=== PATIENT | female | born 1945 | race Caucasian/White ===

== ENCOUNTER → 2018-03-14 15:36 | Outpatient (CLI) | payer MEDICARE, SELFPAY ==
[2018-03-14 18:14] LABS: T4 Free Direct 1.09 ng/dL (0.76-1.46); Thyroid Stim Hormone (TSH) 0.64 uIU/mL (0.358-3.74)
== END ==
PROVIDERS: Family Provider Family Medicine; PCP Family Medicine; Visit Provider Family Medicine
DX: E04.1 Nontoxic single thyroid nodule (principal)
CPT/HCPCS: 84439; 84443

== ENCOUNTER → 2018-03-17 14:17 | Outpatient (CLI) | payer MEDICARE, SELFPAY ==
--- NOTE | 2018-03-17 14:24 | US_ITS ---
STUDY: THYROID ULTRASOUND REASON FOR EXAM: Female, 72 years old. Nodule TECHNIQUE: Ultrasound evaluation of the thyroid was performed with real-time and static garcia-scale imaging. COMPARISON: None. FINDINGS: RIGHT LOBE: The right lobe of the thyroid gland measures 5.3 x 2.0 x 1.4 cm. There is a heterogeneous echotexture. Multiple cysts noted in the right lobe, largest measures 1 x 0.6 x 0.6 cm. LEFT LOBE: The left lobe of the thyroid gland measures 5.4 x 1.5 x 1.1 cm. There is a heterogeneous echotexture. Multiple hypoechoic solid nodules noted, largest measures 0.9 x 0.9 x 0.6. ISTHMUS: The isthmus measures 3 mm. There are 2 solid isthmus nodules, larger measures 1.7 x 1.4 x 1.0 cm, smaller 0.9 x 0.9 x 0.6 cm. The regional lymph nodes are normal. US/Thyroid IMPRESSION: Enlarged heterogeneous thyroid gland with multiple solid nodules in the left lobe and isthmus. Since there are no previous studies available for comparison, further evaluation with thyroid uptake study is recommended to assess the uptake characteristics of the nodules. Multiple cysts noted in the right thyroid lobe. Electronically Signed: Abelino Ruiz MD at 8:51 EDT , Service support ,
== END ==
PROVIDERS: Family Provider Family Medicine; PCP Family Medicine; Visit Provider Family Medicine
DX: E04.1 Nontoxic single thyroid nodule (principal)
CPT/HCPCS: 76536

== ENCOUNTER 2018-05-23 10:00 | Outpatient (RCR) | payer MEDICARE, SELFPAY ==
--- NOTE | 2018-04-17 14:25 | HP.PTEVAL_ITS ---
Patient's Visit Information SALMA GONZALEZ is a 72 year old F referred to Physical Therapy by Neil Dee DO with a diagnosis of S/P Bilateral posterior hemilaminectomy L1-4, fusion L2 -3. Date of Evaluation: 04/17/18 Physical Therapist: Jama Ricks PT, - Visit Plan Frequency: 2x /Week Duration: 4 Weeks Plan: Nustep for endurance. Progressive exercise starting in hooklying or supine position. Add knee to chest stretches, hip flexor, and hamstring stretches. S/P Bilateral posterior hemilaminectomy L1-4, fusion L2-3. Per script, begin lumbar isometrics, advance ROM as tolerated after 3 weeks, wean from brace. - Subjective Subjective: This 72 y/o female presents to [facility] for s/p Bilertal posterior hemilaminectomy L1-4 and Fusion L2-3 with bone graft on 03/31/18. Pt had surgery performed at [place] [facility] by Dr. Manuel Dee. She was in the hospital for 3 days and discharged to home. She had no home health therapy. Before surgery, she had numbness/tingling and weakness in the L LE. Pt without history of falling. She had two bouts of therapy in the past year and a half to avoid surgery and this helped some. She used no device for ambulation before surgery. Functional status: difficult with sit to stand but independent, gait distance: 200 feet w/ 2WW. She has a ramp at home and lives on single level. Occupation/hobbies: would like to resume [employer] dancing in future. SOCIAL: - Pain L LE radicular Pain Intensity (Out of 10): 5 Pain Intensity Range: 10 - Objective OBSERVATION: wearing back brace, incision clean and dry with some scabbing at the inferior portion, forward flexed at hips. NEURO: Sensation intact to light touch. Patellar and achilles DTR 1+. Myotomes-see below. GAIT: ambulating with 2WW, lacking hip extension with terminal stance, slow alma. ROM: Lumbar: flexion 50% limited, Extension 75% limited. STRENGTH: R hip flexion 3+/5, Knee extension 4/5. L hip flexion 4-/5, knee extension 4/5. B ankle DF, great toe ext , and knee flexion 5/5. Flexibility: Bronson test positive bilaterally, hamstrings: Mild tight on the right side and moderate on the left. - Goals Goal 1:: Pt will demonstrate lumbar AROM with 25% limitation in all planes to improve functional mobility with self care tasks. Goal Time Frame: 4-6 Weeks Goal 2:: Ambulate with device with improved quality of gait community distances Goal Time Frame: 4-6 Weeks Goal 3:: Pt will demonstrate gross B LE strength of 4+/5 to improve strength with functional mobility. Goal Time Frame: 4-6 Weeks Goal 4:: Pt will perform ADL'S and housework tasks with min limitations maintaining posture Goal Time Frame: 4-6 Weeks Goal 5:: Pt will be independent with HEP to sustain gains made in therapy. Goal Time Frame: 4-6 Weeks - Rehabilitation Potential Physical Therapy Diagnosis: PT is 72 y/o female s/p bilateral posterior hemilaminectomy L1-4, fusion L2-[address] Dee on 03/31/18. She has a long history of L LE numbness and weakness before surgery. Objective testing shows that she is lacking lumbar ROM (as expected after surgery), decreased hip mobility, and LE weakness. She is having activity restrictions with her ambulation distance, and difficulty with functional transfers. She is having limited participation with her community ambulation and completing her hobbies. Pt's potential for an ideal outcome is good but may be limited due the chronicity of weakness prior to surgery. Pt will benefit from skilled PT to address the above impairments to maximize pt's functional potential. Rehabilitation Potential: Good - Anticipated Interventions Patient/Client Instruction: Educate patient on: Condition, Plan of Care For the Purpose of:: To decrease pain, To increase ROM, To improve muscle performance and motor function, To improve ability to perform ADL's, To increase tolerance to activity/condition/position, To improve performance and independence with ADL's, To improve ability of physical actions for home/ community/work/leisure, To increase flexibility/ROM, To improve endurance, To improve balance Therapeutic Exercise to Include: Strength training, Endurance training, Balance training, Body mechanics, Postural training, Flexibilty training, Gait and locomotor training, Active ROM, Dynamic Lumbar Stabilization For the Purpose of:: To decrease pain, To increase ROM, To improve muscle performance and motor function, To improve ability to perform ADL's, To increase tolerance to activity/condition/position, To improve performance and independence with ADL's, To improve ability of physical actions for home/ community/work/leisure, To improve gait and locomotor functions, To decrease soft tissue restriction, To increase flexibility/ROM, To improve endurance, To improve balance, To assume or resume ADL's Cryotherapy (ice pack, ice massage): Yes Thermo therapy (hot pack): Yes For the Purpose of:: To decrease pain, To increase ROM, To improve muscle performance and motor function, To improve ability to perform ADL's, To decrease soft tissue restriction, To increase flexibility/ROM Thank you for the opportunity to evaluate your patient. For Medicare and Medicare HMO plans, please review the plan of care and approve it. It will need to be FAXED BACK to us at [phone] for Medicare purposes. Please let me know if there are questions or concerns regarding this plan of care. Physician Signature: Date:
--- NOTE | 2018-10-20 10:55 | HP.PT.NRP ---
HP - Discharge Summary (1) - Patient Information SALMA GONZALEZ was seen in my office for initial evaluation on 04/17/18. The following Plan of Care was established for this patient: Initial Frequency: 2x /Week Initial Duration: 4 Weeks - Anticipated Interventions Patient/Client Instruction: Educate patient on: Condition, Plan of Care For the Purpose of:: To decrease pain, To increase ROM, To improve muscle performance and motor function, To improve ability to perform ADL's, To increase tolerance to activity/condition/position, To improve performance and independence with ADL's, To improve ability of physical actions for home/community/work/leisure, To increase flexibility/ROM, To improve endurance, To improve balance Therapeutic Exercise to Include: Strength training, Endurance training, Balance training, Body mechanics, Postural training, Flexibilty training, Gait and locomotor training, Active ROM, Dynamic Lumbar Stabilization For the Purpose of:: To decrease pain, To increase ROM, To improve muscle performance and motor function, To improve ability to perform ADL's, To increase tolerance to activity/condition/position, To improve performance and independence with ADL's, To improve ability of physical actions for home/community/work/leisure, To improve gait and locomotor functions, To decrease soft tissue restriction, To increase flexibility/ROM, To improve endurance, To improve balance, To assume or resume ADL's Cryotherapy (ice pack, ice massage): Yes Thermo therapy (hot pack): Yes For the Purpose of:: To decrease pain, To increase ROM, To improve muscle performance and motor function, To improve ability to perform ADL's, To decrease soft tissue restriction, To increase flexibility/ROM This patient was last seen in our office 05/23/18. Pertinent comments regarding their Physical therapy will appear below: Patient was seen for PT following lumbar surgery but patient pain presisted thus underwent further diagnostics and return to MD At this point I will be discontinuing this patient from physical therapy. I would be happy to see this patient again in the future if found appropriate by the physician. Thank you! Jama Ricks, PT,
== END 2018-05-23 19:00 | disposition home or self-care (01) ==
LOC: PT 10:00
PROVIDERS: Family Provider Family Medicine; PCP Family Medicine; Visit Provider Orthopaedic Surgery
DX: M48.062 Spinal stenosis, lumbar region with neurogenic claudication (principal)
CPT/HCPCS: 97110; 97162; 97530

== ENCOUNTER 2018-05-27 17:32 | Inpatient (IN) | payer MEDICARE, SELFPAY ==
[2018-05-27 17:33] VITALS: BP 156/99; PULSE 67; RESP 14; TEMP 36.6; O2SAT 97; BMI 29.6
[2018-05-27] MEDS: 0.9% Normal Saline 1,000 ML 150 ML IV (19:31)
[2018-05-27 19:32] VITALS: BP 176/85
[2018-05-27] MEDS: Ondansetron 4 MG/2 ML Vial IV (19:40)
[2018-05-27] MEDS: HYDROmorphone 1 MG/ML Syringe IV (19:40)
[2018-05-27 19:46] LABS: Absolute Lymphocyte Count 2.27 X10^3/ul (0.83-4.51); Absolute Neutrophil Count 8.9 X10^3/uL (2.0-7.7); Basophil# 0.05 X10^3/uL; Basophil% 0.4 % (0-1); Eosinophil# 0.15 X10^3/uL; Eosinophils% 1.2 % (0-5); Hematocrit 46.3 % (37-47); Hemoglobin 15.8 g/dl (12.0-15.0); Lymphocyte # 2.27 X10^3/ul (4.0); Mean Corp Hgb Conc 34.1 g/gl (32-36); Mean Corpuscular Hgb 32.1 pg (27.0-32.0); Mean Corpuscular Volume 94.1 fL (81-99); Monocyte# 1.17 X10^3/uL; Monocyte% 9.3 % (0-10); Neutrophil # 8.93 X10^3/uL (2.7-7.7); Neutrophil % 70.9 % (47-70); Platelet Count 367 K/mm3 (150-450); RBC Distribution Width CV 12.6 % (11.6-14.6); RBC Distribution Width SD 42.6 fl (35.1-43.9); Red Blood Count 4.92 M/mm3 (4.2-5.4); White Blood Count 12.6 K/mm3 (4.4-11.0)
[2018-05-27 19:47] LABS: POSITIVE COUNT NO; POSITIVE DIFFERENTIAL NO; POSITIVE MORPHOLOGY NO
[2018-05-27 19:54] LABS: Anion Gap 8 (5-15); BUN 12 mg/dL (7-18); BUN/Creat Ratio 16.4 RATIO (10-20); Calcium,Total 9.7 mg/dL (8.5-10.1); Chloride 101 mmol/L (98-107); Creatinine, Serum 0.73 mg/dL (0.55-1.02); EST Glomerular Filtration Rate 83 mL/min (>60); Est Glom Filt Rate - Afr Amer 100 mL/min (>60); Estimated Creatinine Clearance 45.09 ml/min; Glucose 109 mg/dL (74-106); Potassium 3.4 mmol/L (3.5-5.1); Sodium Level 139 mmol/L (136-145)
--- NOTE | 2018-05-27 20:20 | ED.VISSUMM ---
- ER Visit Summary Date of Service: 05/27/18 Chief Complaint: [Back pain] History of Present Illness: The patient is a 73 F [presents the emergency department complaint of back pain ?4 weeks. Patient states that she had surgery 8 weeks ago with a Dr. Manuel Dee at the [facility]. Patient had a decompression of L1 through L4 and a bony fusion. Patient states she did well for the first 4 weeks but then developed progressively worsening back pain into her low back and left buttock and left thigh.] Patient denies any significant weakness in the left leg however she states that she has history of a foot drop on the left side. Patient denies any change in bowel or bladder function. She denies any fevers. Patient is on Xarelto for history of atrial fibrillation. Physical Examination: [HEENT-PERRLA, EOMI. Cranial nerves II through XII grossly intact. TMs clear. Mucous membranes moist. No adenopathy. Cardiovascular-regular rate and rhythm without murmur or ectopy Lungs-clear to auscultation, chest wall stable without crepitus or subcu emphysema Abdomen-normoactive bowel sounds, soft, nontender, no rebound or rigidity, no peritoneal signs. Back exam-patient does have some tenderness over the area of the incision in her lumbar spine. Patient has negative straight leg raises. Patient's deep tendon reflexes are plus 2 out of 4 bilaterally at the patella and plus 1 out of 4 bilaterally at the Achilles. Patient has normal L5 extension on the right and decreased L5 extension on the left. Extremities-intact ?4, normal range of motion, normal pulses, atraumatic] Test Results: [CBC with differential obtained showed a white count of 12.6, hemoglobin 15.8, hematocrit 46, platelets 367. Chemistries unremarkable.] Emergency Department Course and Treatment: [Patient was medicated with Dilaudid and Zofran and had good pain relief. Case was discussed with who was covering for Dr. Manuel Dee. Patient will be admitted to our hospitalist group for pain management and MRI to rule out epidural hematoma versus abscess versus other cause of her continued worsening pain.] Treatment Plan: [Admit] Disposition: [Admit] Impression: [Back pain Postop lumbar decompression and fusion] This note was generated with Aqua[employer] dictation software. It may contain incorrect words, spelling, and punctuation that were not noted in review of the chart prior to signing ED Disposition - Plan for ED Patient: Chief Complaint: Back
--- NOTE | 2018-05-27 20:38 | PCM.HP.STD ---
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 The patient is a 73 year old F with past medical history as mentioned above presented to the emergency room because of back pain. She had back surgery which involves L3-L4 decompression and bony fusion of L2 and L3 around 8 weeks ago at [facility]. After her surgery, she did very well and she was ambulating without difficulties until about 3 weeks ago after she had too busy weekends with weddings and family visiting from outside the state. Since about 3 weeks, she has been complaining of progressive low back pain, in the middle of her lower spine, extends, rather than radiating, to her left hip and left thigh, 9 out of 10 in severity, somewhat relieved by standing and walking, aggravated by sitting for long time and associated with generalized weakness and difficulty ambulating. She mentioned that her pain is nonradiating but the same pain is on her left hip as well as lateral left thigh. The pain has been progressive without any improvement and today, she went to her PCPs office who requested her to come to the emergency department. She tried to get hold of her surgeon at [facility] but she could not get an early appointment to see him. She denied associated leg numbness or tingling, denied focal leg weakness. Denied mechanical fall or trauma. Denied urinary or stool incontinence. Denies fever chills. In the emergency department, her blood pressure was not elevated, other vital signs were stable. Routine blood work was remarkable for mild leukocytosis and potassium of 3.4, otherwise normal. She is being admitted for intractable low back pain in context of recent history of back surgery with lumbar spine decompression and bony fusion. Past Medical History Past Medical History (Chronic Problems): Chronic Problems Atrial fibrillation and flutter (Chronic) Calculus of kidney and ureter (Chronic) HTN (hypertension) (Chronic) Medical History: Medical History Atrial fibrillation and flutter (Chronic) I48.91, I48.92 HTN (hypertension) (Chronic) I10 Allergies No Known Allergies Allergy (Verified 05/27/18 17:33) Home Medications: Ambulatory Orders Medication Instructions Recorded Lactobacillus Acidophilus 1 ea PO DAILY 01/23/17 [Acidophilus] Rivaroxaban [Xarelto] 20 mg PO DAILY 01/23/17 Calcium Carb/Vitamin D [Os-Jarrett 1 tab PO BID 04/24/17 500MG + D] Glucosamine/MSM/Chondroitin A 1 ea PO BID 04/24/17 [Glucosamine Chondroit MSM Tab] diltiazem CD 120 mg 120 mg PO DAILY #90 cap 12/09/17 capsule,extended release 24 hr magnesium oxide 400 mg tablet 400 mg PO DAILY 30 Days #30 12/09/17 potassium citrate ER 5 mEq (540 540 mg PO DAILY 30 Days #30 12/09/17 mg) tablet,extended release flecainide 50 mg tablet 50 mg PO Q12H #180 tab 05/16/18 Surgical History: cholecystectomy, hysterectomy, - - Back surgery. 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 Denies: Anorexia, Chills, Fever Eyes: Denies: Blurred vision, Double vision, Drainage, Redness HEENT: Denies: Difficulty Hearing, Ear Pain, Eye Pain, Nasal Congestion, Sore Throat Cardiovascular: Denies: Chest Pain, Chest Pressure, Chest Tightness, Heaviness, Light Headedness, Palpitations, Syncope Respiratory: Denies: Cough, Pleuritic Pain, Shortness of Breath, Sputum production, Wheezing Gastrointestinal: Denies: Abdominal Pain, Constipation, Diarrhea, Nausea, Vomiting Genitourinary: Denies: Dysuria, Frequency, Hematuria Musculoskeletal: Reports: Back Pain. Denies: Arm Pain, Foot Pain, Hand Pain, Neck Pain Skin: Denies: Dryness, Rash Neurological: Denies: Balance problems, Double vision, Change in Speech, Slurred speech, Confusion, Focal weakness, Headaches, Incoordination, Numbness Psychiatric: Denies: Anxiety, Depression Endocrine: Denies: Change in Body Habitus, Polydipsia VTE Information - Inpt Only VTE Present on Admission: No VTE Mechan Device Prophylaxis: None VTE Pharm Prophylaxis ordered?: No - Physical Exam General: Alert, Oriented x3, Cooperative, - - She is in mild to moderate pain. HEENT: Atraumatic, PERRLA, EOMI, Normocephalic Oral: Moist Mucosa, No Gingival or Mucosal Lesions/ Ulcerations Neck: Supple, No JVD, Negative Carotid Bruits, Trachea Midline, Thyroid Normal Size and Texture Lungs: Clear to auscultation, No rhonchi, No wheeze, No rales, Diminished Cardiovascular: Normal S1, Normal S2, No murmurs, PMI Normal, Irregular Rate Abdomen: Bowel Sounds Present, Soft, Non Tender, Non-Distended, No Hepato-splenomegaly Extremities: No clubbing, No cyanosis, No edema Skin: No rashes, No breakdown, - - Lower back: Surgical scar is clean and dry, no local tenderness, no obvious wounds or drainage. Lymphatic: No Cervical, Supraclavicular, or Inguinal Adenopathy Neurological: Cranial nerves II-XII grossly intact, Motor Exam 5/5 strength throughout Psych/Mental Status: Normal Affect, Appropriate, Alert and oriented to time, place, person, mood and affect Vital Signs Temp Pulse Resp BP Pulse Ox 97.8 F 67 14 176/85 H 97 05/27/18 17:33 05/27/18 17:33 05/27/18 17:33 05/27/18 19:32 05/27/18 17:33 Oxygen Delivery Method Room Air Weight: 178 lb Body Mass Index (BMI) 29.6 Finger Stick Blood Glucose 102 Laboratory Tests Past 24 Hrs 05/27/18 05/27/18 19:30 19:30 WBC 12.6 H RBC 4.92 Hgb 15.8 H Hct 46.3 MCV 94.1 MCH 32.1 H MCHC 34.1 RDW 12.6 RDW Differential 42.6 Plt Count 367 MPV 10.0 Immature Gran % (Auto) 0.200 Neut % (Auto) 70.9 H Lymph % (Auto) 18.0 L Pacific % (Auto) 9.3 Eos % (Auto) 1.2 Baso % (Auto) 0.4 Absolute Neuts (auto) 8.9 H Absolute Lymphs (auto) 2.27 Total Counted Not Reportable Sodium 139 Potassium 3.4 L Chloride 101 Carbon Dioxide 30.0 Anion Gap 8 BUN 12 Creatinine 0.73 Estim Creat Clear Calc 45.09 Est GFR (MDRD) Af Amer 100 Est GFR (MDRD) Non-Af 83 BUN/Creatinine Ratio 16.4 Glucose 109 H Calcium 9.7 Assessment/Plan This is a 73 years old female patient presented to the medicine because of intractable progressive low back pain in context of recent history of back surgery with L1-L4 lumbar spine decompression and bony fusion of L2 on L3 and she is being admitted for evaluation #1 intractable low back pain: With recent history of back surgery with L1-L4 lumbar spine decompression and bony fusion of L2 and L3 and this was done 8 weeks ago at [facility]. Pain is extending to her left hip as well as left lateral thigh. No focal deficit on exam, no bowel or bladder continence. Routine blood work was notable for mild leukocytosis and potassium 3.4. Leukocytosis likely because of pain and stress, no evidence of infection. [facility] monitoring, ambulate as tolerated, IV Dilaudid as needed for pain, OxyIR p.o. for pain, IV fluids, IV antiemetics, repeat CBC and BMP tomorrow morning, MRI lumbar spine tomorrow morning, PT OT evaluation and treatment. #2 hypertension: Blood pressure stable, continue Cardizem #3 chronic atrial fibrillation: Rate stable, continue Cardizem and flecainide for rate control, continue Xarelto for anticoagulation. #4 DVT prophylaxis: Continue Xarelto. This note was generated with Kivivi dictation software. It may contain incorrect words, spelling, and punctuation that were not noted in checking the note before signing. Code Visit Inpatient E&M: 12234 Init Hosp L3
--- NOTE | 2018-05-27 20:42 | ED.DCSUM_ITS ---
- ER Visit Summary Date of Service: 05/27/18 Chief Complaint: [Back pain] History of Present Illness: The patient is a 73 F [presents the emergency department complaint of back pain ?4 weeks. Patient states that she had surgery 8 weeks ago with a Dr. Manuel Dee at the [facility]. Patient had a decompression of L1 through L4 and a bony fusion. Patient states she did well for the first 4 weeks but then developed progressively worsening back pain into her low back and left buttock and left thigh.] Patient denies any significant weakness in the left leg however she states that she has history of a foot drop on the left side. Patient denies any change in bowel or bladder function. She denies any fevers. Patient is on Xarelto for history of atrial fibrillation. Physical Examination: [HEENT-PERRLA, EOMI. Cranial nerves II through XII grossly intact. TMs clear. Mucous membranes moist. No adenopathy. Cardiovascular-regular rate and rhythm without murmur or ectopy Lungs-clear to auscultation, chest wall stable without crepitus or subcu emphysema Abdomen-normoactive bowel sounds, soft, nontender, no rebound or rigidity, no peritoneal signs. Back exam-patient does have some tenderness over the area of the incision in her lumbar spine. Patient has negative straight leg raises. Patient's deep tendon reflexes are plus 2 out of 4 bilaterally at the patella and plus 1 out of 4 bilaterally at the Achilles. Patient has normal L5 extension on the right and decreased L5 extension on the left. Extremities-intact ?4, normal range of motion, normal pulses, atraumatic] Test Results: [CBC with differential obtained showed a white count of 12.6, hemoglobin 15.8, hematocrit 46, platelets 367. Chemistries unremarkable.] Emergency Department Course and Treatment: [Patient was medicated with Dilaudid and Zofran and had good pain relief. Case was discussed with who was covering for Dr. Manuel Dee. Patient will be admitted to our hospitalist group for pain management and MRI to rule out epidural hematoma versus abscess versus other cause of her continued worsening pain.] Treatment Plan: [Admit] Disposition: [Admit] Impression: [Back pain Postop lumbar decompression and fusion] This note was generated with Metaboli dictation software. It may contain incorrect words, spelling, and punctuation that were not noted in review of the chart prior to signing ED Disposition - Plan for ED Patient: Chief Complaint: Back
--- NOTE | 2018-05-27 20:48 | HP.PCM_ITS ---
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 The patient is a 73 year old F with past medical history as mentioned above presented to the emergency room because of back pain. She had back surgery which involves L3-L4 decompression and bony fusion of L2 and L3 around 8 weeks ago at [facility]. After her surgery, she did very well and she was ambulating without difficulties until about 3 weeks ago after she had too busy weekends with weddings and family visiting from outside the state. Since about 3 weeks, she has been complaining of progressive low back pain, in the middle of her lower spine, extends, rather than radiating, to her left hip and left thigh, 9 out of 10 in severity, somewhat relieved by standing and walking, aggravated by sitting for long time and associated with generalized weakness and difficulty ambulating. She mentioned that her pain is nonradiating but the same pain is on her left hip as well as lateral left thigh. The pain has been progressive without any improvement and today, she went to her PCPs office who requested her to come to the emergency department. She tried to get hold of her surgeon at [facility] but she could not get an early appointment to see him. She denied associated leg numbness or tingling, denied focal leg weakness. Denied mechanical fall or trauma. Denied urinary or stool incontinence. Denies fever chills. In the emergency department, her blood pressure was not elevated, other vital signs were stable. Routine blood work was remarkable for mild leukocytosis and potassium of 3.4, otherwise normal. She is being admitted for intractable low back pain in context of recent history of back surgery with lumbar spine decompression and bony fusion. Past Medical History Past Medical History (Chronic Problems): Chronic Problems Atrial fibrillation and flutter (Chronic) Calculus of kidney and ureter (Chronic) HTN (hypertension) (Chronic) Medical History: Medical History Atrial fibrillation and flutter (Chronic) I48.91, I48.92 HTN (hypertension) (Chronic) I10 Allergies No Known Allergies Allergy (Verified 05/27/18 17:33) Home Medications: Ambulatory Orders Medication Instructions Recorded Lactobacillus Acidophilus 1 ea PO DAILY 01/23/17 [Acidophilus] Rivaroxaban [Xarelto] 20 mg PO DAILY 01/23/17 Calcium Carb/Vitamin D [Os-Jarrett 1 tab PO BID 04/24/17 500MG + D] Glucosamine/MSM/Chondroitin A 1 ea PO BID 04/24/17 [Glucosamine Chondroit MSM Tab] diltiazem CD 120 mg 120 mg PO DAILY #90 cap 12/09/17 capsule,extended release 24 hr magnesium oxide 400 mg tablet 400 mg PO DAILY 30 Days #30 12/09/17 potassium citrate ER 5 mEq (540 540 mg PO DAILY 30 Days #30 12/09/17 mg) tablet,extended release flecainide 50 mg tablet 50 mg PO Q12H #180 tab 05/16/18 Surgical History: cholecystectomy, hysterectomy, - - Back surgery. 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 Denies: Anorexia, Chills, Fever Eyes: Denies: Blurred vision, Double vision, Drainage, Redness HEENT: Denies: Difficulty Hearing, Ear Pain, Eye Pain, Nasal Congestion, Sore Throat Cardiovascular: Denies: Chest Pain, Chest Pressure, Chest Tightness, Heaviness, Light Headedness, Palpitations, Syncope Respiratory: Denies: Cough, Pleuritic Pain, Shortness of Breath, Sputum production, Wheezing Gastrointestinal: Denies: Abdominal Pain, Constipation, Diarrhea, Nausea, Vomiting Genitourinary: Denies: Dysuria, Frequency, Hematuria Musculoskeletal: Reports: Back Pain. Denies: Arm Pain, Foot Pain, Hand Pain, Neck Pain Skin: Denies: Dryness, Rash Neurological: Denies: Balance problems, Double vision, Change in Speech, Slurred speech, Confusion, Focal weakness, Headaches, Incoordination, Numbness Psychiatric: Denies: Anxiety, Depression Endocrine: Denies: Change in Body Habitus, Polydipsia VTE Information - Inpt Only VTE Present on Admission: No VTE Mechan Device Prophylaxis: None VTE Pharm Prophylaxis ordered?: No - Physical Exam General: Alert, Oriented x3, Cooperative, - - She is in mild to moderate pain. HEENT: Atraumatic, PERRLA, EOMI, Normocephalic Oral: Moist Mucosa, No Gingival or Mucosal Lesions/ Ulcerations Neck: Supple, No JVD, Negative Carotid Bruits, Trachea Midline, Thyroid Normal Size and Texture Lungs: Clear to auscultation, No rhonchi, No wheeze, No rales, Diminished Cardiovascular: Normal S1, Normal S2, No murmurs, PMI Normal, Irregular Rate Abdomen: Bowel Sounds Present, Soft, Non Tender, Non-Distended, No Hepato- splenomegaly Extremities: No clubbing, No cyanosis, No edema Skin: No rashes, No breakdown, - - Lower back: Surgical scar is clean and dry, no local tenderness, no obvious wounds or drainage. Lymphatic: No Cervical, Supraclavicular, or Inguinal Adenopathy Neurological: Cranial nerves II-XII grossly intact, Motor Exam 5/5 strength throughout Psych/Mental Status: Normal Affect, Appropriate, Alert and oriented to time, place, person, mood and affect Vital Signs Temp Pulse Resp BP Pulse Ox 97.8 F 67 14 176/85 H 97 05/27/18 17:33 05/27/18 17:33 05/27/18 17:33 05/27/18 19:32 05/27/18 17:33 Oxygen Delivery Method Room Air Weight: 178 lb Body Mass Index (BMI) 29.6 Finger Stick Blood Glucose 102 Laboratory Tests Past 24 Hrs 05/27/18 05/27/18 19:30 19:30 WBC 12.6 H RBC 4.92 Hgb 15.8 H Hct 46.3 MCV 94.1 MCH 32.1 H MCHC 34.1 RDW 12.6 RDW Differential 42.6 Plt Count 367 MPV 10.0 Immature Gran % (Auto) 0.200 Neut % (Auto) 70.9 H Lymph % (Auto) 18.0 L [place] % (Auto) 9.3 Eos % (Auto) 1.2 Baso % (Auto) 0.4 Absolute Neuts (auto) 8.9 H Absolute Lymphs (auto) 2.27 Total Counted Not Reportable Sodium 139 Potassium 3.4 L Chloride 101 Carbon Dioxide 30.0 Anion Gap 8 BUN 12 Creatinine 0.73 Estim Creat Clear Calc 45.09 Est GFR (MDRD) Af Amer 100 Est GFR (MDRD) Non-Af 83 BUN/Creatinine Ratio 16.4 Glucose 109 H Calcium 9.7 Assessment/Plan This is a 73 years old female patient presented to the medicine because of intractable progressive low back pain in context of recent history of back surgery with L1-L4 lumbar spine decompression and bony fusion of L2 on L3 and she is being admitted for evaluation #1 intractable low back pain: With recent history of back surgery with L1-L4 lumbar spine decompression and bony fusion of L2 and L3 and this was done 8 weeks ago at [facility]. Pain is extending to her left hip as well as left lateral thigh. No focal deficit on exam, no bowel or bladder continence. Routine blood work was notable for mild leukocytosis and potassium 3.4. Leukocytosis likely because of pain and stress, no evidence of infection. Plan : [facility], cardiac monitoring, ambulate as tolerated, IV Dilaudid as needed for pain, OxyIR p.o. for pain, IV fluids, IV antiemetics, repeat CBC and BMP tomorrow morning, MRI lumbar spine tomorrow morning, PT OT evaluation and treatment. #2 hypertension: Blood pressure stable, continue Cardizem #3 chronic atrial fibrillation: Rate stable, continue Cardizem and flecainide for rate control, continue Xarelto for anticoagulation. #4 DVT prophylaxis: Continue Xarelto. This note was generated with [employer] dictation software. It may contain incorrect words, spelling, and punctuation that were not noted in checking the note before signing. Code Visit Inpatient E&M: 07302 Init Hosp L3
[2018-05-27 21:00] VITALS: BP 164/71; PULSE 61; RESP 18; O2SAT 96
--- NOTE | 2018-05-27 21:41 | MRI_ITS ---
STUDY: MRI LUMBAR SPINE WITHOUT CONTRAST REASON FOR EXAM: Female, 73 years old. LBP, FUSION, S/P DECOMPRESSION 8 WEEKS AGO. TECHNIQUE: Standardized fat and water weighted pulse sequences were obtained in the sagittal and axial planes. COMPARISON: September 12, 2017 FINDINGS: T12-L1: Normal endplates. Normal disc height, hydration and morphology. Normal bilateral facet joints. Normal central canal and bilateral lateral recesses. Normal bilateral intervertebral neural foramina. Normal lumbar lordosis. There is no substantial scoliosis. Normal conus medullaris that terminates at the L1/L2 L1-2: There is moderate disc space narrowing and endplate spondylosis. There is a moderate disc bulge. There is a decompression laminectomy. The central canal is widely patent. There is moderate bilateral foraminal stenosis. L2-3: There is moderate disc space narrowing and endplate spondylosis. There is stable grade 1 anterolisthesis with disc bulging. There is decompression laminectomy with widely patent central canal now. There is mild bilateral foraminal stenosis. L3-4: There is moderate disc space narrowing and disc loss. There is a mild disc bulge and facet arthropathy without significant central canal stenosis. There is mild bilateral foraminal stenosis. There is new moderate compression deformity at L4 with edema, consistent with acute fracture. L4-5: There is moderate disc space narrowing and endplate spondylosis. There is disc osteophyte complex asymmetric to the left with minimal right and moderate left foraminal stenosis. There is facet arthropathy with mild central canal stenosis. L5-S1: There is moderate disc space narrowing and endplate spondylosis. There is a disc osteophytic complex and facet arthropathy without significant central canal stenosis. There is mild right and minimal left foraminal stenosis. MRI/Spine Lumbar (Routine) IMPRESSION: Acute moderate compression fracture at L4. Decompression laminectomies. Electronically Signed: Lyndsay Velazquez MD at 9:02 EDT Tel , Service support ,
[2018-05-27 21:43] VITALS: BMI 29.7
[2018-05-27 21:44] VITALS: BMI 29.8
[2018-05-27 22:02] VITALS: BP 169/97; PULSE 62; RESP 18; TEMP 36.7; O2SAT 98
[2018-05-27] MEDS: oxyCODONE 5 MG Tablet PO (22:03)
[2018-05-27] MEDS: Acetaminophen 325 MG Tablet 650 MG PO (22:03)
[2018-05-27] MEDS: 0.9% Normal Saline 1,000 ML 75 ML IV (22:13)
[2018-05-27] MEDS: Docusate Sodium 100 MG Capsule PO (22:13)
[2018-05-27] MEDS: Flecainide 100 MG Tablet 50 MG PO (22:17)
[2018-05-27 22:48] VITALS: PULSE 67
[2018-05-28] VITALS (11 sets, daily range): BP systolic 140–171; BP diastolic 75–92; PULSE 47–64; RESP 16–18; TEMP 36.6–37; O2SAT 96–99
[2018-05-28] MEDS: HYDROmorphone 1 MG/ML Syringe IV ×4 (03:02→21:47)
[2018-05-28] MEDS: 0.9% NaCl Peripheral Flush Adult/Peds IV (03:02)
[2018-05-28] MEDS: Acetaminophen 325 MG Tablet 650 MG PO ×3 (06:55→21:36)
[2018-05-28] MEDS: oxyCODONE 5 MG Tablet PO ×3 (06:56→21:35)
[2018-05-28 07:44] LABS: Absolute Lymphocyte Count 2.41 X10^3/ul (0.83-4.51); Absolute Neutrophil Count 5.5 X10^3/uL (2.0-7.7); Basophil# 0.03 X10^3/uL; Basophil% 0.3 % (0-1); Eosinophil# 0.17 X10^3/uL; Eosinophils% 1.9 % (0-5); Hematocrit 45.7 % (37-47); Hemoglobin 14.9 g/dl (12.0-15.0); Lymphocyte # 2.41 X10^3/ul (4.0); Lymphocyte % 26.8 % (19-41); Mean Corp Hgb Conc 32.6 g/gl (32-36); Mean Corpuscular Volume 95.2 fL (81-99); Mean Platelet Vol. 10.1 fl (6.2-12.0); Monocyte# 0.83 X10^3/uL; Monocyte% 9.2 % (0-10); Neutrophil # 5.52 X10^3/uL (2.7-7.7); Neutrophil % 61.6 % (47-70); Platelet Count 328 K/mm3 (150-450); RBC Distribution Width CV 12.8 % (11.6-14.6); RBC Distribution Width SD 44.4 fl (35.1-43.9)
[2018-05-28 07:58] LABS: POSITIVE COUNT NO; POSITIVE DIFFERENTIAL NO; POSITIVE MORPHOLOGY NO
[2018-05-28 08:11] LABS: Anion Gap 8 (5-15); BUN 10 mg/dL (7-18); BUN/Creat Ratio 15.6 RATIO (10-20); Calcium,Total 8.7 mg/dL (8.5-10.1); Chloride 107 mmol/L (98-107); Creatinine, Serum 0.64 mg/dL (0.55-1.02); EST Glomerular Filtration Rate 96 mL/min (>60); Est Glom Filt Rate - Afr Amer 116 mL/min (>60); Estimated Creatinine Clearance 45.09 ml/min; Glucose 102 mg/dL (74-106); Sodium Level 141 mmol/L (136-145)
[2018-05-28] MEDS: dilTIAZem CD 120 MG Capsule PO (08:42)
[2018-05-28] MEDS: Rivaroxaban 20 MG Tablet PO (08:42)
[2018-05-28] MEDS: Flecainide 100 MG Tablet 50 MG PO ×2 (08:43→21:49)
[2018-05-28] MEDS: Docusate Sodium 100 MG Capsule PO (08:43)
[2018-05-28] MEDS: Magnesium Oxide 400 MG Tablet PO (08:43)
[2018-05-28] MEDS: 0.9% Normal Saline 1,000 ML 75 ML IV (13:29)
--- NOTE | 2018-05-28 14:46 | PCM.PN.HOSP ---
Subjective: still with back pain. helped with narcotics. denies any bowel nor bladder incontinence. Vitals/I&O's: Vital Signs Temp Pulse Resp BP Pulse Ox 36.6 C 59 L 16 150/86 H 96 05/28/18 14:00 05/28/18 14:00 05/28/18 14:00 05/28/18 14:00 05/28/18 14:00 Oxygen Delivery Method Room Air Weight: 81.148 kg Body Mass Index (BMI) 29.7 Intake and Output for Last 24 Hours 05/26/18 05/27/18 05/28/18 23:59 23:59 23:59 Intake Total 1981 Output Total 400 / 400 Balance 1582 / 1582 General: Alert, No apparent distress HEENT: Atraumatic, Normocephalic Oral: Moist Mucosa, No Gingival or Mucosal Lesions/ Ulcerations Neck: No Nodes, Thyroid Normal Size and Texture Extremities: No clubbing, No edema Musculoskeletal: No Tenderness to Palpation of Joints or Extremities, No Muscle Wasting Neurological: Motor Exam 5/5 strength throughout, Muscle tone normal, Sensory exam intact to light touch and pain Laboratory Results 05/28/18 07:16: WBC 9.0, RBC 4.80, Hgb 14.9, Hct 45.7, MCV 95.2, MCH 31.0, MCHC 32.6, RDW 12.8, RDW Differential 44.4 H, Plt Count 328, MPV 10.1, Immature Gran % (Auto) 0.200, Neut % (Auto) 61.6, Lymph % (Auto) 26.8, [place] % (Auto) 9.2, Eos % (Auto) 1.9, Baso % (Auto) 0.3, Absolute Neuts (auto) 5.5, Absolute Lymphs (auto) 2.41, Total Counted Not Reportable 05/28/18 07:16: Sodium 141, Potassium 4.0, Chloride 107, Carbon Dioxide 26.0, Anion Gap 8, BUN 10, Creatinine 0.64, Estim Creat Clear Calc 45.09, Est GFR (MDRD) Af Amer 116, Est GFR (MDRD) Non-Af 96, BUN/Creatinine Ratio 15.6, Glucose 102, Calcium 8.7 Current Medications Acetaminophen (Tylenol) 650 mg PO Q6H PRN PRN PRN Reason: Fever, headache, pain Last Admin: 07/11/18 13:23 Dose: 650 mg Diltiazem HCl (Cardizem Cd) 120 mg PO DAILY [facility] Last Admin: 05/28/18 08:42 Dose: 120 mg Docusate Sodium (Colace) 100 mg PO BID [facility] Last Admin: 05/28/18 08:43 Dose: 100 mg Flecainide Acetate (Tambocor) 50 mg PO BID [facility] Last Admin: 05/28/18 08:43 Dose: 50 mg Hydromorphone HCl (Dilaudid Inj) 1 mg IV Q4H PRN PRN PRN Reason: SEVERE PAIN (6-10/10) Last Admin: 05/28/18 08:41 Dose: 1 mg Sodium Chloride () 1,000 mls @ 75 mls/hr IV .[id number] [facility] Last Admin: 05/28/18 13:29 Dose: 75 mls/hr Magnesium Hydroxide (Milk Of Magnesia) 30 ml PO DAILY PRN PRN PRN Reason: Constipation Magnesium Oxide (Mag-Ox 400) 400 mg PO DAILY [facility] Last Admin: 05/28/18 08:43 Dose: 400 mg Ondansetron HCl (Zofran) 4 mg IV Q6H PRN PRN PRN Reason: NAUSEA/VOMITING Oxycodone HCl (Oxyir) 5 mg PO Q6H PRN PRN PRN Reason: SEVERE PAIN (6-10/10) Last Admin: 05/28/18 13:24 Dose: 5 mg Rivaroxaban (Xarelto) 20 mg PO DAILY [facility] Last Admin: 05/28/18 08:42 Dose: 20 mg Sodium Chloride () 5 - 30 ml IV UD PRN PRN Reason: SALINE FLUSH Last Admin: 05/28/18 03:02 Dose: 10 ml Medical Necessity - Tobacco Use Smoking Status: Never smoker Assessment/Plan 1. acute back pain has progressively gotten worse over the past 3 weeks 8 weeks ago she had a decompression and fusion of L2 and L3 MRI done and results pending. 2. DVT proph: anticoagulated with xarelto. Code Visit Inpatient E&M: 10657 Subs Hosp L2
--- NOTE | 2018-05-28 14:51 | PN_ITS ---
Subjective: still with back pain. helped with narcotics. denies any bowel nor bladder incontinence. Vitals/I&O's: Vital Signs Temp Pulse Resp BP Pulse Ox 36.6 C 59 L 16 150/86 H 96 05/28/18 14:00 05/28/18 14:00 05/28/18 14:00 05/28/18 14:00 05/28/18 14:00 Oxygen Delivery Method Room Air Weight: 81.148 kg Body Mass Index (BMI) 29.7 Intake and Output for Last 24 Hours 05/26/18 05/27/18 05/28/18 23:59 23:59 23:59 Intake Total 1981 Output Total 400 / 400 Balance 1582 / 1582 General: Alert, No apparent distress HEENT: Atraumatic, Normocephalic Oral: Moist Mucosa, No Gingival or Mucosal Lesions/ Ulcerations Neck: No Nodes, Thyroid Normal Size and Texture Extremities: No clubbing, No edema Musculoskeletal: No Tenderness to Palpation of Joints or Extremities, No Muscle Wasting Neurological: Motor Exam 5/5 strength throughout, Muscle tone normal, Sensory exam intact to light touch and pain Laboratory Results 05/28/18 07:16: WBC 9.0, RBC 4.80, Hgb 14.9, Hct 45.7, MCV 95.2, MCH 31.0, MCHC 32.6, RDW 12.8, RDW Differential 44.4 H, Plt Count 328, MPV 10.1, Immature Gran % (Auto) 0.200, Neut % (Auto) 61.6, Lymph % (Auto) 26.8, [place] % (Auto) 9.2, Eos % (Auto) 1.9, Baso % (Auto) 0.3, Absolute Neuts (auto) 5.5, Absolute Lymphs ( auto) 2.41, Total Counted Not Reportable 05/28/18 07:16: Sodium 141, Potassium 4.0, Chloride 107, Carbon Dioxide 26.0, Anion Gap 8, BUN 10, Creatinine 0.64, Estim Creat Clear Calc 45.09, Est GFR ( MDRD) Af Amer 116, Est GFR (MDRD) Non-Af 96, BUN/Creatinine Ratio 15.6, Glucose 102, Calcium 8.7 Current Medications Acetaminophen (Tylenol) 650 mg PO Q6H PRN PRN PRN Reason: Fever, headache, pain Last Admin: 07/11/18 13:23 Dose: 650 mg Diltiazem HCl (Cardizem Cd) 120 mg PO DAILY [facility] Last Admin: 05/28/18 08:42 Dose: 120 mg Docusate Sodium (Colace) 100 mg PO BID [facility] Last Admin: 05/28/18 08:43 Dose: 100 mg Flecainide Acetate (Tambocor) 50 mg PO BID [facility] Last Admin: 05/28/18 08:43 Dose: 50 mg Hydromorphone HCl (Dilaudid Inj) 1 mg IV Q4H PRN PRN PRN Reason: SEVERE PAIN (6-10/10) Last Admin: 05/28/18 08:41 Dose: 1 mg Sodium Chloride () 1,000 mls @ 75 mls/hr IV .[id number] [facility] Last Admin: 05/28/18 13:29 Dose: 75 mls/hr Magnesium Hydroxide (Milk Of Magnesia) 30 ml PO DAILY PRN PRN PRN Reason: Constipation Magnesium Oxide (Mag-Ox 400) 400 mg PO DAILY [facility] Last Admin: 05/28/18 08:43 Dose: 400 mg Ondansetron HCl (Zofran) 4 mg IV Q6H PRN PRN PRN Reason: NAUSEA/VOMITING Oxycodone HCl (Oxyir) 5 mg PO Q6H PRN PRN PRN Reason: SEVERE PAIN (6-10/10) Last Admin: 05/28/18 13:24 Dose: 5 mg Rivaroxaban (Xarelto) 20 mg PO DAILY [facility] Last Admin: 05/28/18 08:42 Dose: 20 mg Sodium Chloride () 5 - 30 ml IV UD PRN PRN Reason: SALINE FLUSH Last Admin: 05/28/18 03:02 Dose: 10 ml Medical Necessity - Tobacco Use Smoking Status: Never smoker Assessment/Plan 1. acute back pain * has progressively gotten worse over the past 3 weeks * 8 weeks ago she had a decompression and fusion of L2 and L3 * MRI done and results pending. 2. DVT proph: anticoagulated with xarelto. Code Visit Inpatient E&M: 04682 Subs Hosp L2
--- NOTE | 2018-05-28 15:39 | CASEMGMT ---
VALERIANO FAN Face to Face with patient for initial transition planning/care coordination assessment. RN MENG introduced self and role at [facility]. Patient lying in bed, alert and oriented. Patient willing to participate in assessment and is able to answer all questions appropriately. Care providers, pharmacy, and demographics verified. See link attached. Patient wishes to discharge home, denies need for home health at this time. Patient states she has no further needs or concerns at this time. CM to follow for discharge planning needs that may arise. Disposition Plan: Patient to discharge home with family support and follow-up plans in place. Will continue to monitor for need for HHC or outpt therapy.
[2018-05-29] VITALS (13 sets, daily range): BP systolic 132–155; BP diastolic 70–108; PULSE 47–77; RESP 16–18; TEMP 36.4–37.1; O2SAT 93–98
[2018-05-29] MEDS: 0.9% Normal Saline 1,000 ML 75 ML IV (02:21)
[2018-05-29] MEDS: HYDROmorphone 1 MG/ML Syringe IV ×2 (02:21→08:08)
[2018-05-29] MEDS: Acetaminophen 325 MG Tablet 650 MG PO ×2 (05:36→19:44)
[2018-05-29] MEDS: oxyCODONE 5 MG Tablet PO ×3 (05:36→21:53)
[2018-05-29] MEDS: 0.9% NaCl Peripheral Flush Adult/Peds IV (08:08)
--- NOTE | 2018-05-29 09:39 | PCM.PN.HOSP ---
Subjective: still with back pain and muscle spasms. States that the dilaudid helps her pain. Vitals/I&O's: Vital Signs Temp Pulse Resp BP Pulse Ox 36.8 C 60 18 154/83 H 98 05/29/18 07:52 05/29/18 07:56 05/29/18 07:52 05/29/18 07:52 05/29/18 07:52 Oxygen Delivery Method Room Air Weight: 81.148 kg Body Mass Index (BMI) 29.7 Intake and Output for Last 24 Hours 05/27/18 05/28/18 05/29/18 23:59 23:59 23:59 Intake Total 2496 / 2496 1571 / 1571 Output Total 400 / 400 Balance 2096 / 2096 1571 / 1571 General: Alert, No apparent distress, - - up at side of bed. slightly groggy. HEENT: Atraumatic, Normocephalic Musculoskeletal: - - no point spinal tenderness. bilateral paraspinal tenderness. Neurological: Motor Exam 5/5 strength throughout, Sensory exam intact to light touch and pain, - - DTR 3/4 RLE, 2/4 LLE. Psych/Mental Status: Normal Affect, Appropriate Current Medications Acetaminophen (Tylenol) 650 mg PO Q6H PRN PRN PRN Reason: Fever, headache, pain Last Admin: 05/29/18 05:36 Dose: 650 mg Cyclobenzaprine HCl (Flexeril) 10 mg PO TID PRN PRN PRN Reason: MUSCLE SPASM Diltiazem HCl (Cardizem Cd) 120 mg PO DAILY [facility] Last Admin: 05/28/18 08:42 Dose: 120 mg Docusate Sodium (Colace) 100 mg PO BID [facility] Last Admin: 05/28/18 22:00 Dose: Not Given Flecainide Acetate (Tambocor) 50 mg PO BID [facility] Last Admin: 05/28/18 21:49 Dose: 50 mg Hydromorphone HCl (Dilaudid Inj) 1 mg IV Q4H PRN PRN PRN Reason: SEVERE PAIN (6-10/10) Last Admin: 05/29/18 08:08 Dose: 1 mg Sodium Chloride () 1,000 mls @ 75 mls/hr IV .[id number] [facility] Last Admin: 05/29/18 02:21 Dose: 75 mls/hr Magnesium Hydroxide (Milk Of Magnesia) 30 ml PO DAILY PRN PRN PRN Reason: Constipation Magnesium Oxide (Mag-Ox 400) 400 mg PO DAILY [facility] Last Admin: 05/28/18 08:43 Dose: 400 mg Ondansetron HCl (Zofran) 4 mg IV Q6H PRN PRN PRN Reason: NAUSEA/VOMITING Oxycodone HCl (Oxyir) 5 mg PO Q4H PRN PRN Reason: SEVERE PAIN (6-1010) Rivaroxaban (Xarelto) 20 mg PO DAILY [facility] Last Admin: 05/28/18 08:42 Dose: 20 mg Sodium Chloride () 5 - 30 ml IV UD PRN PRN Reason: SALINE FLUSH Last Admin: 05/29/18 08:08 Dose: 10 ml Medical Necessity - Tobacco Use Smoking Status: Never smoker Assessment/Plan 1. L4 compression fracture was doing ok after surgery, then has progressively gotten worse over the past 3 weeks 8 weeks ago she had a decompression and fusion of L2 and L3 MRI didn't quantify % of compression, but on my evaluation appears to be 25-30% Page out to her spine surgeon, Dr. Dee. has component of muscle spasm too. will add flexeril. 2. DVT proph: anticoagulated with xarelto. Code Visit Inpatient E&M: 85449 Subs Hosp L2
--- NOTE | 2018-05-29 09:45 | PN_ITS ---
Subjective: still with back pain and muscle spasms. States that the dilaudid helps her pain. Vitals/I&O's: Vital Signs Temp Pulse Resp BP Pulse Ox 36.8 C 60 18 154/83 H 98 05/29/18 07:52 05/29/18 07:56 05/29/18 07:52 05/29/18 07:52 05/29/18 07:52 Oxygen Delivery Method Room Air Weight: 81.148 kg Body Mass Index (BMI) 29.7 Intake and Output for Last 24 Hours 05/27/18 05/28/18 05/29/18 23:59 23:59 23:59 Intake Total 2496 / 2496 1571 / 1571 Output Total 400 / 400 Balance 2096 / 2096 1571 / 1571 General: Alert, No apparent distress, - - up at side of bed. slightly groggy. HEENT: Atraumatic, Normocephalic Musculoskeletal: - - no point spinal tenderness. bilateral paraspinal tenderness. Neurological: Motor Exam 5/5 strength throughout, Sensory exam intact to light touch and pain, - - DTR 3/4 RLE, 2/4 LLE. Psych/Mental Status: Normal Affect, Appropriate Current Medications Acetaminophen (Tylenol) 650 mg PO Q6H PRN PRN PRN Reason: Fever, headache, pain Last Admin: 05/29/18 05:36 Dose: 650 mg Cyclobenzaprine HCl (Flexeril) 10 mg PO TID PRN PRN PRN Reason: MUSCLE SPASM Diltiazem HCl (Cardizem Cd) 120 mg PO DAILY [facility] Last Admin: 05/28/18 08:42 Dose: 120 mg Docusate Sodium (Colace) 100 mg PO BID [facility] Last Admin: 05/28/18 22:00 Dose: Not Given Flecainide Acetate (Tambocor) 50 mg PO BID [facility] Last Admin: 05/28/18 21:49 Dose: 50 mg Hydromorphone HCl (Dilaudid Inj) 1 mg IV Q4H PRN PRN PRN Reason: SEVERE PAIN (6-10/10) Last Admin: 05/29/18 08:08 Dose: 1 mg Sodium Chloride () 1,000 mls @ 75 mls/hr IV .[id number] [facility] Last Admin: 05/29/18 02:21 Dose: 75 mls/hr Magnesium Hydroxide (Milk Of Magnesia) 30 ml PO DAILY PRN PRN PRN Reason: Constipation Magnesium Oxide (Mag-Ox 400) 400 mg PO DAILY [facility] Last Admin: 05/28/18 08:43 Dose: 400 mg Ondansetron HCl (Zofran) 4 mg IV Q6H PRN PRN PRN Reason: NAUSEA/VOMITING Oxycodone HCl (Oxyir) 5 mg PO Q4H PRN PRN Reason: SEVERE PAIN (6-1010) Rivaroxaban (Xarelto) 20 mg PO DAILY [facility] Last Admin: 05/28/18 08:42 Dose: 20 mg Sodium Chloride () 5 - 30 ml IV UD PRN PRN Reason: SALINE FLUSH Last Admin: 05/29/18 08:08 Dose: 10 ml Medical Necessity - Tobacco Use Smoking Status: Never smoker Assessment/Plan 1. L4 compression fracture * was doing ok after surgery, then has progressively gotten worse over the past 3 weeks * 8 weeks ago she had a decompression and fusion of L2 and L3 * MRI didn't quantify % of compression, but on my evaluation appears to be 25-30 % * Page out to her spine surgeon, Dr. Dee. * has component of muscle spasm too. will add flexeril. 2. DVT proph: anticoagulated with xarelto. Code Visit Inpatient E&M: 00350 Subs Hosp L2
[2018-05-29] MEDS: Docusate Sodium 100 MG Capsule PO (11:08)
[2018-05-29] MEDS: dilTIAZem CD 120 MG Capsule PO (11:08)
[2018-05-29] MEDS: Magnesium Oxide 400 MG Tablet PO (11:08)
[2018-05-29] MEDS: Flecainide 100 MG Tablet 50 MG PO ×2 (11:08→21:54)
[2018-05-29] MEDS: Rivaroxaban 20 MG Tablet PO (11:08)
--- NOTE | 2018-05-29 11:50 | CASEMGMT ---
Addendum entered by Narcisa Bear 05/29/18 13:36: [facility] can take pt and will start precert. SW let pt and know. SW will continue to follow. FELICIA Renee, CATTLE FEEDER Original Note: Addendum entered by Narcisa Bear 05/29/18 12:39: SW spoke w/Kylee from [facility], pt would be responsible for 50% of the cost. SW called [facility], they do have beds. SW spoke w/pt, daughter present. SW explained that if she went to [facility] it would be covered at 50%, she would be responsible for 50%. Pt would prefer referral be sent to [facility], SW explained they have beds and will fax referral now, did let her know [facility] has no beds at present, here at [facility]. Pt states understanding. SW faxed referral to [facility], left Cyndi a message asking her to call this SW back to let SW know if they can take pt, and to go ahead and start precert. SW will continue to follow. FELICIA Renee, CATTLE FEEDER Original Note: SW spoke w/physician, he states pt will need skilled nursing placement. SW met w/pt in room, she is in agreement will need SNF placement. She would like to go to [facility]. If they do not have a bed, she would like to know if she would be covered at [facility]. If not, [facility] would be her third choice. SW called [facility], Bessie states they do not have any beds. SW called [facility], Kylee states they can look into the benefits to see how it is covered, pt is agreeable to this. SW faxed Kylee pt's insurance card. SW will continue to follow, will await call back from Kylee stinson/Jose G. FELICIA Renee, CATTLE FEEDER
[2018-05-29] MEDS: Lidocaine 5% Patch 1 PATCH TOPICAL (15:53)
[2018-05-30] VITALS (7 sets, daily range): BP systolic 135–169; BP diastolic 68–82; PULSE 56–129; RESP 18; TEMP 36.5–36.6; O2SAT 97–99
[2018-05-30] MEDS: oxyCODONE 5 MG Tablet PO ×3 (03:10→15:30)
--- NOTE | 2018-05-30 07:11 | NURSING ---
pt up to bathroom. heart rate up to140. resp notified for a ekg
--- NOTE | 2018-05-30 07:12 | EKG12_ITS ---
Test Reason : AFIB Blood Pressure : / mmHG Vent. Rate : 121 BPM Atrial Rate : 115 BPM P-R Int : 000 ms QRS Dur : 084 ms QT Int : 314 ms P-R-T Axes : 000 -38 077 degrees QTc Int : 445 ms Atrial fibrillation Left axis deviation Inferior infarct , age undetermined Abnormal ECG When compared with ECG of 25-JUN-2017 17:35, Significant changes have occurred Confirmed by SHAREE DOWNEY ([id number]), editorial manager MELL DEE ([id number]) on 06/10/2018 2:11:13 PM Referred By: Neil Dee Confirmed By:SHAREE DOWNEY
[2018-05-30] MEDS: dilTIAZem CD 120 MG Capsule PO (07:19)
--- NOTE | 2018-05-30 07:19 | NURSING ---
pt returned from bathroom. pt placed back in bed. oral 1000 dose of cardizem given and ekg done. vitals done
--- NOTE | 2018-05-30 08:58 | PCM.PN.HOSP ---
Subjective: still with back pain. at 0700, developed afib with RVR with HR up to 160s. Vitals/I&O's: Vital Signs Temp Pulse Resp BP Pulse Ox 36.6 C 122 H 18 169/82 H 97 05/30/18 07:21 05/30/18 07:21 05/30/18 07:21 05/30/18 07:21 05/30/18 07:21 Oxygen Delivery Method Room Air Weight: 81.148 kg Body Mass Index (BMI) 29.7 Intake and Output for Last 24 Hours 05/28/18 05/29/18 05/30/18 23:59 23:59 23:59 Intake Total 2496 / 2496 2400 / 2400 60 / 60 Output Total 400 / 400 400 / 400 100 / 100 Balance 2095 / 2095 -40 / -40 General: Alert, No apparent distress HEENT: Atraumatic, Normocephalic Oral: Moist Mucosa, No Gingival or Mucosal Lesions/ Ulcerations Neurological: Deep Tendon Reflexes 2+/4 and Symmetrical, Motor Exam 5/5 strength throughout, Sensory exam intact to light touch and pain Laboratory Results 05/29/18 11:40: Vitamin D 25-Hydroxy Pending Current Medications Acetaminophen (Tylenol) 650 mg PO Q6H PRN PRN PRN Reason: Fever, headache, pain Last Admin: 05/29/18 19:44 Dose: 650 mg Cyclobenzaprine HCl (Flexeril) 10 mg PO TID PRN PRN PRN Reason: MUSCLE SPASM Last Admin: 05/30/18 03:10 Dose: 10 mg Diltiazem HCl (Cardizem Cd) 120 mg PO DAILY [facility] Last Admin: 05/30/18 07:19 Dose: 120 mg Docusate Sodium (Colace) 100 mg PO BID [facility] Last Admin: 05/29/18 21:55 Dose: Not Given Flecainide Acetate (Tambocor) 50 mg PO BID [facility] Last Admin: 05/29/18 21:54 Dose: 50 mg Hydromorphone HCl (Dilaudid Inj) 0.5 mg IV Q8H PRN PRN Reason: SEVERE PAIN (6-10/10) Lidocaine (Lidoderm Patch) 1 patch TOPICAL DAILY [facility] PRN Reason: Protocol Last Admin: 05/29/18 15:53 Dose: 1 patch Magnesium Hydroxide (Milk Of Magnesia) 30 ml PO DAILY PRN PRN PRN Reason: Constipation Magnesium Oxide (Mag-Ox 400) 400 mg PO DAILY [facility] Last Admin: 05/29/18 11:08 Dose: 400 mg Ondansetron HCl (Zofran) 4 mg IV Q6H PRN PRN PRN Reason: NAUSEA/VOMITING Oxycodone HCl (Oxyir) 5 - 10 mg PO Q4H PRN PRN Reason: SEVERE PAIN (6-10/10) Last Admin: 05/30/18 03:10 Dose: 10 mg Rivaroxaban (Xarelto) 20 mg PO DAILY [facility] Last Admin: 05/29/18 11:08 Dose: 20 mg Sodium Chloride () 5 - 30 ml IV UD PRN PRN Reason: SALINE FLUSH Last Admin: 05/29/18 08:08 Dose: 10 ml Medical Necessity - Tobacco Use Smoking Status: Never smoker Assessment/Plan 1. L4 compression fracture was doing ok after surgery, then has progressively gotten worse over the past 3 weeks 8 weeks ago she had a decompression and fusion of L2 and L3 MRI didn't quantify % of compression, but on my evaluation appears to be 25-30% I received a call from Dr. Dee's office and discussed with his nurse practitioner on 05/29. Explained the L4 compression fractures and no radiculopathy. Explained no acute surgical needs are necessary and no kyphoplasty. They also stated that kyphoplasty would be difficult given her surgery and approach if it were necessary. Recommended wearing a chairback brace, to which patient has already and for pain control. has component of muscle spasm too. will add flexeril. 2. Afib with RVR began at 0700 today was up to the 160s, now down 100 continue with dilt and flecanide 3. DVT proph: anticoagulated with xarelto. 4. Debility: pending precert. Hopefully today or tomorrow. Code Visit Inpatient E&M: 78826 Subs Hosp L2
[2018-05-30 09:02] LABS: Vitamin D,25 Hydroxy 43.7 ng/mL (29.95-100.01)
--- NOTE | 2018-05-30 09:03 | PN_ITS ---
Subjective: still with back pain. at 0700, developed afib with RVR with HR up to 160s. Vitals/I&O's: Vital Signs Temp Pulse Resp BP Pulse Ox 36.6 C 122 H 18 169/82 H 97 05/30/18 07:21 05/30/18 07:21 05/30/18 07:21 05/30/18 07:21 05/30/18 07:21 Oxygen Delivery Method Room Air Weight: 81.148 kg Body Mass Index (BMI) 29.7 Intake and Output for Last 24 Hours 05/28/18 05/29/18 05/30/18 23:59 23:59 23:59 Intake Total 2496 / 2496 2400 / 2400 60 / 60 Output Total 400 / 400 400 / 400 100 / 100 Balance 2095 / 2095 -40 / -40 General: Alert, No apparent distress HEENT: Atraumatic, Normocephalic Oral: Moist Mucosa, No Gingival or Mucosal Lesions/ Ulcerations Neurological: Deep Tendon Reflexes 2+/4 and Symmetrical, Motor Exam 5/5 strength throughout, Sensory exam intact to light touch and pain Laboratory Results 05/29/18 11:40: Vitamin D 25-Hydroxy Pending Current Medications Acetaminophen (Tylenol) 650 mg PO Q6H PRN PRN PRN Reason: Fever, headache, pain Last Admin: 05/29/18 19:44 Dose: 650 mg Cyclobenzaprine HCl (Flexeril) 10 mg PO TID PRN PRN PRN Reason: MUSCLE SPASM Last Admin: 05/30/18 03:10 Dose: 10 mg Diltiazem HCl (Cardizem Cd) 120 mg PO DAILY [facility] Last Admin: 05/30/18 07:19 Dose: 120 mg Docusate Sodium (Colace) 100 mg PO BID [facility] Last Admin: 05/29/18 21:55 Dose: Not Given Flecainide Acetate (Tambocor) 50 mg PO BID [facility] Last Admin: 05/29/18 21:54 Dose: 50 mg Hydromorphone HCl (Dilaudid Inj) 0.5 mg IV Q8H PRN PRN Reason: SEVERE PAIN (6-10/10) Lidocaine (Lidoderm Patch) 1 patch TOPICAL DAILY [facility] PRN Reason: Protocol Last Admin: 05/29/18 15:53 Dose: 1 patch Magnesium Hydroxide (Milk Of Magnesia) 30 ml PO DAILY PRN PRN PRN Reason: Constipation Magnesium Oxide (Mag-Ox 400) 400 mg PO DAILY [facility] Last Admin: 05/29/18 11:08 Dose: 400 mg Ondansetron HCl (Zofran) 4 mg IV Q6H PRN PRN PRN Reason: NAUSEA/VOMITING Oxycodone HCl (Oxyir) 5 - 10 mg PO Q4H PRN PRN Reason: SEVERE PAIN (6-10/10) Last Admin: 05/30/18 03:10 Dose: 10 mg Rivaroxaban (Xarelto) 20 mg PO DAILY [facility] Last Admin: 05/29/18 11:08 Dose: 20 mg Sodium Chloride () 5 - 30 ml IV UD PRN PRN Reason: SALINE FLUSH Last Admin: 05/29/18 08:08 Dose: 10 ml Medical Necessity - Tobacco Use Smoking Status: Never smoker Assessment/Plan 1. L4 compression fracture * was doing ok after surgery, then has progressively gotten worse over the past 3 weeks * 8 weeks ago she had a decompression and fusion of L2 and L3 * MRI didn't quantify % of compression, but on my evaluation appears to be 25-30 % * I received a call from Dr. Dee's office and discussed with his nurse practitioner on 05/29. Explained the L4 compression fractures and no radiculopathy. Explained no acute surgical needs are necessary and no kyphoplasty. They also stated that kyphoplasty would be difficult given her surgery and approach if it were necessary. Recommended wearing a chairback brace, to which patient has already and for pain control. * has component of muscle spasm too. will add flexeril. 2. Afib with RVR * began at 0700 today * was up to the 160s, now down 100 * continue with dilt and flecanide 3. DVT proph: anticoagulated with xarelto. 4. Debility: pending precert. Hopefully today or tomorrow. Code Visit Inpatient E&M: 04372 Subs Hosp L2
--- NOTE | 2018-05-30 09:08 | NURSING ---
Telly Monitor alarming continously this morning. Some meds given early. Despite that meds given early, pt HR was in the 130's to 150's with rest. Pt was asymptomatic. 12 lead EKG was done at 0715 this morning. This nurse looked in [place] and found the last 12 lead done and it was 06/25/17 and it showed Normal Sinus Rhythm. This nurse gave todays 12 Lead EKG and the one from [address] Guerrier whom looked at them. Vi, Day shift nurse is aware.
--- NOTE | 2018-05-30 09:36 | CASEMGMT ---
Addendum entered by Narcisa Bear 05/30/18 11:23: SW did complete the hospital exemption form in the [facility] system. FELICIA Renee, LORENA Original Note: SW spoke w/physician, initially pt would not be ready for discharge this morning, but pt may be able to be discharged this afternoon. SW let [facility] know that it is not yet determined when pt will be ready, she may be ready this afternoon or if not on the weekend. Lyla from [facility] is to let this SW know if she gets precert today. SW will continue to follow. FELICIA Renee, LORENA
[2018-05-30] MEDS: Docusate Sodium 100 MG Capsule PO (10:04)
[2018-05-30] MEDS: Rivaroxaban 20 MG Tablet PO (10:04)
[2018-05-30] MEDS: Magnesium Oxide 400 MG Tablet PO (10:04)
[2018-05-30] MEDS: Flecainide 100 MG Tablet 50 MG PO (10:04)
--- NOTE | 2018-05-30 12:33 | PCM.TXEXTCAR ---
- Diet Regular diet - Routine Orders/Code Status Enema Type: Fleetz Enema Frequency: Daily PRN Routine Lab Work: CBC - weekly, BMP - weekly Code Status: Full Code - Wound(s) LOWER BACK Wound Type: Surgical Incision - Therapies Weight Bearing: Full weight bearing - wear chair-back brace when up. Physical Therapy: Eval and Treat Occupational Therapy: Eval and Treat - Allergies/Procedures Done in Hospital Allergies/Adverse Reactions: Allergies No Known Allergies Allergy (Verified 05/27/18 17:33) - Type of Care/Length of Stay Estimated LOS: Convalescent Care Less Than 30 days Type of Care Needed: Skilled Rehab Potential: Fair Prognosis: Fair - Additional Orders/Day of Discharge Day of Discharge: 05/30/18 - Dietary and Speech Recommendations Dietitian Recommendations/Changes: Rec diet change to Cardiac d/t pmhx - Follow Up Care Primary Care Physician: Rajan Cervantes MD [Primary Care Provider] - Within 2 Weeks Please Follow Up With: Manuel Dee When: 2 weeks
--- NOTE | 2018-05-30 12:36 | PCM.DC.SUM ---
Discharge Date and Diagnosis - Problem List Patient Problems: Active and Suspected Problems Lumbar compression fracture (Acute) Date of Admission: 05/27/18 Date of Discharge: 05/30/18 - Secondary Discharge Diagnosis Chronic Problems Atrial fibrillation and flutter (Chronic) Calculus of kidney and ureter (Chronic) HTN (hypertension) (Chronic) Hospital Course and Treatment Imaging Results: Clinical Impression(s) from Imaging Studies Lumbar Spine MRI 05/27/18 21:41 IMPRESSION: Acute moderate compression fracture at L4. Decompression laminectomies. Electronically Signed: Lyndsay Velazquez MD at 9:02 EDT Tel , Service support , Operations: None Procedures: None Summary of Care Provided: The patient is a 73 year old F presents with 3 weeks of back pain. About 8 weeks prior, patient underwent back surgery by Dr. Manuel Dee. Patient was doing well but then suddenly started having lower back pain that progressively got worse. Patient underwent an MRI that showed a fracture of L4. Patient denies any preceding fall or injury that may have precipitated this. I discussed with the nurse practitioner with Dr. Dee and paint patient situation. They recommend no acute surgical intervention. Since patient has no radicular symptoms at this time. They did, however, recommend patient wear her chair back brace that she had after her surgery when she is up with activity. Patient will follow up with Dr. Dee's office. While patient was here, today patient did develop atrial for ablation with RVR up and the heart rate in the 160s. He did improve subsequently thereafter. Patient has continue with her diltiazem and flecainide. Currently, we are awaiting precertification. Once that is been obtained, patient will be discharged to a intermediate facility. [] Discharge Diet: Low fat/ Low Cholesterol Discharge Activity: Return to Normal Activity Home Medications: Medications to take at Discharge Lactobacillus Acidophilus [Acidophilus] 1 ea PO DAILY 01/23/17 Rivaroxaban [Xarelto] 20 mg PO DAILY 01/23/17 Calcium Carb/Vitamin D [Os-Jarrett 500MG + D] 1 tab PO BID 04/24/17 Glucosamine/MSM/Chondroitin A [Glucosamine Chondroit MSM Tab] 1 ea PO BID 04/24/17 diltiazem CD 120 mg capsule,extended release 24 hr 120 mg PO DAILY #90 cap 12/09/17 magnesium oxide 400 mg tablet 400 mg PO DAILY 30 Days #30 12/09/17 potassium citrate ER 5 mEq (540 mg) tablet,extended release 540 mg PO DAILY 30 Days #30 12/09/17 flecainide 50 mg tablet 50 mg PO Q12H #180 tab 05/16/18 Cyclobenzaprine [Flexeril] 10 mg PO TID PRN PRN tablet 05/30/18 Lidocaine [Lidoderm Patch] 1 patch TOPICAL DAILY patch 05/30/18 Oxycodone [Oxyir] 5 - 10 mg PO Q4H PRN 3 Days #18 tab 05/30/18 Following Prescrptions Were Given to Patient: Oxycodone [Oxyir] 5 - 10 mg PO Q4H PRN 3 Days #18 tab PRN Reason: Severe Pain (6-10/10) Primary Care Physician: Rajan Cervantes MD [Primary Care Provider] - Within 2 Weeks Please Follow Up With: Manuel Dee When: 2 weeks Disposition: Shelter facility Minutes spent on discharge:: 35 Patient Condition:: Fair Medical Necessity - Tobacco Use Smoking Status: Never smoker Meaningful Use Info Meaningful Use Diagnoses (Choose all that apply): None applicable Code Visit Inpatient E&M: 66100 Disch Hosp
--- NOTE | 2018-05-30 12:40 | DS.PCM_ITS ---
Discharge Date and Diagnosis - Problem List Patient Problems: Active and Suspected Problems Lumbar compression fracture (Acute) Date of Admission: 05/27/18 Date of Discharge: 05/30/18 - Secondary Discharge Diagnosis Chronic Problems Atrial fibrillation and flutter (Chronic) Calculus of kidney and ureter (Chronic) HTN (hypertension) (Chronic) Hospital Course and Treatment Imaging Results: Clinical Impression(s) from Imaging Studies Lumbar Spine MRI 05/27/18 21:41 IMPRESSION: Acute moderate compression fracture at L4. Decompression laminectomies. Electronically Signed: Lyndsay Velazquez MD at 9:02 EDT Tel , Service support , Operations: None Procedures: None Summary of Care Provided: The patient is a 73 year old F presents with 3 weeks of back pain. About 8 weeks prior, patient underwent back surgery by Dr. Manuel Dee. Patient was doing well but then suddenly started having lower back pain that progressively got worse. Patient underwent an MRI that showed a fracture of L4. Patient denies any preceding fall or injury that may have precipitated this. I discussed with the nurse practitioner with Dr. Dee and paint patient situation. They recommend no acute surgical intervention. Since patient has no radicular symptoms at this time. They did, however, recommend patient wear her chair back brace that she had after her surgery when she is up with activity. Patient will follow up with Dr. Dee's office. While patient was here, today patient did develop atrial for ablation with RVR up and the heart rate in the 160s. He did improve subsequently thereafter. Patient has continue with her diltiazem and flecainide. Currently, we are awaiting precertification. Once that is been obtained, patient will be discharged to a intermediate facility. [] Discharge Diet: Low fat/ Low Cholesterol Discharge Activity: Return to Normal Activity Home Medications: Medications to take at Discharge Lactobacillus Acidophilus [Acidophilus] 1 ea PO DAILY 01/23/17 Rivaroxaban [Xarelto] 20 mg PO DAILY 01/23/17 Calcium Carb/Vitamin D [Os-Jarrett 500MG + D] 1 tab PO BID 04/24/17 Glucosamine/MSM/Chondroitin A [Glucosamine Chondroit MSM Tab] 1 ea PO BID diltiazem CD 120 mg capsule,extended release 24 hr 120 mg PO DAILY #90 cap 12/09 magnesium oxide 400 mg tablet 400 mg PO DAILY 30 Days #30 12/09/17 potassium citrate ER 5 mEq (540 mg) tablet,extended release 540 mg PO DAILY 30 Days #30 12/09/17 flecainide 50 mg tablet 50 mg PO Q12H #180 tab 05/16/18 Cyclobenzaprine [Flexeril] 10 mg PO TID PRN PRN tablet 05/30/18 Lidocaine [Lidoderm Patch] 1 patch TOPICAL DAILY patch 05/30/18 Oxycodone [Oxyir] 5 - 10 mg PO Q4H PRN 3 Days #18 tab 05/30/18 Following Prescrptions Were Given to Patient: Oxycodone [Oxyir] 5 - 10 mg PO Q4H PRN 3 Days #18 tab PRN Reason: Severe Pain (6-10/10) Primary Care Physician: Rajan Cervantes MD [Primary Care Provider] - Within 2 Weeks Please Follow Up With: Manuel Dee When: 2 weeks Disposition: Residential facility Minutes spent on discharge:: 35 Patient Condition:: Fair Medical Necessity - Tobacco Use Smoking Status: Never smoker Meaningful Use Info Meaningful Use Diagnoses (Choose all that apply): None applicable Code Visit Inpatient E&M: 98686 Disch Hosp
--- NOTE | 2018-05-30 13:25 | CASEMGMT ---
Pt was approved by [facility] to go to [facility] today, auth number as per Lyla is [id number]. HUSYEIN faxed all discharge instructions and hospital exemption to [facility], schedule II med to [facility]. HUSEYIN called [facility], set up a 4:30pm ambulance. HUSEYIN let pt, RN here, and Lyla know time of transport(voicemail left for Lyla, she was agreeable earlier to SW leaving a voice mail with a time). Pt asked about ambulance if it would be covered. SW explained that if medically necessary, it should be covered. Upon further discussion pt is in agreement that she cannot tolerate sitting for transport and is agreeable to ambulance transport. No further needs, pt to [facility] today. FELICIA Renee, PLUSH DRESSER
[2018-05-30] MEDS: Lidocaine 5% Patch 1 PATCH TOPICAL (13:49)
== END 2018-05-30 16:34 | disposition skilled nursing facility (03) | DRG 552 ==
LOC: ED 19:22 → MS2 20:41
PROVIDERS: Admitting Provider Hospitalist; Emergency Provider Emergency Medicine; Family Provider Family Medicine; PCP Family Medicine
DX: S32.048A Other fracture of fourth lumbar vertebra, initial encounter for closed fracture (principal); Z98.1 Arthrodesis status; M62.838 Other muscle spasm; I48.2 Chronic atrial fibrillation; Z79.01 Long term (current) use of anticoagulants; I10 Essential (primary) hypertension
CPT/HCPCS: 36415; 72148; 80048; 82306; 85025; 93005; 97110; 97162; 97165; 97535; 99282; J7030; A4216; J2405

== ENCOUNTER → 2018-07-04 14:32 | Outpatient (CLI) | payer MEDICARE, SELFPAY | PROVIDERS: Family Provider Family Medicine; PCP Family Medicine; Visit Provider Internal Medicine Cardiovascular Disease | DX: M79.89 Other specified soft tissue disorders (principal); I82.402 Acute embolism and thrombosis of unspecified deep veins of left lower extremity | CPT/HCPCS: 93971 ==

== ENCOUNTER → 2018-08-29 14:49 | Outpatient (CLI) | payer MEDICARE, SELFPAY ==
--- NOTE | 2018-08-29 14:55 | CT_ITS ---
STUDY: CT LUMBAR SPINE WITHOUT CONTRAST REASON FOR EXAM: Female, 73 years old. History of decompression fracture. RADIATION DOSAGE (If Supplied By Facility): CTDIvol = ( 23.65 ) mGy, DLP = ( 594.31 ) mGycm TECHNIQUE: The patient was scanned in a multi detector CT scanner. High resolution transaxial imaging was performed. Images were obtained from T12 to S2. Sagittal and coronal images were reconstructed. Individualized dose optimization techniques were used for this CT. COMPARISON: Correlation is made with the previous MRI of the lumbar spine of 04/28/2018. FINDINGS: There is straightening of the normal lumbar lordosis. There is moderate dextroscoliosis. There again is moderate compression fracture of L4 vertebra with evidence of vertebroplasty. The remainder of the vertebral bodies have normal heights. There is no evidence of new fracture. L1-2: Severe narrowing of the disc space with vacuum disc. Laminectomy. Broad-based disc bulging. No evidence of central spinal canal stenosis. Narrowing of the neural foramina bilaterally. L2-3: Narrowing of the disc space. Vacuum disc. Evidence of previous laminectomy. Cement or bone grafts on the lateral aspect of the posterior elements. Mild anterolisthesis of L1 over L2. No evidence of central spinal canal stenosis. Bilateral neural foramina stenosis. L3-4: Narrowing of the disc space. Fracture of L4 vertebra with posterior retropulsion of the superior aspect of L4 dorsal thecal sac. Evidence of previous laminectomy. Degenerative changes in the facet joints. Borderline central spinal canal. Narrowing of the neural foramina bilaterally. L4-5: Severe narrowing of the disc space with vacuum disc. Hypertrophic degenerative changes in the facet joints. Broad-based discogenic osteophyte formation extending to the lateral recesses bilaterally. Moderate to severe narrowing of the central spinal canal and bilateral neural foramina. L5-S1: Severe narrowing of the disc space. Broad-based posterior discogenic osteophyte formation. Degenerative changes in the facet joints. Borderline central spinal canal. Narrowing of the neural foramina bilaterally. There are atherosclerotic calcifications of the abdominal aorta. CT/Spine Lumbar without Contrast IMPRESSION: 1. Moderate compression fracture of L4 vertebra unchanged in height since the previous examination. Evidence of previous vertebroplasty. 2. Advanced multilevel degenerative changes of the lumbar spine as described above with evidence of previous decompression laminectomies at multiple levels. 3. Spinal canal and bilateral neural foramina stenosis at the level of L4-L5. 4. No evidence of acute fracture. Electronically Signed: Shady Spaulding MD at 11:00 EDT Tel , Service support ,
== END ==
PROVIDERS: Family Provider Family Medicine; PCP Family Medicine
DX: M54.5 Low back pain (principal); G89.29 Other chronic pain; Z98.1 Arthrodesis status; Z98.890 Other specified postprocedural states
CPT/HCPCS: 72131

== ENCOUNTER → 2018-12-24 13:50 | Outpatient (CLI) | payer MEDICARE, SELFPAY ==
[2018-07-04 11:03] VITALS: BMI 30.9
--- NOTE | 2018-12-24 13:55 | RAD_ITS ---
STUDY: X-RAY - RIGHT SHOULDER REASON FOR EXAM: Pain. TECHNIQUE: 4 view(s) of the shoulder. COMPARISON: Radiographs of the right clavicle 08/16/2017. FINDINGS: There is osteopenia. Normal glenohumeral articulation. There is acromioclavicular arthrosis. Normal acromion. There is mild enthesopathy of the greater tuberosity. The soft tissue structures are unremarkable. Normal visualized pulmonary apex. RAD/Shoulder min 2 Views IMPRESSION: Acromioclavicular arthrosis. Mild enthesopathy of the greater tuberosity. Electronically Signed: Gabe Pereira MD at 15:50 EST Tel , Service support ,
== END ==
PROVIDERS: Family Provider Family Medicine; PCP Family Medicine; Referring Provider Nurse Practitioner Family; Visit Provider Nurse Practitioner Family
DX: M25.511 Pain in right shoulder (principal)
CPT/HCPCS: 73030

== ENCOUNTER → 2019-05-08 14:30 | Outpatient (CLI) | payer MEDICARE, SELFPAY ==
[2018-12-26 12:32] VITALS: BMI 29.1
== END ==
PROVIDERS: Family Provider Family Medicine; PCP Family Medicine; Referring Provider Family Medicine; Visit Provider Family Medicine
DX: R30.0 Dysuria (principal)
CPT/HCPCS: 87086; 87088

== ENCOUNTER → 2019-09-15 | Outpatient (CLI) | payer MEDICARE, SELFPAY ==
[2019-07-01 11:03] VITALS: BMI 28.9
--- NOTE | 2019-09-15 12:32 | RAD_ITS ---
HISTORY: LEFT HIP PAIN ADDITIONAL HISTORY: None provided. COMPARISON: None TECHNIQUE: Left hip 2 views with AP pelvis Number of images including paperwork: 3 FINDINGS: BONES: No acute fracture. Radiopaque cement within L4. JOINTS: No subluxation. Mild degenerative changes of the hips. Degenerative changes of the visualized spine. SOFT TISSUES: No distinct foreign body. Calcifications about the greater trochanter bilaterally. Correlate for calcific tendinitis. RAD/HIP, UNI W/ Pelvis 2-3 Views IMPRESSION: No acute osseous abnormality. Calcifications about the greater trochanter bilaterally. Correlate for calcific tendinitis. at 0040 Reported and signed by: Scarlet Shoemaker MD Electronically Signed: Scarlet Shoemaker MD at 0:40 EDT Tel , Service support ,
== END | disposition home or self-care (01) ==
LOC: HPRAD 12:28
PROVIDERS: Family Provider Family Medicine; PCP Family Medicine; Referring Provider Anesthesiology Pain Medicine; Visit Provider Anesthesiology Pain Medicine
DX: M25.552 Pain in left hip (principal)
CPT/HCPCS: 73502

== ENCOUNTER → 2019-09-22 09:47 | Outpatient (CLI) | payer MEDICARE, SELFPAY ==
[2019-07-01 11:03] VITALS: BMI 28.9
--- NOTE | 2019-09-22 09:56 | BD_ITS ---
STUDY: DUAL ENERGY X-RAY ABSORPTIOMETRY / DXA REASON FOR EXAM: Female, 74 years old. The patient is postmenopausal. Loss of height. TECHNIQUE: Bone Mineral Density (BMD) measurements of lumbar spine and bilateral hips were obtained. COMPARISON: Comparison is made with prior study dated September 17, 2017. FINDINGS: Lumbar Spine (L1-L4): g/cm2 (1.071) / T-score (-1.1) / Z-score (0.7) Findings are suggestive of osteopenia with a low fracture risk. Left Femur Total: g/cm2 (0.847) / T-score (-1.3) / Z-score (0.4) Left Femoral Neck: g/cm2 (0.755) / T-score (-2.0) / Z-score (-0.2) Right Femur Total: g/cm2 (0.858) / T-score (-1.2) / Z-score (0.5) Right Femoral Neck: g/cm2 (0.826) / T-score (-1.5) / Z-score (0.4) The T-Scores on the most recent prior examination were: Lumbar Spine (L1-L4): There has been improvement of bone density since the previous examination. Left Femur Total: which represents an improvement of 1.8%. Right Femur Total: which represents an improvement of 0.2%. BD/Dexa Bone Density Study IMPRESSION: The patient is considered osteopenic as outlined below according to World [place] Organization (WHO) criteria with a moderate fracture risk. There has been improvement of bone density since the previous examination. Reference Information: The T-score is the number of standard deviations above or below the standard which is normal for young adults at their peak bone mineral density. The World Health Organization (WHO) interprets the T-scores as follows: Above -1 Normal bone density Between -1 and -2.5 Osteopenia Equal to / or below -2.5 Osteoporosis As a practical clinical guideline, osteopenia may be graded as follows: Mild -1 through -1.5 Moderate -1.6 through -2.0 Severe -2.1 through -2.4 The Z-score is the number of standard deviations above or below age-matched controls. A Z-score of less than -1.5 would be considered abnormal. References: 1. NIH Osteoporosis and Related Bone Diseases http://www.osteo.org 2. International Society for Clinical Densitometry http://www.iscd.org 3. National Osteoporosis Foundation http://www.nof.org Electronically Signed: Kristopher Giordano, at 15:42 EST , Service support ,
== END ==
PROVIDERS: Family Provider Family Medicine; PCP Family Medicine; Referring Provider Family Medicine; Visit Provider Family Medicine
DX: M81.0 Age-related osteoporosis without current pathological fracture (principal)
CPT/HCPCS: 77080

== ENCOUNTER → 2019-11-06 07:24 | Outpatient (CLI) | payer MEDICARE, SELFPAY ==
[2019-07-01 11:03] VITALS: BMI 28.9
--- NOTE | 2019-11-06 07:45 | MRI_ITS ---
STUDY: MRI LUMBAR SPINE WITHOUT CONTRAST REASON FOR EXAM: Female, 74 years old. LBP, left leg shaking and weakness, decreased mobility. 2 prior lumbar surgeries (March and amp; May 2017) TECHNIQUE: Standardized fat and water weighted pulse sequences were obtained in the sagittal and axial planes. COMPARISON: 05/28/2018 FINDINGS: T12-L1: Normal endplates. Normal disc height, hydration and morphology. Normal bilateral facet joints. Normal central canal and bilateral lateral recesses. Normal bilateral intervertebral neural foramina. Normal lumbar lordosis. Moderate dextroscoliosis centered at L3. Normal conus medullaris that terminates at the L1/L2. No change in the moderate wedge compression fracture of L4 with no retropulsion into the spinal canal but focal kyphosis. L1-2: Status post posterior decompression. Mild bilateral facet hypertrophy. No change in the mild broad disc protrusion which produces mild spinal stenosis and mild bilateral neural foraminal stenosis. L2-3: Status post posterior decompression. Mild bilateral facet hypertrophy. No change in the 2 mm of anterolisthesis of L2 on L3 with a mild broad disc protrusion which produces mild spinal stenosis and mild bilateral neural foraminal stenosis. L3-4: No change in the moderate wedge compression fracture of L4 with no retropulsion into the spinal canal but significant kyphosis at L3/L4. Status post posterior decompression. Moderate bilateral facet hypertrophy. No change in the 2 mm of anterolisthesis of L3 on L4 with a mild broad disc protrusion which produces mild spinal stenosis, mild right neural foraminal stenosis, and moderate left neural foraminal stenosis. L4-5: Mild bilateral facet hypertrophy and ligament flavum hypertrophy. No change in the 2 mm retrolisthesis of L4 and L5 with a mild broad disc protrusion which produces moderate spinal stenosis and mild bilateral neural foraminal stenosis. L5-S1: Normal endplates. Normal disc height, hydration and morphology. Normal bilateral facet joints. Normal central canal and bilateral lateral recesses. Normal bilateral intervertebral neural foramina. Normal visualized sacral ala. Normal visualized paraspinous soft tissue structures. MRI/Spine Lumbar (Routine) IMPRESSION: No change from 05/28/2018. Electronically Signed: Jian Loo MD at 12:00 EST Tel , Service support ,
== END ==
PROVIDERS: Family Provider Family Medicine; PCP Family Medicine; Referring Provider Anesthesiology Pain Medicine; Visit Provider Anesthesiology Pain Medicine
DX: M96.1 Postlaminectomy syndrome, not elsewhere classified (principal); M51.37 Other intervertebral disc degeneration, lumbosacral region
CPT/HCPCS: 72148

== ENCOUNTER → 2019-11-23 12:08 | Outpatient (CLI) | payer MEDICARE, SELFPAY ==
[2019-07-01 11:03] VITALS: BMI 28.9
[2019-11-23 13:49] LABS: D-Dimer Quantitative (DVT/PE) < 0.27 FEU/ug/m (0.27-0.49)
== END ==
PROVIDERS: Family Provider Family Medicine; PCP Family Medicine; Referring Provider Family Medicine; Visit Provider Family Medicine
DX: M79.89 Other specified soft tissue disorders (principal)
CPT/HCPCS: 36415; 85379

== ENCOUNTER 2020-05-23 12:00 | Day surgery (SDC) | payer MEDICARE, SELFPAY ==
[2019-07-01 11:03] VITALS: BMI 28.9
[2020-05-23] VITALS (7 sets, daily range): BP systolic 129–155; BP diastolic 80–98; PULSE 66–101; RESP 16–18; TEMP 36.8–37.4; O2SAT 95–98; BMI 30.1
[2020-05-23] MEDS: Lactated Ringers 1,000 ML 100 ML IV (12:58)
[2020-05-23] MEDS: Cefazolin 2 GM in 0.9% Normal Saline 100 ML IV (13:40)
--- NOTE | 2020-05-23 14:00 | RAD_ITS ---
PROCEDURE: Spinal cord stimulator insertion. DATE OF EXAMINATION: May 23, 2020. INDICATION: Female, 75 years old. Chronic back pain. FLUOROSCOPY TIME (if supplied): (12 minutes and 10 seconds.) minutes/seconds Intraoperative imaging provided for spinal cord stimulator insertion. RAD/Lumbar Spine 2 or 3 Views IMPRESSION: Fluoroscopic services provided for spinal cord stimulator insertion. Electronically Signed: Kristopher Giordano, at 9:23 EDT , Service support ,
[2020-05-23] MEDS: Bupivacaine Mpf 0.5% 30 ML VIAL (14:15)
[2020-05-23] MEDS: Bacitracin 500 UNITS/GM PACKET (15:28)
--- NOTE | 2020-05-23 16:04 | PCM.OPRPT ---
Report of Operation Date of Procedure: 05/23/20 Description of Surgical Findings:: Pre-Operative Diagnosis: Lumbosacral radiculopathy, lumbosacral degenerative disc disease, lumbosacral spinal stenosis, postlaminectomy syndrome of the lumbar spine Post-Operative Diagnosis: Lumbosacral radiculopathy, lumbosacral degenerative disc disease, lumbosacral spinal stenosis, postlaminectomy syndrome of the lumbar spine Surgery/Procedure Performed:: 1. Spinal cord stimulator thoracolumbar leads placement x2 #2 spinal cord stimulator Medtronic intellus generator placement #3 spinal cord stimulator generator pocket creation at the left gluteal region #4 spinal cord stimulator simple programming, 5-intraoperative fluoroscopic interpretation Description of Surgical Findings:: PROCEDURES: 1. Spinal cord stimulator thoracolumbar leads placement x2 #2 spinal cord stimulator Medtronic intellus generator placement #3 spinal cord stimulator generator pocket creation at the left gluteal region #4 spinal cord stimulator simple programming 5-intraoperative fluoroscopic interpretation PREOPERATIVE DIAGNOSES: Lumbosacral radiculopathy, lumbosacral degenerative disc disease, lumbosacral spinal stenosis, postlaminectomy syndrome of the lumbar spine POSTOPERATIVE DIAGNOSES: Lumbosacral radiculopathy, lumbosacral degenerative disc disease, lumbosacral spinal stenosis, postlaminectomy syndrome of the lumbar spine ANESTHESIA: MAC COMPLICATIONS: None BLOOD LOSS: Minimal <25 CC Implanted device: Spinal cord stimulator lead [id number] lot number [id number], lead #2 lot number [id number], Medtronic spinal cord stimulator generator intellus serial number [id number] PROCEDURE IN DETAIL: History and physical today was reviewed. Risks and benefits of procedure explained. The patient understood, agreed to procedure, informed consent was obtained. IV inserted per routine protocol. The patient was taken to the operating room, placed in the prone position with a pillow positioned underneath the abdomen. A 2 g of Ancef IV piggyback was infused per anesthesia. The lower back and left gluteal area was prepped and draped in a sterile fashion using iodine x3. The C-arm was brought in position for AP view at the L2-3 vertebral bodies under direct visualization fluoroscopy on a true AP view the L3-4 interlaminar space was identified skin and subcutaneous tissue and size approximately 10 cc of a mix of 2% lidocaine and 0.25% Marcaine using a 25-gauge regular needle followed by a 25-gauge 3-1/2 inch spinal needle towards the interlaminar space at L2-3, the skin and subcutaneous tissue were then anesthetized and using an 11-gauge blade was then taken down to the skin and subcutaneous tissue using a 14-gauge 3-1/2 inch Touhy needle provided by the [employer] kit the needle was passed through the skin towards the interlaminar space at L2-3 and a paramedian approach the needle was then advanced under direct visualization fluoroscopy towards the interlaminar space at L2-3 [id number] technique was then carried to air towards the interlaminar space at L3-4 once the tip of the needle was in the epidural space and loss of resistance was encountered to air and after confirmation of AP as well as oblique view of the spinal cord stimulator lead was then advanced under direct visualization fluoroscopy to be at the tip of the lead at T8 and the bottom of the lead around mid T10 after confirmation of AP as well as lateral view to confirm correct placement of the lead in the posterior compartment of the epidural space the previous procedure was then repeated to a the right paramedian at L2-3 interlaminar space the second lead was then inserted under direct visualization with fluoroscopy to be at the mid T8 and mid T10 area the leads were were then connected to the external neurostimulator and patient was then awakened to confirm satisfactory coverage of the painful area once satisfactory coverage was then achieved the stylette of each needle was then removed and the skin and subcutaneous tissue on to the left of the paramedian needles was then taken anesthetized with a total of 10 cc of the previous mixture of 0.25% Marcaine and 2% lidocaine using a 25-gauge regular needle the incision was then taken down through the skin and subcutaneous tissue towards the fascia making sure hemostasis was then maintained via cautery, the spinal cord stimulator leads were then passed through the above incision and secured using the bi-wing and sutured down with a 2-0 silk to the fascia at that level the spinal cord stimulator leads were then tunneled via a tunneler provided by the [employer] kit towards the previously incised spinal cord stimulator battery at the left gluteal region skin and subcutaneous tissue were anesthetized with approximately 10 cc of a mix of 2% lidocaine and 0.25% Marcaine using a 25 gauge regular needle, skin and subcutaneous tissue was then taken down with the 11-gauge blade hemostasis was maintained with Bovie and direct pressure the incision was then taken down to the fascia and the battery was then secured with the 2-0 silk sutures that were the spinal cord stimulator leads the upper lead was then marked the new until spinal cord stimulator battery was then provided Via [employer] kit the battery was then reattached of the spinal cord stimulator make ensure that the top lead is attached to the top position from 0-7 electrodes and the bottom from 8-15 electrodes once impedance was then checked to be in the proper average number the intellus battery was then inserted into the pocket and impedance with when checked again the pocket was then inspected to confirm hemostasis in place, the intellus battery was then secured to the fascia using a 2-0 silk to the upper and lower eyes of the battery confirming an upward writing of the intellus facing posterior, once complete confirmation the battery was then placed in the position and the the mid paramedian and the gluteal incisions were then closed primarily through a 3-0 Vicryl in a interrupted fashion followed by a 4-0 chromic to the skin, hemostasis was then maintained during the procedure the skin was then covered with a Steri-Strips and bacitracin patient was then returned into the supine position in a stable condition and returned to recovery in a stable condition patient experienced no signs or symptoms of intrathecal or intravascular injection patient experienced no paresthesia the procedure was completed without any apparent difficulty any complication the patient appeared to tolerate well, motor as well as sensory exam was unchanged from prior to the procedure. ESTIMATED BLOOD LOSS: Minimal less than 25 mL ASSESSMENT AND PLAN: This is a 75-year-old female with lumbosacral radiculopathy lumbosacral degenerative disc disease lumbosacral spinal stenosis, postlaminectomy syndrome of the lumbar spine, status post 1. Spinal cord stimulator thoracolumbar leads placement x2 #2 spinal cord stimulator Medtronic intellus generator placement #3 spinal cord stimulator generator pocket creation at the left gluteal region #4 spinal cord stimulator simple programming, 5-intraoperative fluoroscopic interpretation patient will continue her current medications a prescription was provided to the patient for Keflex 500 mg 1 p.o. every 8 hours for 7 days, patient will continue her Percocet patient was instructed to increase her dose every 4 hours,postop instruction were given in writing to the patient as well as verbally and in writing to her , patient will follow approximately 1 week for reevaluation.
== END 2020-05-23 17:44 | disposition home or self-care (01) ==
LOC: SDC 12:08 → AC 12:08
PROVIDERS: Anesthesiology; PCP Family Medicine; Referring Provider Anesthesiology Pain Medicine; Visit Provider Anesthesiology Pain Medicine
PROC: (CPT 63685; principal; 2020-05-23 13:45)
DX: M51.17 Intervertebral disc disorders with radiculopathy, lumbosacral region (principal); M47.27 Other spondylosis with radiculopathy, lumbosacral region; M48.07 Spinal stenosis, lumbosacral region; M48.56XS Collapsed vertebra, not elsewhere classified, lumbar region, sequela of fracture; M96.1 Postlaminectomy syndrome, not elsewhere classified; G89.29 Other chronic pain; Z11.59 Encounter for screening for other viral diseases; M16.12 Unilateral primary osteoarthritis, left hip; M51.37 Other intervertebral disc degeneration, lumbosacral region; M75.01 Adhesive capsulitis of right shoulder; I48.91 Unspecified atrial fibrillation; I10 Essential (primary) hypertension; K21.9 Gastro-esophageal reflux disease without esophagitis; G47.33 Obstructive sleep apnea (adult) (pediatric); Z79.891 Long term (current) use of opiate analgesic; Z79.01 Long term (current) use of anticoagulants; Z79.899 Other long term (current) drug therapy; Z78.0 Asymptomatic menopausal state; Z86.72 Personal history of thrombophlebitis; Z86.73 Personal history of transient ischemic attack (TIA), and cerebral infarction without residual deficits
CPT/HCPCS: 01936; 63650 ×2; 63685; 95971; 72100; 76000; 87635; C1778; G2023; J7120; A4216; J2405; J3490; U0003

== ENCOUNTER → 2020-12-14 07:13 | Outpatient (CLI) | payer MEDICARE, SELFPAY ==
[2020-11-29 13:07] VITALS: BMI 28.3
--- NOTE | 2020-12-14 17:29 | STRESSREP ---
Stress Test Report Pharmacologic myocardial perfusion stress test. 75-year-old lady with a history of paroxysmal atrial fibrillation and hypertension. Medications magnesium, calcium, diltiazem, Xarelto, flecainide. Stress protocol: Resting EKG demonstrates normal sinus rhythm with a rate of 51 bpm normal intervals are noted resting blood pressure is 128/82 mmHg. 0.4 mg of regadenoson was infused per usual protocol followed by rapid intravenous saline flush injection continuous EKG monitoring was performed. The patient maintained sinus rhythm throughout the recording. At approximately 3 minutes and 44 seconds into recovery patient was noted to go into a junctional rhythm. There were no ST or T wave changes noted to suggest abnormal flow reserve. Myocardial perfusion protocol. 11.3 mCi of technetium 99m sestamibi was injected at rest. 0.4 mg of regadenoson was infused per usual protocol. At peak infusion 33.8 mCi of technetium 99m sestamibi was injected stress images were obtained stress and rest images were reconstructed and compared in the short axis vertical long and horizontal long axis. Gated images were also obtained. Perfusion SPECT analysis: Review of the stress images demonstrate normal uptake of tracer noted in all areas of the myocardium the resting images similarly demonstrate normal uptake of tracer noted in all areas of the myocardium. No areas of reversibility are noted suggest ischemia and no previous infarct is noted. Gated SPECT analysis: The gated ejection fraction is noted to be 88%. Conclusion: Normal pharmacologic myocardial perfusion stress test. Preserved ejection fraction.
== END ==
PROVIDERS: PCP Family Medicine; Referring Provider Internal Medicine Cardiovascular Disease; Visit Provider Internal Medicine Cardiovascular Disease
DX: I48.0 Paroxysmal atrial fibrillation (principal); R94.31 Abnormal electrocardiogram [ECG] [EKG]
CPT/HCPCS: 78452; 93017; A9500; A4216; J2785

== ENCOUNTER → 2021-08-02 | Outpatient (CLI) | payer MEDICARE, SELFPAY | END | disposition home or self-care (01) | LOC: LABSPEC 15:48 | PROVIDERS: PCP Family Medicine; Visit Provider Physician Assistant | DX: U07.1 COVID-19 (principal) | CPT/HCPCS: 87635; U0005; U0003 ==

== ENCOUNTER → 2021-08-11 09:02 | Outpatient (CLI) | payer MEDICARE, SELFPAY ==
[2021-08-11 12:09] LABS: Absolute Lymphocyte Count 1.85 X10^3/uL (0.83-4.51); Absolute Neutrophil Count 5.7 X10^3/uL (2.0-7.7); Basophil# 0.08 X10^3/uL; Basophil% 0.9 % (0-1); Eosinophil# 0.14 X10^3/uL; Eosinophils% 1.6 % (0-5); Hematocrit 46.2 % (37-47); Hemoglobin 14.3 g/dL (12.0-15.0); Lymphocyte # 1.85 X10^3/ul (0.83-4.51); Lymphocyte % 21.3 % (19-41); Mean Corpuscular Hgb 31.2 pg (27.0-32.0); Mean Corpuscular Volume 100.7 fL (81-99); Mean Platelet Vol. 10.6 fl (6.2-12.0); Monocyte# 0.83 X10^3/uL; Monocyte% 9.6 % (0-10); NRBC Flagged by Analyzer 0 % (0-5); Neutrophil # 5.73 X10^3/uL (2.7-7.7); Neutrophil % 65.9 % (47-70); Platelet Count 450 K/mm3 (150-450); RBC Distribution Width CV 12.8 % (11.6-14.6); RBC Distribution Width SD 47.7 fl (35.1-43.9); Red Blood Count 4.59 M/mm3 (4.2-5.4); White Blood Count 8.7 K/mm3 (4.4-11.0)
[2021-08-11 12:20] LABS: ALB/GLOB Ratio 0.9 RATIO (0.9-2.4); AST(SGOT) 19 U/L (15-37); Alanine Aminotransfer ALT/SGPT 11 U/L (13-56); Alkaline Phosphatase 79 U/L (45-117); Anion Gap 4 (5-15); BUN 13 mg/dL (7-18); BUN/Creat Ratio 19.5 RATIO (10-20); Chloride 108 mmol/L (98-107); Cholesterol 176 mg/dL (200); Creatinine, Serum 0.67 mg/dL (0.55-1.02); EST Glomerular Filtration Rate 92 mL/min (>60); Est Glom Filt Rate - Afr Amer 111 mL/min (>60); Globulin 3.5 g/dL (2.2-4.2); Glucose 89 mg/dL (74-106); High Density Lipoprotein 58 mg/dL; Potassium 3.8 mmol/L (3.5-5.1); Protein, Total 6.5 g/dL (6.4-8.2); Sodium Level 140 mmol/L (136-145); Triglycerides 132 mg/dL; Very Low Density Lipoprotein 26 mg/dL (5-40)
[2021-08-11 12:31] LABS: Vitamin D,25 Hydroxy 84.9 ng/mL
[2021-08-11 12:39] LABS: BNP,B-Type NATRIURETIC PEPTIDE 79.3 pg/mL (0-100)
[2021-08-11 15:32] LABS: Color, Urine Yellow (Yellow); Glucose, Dipstick Normal (Normal); Ketone-Dipstick Negative (Negative); Leukocyte Esterase-Dipstick 500 /ul (Negative); Nitrite-Dipstick Positive (Negative); Occult Blood-Urine 10 /ul (Negative); Protein-Dipstick Negative (Negative); Urine Bilirubin Dipstick Negative (Negative); Urine Clarity Sl. Cloudy (Clear); Urine Urobilinogen 1 mg/dl (Normal)
[2021-08-14 13:30] LABS: Red Blood Cell Count Test/G6PD 4.38 x10E6/uL (3.77-5.28)
[2021-08-14 13:57] LABS: G6PD Quant Test 304 (127-427)
== END ==
PROVIDERS: PCP Family Medicine; Referring Provider Nurse Practitioner Family; Visit Provider Nurse Practitioner Family
DX: R53.82 Chronic fatigue, unspecified (principal); M62.81 Muscle weakness (generalized); E66.9 Obesity, unspecified
CPT/HCPCS: 36415; 80053; 80061; 81002; 82306; 82955; 83880; 85025

== ENCOUNTER 2021-11-22 09:10 | Outpatient (CLI) | payer MEDICARE, SELFPAY ==
--- NOTE | 2021-11-22 09:17 | BD_ITS ---
STUDY: DUAL ENERGY X-RAY ABSORPTIOMETRY / DXA REASON FOR EXAM: Female, 76 years old. M810. Patient is postmenopausal. TECHNIQUE: Bone Mineral Density (BMD) measurements of left forearm and bilateral hips were obtained. COMPARISON: Comparison is made with prior study of 09/22/2019. FINDINGS: Left Femur Total: g/cm2 (0.763) / T-score (-1.5) / Z-score (0.4) Left Femoral Neck: g/cm2 (0.532) / T-score (-2.9) / Z-score (-0.7) Right Femur Total: g/cm2 (0.820) / T-score (-1.0) / Z-score (0.9) Right Femoral Neck: g/cm2 (0.911) / T-score (0.6) / Z-score (2.7) Left Forearm: g/cm2 (0.502) / T-score (-1.4) / Z-score (1.2) The T-Scores on the most recent prior examination were: Left Femur Total: which represents a worsening of 2.9%. Right Femur Total: which represents an improvement of 3%. BD/Dexa Bone Density Study IMPRESSION: The patient is considered osteoporotic as outlined below according to World [place] Organization (WHO) criteria with a high fracture risk. There has been worsening of bone density since the previous examination. Reference Information: The T-score is the number of standard deviations above or below the standard which is normal for young adults at their peak bone mineral density. The World Health Organization (WHO) interprets the T-scores as follows: Above -1 Normal bone density Between -1 and -2.5 Osteopenia Equal to / or below -2.5 Osteoporosis As a practical clinical guideline, osteopenia may be graded as follows: Mild -1 through -1.5 Moderate -1.6 through -2.0 Severe -2.1 through -2.4 The Z-score is the number of standard deviations above or below age-matched controls. A Z-score of less than -1.5 would be considered abnormal. References: 1. NIH Osteoporosis and Related Bone Diseases www osteo.org 2. International Society for Clinical Densitometry www iscd.org 3. National Osteoporosis Foundation www nof.org Electronically Signed: Kristopher Giordano MD at 8:56 EST , Service support ,
== END 2021-11-22 23:59 | disposition short-term general hospital (02) ==
LOC: OPBD 09:11
PROVIDERS: PCP Family Medicine; Referring Provider Family Medicine; Visit Provider Family Medicine
DX: M81.0 Age-related osteoporosis without current pathological fracture (principal)
CPT/HCPCS: 77080

== ENCOUNTER → 2023-06-04 | Outpatient (CLI) | payer MEDICARE, SELFPAY ==
--- NOTE | 2023-06-04 07:13 | CT_ITS ---
STUDY: CT RIGHT SHOULDER REASON FOR EXAM: Female, 78 years old. PRIMARY OSTEOARTHRITIS RADIATION DOSAGE (If Supplied By Facility): CTDIvol = ( 22.74 ) mGy, DLP = ( 605.12 ) mGycm TECHNIQUE: The patient was scanned in a multi detector CT scanner. High resolution transaxial imaging was performed without the administration of intravenous contrast material. Sagittal and coronal images were reconstructed. Individualized dose optimization techniques were used for this CT. COMPARISON: X-ray of the right shoulder dated December 24, 2018 FINDINGS: There are large full-thickness tears of the supraspinatus and infraspinatus tendons which are retracted to the level of the glenoid. There is also severe narrowing of the glenohumeral articulation as well as high riding of the humeral head which abuts the undersurface of the acromium and clavicle due to the full-thickness rotator cuff tendon tears. Moderate cortical osteophyte formation is present around the humeral head and at the edges of the glenoid. [place] shape ossified density at the anterior aspect of the glenoid most likely represents a calcified glenoid labrum. A moderate to large size glenohumeral joint effusion is present. There are multiple loose bodies around the glenohumeral joint space. No fractures present. There is no evidence of an aggressive osseous abnormality. There is moderate to severe fatty atrophy of the infraspinatus, subscapularis, and supraspinatus muscles. A large full-thickness tear of the subscapularis tendon is also visible with retraction. Normal visualized lateral clavicle. There is mild osteoarthritis with articular joint space narrowing. There is a Type II morphology (curved), with a neutral orientation. The visualized aspects of the right lung and mediastinum are unremarkable. CT/Extremity Upper without Contra IMPRESSION: 1. Large full-thickness tears of multiple rotator cuff tendons with moderate to severe fatty atrophy due to chronicity 2. Severe DJD of the shoulder joint and high riding humeral head abutting the undersurface of the acromium Electronically Signed: Paul Booker MD at 11:12 EDT ,
== END | disposition home or self-care (01) ==
PROVIDERS: PCP Family Medicine; Referring Provider Student in an Organized Health Care Education/Training Program; Visit Provider Student in an Organized Health Care Education/Training Program
DX: M25.511 Pain in right shoulder (principal); M19.011 Primary osteoarthritis, right shoulder
CPT/HCPCS: 73200

== ENCOUNTER → 2023-07-18 | Outpatient (CLI) | payer MEDICARE, SELFPAY ==
[2023-07-18 15:19] LABS: Absolute Lymphocyte Count 1.41 X10^3/uL (0.83-4.51); Absolute Neutrophil Count 4.8 X10^3/uL (2.0-7.7); Basophil# 0.08 X10^3/uL; Basophil% 1.1 % (0-1); Eosinophil# 0.18 X10^3/uL; Eosinophils% 2.5 % (0-5); Hematocrit 45.3 % (37-47); Hemoglobin 14.5 g/dL (12.0-15.0); Lymphocyte # 1.41 X10^3/ul (0.83-4.51); Lymphocyte % 19.4 % (19-41); Mean Corpuscular Hgb 30.8 pg (27.0-32.0); Mean Corpuscular Volume 96.2 fL (81-99); Mean Platelet Vol. 11.2 fl (6.2-12.0); Monocyte# 0.79 X10^3/uL; Monocyte% 10.9 % (0-10); NRBC Flagged by Analyzer 0 % (0-5); Neutrophil # 4.78 X10^3/uL (2.7-7.7); Neutrophil % 65.7 % (47-70); Platelet Count 282 K/mm3 (150-450); RBC Distribution Width CV 13.7 % (11.6-14.6); Red Blood Count 4.71 M/mm3 (4.2-5.4); White Blood Count 7.3 K/mm3 (4.4-11.0)
[2023-07-18 16:32] LABS: ALB/GLOB Ratio 1.1 RATIO (0.9-2.4); AST(SGOT) 20 U/L (15-37); Alanine Aminotransfer ALT/SGPT 12 U/L (13-56); Albumin, Serum 3.6 g/dL (3.2-5.0); Alkaline Phosphatase 79 U/L (45-117); Anion Gap 6 (5-15); BUN 21 mg/dL (7-18); Calcium,Total 8.9 mg/dL (8.5-10.1); Chloride 107 mmol/L (98-107); Creatinine, Serum 0.84 mg/dL (0.55-1.02); EST Glomerular Filtration Rate 70 mL/min (>60); Est Glom Filt Rate - Afr Amer 84 mL/min (>60); Globulin 3.3 g/dL (2.2-4.2); Glucose 88 mg/dL (74-106); Potassium 3.9 mmol/L (3.5-5.1); Protein, Total 6.9 g/dL (6.4-8.2); Sodium Level 139 mmol/L (136-145); Thyroid Stim Hormone (TSH) 1.56 uIU/mL (0.358-3.74)
== END | disposition home or self-care (01) ==
LOC: MTLAB 11:52
PROVIDERS: PCP Family Medicine; Visit Provider Family Medicine
DX: E04.2 Nontoxic multinodular goiter (principal); I48.0 Paroxysmal atrial fibrillation
CPT/HCPCS: 36415; 80053; 84443; 85025

== ENCOUNTER 2023-08-22 11:15 | Observation (INO) | payer MEDICARE, SELFPAY ==
--- NOTE | 2023-08-06 09:57 | EKG12_ITS ---
Test Reason : PRE OP Blood Pressure : / mmHG Vent. Rate : 072 BPM Atrial Rate : 072 BPM P-R Int : 210 ms QRS Dur : 092 ms QT Int : 432 ms P-R-T Axes : 092 028 057 degrees QTc Int : 473 ms Sinus rhythm with 1st degree A-V block Otherwise normal ECG SEPTAL INFARCT, AGE UNDETERMINED Confirmed by JORGE SHABAZZ, ANATOLIY ([id number]), state editor BART JEFFERSON ([id number]) on 08/19/2023 12:53:05 PM Referred By: Wei Pollard Confirmed By:TANYA PATEL MD
--- NOTE | 2023-08-06 10:20 | RAD_ITS ---
STUDY: X-RAY CHEST REASON FOR EXAM: Female, 78 years old. PRE OP TECHNIQUE: PA and lateral views of the chest. COMPARISON: April 10, 2017 FINDINGS: There is mild lower lung atelectasis. There is no demonstrated pleural abnormality. Normal size heart. Normal mediastinum and ethan. Normal visualized pulmonary arteries. There is atherosclerotic calcification of the aortic arch with tortuosity. There is demineralization of the osseous structures. There is thoracic dextro scoliosis. There is degenerative osteoarthritis of the bilateral shoulders. There is no demonstrated abnormality of the visualized soft tissue structures of the upper abdomen. RAD/Chest PA and Lateral IMPRESSION: Degenerative changes, as described above. No demonstrated acute cardiopulmonary process. Electronically Signed: Ed Dickson MD at 18:37 EDT ,
[2023-08-06 11:30] LABS: Magnesium 2.5 mg/dL (1.6-2.6)
[2023-08-22] VITALS (9 sets, daily range): BP systolic 122–162; BP diastolic 73–131; PULSE 61–90; RESP 16–18; TEMP 35.9–37.2; O2SAT 94–99; BMI 31.2
[2023-08-22] MEDS: Acetaminophen 500 MG Tablet 1000 MG PO ×3 (06:57→22:32)
[2023-08-22] MEDS: Gabapentin 600 MG Tablet PO (06:57)
[2023-08-22] MEDS: Magnesium 1 GM over 15 mins IV (06:58)
[2023-08-22] MEDS: Lactated Ringers 1,000 ML 999 ML IV (06:59)
[2023-08-22 07:57] LABS: Bedside Glucose 149 mg/dL (74-106)
--- NOTE | 2023-08-22 08:50 | SHO_PTH ---
PATIENT: SALMA GONZALEZ LOC: MS3 U#:[id number] AGE/SX: 78/F ROOM: [facility] [place] RE08/22/[address]: Dr. Wei Pollard DO : 1945 BED: 1 DIS: 08/26/2023 SPEC #: [id number] RECD: 08/22/23 13:46 STATUS: ISAIAH ADAMS #: [id number] RIAZ: 08/22/23 08:[address]: Wei Pollard DEPT: SURGICAL PATHOLOGY RECD BY: Gabriela David ENTERED: 08/23/23 07:38 SP TYPE: HUMERUS OTHR DR: DO Dr. Mauro Arellano MD Dr. Eric Smith, MD Dr. Mark Tereletsky, DO Beatriz Guerra, CLAM SORTER-C Tissues: Humerus, NOS Procedures: Decalcification bone/plaque Surgery Specimen Level IV HEADER OPERATION: ERAS, total shoulder replacement PRE-OP DIAGNOSIS: Severe osteoarthritis right shoulder TISSUE SUBMITTED: Right shoulder bone and tissue MICROSCOPIC DIAGNOSIS Bone and tissue of right shoulder, total shoulder replacement: Severe degenerative joint disease. Mild synovial hyperplasia. AM:jayda 08/28/2023 MICROSCOPIC DESCRIPTION Slides are reviewed. GROSS DESCRIPTION Received in fixative is one container labeled with the patient's name and designated right shoulder bone and tissue. The specimen consists of a discoid fragment of trevizo bone measuring 4.8 x 4.3 x 2.0 cm. The articular surface displays prominent osteophyte formation and bone erosion. Also present in the specimen container are multiple irregular fragments of light to dark trevizo soft tissue measuring in aggregate 5.0 x 5.0 x 2.0 cm. Stone Driller Helper sections are submitted in two cassettes as follows: 1 - soft tissue, 2??bone after decalcification. / AM:jayda 08/23/2023 TC:5 CPT: 76977, 25509
[2023-08-22] MEDS: Cefazolin 2 GM in 0.9% Normal Saline (100mL Bag) 100 ML IV (09:10)
[2023-08-22] MEDS: TXA in NS 100ml (Placed in Wound) OPERA.SITE (09:20)
[2023-08-22] MEDS: Vancomycin HCl 1,250 MG in 0.9% Normal Saline (250mL Bag) 250 ML 167 MG IV (09:45)
--- NOTE | 2023-08-22 12:02 | PCM.OPRPT ---
Report of Operation Date of Procedure: 08/22/23 Description of Surgical Findings:: Preoperative diagnosis: Right shoulder rotator cuff arthropathy Postoperative diagnosis: Right shoulder rotator cuff arthropathy Procedure: Right reverse total shoulder arthroplasty Surgeon: Wei Pollard DO Nutrition Tech: Sharifa Henderson PA-C Anesthesia: General endotracheal Welding Machine Operator Friction: Aleksandr Sanches CRNA Complications: None apparent Drains: None Estimated blood loss: 150 cc Urinary output: None IV fluids: 1500 cc crystalloid Specimens: Right humeral head resection Surgical implants: Tornier Aequalis PerFORM+ reversed baseplate 25 mm diameter full wedge, standard glenosphere cobalt chrome 36 mm diameter, Tornier perform inlay stem size #3, + 3 mm retentive size number 3 36 mm diameter polyethylene insert, 25 mm central screw and peripheral screws x4. Surgical indications: This is a 78-year-old female with persistent right shoulder pain. She did have worsening symptoms over the last several months. X-rays revealed rotator cuff arthropathy. Patient had pseudoparalysis of his right upper extremity. I recommended a reverse shoulder arthroplasty. We obtained a preoperative CT scan for planning. The risks, benefits, alternatives the procedure was reviewed with the patient and she agreed to proceed. Risks included but were not limited to bleeding, infection, instability, loss of life or limb, risk of anesthesia, neurovascular injury, persistent pain, stiffness, prolonged immobilization, need for additional surgery, loosening of orthopedic hardware. She expressed understanding and wished to proceed with surgery. Surgical details: Patient arrived to [facility] morning of the procedure and was greeted by the same day surgery staff. Prior to her procedure, I greeted the patient in the preoperative holding area I identified the patient by name, record number, and date of . Informed consent was confirmed. The operative extremity was marked. All questions were answered to patient satisfaction. An interscalene block was administered prior to procedure by anesthesia staff for postoperative and intraoperative analgesia. At time of her procedure, patient was brought to the operative suite and positioned supine on a standard table with a beachchair attachment. General anesthesia was induced after all bony prominences were well-padded. Endotracheal tube was placed. After adequate anesthesia and securing the tube, we prepared the patient to be positioned in the beachchair position. A well-padded head rose grower was applied. The nonoperative extremity was placed in a well arm pedro. She was then brought into the beachchair position after we confirmed an appropriate blood pressure. We then spun the bed 45 degrees. The operative extremity was then prepared. Then the butterfly wing of the bed was removed and a well-padded torso strap was applied to secure the patient to the bed. The operative extremity was now free. We then prepped and draped the right upper extremity in normal, sterile orthopedic fashion. We then performed a timeout with all parties in attendance in agreement with the side, site, and operation be performed. 2 g Ancef was administered prior to incision by anesthesia staff, as well as 1 g TXA IV. 1 g IV vancomycin was run throughout the case. No concerns were voiced and we elected to proceed. I first marked a standard deltopectoral incision just lateral to the coracoid process in line with the long axis of the humerus. Skin was sharply incised with 10 blade scalpel. I then dissected bluntly through the subcutaneous layers and found the fat stripe between the deltoid and pectoralis major. The cephalic vein was then identified and protected. It was retracted laterally with the deltoid. I then bluntly dissected underneath the deltoid with a Aguiar elevator. Jeremy retractor was placed. There is a large effusion in the right shoulder as well as the biceps sheath. Chronic long head of biceps tendon rupture was noted and the tendon was not visualized. The upper 1 cm of the pectoralis major was released. I then identified the lesser and greater tuberosities. The supraspinatus was completely torn and retracted with an exposed greater tuberosity. I then performed a subscapularis peel while rotating the humerus externally. I tagged the subscapularis for possible repair later with a tagging suture. Humeral head was then dislocated anteriorly. Appropriate access to the humeral head was confirmed. I then subluxed the humeral head posteriorly with a Fukuda retractor placed around the posterior lip of the glenoid. Inferior capsule was tensioned. I was able to palpate the axillary nerve. Inferior capsule was then released to the 4 o'clock position of the glenoid face. 3 sided subscapularis release was performed with Bovie cautery. I then remove the Fukuda retractor and redislocated the shoulder anteriorly. I then made a anatomic neck cut of the cartilaginous surface of the humeral head. Sizing plate for a size # 3 stem was utilized to determine appropriate reaming size. A central pin was placed engaging the lateral cortex of the humerus. A size # 3 reamer was used to ream the humeral metaphysis and prepare for the inlay stem. A canal finding reamer was utilized prior to sequential broaching to a size # 3 short stem with excellent rotational and axial purchase in the humerus. I remove the broach handle left the size # [address]. I then subluxed the humerus posterior to the glenoid. I then placed retractors around the posterior and anterior glenoid to expose the glenoid. A Hohmann retractor was placed superiorly around the coracoid process. Glenoid labrum was removed with Bovie cautery protecting the axillary nerve. We then used the custom guide from [employer] to position our centering pin, exiting approximately 25 mm from the joint surface along the anterior scapula. Guide was removed and pin was analyzed and compared to preoperative planning. It appeared to be in appropriate position. The wedge shaped reamer was then placed over top of the centering pin. I reamed for near complete cortical contact of the wedged reamer consistent with our preoperative 3D plan. We then removed the reamer. Central screw was drilled for measuring 25 mm. Screw and baseplate was assembled on the back table. We then inserted the baseplate and central post the assembled baseplate to an appropriate depth with reasonable purchase. A Madison was used to confirm depth. Peripheral screws then were placed in the peripheral holes with good purchase. The baseplate had excellent purchase and the entire scapula would rotate with rotation of the baseplate. We then impacted the 36 mm glenosphere with a standard eccentricity and tightened the locking screw mechanism. We then removed retractors and turned our attention back to the humerus. I placed a standard +3 millimeters retentive polyethylene insert. I then reduced the shoulder. There was excellent range of motion and stability in all planes of motion. There was no impingement. We selected this as our final size. We removed trials from the humerus after final dislocation. I copiously irrigated the canal. Broach was placed on hand and then impacted to an appropriate depth. Final + 3 mm retentive polyethylene insert was placed. Final reduction was then performed. The subscapularis was then identified with a tagging suture. Repair would have been likely under undue tension and likely failed. I elected to not perform a subscapularis repair. We then copiously irrigated the wound first with a 3-minute sterile Betadine soak and and subsequently with normal saline solution. We reapproximated the interval with 0 Vicryl suture. Subcutaneous layers were reapproximated with 2 -0 Vicryl suture. Skin was finally running V-Loc 4-0 Monocryl suture and Dermabond. A sterile silver Mepilex dressing was applied. Patient was then placed in an ultra sling. Patient tolerated procedure well without complication. He was positioned back in the supine position extubated in the operative suite. She was transferred to the [facility] and subsequently to PACU in stable condition. Need for skilled assistant construction superintendent: Sharifa Henderson PA-C was critical to the outcome of the case. During the course of the procedure the physician assistant construction superintendent played a vital role. Her intimate knowledge of my steps in the procedure aided in safe and expedient completion of the procedure. The PA played a vital role in positioning particularly in obtaining the appropriate positioning. The PA was also vital in the retraction of soft tissues during the exposure and protecting vital structures. The PA was also vital and protecting soft tissues during times of bony cuts. She also played a vital role in closure with my direct supervision. The PA was also important during reduction and dislocation of the joint and trials intraoperatively. Intraoperative medications: 2 g Ancef IV, 1 g IV vancomycin, 1 g TXA IV x2 Post Operative Plan: Patient be placed in observation overnight. Her ability to return home independently during the immediate postoperative course is concerning. We will mobilize the patient with physical occupational therapies. We will plan for possible snf facility placement. Weightbearing: Nonweightbearing right upper extremity, okay for pendulums. Range of motion of wrist elbow and hand as tolerated. Antibiotics: 2 g Ancef IV prior to incision, 1 g IV vancomycin intraoperatively, 24 hours IV Ancef postoperatively DVT Prophylaxis: Aspirin enteric-coated 81 mg twice daily starting tomorrow Lewis: None Dressing: Maintain silver dressing x7 days. Okay to shower dressing on started on day 4 X-Rays: 2 weeks postop in the office Pain Medication: Oxycodone Rx upon discharge Follow-up: 2 weeks post-operatively with me in the office
--- NOTE | 2023-08-22 12:10 | RAD_ITS ---
STUDY: X-RAY - RIGHT SHOULDER REASON FOR EXAM: Female, 78 years old. Post op -- AP and Lateral X-Ray of operative shoulder in PACU TECHNIQUE: 2 view(s) of the shoulder. COMPARISON: Comparison is made with prior study of December 24, 2018. FINDINGS: The patient is status post reverse right shoulder replacement. There is good alignment. RAD/Shoulder min 2 Views IMPRESSION: Status post right reverse shoulder replacement. There is good alignment. Electronically Signed: Kristopher Giordano MD at 12:30 EDT ,
--- NOTE | 2023-08-22 14:15 | PN.HOSP_ITS ---
Reason for Visit Reason for Visit: Diagnoses Encounter for other preprocedural examination (08/22/23) Subjective Subjective Patient seen at bedside on the floor postoperatively. Multiple family members present. Patient sitting in bed, conversing normally. She does appear to be in mild pain at this time, and appears moderately fatigued. Patient does report mild to moderate right shoulder pain at this time. Also reports some mild throat pain. She otherwise denies any fevers or chills, chest pain, shortness of breath, abdominal pain, nausea, or lightheadedness/dizziness. No other acute concerns currently. Objective Data Objective Data Vital Signs: Vital Signs Temp Pulse Resp BP Pulse Ox O2 Del Method O2 Flow Rate 97.4 F L 75 16 146/97 H 94 Room Air 4 08/22/23 13:44 08/22/23 13:44 08/22/23 13:44 08/22/23 13:44 08/22/23 13:44 08/22/23 13:44 08/22/23 12:41 Oxygen Flow Rate (L/min) 4 Oxygen Delivery Method Room Air Weight: 80 kg Body Mass Index (BMI) 31.2 Intake & Output: Intake and Output for Last 24 Hours 08/20/23 08/21/23 08/22/23 23:59 23:59 23:59 Intake Total 1487 / 1487 Output Total 250 / 250 Balance 1237 / 1237 Lab / Micro Data Labs: Laboratory Results - last 24 hr 08/22/23 07:02: POC Glucose 149 H Micro: Microbiology 08/06/23 09:55 Swab (Method) Nasal Screen MRSA/MSSA - Final Radiography Diagnostic Testing: Radiology Impression Shoulder X-Ray 08/22/23 12:10 IMPRESSION: Status post right reverse shoulder replacement. There is good alignment. Electronically Signed: Kristopher Giordano MD at 12:30 EDT , Physical Exam Const alert and oriented x3 Constitutional Narrative: Elderly female, obese, sitting up in bed, conversing normally. Mild distress due to shoulder pain, moderately fatigued. General Appearance: cooperative and comfortable HEENT normocephalic, head/scalp atraumatic, hearing grossly normal bilaterally, nasal mucous membranes and turbinates normal and moist oral mucous membranes Eyes PERRL, EOMs intact bilaterally and conjunctivae normal Neck full ROM, no lymphadenopathy and supple Lymph Lymphatic: no lymphadenopathy noted Chest inspection of chest normal Resp normal respiratory effort, normal air movement, no use of accessory muscles and clear to auscultation bilaterally Cardio regular rate, regular rhythm, no murmurs and peripheral pulses 2+ throughout GI normal to inspection, nondistended, normoactive bowel sounds, soft to palpation, non-tender and non-distended Back/Spine normal ROM Extremity normal to inspection Extremity Narrative: Right arm in sling, no gross abnormalities. Skin no rashes or lesions noted Psych mental status grossly normal Assessment & Plan Assessment/Plan (1) Status post replacement of right shoulder joint: PLAN: Plan Patient is a 78-year-old female with history of consistent Parkinson disease, paroxysmal atrial fibrillation, hypertension, degenerative disc disease and right shoulder rotator cuff arthropathy who presented to [facility] on 08/22/2023 for planned procedure. Medicine consulted postoperatively for medical management. 1. Right shoulder rotator cuff arthropathy S/p right reverse total shoulder arthroplasty with Dr. Pollard on 08/22/2023. Patient seen postoperatively. Tolerated procedure well. Mild postoperative discomfort, otherwise no issues. ? Orthopedics primary. PT/OT/case management consulted. Pain control with scheduled Tylenol, oxycodone as needed. CBC and BMP tomorrow morning. If remains stable, likely okay for discharge home tomorrow. Chronic medical conditions: ? Parkinson disease: S/p spinal cord stimulator in 2020. Continue home Sinemet 3 times daily, duloxetine daily, propanolol at night. ? Paroxysmal atrial fibrillation, hypertension: Follows with Dr. Vaca, last office visit 08/13/23. Continue home flecainide, diltiazem and aspirin. Blood pressure was noted to be low at recent office visit, home lisinopril currently on hold, continue to hold here. Xarelto was notably discontinued earlier this year due to frequent falls. ? Arthritis: Continue home Plaquenil. DVT prophylaxis: Lovenox CODE STATUS: Full code, unverified Expected disposition: Home, 1 to 2 days Total clinical time spent by myself addressing the patient's medical issues, reviewing all the data, and collaborating with patient's care team: 35 minutes. Charges/Coding Visit Charges Inpatient E&M: 08680 Subs Hosp L2
[2023-08-22] MEDS: dilTIAZem 30 MG Tablet PO ×2 (14:42→22:32)
[2023-08-22] MEDS: Cefazolin 1 GM/50 ML BAG IV (17:39)
[2023-08-22] MEDS: Flecainide 100 MG Tablet 50 MG PO (17:40)
[2023-08-22] MEDS: Carbidopa/Levodopa 25/100 Tablet PO (17:40)
[2023-08-22] MEDS: Senna/Docusate Sodium 1 Tablet 2 TABLET PO (22:32)
[2023-08-22] MEDS: Hydroxychloroquine 200 MG Tablet PO (22:32)
[2023-08-22] MEDS: Propranolol 10 MG Tablet PO (22:32)
[2023-08-22] MEDS: oxyCODONE 5 MG Tablet PO (22:36)
[2023-08-23] MEDS: Cefazolin 1 GM/50 ML BAG IV (01:21)
[2023-08-23 01:22] VITALS: BP 130/77; PULSE 57; RESP 16; TEMP 36.4; O2SAT 95
[2023-08-23] MEDS: Flecainide 100 MG Tablet 50 MG PO ×2 (01:40→16:08)
[2023-08-23] MEDS: oxyCODONE 5 MG Tablet PO ×4 (02:46→22:47)
[2023-08-23] MEDS: dilTIAZem 30 MG Tablet PO ×3 (05:34→21:22)
[2023-08-23] MEDS: Acetaminophen 500 MG Tablet 1000 MG PO ×3 (05:34→21:23)
[2023-08-23] MEDS: Carbidopa/Levodopa 25/100 Tablet PO ×3 (06:47→16:08)
[2023-08-23 07:37] LABS: Hematocrit 41.6 % (37-47); Hemoglobin 13.3 g/dL (12.0-15.0); Mean Corpuscular Hgb 30.9 pg (27.0-32.0); Mean Corpuscular Volume 96.5 fL (81-99); Mean Platelet Vol. 10.3 fl (6.2-12.0); Platelet Count 278 K/mm3 (150-450); RBC Distribution Width CV 13.6 % (11.6-14.6); RBC Distribution Width SD 48.3 fl (35.1-43.9); Red Blood Count 4.31 M/mm3 (4.2-5.4); White Blood Count 13.2 K/mm3 (4.4-11.0)
[2023-08-23 07:48] LABS: Anion Gap 3 (5-15); BUN 11 mg/dL (7-18); BUN/Creat Ratio 15.2 RATIO (10-20); Calcium,Total 8.5 mg/dL (8.5-10.1); Chloride 111 mmol/L (98-107); Creatinine, Serum 0.72 mg/dL (0.55-1.02); EST Glomerular Filtration Rate 83 mL/min (>60); Est Glom Filt Rate - Afr Amer 100 mL/min (>60); Estimated Creatinine Clearance 38.35 ml/min; Glucose 156 mg/dL (74-106); Potassium 3.8 mmol/L (3.5-5.1); Sodium Level 142 mmol/L (136-145)
--- NOTE | 2023-08-23 08:37 | PN.ORTHO_ITS ---
Subjective Subjective Patient seen and examined. Reports soreness in her right shoulder as well as her low back this morning. She denies fevers, chills, nausea or vomiting, chest pain or shortness of breath. Objective Data Objective Data Vital Signs: Vital Signs Temp Pulse Resp BP Pulse Ox O2 Del Method O2 Flow Rate 97.6 F L 57 L 16 130/77 H 95 Room Air 4 08/23/23 01:22 08/23/23 01:22 08/23/23 01:22 08/23/23 01:22 08/23/23 01:22 08/23/23 01:22 08/22/23 12:41 Oxygen Flow Rate (L/min) 4 Oxygen Delivery Method Room Air Weight: 176 lb 5.917 oz Body Mass Index (BMI) 31.2 Intake & Output: Intake and Output for Last 24 Hours 08/21/23 08/22/23 08/23/23 23:59 23:59 23:59 Intake Total 1537 / 1837 750 / 750 Output Total 250 / 550 1375 / 1375 Balance 1287 / 1287 -625 / -625 Lab / Micro Data 08/23/23 06:50 08/23/23 06:50 Labs: Laboratory Results - last 24 hr 08/23/23 06:50: WBC 13.2 H, RBC 4.31, Hgb 13.3, Hct 41.6, MCV 96.5, MCH 30.9, MCHC 32.0, RDW Std Deviation 48.3 H, RDW Coeff of Lenin 13.6, Plt Count 278, MPV 10.3, Sodium 142, Potassium 3.8, Chloride 111 H, Carbon Dioxide 28.0, Anion Gap 3 L, BUN 11, Creatinine 0.72, Estim Creat Clear Calc 38.35, Est GFR (MDRD) Af Amer 100, Est GFR (MDRD) Non-Af 83, BUN/Creatinine Ratio 15.2, Glucose 156 H, Calcium 8.5 Micro: Microbiology 08/06/23 09:55 Swab (Method) Nasal Screen MRSA/MSSA - Final Radiography Diagnostic Testing: Radiology Impression Shoulder X-Ray 08/22/23 12:10 IMPRESSION: Status post right reverse shoulder replacement. There is good alignment. Electronically Signed: Kristopher Giordano MD at 12:30 EDT , Physical Exam Narrative General - A&Ox3, NAD. VSS/AF. Right upper Extremity - SILT & 5/5 in radial, ulnar, musculocutaneous, axillary, and median nerve distributions. Radial, ulnar pulses 2+. Compartments soft and compressible. BCR in finger tips. Cardinal motions of the right hand are intact. Incisional dressing C/D/I. Assessment & Plan Assessment/Plan (1) Status post replacement of right shoulder joint: PLAN: POD#1 s/p right reverse total shoulder arthroplasty - Pain control - Medicine following for medical management - PT/OT -nonweightbearing right upper extremity. Pendulums only right shoulder. Range of motion as tolerated right elbow wrist and hand. - DVT PPX -aspirin 81 mg twice daily, SCDs, HOLLIE interiano, early mobilization - Case management - D/C planning. Anticipate SNF placement. Patient stable medically for discharge to SNF today if precertification is obt ained. Discharge instructions: Maintain surgical dressing x7 days. Okay to shower with dressing on postoperative day #4. Nonweightbearing to the operative extremity. Pendulums only right shoulder. Maintain sling except for exercises and hygiene. Range of motion as tolerated right elbow wrist and hand. Continue aspirin 81 mg twice daily for DVT prophylaxis. Plan for multimodal pain relief upon discharge with oxycodone, Tylenol and NSAIDs. Follow-up in 2 weeks as scheduled.
[2023-08-23] MEDS: Enoxaparin 40 MG/0.4 ML Syringe SC (08:46)
[2023-08-23] MEDS: Meloxicam 7.5 MG Tablet PO ×2 (08:46→21:23)
[2023-08-23] MEDS: Aspirin E.C. 81 MG Tablet PO ×2 (08:46→21:24)
[2023-08-23] MEDS: Senna/Docusate Sodium 1 Tablet 2 TABLET PO ×2 (08:47→21:22)
[2023-08-23] MEDS: Famotidine 20 MG Tablet PO (08:47)
[2023-08-23] MEDS: Hydroxychloroquine 200 MG Tablet PO ×2 (08:47→21:24)
[2023-08-23] MEDS: DULoxetine Hcl 30 MG Capsule PO (08:47)
[2023-08-23 08:58] VITALS: BP 149/77; PULSE 54; RESP 16; TEMP 36.6; O2SAT 97
--- NOTE | 2023-08-23 09:20 | CASEMGMT ---
Discharge Planning A list of SNF?providers including quality and resource use data and consistent with the patient's preferred geographic region, medical needs, and insurance network was created in [employer] Guide.? This list was provided to the SW. Leatha Linares, Discharge Planning Asst.
--- NOTE | 2023-08-23 10:06 | CASEMGMT ---
Social Work SW met with pt and two daughters and introduced self and role of SW. Pt lives in a two story home with first floor set up. Pt's grandson and his family live with pt but do work and are not caregivers for pt. Pt stating she will need short term rehab prior to returning home and dgts are agreeable. A list of SNF providers including quality and resource use data and consistent with the patient?s preferred geographic region, medical needs, and insurance network were provided from the [employer] Guide. Pt's preferred provider is [facility]. NM material assistant to send referral. Plan: [facility], pending acceptance and precert KOKO Baker
--- NOTE | 2023-08-23 10:24 | CASEMGMT ---
Discharge Planning Referral sent to [facility] via [facility]. Leatha Linares, Discharge Planning Asst.
--- NOTE | 2023-08-23 13:49 | CASEMGMT ---
Discharge Planning Patient has been accepted by [facility] and precert will be submitted today. SW updated. Leatha Linares, Discharge Planning Asst.
--- NOTE | 2023-08-23 15:43 | CASEMGMT ---
HUSEYIN notified patient and her daughter that patient was accepted at [facility]. HUSEYIN explained patient will stay at [facility] until her insurance approves her. HUSEYIN explained this could happen over the weekend or Saturday. HUSEYIN completed PASRR in [facility] system. Plan: d/c to [facility] pending insurance approval. Katya CASSIDY
--- NOTE | 2023-08-23 15:52 | CASEMGMT ---
Met with patient to complete GU form. GU form explained to patient who voiced understanding and signed form. Original form placed in pt?s chart and copy provided to patient. Leatha Linares, Discharge Planning Asst.
[2023-08-23 16:06] VITALS: BP 122/60; PULSE 57; RESP 16; TEMP 36.7; O2SAT 96
--- NOTE | 2023-08-23 16:56 | PN.HOSP_ITS ---
Reason for Visit Reason for Visit: Diagnoses Encounter for other preprocedural examination (08/22/23) Presence of right artificial shoulder joint (08/22/23) Subjective Subjective Patient was seen and examined today, I talked briefly with orthopedic surgery about her care. Patient feels that she is unable to go home after her surgery and she would like to go to an extended care facility for short-term rehab services. She mentioned to me that she felt that [facility] was a good choice, I relayed this to discharge planning. Objective Data Objective Data Vital Signs: Vital Signs Temp Pulse Resp BP Pulse Ox O2 Del Method O2 Flow Rate 98.1 F 57 L 16 122/60 H 96 Room Air 4 08/23/23 16:06 08/23/23 16:06 08/23/23 16:06 08/23/23 16:06 08/23/23 16:06 08/23/23 16:06 08/22/23 12:41 Oxygen Flow Rate (L/min) 4 Oxygen Delivery Method Room Air Weight: 80 kg Body Mass Index (BMI) 31.2 Intake & Output: Intake and Output for Last 24 Hours 08/21/23 08/22/23 08/23/23 23:59 23:59 23:59 Intake Total 1537 / 1837 750 / 750 Output Total 250 / 550 1375 / 1375 Balance 1287 / 1287 -625 / -625 Lab / Micro Data 08/23/23 06:50 08/23/23 06:50 Labs: Laboratory Results - last 24 hr 08/23/23 06:50: WBC 13.2 H, RBC 4.31, Hgb 13.3, Hct 41.6, MCV 96.5, MCH 30.9, MCHC 32.0, RDW Std Deviation 48.3 H, RDW Coeff of Lenin 13.6, Plt Count 278, MPV 10.3, Sodium 142, Potassium 3.8, Chloride 111 H, Carbon Dioxide 28.0, Anion Gap 3 L, BUN 11, Creatinine 0.72, Estim Creat Clear Calc 38.35, Est GFR (MDRD) Af Amer 100, Est GFR (MDRD) Non-Af 83, BUN/Creatinine Ratio 15.2, Glucose 156 H, Calcium 8.5 Micro: Microbiology 08/06/23 09:55 Swab (Method) Nasal Screen MRSA/MSSA - Final Physical Exam Const alert, oriented x3, no apparent distress and average body habitus General Appearance: cooperative, well kempt and well developed Orientation / Consciousness: awake, oriented to person, oriented to place and oriented to time HEENT normocephalic, head/scalp atraumatic and moist oral mucous membranes Eyes PERRL, EOMs intact bilaterally and conjunctivae normal Neck supple, no JVD, thyroid normal and no carotid bruits General: trachea midline Resp normal respiratory effort, no retractions, no use of accessory muscles and clear to auscultation bilaterally Auscultation: Negative for rales, rhonchi or wheezes Cardio regular rate, regular rhythm, S1 normal heart sound, S2 normal heart sound, no murmurs, no rub and no gallops GI normal to inspection, nondistended, normoactive bowel sounds, soft to palpation, non-tender and non-distended Extremity Extremity Narrative: Patient's right arm is in an immobilizer Skin no rashes or lesions noted Neuro oriented x3, CN's II-XII intact bilaterally, no focal motor deficits and no sensory deficits noted Sensorium / Orientation: awake, alert, oriented to person, oriented to place and oriented to time Speech: speech normal Psych affect normal Assessment & Plan Assessment/Plan (1) Status post replacement of right shoulder joint: PLAN: Plan 1. Parkinson's disease-patient will continue on her Sinemet #2 paroxysmal atrial fibrillation-patient remains on her home flecainide, propranolol, and diltiazem, she is not on full anticoagulation due to a history of frequent falls. She takes 81 mg aspirin daily at the direction of her small products ii assembler #3 right shoulder rotator cuff arthropathy-status post right reverse total shoulder arthroplasty postop day #1-PT and OT are seeing patient, she will need short-term placement in a alf facility for rehab services. #4 essential hypertension-patient is to remain on her home medications #5 chronic depression-patient is on Cymbalta Total clinical time spent by myself addressing the patient's medical issues, reviewing all of her data, and collaborating with patient's care team: 25 minutes Charges/Coding Visit Charges Inpatient E&M: 12192 Subs Hosp L1
[2023-08-23 21:14] VITALS: BP 116/58; PULSE 56; RESP 16; TEMP 36.6; O2SAT 96
[2023-08-23] MEDS: Propranolol 10 MG Tablet PO (23:47)
[2023-08-24 02:43] VITALS: BP 147/81; PULSE 50; RESP 16; TEMP 36.6; O2SAT 95
[2023-08-24] MEDS: Flecainide 100 MG Tablet 50 MG PO ×2 (02:46→14:15)
[2023-08-24] MEDS: oxyCODONE 5 MG Tablet PO ×2 (04:05→21:27)
[2023-08-24] MEDS: Acetaminophen 500 MG Tablet 1000 MG PO ×3 (06:11→21:26)
[2023-08-24] MEDS: dilTIAZem 30 MG Tablet PO ×2 (06:12→14:16)
[2023-08-24] MEDS: Carbidopa/Levodopa 25/100 Tablet PO ×3 (06:12→16:20)
[2023-08-24] MEDS: Meloxicam 7.5 MG Tablet PO ×2 (07:35→21:26)
[2023-08-24] MEDS: Senna/Docusate Sodium 1 Tablet 2 TABLET PO (07:35)
[2023-08-24] MEDS: DULoxetine Hcl 30 MG Capsule PO (07:35)
[2023-08-24] MEDS: Enoxaparin 40 MG/0.4 ML Syringe SC (07:35)
[2023-08-24] MEDS: Aspirin E.C. 81 MG Tablet PO ×2 (07:36→21:26)
[2023-08-24] MEDS: Hydroxychloroquine 200 MG Tablet PO ×2 (07:37→21:27)
[2023-08-24] MEDS: Famotidine 20 MG Tablet PO (07:37)
[2023-08-24 08:57] VITALS: BP 142/66; PULSE 58; RESP 16; TEMP 37; O2SAT 96
[2023-08-24 11:23] VITALS: BP 124/61; PULSE 55; RESP 16; TEMP 36.4; O2SAT 96
--- NOTE | 2023-08-24 11:51 | PN.ORTHO_ITS ---
Subjective Subjective Patient seen and examined. Denies any new complaints. States her pain is dramatically improved. Denies fevers, chills, nausea vomiting, chest pain or shortness of breath. Positive BM. Objective Data Objective Data Vital Signs: Vital Signs Temp Pulse Resp BP Pulse Ox O2 Del Method O2 Flow Rate 97.6 F L 55 L 16 124/61 H 96 Room Air 4 08/24/23 11:23 08/24/23 11:23 08/24/23 11:23 08/24/23 11:23 08/24/23 11:23 08/24/23 11:23 08/22/23 12:41 Oxygen Flow Rate (L/min) 4 Oxygen Delivery Method Room Air Weight: 176 lb 5.917 oz Body Mass Index (BMI) 31.2 Intake & Output: Intake and Output for Last 24 Hours 08/22/23 08/23/23 08/24/23 23:59 23:59 23:59 Intake Total 1537 / 1837 750 / 1050 850 / 850 Output Total 250 / 550 1375 / 1375 Balance 1287 / 1287 -625 / -325 850 / 850 Lab / Micro Data 08/23/23 06:50 08/23/23 06:50 Micro: Microbiology 08/06/23 09:55 Swab (Method) Nasal Screen MRSA/MSSA - Final Physical Exam Narrative General - A&Ox3, NAD. VSS/AF. Right upper Extremity - SILT & 5/5 in radial, ulnar, musculocutaneous, axillary, and median nerve distributions. Radial, ulnar pulses 2+. Compartments soft and compressible. BCR in finger tips. Cardinal motions of the right hand are intact. Incisional dressing C/D/I. Assessment & Plan Assessment/Plan (1) Status post replacement of right shoulder joint: PLAN: POD#2 s/p right reverse total shoulder arthroplasty - Pain control - Medicine following for medical management - PT/OT -nonweightbearing right upper extremity. Pendulums only right shoulder. Range of motion as tolerated right elbow wrist and hand. - DVT PPX -aspirin 81 mg twice daily, SCDs, HOLLIE hose, early mobilization - Case management - D/C planning. Pre-CERT pending. Patient stable for discharge once precertification is obtained. Discharge instructions: Maintain surgical dressing x7 days. Okay to shower with dressing on postope rative day #4. Nonweightbearing to the operative extremity. Pendulums only right shoulder. Maintain sling except for exercises and hygiene. Range of motion as tolerated right elbow wrist and hand. Continue aspirin 81 mg twice daily for DVT prophylaxis. Plan for multimodal pain relief upon discharge with oxycodone, Tylenol and NSAIDs. Follow-up in 2 weeks as scheduled.
[2023-08-24] MEDS: Mag Hydrox/Al Hydrox/Simeth 30 ML UDC PO (13:30)
--- NOTE | 2023-08-24 14:30 | PN.HOSP_ITS ---
Reason for Visit Reason for Visit: Diagnoses Encounter for other preprocedural examination (08/22/23) Presence of right artificial shoulder joint (08/22/23) Subjective Subjective Patient was seen and examined today, she still complains of postsurgical shoulder discomfort, otherwise she has no complaints. Objective Data Objective Data Vital Signs: Vital Signs Temp Pulse Resp BP Pulse Ox O2 Del Method O2 Flow Rate 97.6 F L 55 L 16 124/61 H 96 Room Air 4 08/24/23 11:23 08/24/23 11:23 08/24/23 11:23 08/24/23 11:23 08/24/23 11:23 08/24/23 13:26 08/22/23 12:41 Oxygen Flow Rate (L/min) 4 Oxygen Delivery Method Room Air Weight: 80 kg Body Mass Index (BMI) 31.2 Intake & Output: Intake and Output for Last 24 Hours 08/22/23 08/23/23 08/24/23 23:59 23:59 23:59 Intake Total 1537 / 1837 750 / 1050 850 / 850 Output Total 250 / 550 1375 / 1375 Balance 1287 / 1287 -625 / -325 850 / 850 Lab / Micro Data 08/23/23 06:50 08/23/23 06:50 Micro: Microbiology 08/06/23 09:55 Swab (Method) Nasal Screen MRSA/MSSA - Final Physical Exam Narrative alert, oriented x3, no apparent distress and average body habitus General Appearance: cooperative, well kempt and well developed Orientation / Consciousness: awake, oriented to person, oriented to place and oriented to time HEENT normocephalic, head/scalp atraumatic and moist oral mucous membranes Eyes PERRL, EOMs intact bilaterally and conjunctivae normal Neck supple, no JVD, thyroid normal General: trachea midline Resp normal respiratory effort, no retractions, no use of accessory muscles and clear to auscultation bilaterally Auscultation: Negative for rales, rhonchi or wheezes Cardio regular rate, regular rhythm, S1 normal heart sound, S2 normal heart sound, no murmurs, no rub and no gallops GI normal to inspection, nondistended, normoactive bowel sounds, soft to palpation, non-tender and non-distended Extremity Extremity Narrative: Patient's right arm is in an immobilizer Skin no rashes or lesions noted Neuro oriented x3, CN's II-XII intact bilaterally, no focal motor deficits and no sensory deficits noted Sensorium / Orientation: awake, alert, oriented to person, oriented to place and oriented to time Speech: speech normal Psych affect normal Assessment & Plan Assessment/Plan (1) Status post replacement of right shoulder joint: PLAN: Plan 1. Parkinson's disease-patient will continue on her Sinemet #2 paroxysmal atrial fibrillation-patient remains on her home flecainide, propranolol, and diltiazem, she is not on full anticoagulation due to a history of frequent falls. She takes 81 mg aspirin daily at the direction of her branch office administrator #3 right shoulder rotator cuff arthropathy-status post right reverse total shoulder arthroplasty postop day #1-PT and OT are seeing patient, she will need short-term placement in a halfway facility for rehab services. #4 essential hypertension-patient is to remain on her home medications #5 chronic depression-patient is on Cymbalta Patient remains medically stable at this time. Total clinical time spent by myself addressing the patient's medical issues, reviewing all of her data, and collaborating with patient's care team: 25 minutes Charges/Coding Visit Charges Inpatient E&M: 83650 Subs Hosp L1
[2023-08-24 15:19] VITALS: BP 98/56; PULSE 59; RESP 16; TEMP 36.5; O2SAT 99
[2023-08-24 20:08] VITALS: BP 93/63; PULSE 64; RESP 16; TEMP 36.6; O2SAT 97
[2023-08-25] VITALS (9 sets, daily range): BP systolic 80–144; BP diastolic 40–69; PULSE 55–61; RESP 16; TEMP 36.5–37.1; O2SAT 93–97
[2023-08-25] MEDS: traZODone 50 MG Tablet PO (00:07)
[2023-08-25] MEDS: Flecainide 100 MG Tablet 50 MG PO ×2 (03:13→14:47)
[2023-08-25] MEDS: oxyCODONE 5 MG Tablet PO ×2 (06:06→20:23)
[2023-08-25] MEDS: Acetaminophen 500 MG Tablet 1000 MG PO ×3 (06:10→21:29)
[2023-08-25] MEDS: dilTIAZem 30 MG Tablet PO ×2 (06:10→22:52)
[2023-08-25] MEDS: Carbidopa/Levodopa 25/100 Tablet PO ×3 (06:10→16:07)
[2023-08-25] MEDS: Hydroxychloroquine 200 MG Tablet PO ×2 (09:05→21:30)
[2023-08-25] MEDS: Famotidine 20 MG Tablet PO (09:06)
[2023-08-25] MEDS: Enoxaparin 40 MG/0.4 ML Syringe SC (09:06)
[2023-08-25] MEDS: DULoxetine Hcl 30 MG Capsule PO (09:06)
[2023-08-25] MEDS: Meloxicam 7.5 MG Tablet PO ×2 (09:07→21:29)
[2023-08-25] MEDS: Aspirin E.C. 81 MG Tablet PO ×2 (09:07→21:29)
--- NOTE | 2023-08-25 13:08 | PN.ORTHO_ITS ---
Subjective Subjective Patient seen and examined. States her pain is improving her right shoulder. Denies fevers, chills, nausea vomiting, chest pain, shortness of breath, lightheadedness or dizziness. Hypotension noted today, patient did receive her morning antihypertensives. Medical service is aware. Objective Data Objective Data Vital Signs: Vital Signs Temp Pulse Resp BP Pulse Ox O2 Del Method O2 Flow Rate 98.2 F 55 L 16 80/40 L 93 Room Air 4 08/25/23 10:08/25/23 10:08/25/23 10:08/25/23 10:08/25/23 10:08/25/23 10:08/22/23 12:41 Oxygen Flow Rate (L/min) 4 Oxygen Delivery Method Room Air Weight: 176 lb 5.917 oz Body Mass Index (BMI) 31.2 Intake & Output: Intake and Output for Last 24 Hours 08/23/23 08/24/23 08/25/23 23:59 23:59 23:59 Intake Total 750 / 1050 1450 / 1450 200 / 200 Output Total 1375 / 1375 Balance -625 / -325 1450 / 1450 200 / 200 Lab / Micro Data 08/23/23 06:50 08/23/23 06:50 Micro: Microbiology 08/06/23 09:55 Swab (Method) Nasal Screen MRSA/MSSA - Final Physical Exam Narrative General - A&Ox3, NAD. Afebrile, hypotensive Right upper Extremity - SILT & 5/5 in radial, ulnar, musculocutaneous, axillary, and median nerve distributions. Radial, ulnar pulses 2+. Compartments soft and compressible. BCR in finger tips. Cardinal motions of the right hand are intact. Incisional dressing C/D/I. Assessment & Plan Assessment/Plan (1) Status post replacement of right shoulder joint: PLAN: POD#3 s/p right reverse total shoulder arthroplasty - Pain control - Medicine following for medical management. Defer to hospitalist for manag ement of hypotension - PT/OT -nonweightbearing right upper extremity. Pendulums only right shoulder. Range of motion as tolerated right elbow wrist and hand. - DVT PPX -aspirin 81 mg twice daily, SCDs, HOLLIE hose, early mobilization - Case management - D/C planning. Pre-CERT pending. Patient stable for discharge once precertification is obtained. Discharge instructions: Maintain surgical dressing x7 days. Okay to shower with dressing on postoperative day #4. Nonweightbearing to the operative extremity. Pendulums only right shoulder. Maintain sling except for exercises and hygiene. Range of motion as tolerated right elbow wrist and hand. Continue aspirin 81 mg twice daily for DVT prophylaxis. Plan for multimodal pain relief upon discharge with oxycodone, Tylenol and NSAIDs. Follow-up in 2 weeks as scheduled.
--- NOTE | 2023-08-25 15:46 | PCM.PN.HOSP ---
Reason for Visit Reason for Visit: Diagnoses Encounter for other preprocedural examination (08/22/23) Presence of right artificial shoulder joint (08/22/23) Subjective Subjective Patient was seen and examined today, she has no complaints of any fevers or chills, she still has some postop shoulder pain. Objective Data Objective Data Vital Signs: Vital Signs Temp Pulse Resp BP Pulse Ox O2 Del Method O2 Flow Rate 98.2 F 55 L 16 99/55 L 96 Room Air 4 08/25/23 15:35 08/25/23 15:35 08/25/23 15:35 08/25/23 15:35 08/25/23 15:35 08/25/23 15:35 08/22/23 12:41 Oxygen Flow Rate (L/min) 4 Oxygen Delivery Method Room Air Weight: 80 kg Body Mass Index (BMI) 31.2 Intake & Output: Intake and Output for Last 24 Hours 08/23/23 08/24/23 08/25/23 23:59 23:59 23:59 Intake Total 750 / 1050 1450 / 1450 800 / 800 Output Total 1375 / 1375 Balance -625 / -325 1450 / 1450 800 / 800 Lab / Micro Data 08/23/23 06:50 08/23/23 06:50 Micro: Microbiology 08/06/23 09:55 Swab (Method) Nasal Screen MRSA/MSSA - Final Physical Exam Narrative alert, oriented x3, no apparent distress and average body habitus General Appearance: cooperative, well kempt and well developed Orientation / Consciousness: awake, oriented to person, oriented to place and oriented to time HEENT normocephalic, head/scalp atraumatic and moist oral mucous membranes Eyes PERRL, EOMs intact bilaterally and conjunctivae normal Neck supple, no JVD, thyroid normal General: trachea midline Resp normal respiratory effort, no retractions, no use of accessory muscles and clear to auscultation bilaterally Auscultation: Negative for rales, rhonchi or wheezes Cardio regular rate, regular rhythm, S1 normal heart sound, S2 normal heart sound, no murmurs, no rub and no gallops GI normal to inspection, nondistended, normoactive bowel sounds, soft to palpation, non-tender and non-distended Extremity Extremity Narrative: Patient's right arm is in an immobilizer Skin no rashes or lesions noted Neuro oriented x3, CN's II-XII intact bilaterally, no focal motor deficits and no sensory deficits noted Sensorium / Orientation: awake, alert, oriented to person, oriented to place and oriented to time Speech: speech normal Psych affect normal Assessment & Plan Assessment/Plan (1) Status post replacement of right shoulder joint: PLAN: Plan 1. Parkinson's disease-patient will continue on her Sinemet #2 paroxysmal atrial fibrillation-patient remains on her home flecainide, propranolol, and diltiazem, she is not on full anticoagulation due to a history of frequent falls. She takes 81 mg aspirin daily at the direction of her occupational health nurse #3 right shoulder rotator cuff arthropathy-status post right reverse total shoulder arthroplasty postop day #3-PT and OT are seeing patient, she will need short-term placement in a correction facility for rehab services. #4 essential hypertension-patient is to remain on her home medications #5 chronic depression-patient is on Cymbalta Patient remains medically stable at this time. Total clinical time spent by myself addressing the patient's medical issues, reviewing all of her data, and collaborating with patient's care team: 25 minutes Charges/Coding Visit Charges Inpatient E&M: 47049 Subs Hosp L1
[2023-08-26 01:06] VITALS: BP 123/75; PULSE 52; RESP 16; TEMP 36.6; O2SAT 94
[2023-08-26] MEDS: oxyCODONE 5 MG Tablet PO ×2 (02:07→11:51)
[2023-08-26] MEDS: Flecainide 100 MG Tablet 50 MG PO (02:07)
[2023-08-26 06:30] VITALS: BP 140/74; PULSE 52; RESP 16; TEMP 37; O2SAT 94
[2023-08-26] MEDS: Acetaminophen 500 MG Tablet 1000 MG PO (06:32)
[2023-08-26] MEDS: Carbidopa/Levodopa 25/100 Tablet PO ×2 (06:33→11:47)
[2023-08-26] MEDS: dilTIAZem 30 MG Tablet PO (06:33)
[2023-08-26 09:15] VITALS: BP 100/48; PULSE 56; RESP 18; TEMP 36.6; O2SAT 95
[2023-08-26] MEDS: DULoxetine Hcl 30 MG Capsule PO (09:18)
[2023-08-26] MEDS: Meloxicam 7.5 MG Tablet PO (09:18)
[2023-08-26] MEDS: Famotidine 20 MG Tablet PO (09:19)
[2023-08-26] MEDS: Hydroxychloroquine 200 MG Tablet PO (09:19)
[2023-08-26] MEDS: Aspirin E.C. 81 MG Tablet PO (09:19)
[2023-08-26] MEDS: Enoxaparin 40 MG/0.4 ML Syringe SC (09:19)
--- NOTE | 2023-08-26 12:14 | TREXTCAR_ITS ---
Diet Diet Order/Speech Therapy: 08/22/23 15:31 Diet: Regular - General Is pt able to select menu?: Yes Wound(s) right shoulder: Wound Type: Surgical Incision Therapies Weight Bearing: Non weight bearing Extremity Affected:: Right Upper Physical Therapy: Eval and Treat Occupational Therapy: Eval and Treat Problem/Diagnosis (1) Status post replacement of right shoulder joint: Status: Acute Code(s): Z96.611 - Presence of right artificial shoulder joint Plan: POD#4 s/p right reverse total shoulder arthroplasty - Pain control - Medicine following for medical management. Defer to hospitalist for management of hypotension - PT/OT -nonweightbearing right upper extremity. Pendulums only right shoulder. Range of motion as tolerated right elbow wrist and hand. - DVT PPX -aspirin 81 mg twice daily, SCDs, HOLLIE interiano, early mobilization - Case management - D/C planning. Pre-CERT pending. Patient stable for discharge once precertification is obtained. Discharge instructions: Maintain surgical dressing x7 days postop okay to shower with dressing on postoperative day #4. Nonweightbearing to the operative extremity. Pendulums only right shoulder. Maintain sling except for exercises and hygiene. Range of motion as tolerated right elbow wrist and hand. Continue aspirin 81 mg twice daily for DVT prophylaxis. Plan for multimodal pain relief upon discharge with oxycodone, Tylenol and NSAIDs. Follow-up 2 weeks postop as scheduled. Allergies/Procedures Done in Hospital Allergies No Known Allergies Allergy (Verified 08/22/23 06:53) Type of Care/Length of Stay Estimated LOS: Convalescent Care Less Than 30 days Type of Care Needed: Skilled Rehab Potential: Good Prognosis: Good Additional Orders/Day of Discharge Day of Discharge: 08/26/23 Discharge Plan Admission Admit Date/Time: 08/22/23 11:15 Primary Reason for Your Visit: Right shoulder replacement Attending Provider: Wei Pollard Primary Care Provider: Rajan Cervantes Consulting Providers: Beatriz Guerra BOARD LINING MACHINE OPERATOR; Nae Pacheco Alexander; Konrad Fleming Instructions Additional Instructions / Restrictions: Maintain surgical dressing x7 days postop okay to shower with dressing on postoperative day #4. Nonweightbearing to the operative extremity. Pendulums only right shoulder. Maintain sling except for exercises and hygiene. Range of motion as tolerated right elbow wrist and hand. Continue aspirin 81 mg twice daily for DVT prophylaxis. Plan for multimodal pain relief upon discharge with oxycodone, Tylenol and NSAIDs. Follow-up 2 weeks postop as scheduled. Discharge Orders/Prescriptions Prescriptions: New meloxicam 7.5 mg Tablet 7.5 mg PO BID 30 Days Qty: 60 0RF oxycodone 5 mg Tablet 5 - 10 mg PO Q4H PRN PRN (Reason: Pain Score 4-10) 7 Days Qty: 42 0RF aspirin 81 mg Tablet,Delayed Release (Dr/Ec) 81 mg PO BID 28 Days Qty: 56 0RF acetaminophen 500 mg Tablet 1,000 mg PO Q8 28 Days Qty: 168 0RF Continued Lactobacillus acidophilus [Acidophilus] capsule 10 mg PO QDAY biotin 10,000 mcg capsule 10,000 mcg PO DAILY Prolia 60 mg/mL syringe 60 mg SC [id number] alendronate [Fosamax] 70 mg tablet 70 mg PO QWEEK carbidopa-levodopa 25-100 mg tablet 1 tab PO TID hydroxychloroquine 200 mg tablet 200 mg PO BID Dairy Aid 3,000 unit tablet,chewable 3,000 unit PO ONCE Rx Instructions: administer with meals and/or snacks duloxetine 30 mg capsule,delayed release(DR/EC) 30 mg PO DAILY propranolol 10 mg tablet 10 mg PO QHS vitamin K2 100 mcg capsule 100 mcg PO DAILY aspirin [Adult Low Dose Aspirin] 81 mg tablet,delayed release (DR/EC) 81 mg PO DAILY calcium carb-D3-mag [id number] [phone] mo-lwvd-xj-mg tablet 1 tab PO DAILY Rx Instructions: administer with a meal hydroxyzine HCl 25 mg tablet 12.5 mg PO Q8H PRN (Reason: itching) triamcinolone acetonide 0.025 % ointment 1 applic topical DAILY PRN estradiol 0.01 % (0.1 mg/gram) cream See Rx Instructions vaginal .COMPLEX PRN Rx Instructions: small amount as directed vaginally opening twice a week; PRN; calcium carbonate-vitamin D3 500 mg-5 mcg (200 unit) tablet 1 tab PO DAILY Patient Comments: SUPPLEMENT diltiazem HCl 30 mg tablet 30 mg PO TID lisinopril 5 mg tablet 5 mg PO DAILY Qty: 90 3RF Hold Instructions: low BP Patient Comments: THIS HAS BEEN ON HOLD flecainide 50 mg tablet 50 mg PO Q12H Qty: 180 3RF Referrals / Follow Up: Rajan Cervantes MD [Primary Care Provider] - Wei Pollard DO [Med Staff - Active Staff] - Within 2 Weeks Disposition Disposition (needs filled in before D/C Order can be placed): [facility]
--- NOTE | 2023-08-26 12:17 | PCM.DC.SUM ---
Providers Date of Admission: 08/22/23 Primary Care Physician: Dr. Rajan Cervantes MD Consultations 08/22/23 11:15 Consult: Hospitalist Routine Consulting Provider: Jhony Lindo Reason for Consult: S/p R shoulder arthroplasty, medical management EMERGENT Consult: No MD Notified: Yes Date Notified: 08/22/23 Time Notified: 14:14 Method of Notification: Text Reason For Visit: Total Shoulder Replacement, Reverse Diagnosis Discharge Diagnosis (1) Status post replacement of right shoulder joint: Status: Acute Code(s): Z96.611 - Presence of right artificial shoulder joint Plan: POD#4 s/p right reverse total shoulder arthroplasty - Pain control - Medicine following for medical management. Defer to hospitalist for management of hypotension - PT/OT -nonweightbearing right upper extremity. Pendulums only right shoulder. Range of motion as tolerated right elbow wrist and hand. - DVT PPX -aspirin 81 mg twice daily, SCDs, HOLLIE hose, early mobilization - Case management - D/C planning. Pre-CERT pending. Patient stable for discharge once precertification is obtained. Discharge instructions: Maintain surgical dressing x7 days postop okay to shower with dressing on postoperative day #4. Nonweightbearing to the operative extremity. Pendulums only right shoulder. Maintain sling except for exercises and hygiene. Range of motion as tolerated right elbow wrist and hand. Continue aspirin 81 mg twice daily for DVT prophylaxis. Plan for multimodal pain relief upon discharge with oxycodone, Tylenol and NSAIDs. Follow-up 2 weeks postop as scheduled. Medications at Discharge Home Medications Lactobacillus acidophilus (Acidophilus capsule) 10 mg PO QDAY 07/04/18 biotin 10,000 mcg capsule 10,000 mcg PO DAILY 07/04/18 denosumab 60 mg/mL subcutaneous syringe (Prolia) 60 mg subcut [id number] 12/26/18 alendronate 70 mg tablet (Fosamax) 70 mg PO QWEEK 07/01/19 carbidopa 25 mg-levodopa 100 mg tablet 1 tab PO TID 11/29/20 lactase 3,000 unit chewable tablet (Dairy Aid) 3,000 unit PO ONCE 08/02/21 hydroxychloroquine 200 mg tablet 200 mg PO BID 12/07/21 lisinopril 5 mg tablet 5 mg PO DAILY #90 tabs 09/03/22 flecainide 50 mg tablet 50 mg PO Q12H OK to give with Plaquenil, pt has been on both #180 tabs 11/28/22 aspirin 81 mg tablet,delayed release (Adult Low Dose Aspirin) 81 mg PO DAILY 12/11/22 calcium carb-vit [id number] 333 mg-200 unit-133 mg-5 mg tablet 1 tab PO DAILY 12/11/22 calcium carbonate 500 mg-vitamin D3 5 mcg (200 unit) tablet 1 tab PO DAILY SUPPLEMENT 12/11/22 duloxetine 30 mg capsule,delayed release 30 mg PO DAILY 12/11/22 hydroxyzine HCl 25 mg tablet 12.5 mg PO Q8H PRN itching 12/11/22 propranolol 10 mg tablet 10 mg PO QHS 12/11/22 vitamin K2 100 mcg capsule 100 mcg PO DAILY 12/11/22 diltiazem HCl 30 mg tablet 30 mg PO TID 08/01/23 estradiol 0.01% (0.1 mg/gram) vaginal cream See Rx Instructions vaginal .COMPLEX PRN 08/13/23 triamcinolone acetonide 0.025 % topical ointment 1 applic topical DAILY PRN 08/13/23 meloxicam 7.5 mg tablet 7.5 mg PO BID 30 days #60 tabs 08/24/23 oxycodone 5 mg tablet 5 - 10 mg (1 - 2 x 5 mg) PO Q4H PRN PRN Pain Score 4-10 7 days #42 tabs 08/24/23 Hospital Course Summary of Care Provided Minutes Spent on Discharge: 15 Hospital Course: Patient underwent uncomplicated right reverse shoulder arthroplasty for chronic rotator cuff tear arthropathy with myself on 08/22/2023. Patient tolerated the procedure well without apparent acute complication. She was admitted postoperatively for early convalescence and medical monitoring. An internal medicine consult was placed for medical management while as an inpatient. She worked well with physical and occupational therapies. Due to lack of adequate help at home, intermediate facility was recommended. This was arranged for answers precertification required additional hospital stay. Precertification was obtained and she was able to be safely discharged on postoperative day #4. Physical Exam Narrative General - A&Ox3, NAD. Vital signs stable, afebrile Right upper Extremity - SILT & 5/5 in radial, ulnar, musculocutaneous, axillary, and median nerve distributions. Radial, ulnar pulses 2+. Compartments soft and compressible. BCR in finger tips. Cardinal motions of the right hand are intact. Incisional dressing C/D/I. Weight / BMI Weight Weight: 176 lb 5.917 oz Body Mass Index (BMI) 31.2 ABG / Lab / Microbiology Data 08/23/23 06:50 08/23/23 06:50 Microbiology: Microbiology 08/06/23 09:55 Swab (Method) Nasal Screen MRSA/MSSA - Final Meaningful Use Info Meaningful Use Diagnoses (Choose all that apply): None applicable Discharge Plan Admission Admit Date/Time: 08/22/23 11:15 Primary Reason for Your Visit: Right shoulder replacement Attending Provider: Wei Pollard Primary Care Provider: Rajan Cervantes Consulting Providers: Beatriz Guerra NP; Mauro Pacheco; Jhony Lindo; Konrad Fleming Instructions Additional Instructions / Restrictions: Maintain surgical dressing x7 days postop okay to shower with dressing on postoperative day #4. Nonweightbearing to the operative extremity. Pendulums only right shoulder. Maintain sling except for exercises and hygiene. Range of motion as tolerated right elbow wrist and hand. Continue aspirin 81 mg twice daily for DVT prophylaxis. Plan for multimodal pain relief upon discharge with oxycodone, Tylenol and NSAIDs. Follow-up 2 weeks postop as scheduled. Discharge Orders/Prescriptions Prescriptions: New meloxicam 7.5 mg Tablet 7.5 mg PO BID 30 Days Qty: 60 0RF oxycodone 5 mg Tablet 5 - 10 mg PO Q4H PRN PRN (Reason: Pain Score 4-10) 7 Days Qty: 42 0RF No Action Lactobacillus acidophilus [Acidophilus] capsule 10 mg PO QDAY biotin 10,000 mcg capsule 10,000 mcg PO DAILY Prolia 60 mg/mL syringe 60 mg SC [id number] alendronate [Fosamax] 70 mg tablet 70 mg PO QWEEK carbidopa-levodopa 25-100 mg tablet 1 tab PO TID hydroxychloroquine 200 mg tablet 200 mg PO BID Dairy Aid 3,000 unit tablet,chewable 3,000 unit PO ONCE Rx Instructions: administer with meals and/or snacks duloxetine 30 mg capsule,delayed release(DR/EC) 30 mg PO DAILY propranolol 10 mg tablet 10 mg PO QHS vitamin K2 100 mcg capsule 100 mcg PO DAILY aspirin [Adult Low Dose Aspirin] 81 mg tablet,delayed release (DR/EC) 81 mg PO DAILY calcium carb-D3-mag [id number] [phone] wj-mwux-lv-mg tablet 1 tab PO DAILY Rx Instructions: administer with a meal hydroxyzine HCl 25 mg tablet 12.5 mg PO Q8H PRN (Reason: itching) triamcinolone acetonide 0.025 % ointment 1 applic topical DAILY PRN estradiol 0.01 % (0.1 mg/gram) cream See Rx Instructions vaginal .COMPLEX PRN Rx Instructions: small amount as directed vaginally opening twice a week; PRN; calcium carbonate-vitamin D3 500 mg-5 mcg (200 unit) tablet 1 tab PO DAILY Patient Comments: SUPPLEMENT diltiazem HCl 30 mg tablet 30 mg PO TID lisinopril 5 mg tablet 5 mg PO DAILY Qty: 90 3RF Hold Instructions: low BP Patient Comments: THIS HAS BEEN ON HOLD flecainide 50 mg tablet 50 mg PO Q12H Qty: 180 3RF Referrals / Follow Up: Rajan Cervantes MD [Primary Care Provider] - Wei Pollard DO [Med Staff - Active Staff] - Within 2 Weeks Disposition Disposition (needs filled in before D/C Order can be placed): Senior Living Facility
--- NOTE | 2023-08-26 13:20 | CASEMGMT ---
Discharge Planning Discharge orders, signed med list, covid results, and transport time sent to [facility] via [facility]. [facility] will transport patient by wheelchair at 1:40p. Nursing and patient updated. Patient states she will update her family. Leatha Linares, Discharge Planning Asst.
[2023-08-26 13:40] VITALS: BP 113/57; PULSE 54; RESP 18; TEMP 36.6; O2SAT 96
--- NOTE | 2023-08-26 14:58 | CHAPLAIN ---
Type of Pastoral Visit _x__ Initial Visit ___ Follow-up Visit ___ On-call Visit ___ General Patient Visit ___ Spiritual Assessment ___ Family Conference ___ Bereavement ___ Rapid Response ___ Code Blue ___ Other (describe below) Pastoral Care Referral From _x__ Patient ___ Family ___ Nurse ___ Physician ___ Tester [employer] ___ Costume Specialist ___ Other (describe below) Sacrament/Intervention _x__ Active listening ___ Anointing ___ Yazidism ___ Bereavement ___ Communion _x__ Marisa exploration ___ _x__ Life review _x__ Prayer ___ Reconciliation ___ Sacrament of Sick _x__ Supportive presence ___ Wedding ___ Other (describe below) Pastoral Comments patient has a jacket on and is expecting to be discharged soon; pt will be going to [facility] for more therapy; pt has a home set up with handicapped equipment and her grandsons' family lives with her there; pt has several churches concerning churches and what is proper about attendance; pt speaks of regular membership as how she might reconnect with others in a new methodist; prayer and presence welcomed for her support
== END 2023-08-26 14:16 | disposition skilled nursing facility (03) ==
LOC: SDC 11:20 → MS3 11:20
PROVIDERS: Anesthesiology; Admitting Provider Student in an Organized Health Care Education/Training Program; PCP Family Medicine; Referring Provider Student in an Organized Health Care Education/Training Program; Visit Provider Student in an Organized Health Care Education/Training Program
PROC: (CPT 23472; principal; 2023-08-22 08:20)
DX: M19.011 Primary osteoarthritis, right shoulder (principal); I48.0 Paroxysmal atrial fibrillation; G47.30 Sleep apnea, unspecified; Z86.718 Personal history of other venous thrombosis and embolism; G20.A1 Parkinson's disease without dyskinesia, without mention of fluctuations; Z79.899 Other long term (current) drug therapy; Z79.82 Long term (current) use of aspirin; I10 Essential (primary) hypertension; F32.A Depression, unspecified
CPT/HCPCS: 23472; 01638; 64415; 36415; 71046; 73030; 80048; 82962; 83735; 85027; 87077; 87081; 87426; 88305; 88311; 93005; 94668; 96365; 96366; 96372; 97110; 97116; 97162; 97166; 97530; 97535; 99221; C1776; J7050; J7120; G0378; J2405; J3475

== ENCOUNTER → 2023-09-16 | Outpatient (REF) | payer MEDICARE, SELFPAY ==
[2023-09-16 08:32] LABS: Absolute Lymphocyte Count 1.75 X10^3/uL (0.83-4.51); Basophil# 0.02 X10^3/uL; Basophil% 0.1 % (0-1); Eosinophil# 0.17 X10^3/uL; Eosinophils% 1.2 % (0-5); Hemoglobin 15.2 g/dL (12.0-15.0); Lymphocyte # 1.75 X10^3/ul (0.83-4.51); Lymphocyte % 11.9 % (19-41); Mean Corp Hgb Conc 31.7 g/dL (32-36); Mean Corpuscular Hgb 30.9 pg (27.0-32.0); Mean Corpuscular Volume 97.6 fL (81-99); Mean Platelet Vol. 10.7 fl (6.2-12.0); Monocyte% 10.8 % (0-10); NRBC Flagged by Analyzer 0 % (0-5); Neutrophil # 10.96 X10^3/uL (2.7-7.7); Neutrophil % 74.3 % (47-70); POSITIVE DIFFERENTIAL YES; Platelet Count 324 K/mm3 (150-450); RBC Distribution Width CV 14.3 % (11.6-14.6); RBC Distribution Width SD 51.7 fl (35.1-43.9); Red Blood Count 4.92 M/mm3 (4.2-5.4); White Blood Count 14.8 K/mm3 (4.4-11.0)
[2023-09-16 08:43] LABS: Differential Indicated SCAN CRITERIA MET
[2023-09-16 08:59] LABS: Anion Gap 4 (5-15); BUN 30 mg/dL (7-18); Calcium,Total 8.7 mg/dL (8.5-10.1); Chloride 109 mmol/L (98-107); EST Glomerular Filtration Rate 103 mL/min (>60); Est Glom Filt Rate - Afr Amer 124 mL/min (>60); Glucose 116 mg/dL (74-106); Potassium 3.9 mmol/L (3.5-5.1); Sodium Level 141 mmol/L (136-145)
[2023-09-17 10:27] LABS: Pathologist Review Reviewed
== END ==
LOC: OLS.WHLEAS 05:00
PROVIDERS: PCP Family Medicine; Visit Provider Nurse Practitioner Adult Health
DX: G20.A1 Parkinson's disease without dyskinesia, without mention of fluctuations (principal); M19.011 Primary osteoarthritis, right shoulder; I48.0 Paroxysmal atrial fibrillation
CPT/HCPCS: 36415; 80048; 85025

== ENCOUNTER → 2023-09-30 | Outpatient (REF) | payer MEDICARE, SELFPAY ==
[2023-09-30 08:43] LABS: Absolute Lymphocyte Count 1.33 X10^3/uL (0.83-4.51); Absolute Neutrophil Count 7.8 X10^3/uL (2.0-7.7); Basophil# 0.06 X10^3/uL; Basophil% 0.6 % (0-1); Eosinophil# 0.28 X10^3/uL; Eosinophils% 2.7 % (0-5); Hematocrit 39.4 % (37-47); Lymphocyte # 1.33 X10^3/ul (0.83-4.51); Mean Corp Hgb Conc 30.5 g/dL (32-36); Mean Corpuscular Hgb 30.9 pg (27.0-32.0); Mean Corpuscular Volume 101.5 fL (81-99); Mean Platelet Vol. 10.3 fl (6.2-12.0); Monocyte% 6.9 % (0-10); NRBC Flagged by Analyzer 0 % (0-5); Neutrophil # 7.77 X10^3/uL (2.7-7.7); Neutrophil % 76.1 % (47-70); Platelet Count 254 K/mm3 (150-450); RBC Distribution Width CV 14.5 % (11.6-14.6); RBC Distribution Width SD 53.8 fl (35.1-43.9); Red Blood Count 3.88 M/mm3 (4.2-5.4); White Blood Count 10.2 K/mm3 (4.4-11.0)
[2023-09-30 08:55] LABS: Anion Gap 3 (5-15); BUN 23 mg/dL (7-18); BUN/Creat Ratio 40.1 RATIO (10-20); Calcium,Total 8.5 mg/dL (8.5-10.1); Chloride 108 mmol/L (98-107); Creatinine, Serum 0.57 mg/dL (0.55-1.02); EST Glomerular Filtration Rate 108 mL/min (>60); Est Glom Filt Rate - Afr Amer 131 mL/min (>60); Glucose 91 mg/dL (74-106); Potassium 3.9 mmol/L (3.5-5.1); Sodium Level 141 mmol/L (136-145)
== END ==
LOC: OLS.WHLEAS 04:00
PROVIDERS: PCP Family Medicine; Referring Provider Internal Medicine; Visit Provider Internal Medicine
DX: G20.A1 Parkinson's disease without dyskinesia, without mention of fluctuations (principal); M19.011 Primary osteoarthritis, right shoulder; I48.0 Paroxysmal atrial fibrillation
CPT/HCPCS: 36415; 80048; 85025

== ENCOUNTER → 2023-10-15 | Outpatient (REF) | payer MEDICARE, SELFPAY ==
[2023-10-15 09:34] LABS: Absolute Lymphocyte Count 2.05 X10^3/uL (0.83-4.51); Absolute Neutrophil Count 6.5 X10^3/uL (2.0-7.7); Basophil# 0.09 X10^3/uL; Basophil% 0.9 % (0-1); Eosinophil# 0.22 X10^3/uL; Eosinophils% 2.2 % (0-5); Hematocrit 42.4 % (37-47); Hemoglobin 13.2 g/dL (12.0-15.0); Lymphocyte # 2.05 X10^3/ul (0.83-4.51); Lymphocyte % 20.1 % (19-41); Mean Corp Hgb Conc 31.1 g/dL (32-36); Mean Corpuscular Hgb 30.8 pg (27.0-32.0); Mean Corpuscular Volume 98.8 fL (81-99); Mean Platelet Vol. 9.4 fl (6.2-12.0); Monocyte# 1.12 X10^3/uL; NRBC Flagged by Analyzer 0 % (0-5); Neutrophil % 63.7 % (47-70); Platelet Count 566 K/mm3 (150-450); RBC Distribution Width CV 14.6 % (11.6-14.6); RBC Distribution Width SD 52.9 fl (35.1-43.9); Red Blood Count 4.29 M/mm3 (4.2-5.4); White Blood Count 10.2 K/mm3 (4.4-11.0)
[2023-10-15 09:47] LABS: Anion Gap 4 (5-15); BUN 19 mg/dL (7-18); Calcium,Total 8.8 mg/dL (8.5-10.1); Chloride 108 mmol/L (98-107); Creatinine, Serum 0.68 mg/dL (0.55-1.02); EST Glomerular Filtration Rate 89 mL/min (>60); Est Glom Filt Rate - Afr Amer 108 mL/min (>60); Glucose 80 mg/dL (74-106); Potassium 3.8 mmol/L (3.5-5.1); Sodium Level 141 mmol/L (136-145)
== END ==
LOC: OLS.WHLEAS 05:00
PROVIDERS: PCP Family Medicine; Visit Provider Nurse Practitioner Adult Health
DX: G20.A1 Parkinson's disease without dyskinesia, without mention of fluctuations (principal); M19.011 Primary osteoarthritis, right shoulder; M62.561 Muscle wasting and atrophy, not elsewhere classified, right lower leg
CPT/HCPCS: 36415; 80048; 85025

== ENCOUNTER → 2024-01-10 | Outpatient (CLI) | payer MEDICARE, SELFPAY ==
--- NOTE | 2024-01-10 11:04 | VDLE_ITS ---
Reason For Study: LLE DVT Procedure LEFT This is a venous duplex using B-mode, color Acute deep vein thrombosis is noted in the flow and spectral Doppler. CFV. It is dilated and NONCOMPRESSIBLE. Exam performed in department. Acute deep vein thrombosis is noted in the The study was technically difficult. FV. It is dilated and NONCOMPRESSIBLE. A preliminary report was called and/or faxed POP V is compressible, spontaneous, phasic, to Dr. Cervantes @ [phone] @11:50 am. competent and demonstrates normal augmentation. T/P Trunk is compressible. PTV is compressible. LT PerV is compressible. GSV is ABSENT. Image #13 is LT POP V. VL/Venous Duplex US, Unilateral Interpretation Summary Deep venous thrombosis left common femoral and femoral veins. Surgically absent left great saphenous vein This examination was noted to be technically difficult Ordering Physician: Rajan Cervantes Referring Physician: Rajan Cervantes Performed By: Kalpana Cano RDCS, RVT
--- OUTSIDE RECORDS SUMMARY | 2024-01-10 11:32 | XMS RPT_ITS | CCD ---
Author Name Unknown Address [address] [place] [address] Organization [facility] Care Team Providers Care Digital Specialist Name Role Phone Leatha Starr RN Unavailable Unavailable Leatha Starr RN Unavailable Unavailable Shayy Cervantes Unavailable Leatha Starr RN Unavailable Unavailable WHITE, LEELA A Unavailable Unavailable WHITE, LEELA A Unavailable Unavailable White, Leela A. Unavailable Unavailable White, Leela A. Unavailable Unavailable RICHARD SANDERS (PA) Unavailable Unavailable RICHARD SANDERS (PA) Unavailable Unavailable RICHARD SANDERS (PA) Unavailable Unavailable MONE CERVANTES Unavailable Unavailable KALORQUIDEA, EVELIA H Unavailable Unavailable RICHARD SANDERS (PA) Unavailable Unavailable Medications Completed/Discontinued Medications Medication Drug Class(es) Dates Sig (Normalized) Sig (Original) aspirin 325 mg oral tablet (12 sources) Nonsteroidal Anti-inflammatory Drug Start: 10-30-2012 End: 04-27-2015 take 1 tablet by mouth once daily ASPIRIN 325 MG TABS One tablet by mouth daily ASPIRIN [id number] Vasquez Vaca MD Problems Active Problems Problem Classification Problem Date Documented Date Episodic/Chronic Cardiac dysrhythmias (4 sources) Paroxysmal atrial fibrillation; Translations: [Paroxysmal atrial fibrillation] Onset: 09-05-2012 09-05-2012 Chronic Essential hypertension (4 sources) Hypertensive disorder; Translations: [Essential (primary) hypertension] Onset: 09-05-2012 09-05-2012 Chronic Heart valve disorders (2 sources) Nonrheumatic mitral (valve) insufficiency; Translations: [Nonrheumatic mitral (valve) insufficiency] Onset: 04-10-2017 04-10-2017 Chronic Other fractures (1 source) Wedge compression fracture of fourth lumbar vertebra, initial encounter for closed fracture; Translations: [Wedge compression fracture of fourth lumbar vertebra, initial encounter for closed fracture] Onset: 07-22-2018 Episodic Other nutritional; endocrine; and metabolic disorders (16 sources) Body mass index (BMI) 33.0-33.9, adult; Translations: [Body mass index (BMI) 31.0-31.9, adult] Onset: 09-09-2015 Resolved: 02-26-2017 09-09-2015 Chronic Residual codes; unclassified (1 source) Other specified postprocedural states; Translations: [Other specified postprocedural states] Onset: 08-11-2018 Spondylosis; intervertebral disc disorders; other back problems (1 source) Other dorsalgia; Translations: [Other dorsalgia] Onset: 08-11-2018 Episodic Unclassified (2 sources) Unknown / UNK(Unknown) Onset: 07-22-2018 Past or Other Problems Problem Classification Problem Date Documented Date Episodic/Chronic Abdominal hernia (4 sources) Inguinal hernia without obstruction AND without gangrene; Translations: [Unilateral inguinal hernia, without obstruction or gangrene, not specified as recurrent] Onset: 07-26-2016 07-26-2016 Episodic Malaise and fatigue (6 sources) Malaise and fatigue; Translations: [Fatigue] Onset: 09-05-2012 04-10-2017 Episodic Other circulatory disease (8 sources) Electrocardiogram abnormal; Translations: [Abnormal electrocardiogram [ECG] [EKG]] Onset: 09-05-2012 Resolved: 09-09-2015 09-09-2015 Episodic Other lower respiratory disease (2 sources) Dyspnea on exertion; Translations: [Other forms of dyspnea] Onset: 04-10-2017 04-10-2017 Episodic Unclassified (8 sources) Preoperative cardiovascular examination ; Translations: [Encounter for preprocedural cardiovascular examination] Onset: 09-05-2012 Resolved: 09-09-2015 09-09-2015 Unclassified (1 source) Wedge compression fracture of fourth lumbar vertebra, initial encounter for closed fracture Onset: 07-22-2018 Results Test Name Value Interpretation Reference Range Facil ity Vital Signs Date Time Vital Sign Value Performing Clinician Delaney clark 04-09-2017 14:40-0400 BMI (Body Mass Index) 30.6 kg/m2 [facility] Work Phone: 04-09-2017 14:40-0400 BP Diastolic 70 mm[Hg] Leatha Starr RN [facility] Work Phone: 04-09-2017 14:40-0400 BP Systolic 140 mm[Hg] Leatha Starr RN [facility] Work Phone: 04-09-2017 14:40-0400 Height 166.47 cm Leatha Starr RN [facility] Work Phone: 04-09-2017 14:40-0400 Pulse (Heart Rate) 60 /min Leatha Starr RN [facility] Work Phone: 04-09-2017 14:40-0400 Respiratory Rate 20 /min Leatha Starr RN [facility] Work Phone: 04-09-2017 14:40-0400 Weight 84.82 kg Leatha Starr RN [facility] Work Phone: 02-26-2017 12:50-0400 BMI (Body Mass Index) 31 kg/m2 Leatha Starr RN [facility] Work Phone: 02-26-2017 12:50-0400 BP Diastolic 90 mm[Hg] Leatha Starr RN [facility] Work Phone: 02-26-2017 12:50-0400 BP Systolic 152 mm[Hg] Leatha Starr RN [facility] Work Phone: 02-26-2017 12:50-0400 Height 166.37 cm Leatha Starr RN [facility] Work Phone: 02-26-2017 12:50-0400 Pulse (Heart Rate) 52 /min Leatha Starr RN [facility] Work Phone: 02-26-2017 12:50-0400 Respiratory Rate 20 /min Leatha Starr RN [facility] Work Phone: 02-26-2017 12:50-0400 Weight 85.82 kg Leatha Starr RN [facility] Work Phone: 02-07-2017 10:00-0400 Body Temperature 97.9 [degF] Leatha Starr RN [facility] Work Phone: 02-07-2017 10:00-0400 Height 166.37 cm Leatha Starr RN [facility] Work Phone: 02-07-2017 10:00-0400 Pulse Oximetry 98 % Leatha Starr RN [facility] Work Phone: 02-07-2017 10:00-0400 Weight 81.65 kg Leatha Starr RN [facility] Work Phone: 08-21-2016 13:32-0400 BSA (Body Surface Area) 1.92 m2 Leatha Starr RN [facility] Work Phone: Encounters Encounter Date Encounter Type Care Provider Facility Start: 10-02-2018 End: 10-03-2018 Patient encounter procedure EVELIA H DIMITRY [facility] Start: 08-27-2018 End: 08-29-2018 [facility]: 08-11-2018 End: 08-12-2018 Patient encounter procedure R[facility]ARD BUNCH) [facility] Start: 07-22-2018 End: 07-22-2018 Evaluation and management of inpatient Leela Marks Facility:[facility] Start: 07-22-2018 End: 07-22-2018 Patient encounter LEELA MARKS [facility] Procedures Date Procedure Procedure Detail Performing Clinician Start: 04-09-2017 End: 04-10-2017 *BMP Vasquez Vaca MD Start: 04-09-2017 End: 04-10-2017 CBC W Auto Differential panel - Blood Vasquez Vaca MD Start: 04-09-2017 End: 04-09-2017 Follow Up Appt 6 months Sav Gallardo Start: 04-09-2017 End: 04-09-2017 MMM Vasquez Vaca MD Start: 02-26-2017 End: 02-26-2017 NIGHT ASSISTANT Evita Zhang PA-C Work Phone: Start: 02-26-2017 End: 02-26-2017 Follow Up Appt 6 weeks Evita gilliam PA-C Work Phone: Start: 08-21-2016 End: 08-21-2016 *BMP Vasquez Vaca MD Start: 08-21-2016 End: 08-21-2016 *CBC with Differential Vasquez Vaca MD Start: 08-21-2016 End: 08-21-2016 Electrocardiogram, complete Vasquez Acevedo i, MD Start: 08-21-2016 End: 08-21-2016 Follow Up Appt 6 months Sav Gallardo Start: 08-21-2016 End: 08-21-2016 Magnesium Vasquez Vaca MD Start: 08-21-2016 End: 08-21-2016 MMM Vasquez Vaca MD Start: 08-21-2016 End: 08-21-2016 Thyroid stimulating hormone (TSH) Vasquez Vaca MD Start: 07-04-2016 End: 07-04-2016 Follow Up BP Check Evita Zhang PA-C Work Phone: Start: 06-20-2016 End: 06-20-2016 Follow Up BP Check Evita Zhang PA-C Work Phone: Start: 03-08-2016 End: 03-08-2016 NIGHT ASSISTANT Evita Zhang PA-C Work Phone: Start: 03-08-2016 End: 03-08-2016 Follow Up Appt 6 months Evita law PA-C Work Phone: Start: 09-09-2015 End: 09-10-2015 Documentation of current medications Vasquez Vaca MD Start: 09-09-2015 End: 09-09-2015 Electrocardiogram, complete Vasquez Acevedo i, MD Start: 09-09-2015 End: 09-09-2015 Follow Up Appt 6 months Sav Gallardo Start: 09-09-2015 End: 09-09-2015 MMM Vasquez Vaca MD Start: 05-27-2015 End: 05-27-2015 NIGHT ASSISTANT Vasquez Vaca MD Start: 05-27-2015 End: 05-28-2015 Documentation of current medications Vasquez Vaca MD Start: 05-27-2015 End: 05-27-2015 Follow Up Appt 3 months Sav Gallardo Start: 05-27-2015 End: 06-03-2015 Nuclear stress test -Lexiscan Vasquez Stallworth MD Start: 04-27-2015 End: 05-25-2015 24 hour holter monitor Vasquez Vaca MD Start: 04-27-2015 End: 04-27-2015 NIGHT ASSISTANT Vasquez Vaca MD Start: 04-27-2015 End: 04-28-2015 Documentation of current medications Vasquez Vaca MD Start: 04-27-2015 End: 05-19-2015 Echocardiography Vasquez Vaca MD Start: 04-27-2015 End: 04-27-2015 Follow Up Appt 1 month Vasquez Vaca MD Start: 10-30-2012 End: 10-30-2012 Follow Up Appt 4 months Sav Gallardo Start: 09-25-2012 End: 03-02-2013 *BMP Vasquez Vaca MD Start: 09-25-2012 End: 09-25-2012 Follow Up Appt 6 months Sav Gallardo Start: 09-25-2012 End: 03-02-2013 Magnesium Vasquez Vaca MD Start: 09-25-2012 End: 03-02-2013 Thyroid stimulating hormone (TSH) Vasquez Vaca MD Start: 09-05-2012 End: 09-23-2012 24 hour holter monitor Vasquez Vaca MD Plan of Treatment Date Care Activity Detail Author Start: 10-24-2017 End: 10-24-2017 Appointment Appointment [facility] Work Phone: Start: 04-09-2017 End: 04-09-2017 Appointment Appointment [facility] Work Phone: Start: 04-09-2017 End: 04-10-2017 *BMP *BMP [facility] Work Phone: Start: 04-09-2017 End: 04-10-2017 CBC W Auto Differential panel - Blood *CBC without Diff [facility] Work Phone: Start: 04-09-2017 End: 04-09-2017 Chest x-ray X-Ray, Chest, PA & Lateral [facility] Work Phone: Start: 04-09-2017 End: 04-09-2017 Electrocardiogram, complete EKG (In office) [facility] Work Phone: Start: 04-09-2017 End: 04-09-2017 Follow Up Appt 6 months Follow Up Appt 6 months [facility] Work Phone: Start: 04-09-2017 End: 04-09-2017 Left Heart Cath Left Heart Cath [facility] Work Phone: Start: 04-09-2017 End: 04-09-2017 MMM MMM [facility] Work Phone: Start: 02-26-2017 End: 02-26-2017 NIGHT ASSISTANT NIGHT ASSISTANT [facility] Work Phone: Start: 02-26-2017 End: 02-26-2017 Follow Up Appt 6 weeks Follow Up Appt 6 weeks [facility] Work Phone: Start: 02-07-2017 End: 02-07-2017 Follow-up visit Follow Up as needed [facility] Work Phone: Start: 08-21-2016 End: 08-21-2016 *BMP *BMP [facility] Work Phone: Start: 08-21-2016 End: 08-21-2016 *CBC with Differential *CBC with Differential [facility] Work Phone: Start: 08-21-2016 End: 08-21-2016 Electrocardiogram, complete EKG (In office) [facility] Work Phone: Start: 08-21-2016 End: 08-21-2016 Follow Up Appt 6 months Follow Up Appt 6 months [facility] Work Phone: Start: 08-21-2016 End: 08-21-2016 Magnesium *Magnesium [facility] Work Phone: Start: 08-21-2016 End: 08-21-2016 MMM MMM [facility] Work Phone: Start: 08-21-2016 End: 08-21-2016 Thyroid stimulating hormone (TSH) *TSH [facility] Work Phone: Start: 07-26-2016 End: 07-26-2016 Follow-up visit Follow Up as needed [facility] Work Phone: Start: 07-26-2016 End: 09-10-2016 Primary Care Physician Primary Care Physician Jama Keyes, [address], [address], [place], [address] [facility] Work Phone: Start: 07-04-2016 End: 07-04-2016 Follow Up BP Check Follow Up BP Check [facility] Work Phone: Start: 06-20-2016 End: 06-20-2016 Follow Up BP Check Follow Up BP Check [facility] Work Phone: Start: 03-08-2016 End: 03-08-2016 NIGHT ASSISTANT NIGHT ASSISTANT [facility] Work Phone: Start: 03-08-2016 End: 03-08-2016 Follow Up Appt 6 months Follow Up Appt 6 months [facility] Work Phone: Start: 09-09-2015 End: 09-09-2015 Electrocardiogram, complete EKG (In office) [facility] Work Phone: Start: 09-09-2015 End: 09-09-2015 Follow Up Appt 6 months Follow Up Appt 6 months [facility] Work Phone: Start: 09-09-2015 End: 09-09-2015 MMM MMM [facility] Work Phone: Start: 05-27-2015 End: 05-27-2015 NIGHT ASSISTANT NIGHT ASSISTANT [facility] Work Phone: Start: 05-27-2015 End: 05-27-2015 Follow Up Appt 3 months Follow Up Appt 3 months [facility] Work Phone: Start: 05-27-2015 End: 05-27-2015 Nuclear stress test -Lexiscan Nuclear stress test -Lexiscan [facility] Work Phone: Start: 04-27-2015 End: 04-27-2015 24 hour holter monitor 24 hour holter monitor [facility] Work Phone: Start: 04-27-2015 End: 04-27-2015 NIGHT ASSISTANT NIGHT ASSISTANT [facility] Work Phone: Start: 04-27-2015 End: 04-27-2015 Echocardiography Echocardiogram (complete) [facility] Work Phone: Start: 04-27-2015 End: 04-27-2015 Follow Up Appt 1 month Follow Up Appt 1 month [facility] Work Phone: Start: 10-30-2012 End: 10-30-2012 Follow Up Appt 4 months Follow Up Appt 4 months [facility] Work Phone: Start: 09-25-2012 End: 03-02-2013 *BMP *BMP [facility] Work Phone: Start: 09-25-2012 End: 09-25-2012 Follow Up Appt 6 months Follow Up Appt 6 months [facility] Work Phone: Start: 09-25-2012 End: 03-02-2013 Magnesium *Magnesium [facility] Work Phone: Start: 09-25-2012 End: 03-02-2013 Thyroid stimulating hormone (TSH) *TSH [facility] Work Phone: Start: 09-05-2012 End: 09-11-2012 24 hour holter monitor 24 hour holter monitor [facility] Work Phone: Patient Education INGUINAL%20[facility] Work Phone: Payers Date Payer Category Payer Policy ID Medicare [id number] Summary Purpose Family History No Family History Records FoundNo Family History Records FoundNo Family History Records Found Advance Directives No Advanced Directives Records FoundNo Advanced Directives Records FoundNo Advanced Directives Records Found Additional Source Comments INFORMATION SOURCE (unrecogn ized section and content) DATE CREATED AUTHOR AUTHOR'S ORGANIZ ATION 08/16/[address] [facility] [employer] [facility] DATE CREATED AUTHOR AUTHOR'S ORGANIZ ATION 10/29/2018 [facility] FOR RECORDS PERTAINING TO PATIENTS WHO ARE OR HAVE BEEN ENROLLED IN A CHEMICAL DEPENDENCY/SUBSTANCEABUSE PROGRAM, SOME INFORMATION MAY BE OMITTED. This clinical summary was aggregated from multiple sources. Caution should be exercised in using it in the provision of clinical care. This summary normalizes information from multiple sources, and as a consequence, information in this document may materially change the coding, format and clinical context of patient data. In addition, data may be omitted in some cases. CLINICAL DECISIONS SHOULD BE BASED ON THE PRIMARY CLINICAL RECORDS. [facility] [employer] [facility]. provides no warranty or guarantee of the accuracy or completeness of information in this document.
== END | disposition home or self-care (01) ==
PROVIDERS: PCP Family Medicine; Referring Provider Family Medicine; Visit Provider Family Medicine
DX: I82.412 Acute embolism and thrombosis of left femoral vein (principal)
CPT/HCPCS: 93971

== ENCOUNTER → 2024-02-25 | Outpatient (CLI) | payer MEDICARE, SELFPAY ==
--- NOTE | 2024-02-25 12:59 | VDLE_ITS ---
Version 2 Reason For Study: HX DVT RIGHT LEFT CFV is compressible, spontaneous, phasic, GSV is normal. competent and demonstrates normal CFV is PARTIALLY COMPRESSIBLE with mixed augmentation. intraluminal echoes consistent with CHRONIC Procedure DVT. Vein appears to be spontaneous and This is a venous duplex using B-mode, color phasic with normal augmentation. flow and spectral Doppler. FV is PARTIALLY COMPRESSIBLE with diminished Exam performed in department. flow noted in color and pulsed wave doppler. The exam was diagnostic. POP V is compressible, spontaneous, phasic, A preliminary report was called and/or faxed competent and demonstrates normal to Dr. Swartz's office. augmentation. T/P Trunk is compressible. PTV is compressible. PerV is compressible. VL/Venous Duplex US, Unilateral Interpretation Summary Chronic deep vein thrombosis is noted in the left common femoral vein, femoral vein Ordering Physician: Raheem Swartz Referring Physician: Rajan Cervantes MD Performed By: Aleksandr Desouza RVT
== END | disposition home or self-care (01) ==
PROVIDERS: PCP Family Medicine; Referring Provider Family Medicine; Visit Provider Family Medicine
DX: I82.402 Acute embolism and thrombosis of unspecified deep veins of left lower extremity (principal); M79.605 Pain in left leg
CPT/HCPCS: 93971

== ENCOUNTER 2024-02-26 15:18 | Emergency (ER) | payer MEDICARE, SELFPAY ==
[2024-02-26 15:18] VITALS: BP 118/97; PULSE 68; RESP 17; TEMP 36.6; O2SAT 96
--- NOTE | 2024-02-26 15:56 | CT_ITS ---
STUDY: CTA OF THE LEFT LOWER EXTREMITY PATIENT DEMOGRAPHICS: Female, 78 years old. REASON FOR EXAM: Leg swelling and bruising TECHNIQUE: Axial CT angiography multi-detector data acquisition was obtained from the LEFT hemipelvis to the LEFT foot following intravenous administration of IV 100mL Isovue-370. Axial images and MIP images were reconstructed from the axial data set. Post-processing of the angiographic images was performed, with multiplanar reformation and 3D reconstruction. Individualized dose optimization techniques were used for this CT. RADIATION DOSAGE (If Supplied By Facility): CTDIvol = ( 10.30 ) mGy, DLP = ( 942.10 ) mGycm TECHNICAL LIMITATIONS: None. COMPARISON: No relevant prior comparison study available Descriptors of Narrowing: None (0%) Mild (< 50%) Moderate (50-70%) Severe (70-90%) Subtotal/Total Occlusion (90-100%) Non-Evaluable (technically non-diagnostic) FINDINGS: LEFT iliac vessels: No focal stenosis or occlusion moderate vascular calcifications are present. Left common femoral artery: Mild calcifications without stenosis or occlusion. Left profundus femoris: No significant narrowing. Left superficial femoral: Diffuse vascular calcification throughout all segments of the superficial femoral artery without stenosis or occlusion. Left popliteal artery: Moderate calcifications without stenosis or occlusion Left tibioperoneal trunk: Extensive calcifications of the tibial peroneal trunk with moderate stenosis noted. Left anterior tibial artery: Extensive diffuse calcifications noted however the PAUL appears to be patent to the level of the dorsalis pedis. Left posterior tibial artery: Extensive calcifications are present with moderate length segment of CTA in the mid to distal calf with diminished contrast opacification consistent with high-grade stenosis versus occlusion with distal reconstitution. The plantar arch is not well opacified. Left peroneal artery: Extensive calcifications however the peroneal artery is patent to the level of the ankle. Urinary bladder: Normal as visualized. Visualized pelvic viscera are within normal limits.. Gastrointestinal: No gastric abnormality is identified. The small bowel is normal in caliber. Diffuse sigmoid diverticula are present. The colon is normal in caliber. There is no free fluid or free air in the abdomen or pelvis. Lymph nodes: No significantly enlarged lymph nodes are seen. Bones: No suspicious osseous findings. Overlying soft tissues: Unremarkable. CT/CTA LWR EXTR W/O & W/DYE IMPRESSION: 1. Extensive multilevel calcifications throughout the LEFT lower extremity arterial tree. No maury stenosis and involving the vessels to level of the popliteal artery. 2. There is a moderate approximately 50% stenosis of the tibial peroneal trunk. 3. Multiple calcifications in the PAUL which however is patent to the level of the dorsalis pedis. 4. Extensive calcifications in the RETAIL SALES ASSISTANT with a moderate length segment of diminished contrast opacification suspicious of high-grade stenosis versus occlusion. Plantar arch is not well opacified. 5. Peroneal artery is patent to the level of the ankle. Electronically Signed: Jian Porter MD at 19:25 EDT ,
[2024-02-26] MEDS: 0.9% Normal Saline (1000mL) 1,000 ML 1000 ML IV (16:31)
[2024-02-26 16:34] VITALS: BMI 34.7
--- NOTE | 2024-02-26 16:34 | ED.VIS.LOWEX ---
HPI History of Present Illness Chief Complaint: Lower Extremity Injury Narrative Narrative: 76-year-old female past medical history of atrial fibrillation and known DVT diagnosed in September of last year while she was in a [place] [facility] facility for which she takes Eliquis presents for evaluation of swelling of her left lower extremity, and bruising. 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 It was reported by her [id number] that she is supposed to have maxillofacial surgery in about 2 weeks and was told that she was supposed to stop her Eliquis. There was confusion, and patient thought that she had stopped it around February 13 of [facility]. She also had a trip out to [place]. She noticed bruising on her left thigh and swelling. Her oncologist was concerned about soft tissue bleeding, and sent her in for evaluation of her left lower extremity. She denies any chest pain or shortness of breath, no other symptoms. [facility] Medical History Anxiety Anxiety disorder Arthritis Cardiology follow-up encounter Chronic pain DDD (degenerative disc disease) Depression DVT (deep venous thrombosis) Essential (primary) hypertension Fall Heartburn History of edema History of stress test Hx of bladder problems Lactose intolerance Lumbar compression fracture (05/2018) Non-smoker Osteoarthritis Parkinson disease Paroxysmal atrial fibrillation Peripheral vascular disease Post-menopausal Shortness of breath on exertion Sleep apnea Thyroid nodule Walker as ambulation aid Home Medications biotin 10,000 mcg capsule 10,000 mcg PO DAILY 07/04/18 [History Last Taken 08/17/23] alendronate 70 mg tablet (Fosamax) 70 mg PO QWEEK 07/01/19 [History Last Taken 08/18/23] carbidopa 25 mg-levodopa 100 mg tablet 1.5 tab PO TID 11/29/20 [History Last Taken 08/22/23] lactase 3,000 unit chewable tablet (Dairy Aid) 3,000 unit PO ONCE 08/02/21 [History Last Taken Unknown] aspirin 81 mg tablet,delayed release (Adult Low Dose Aspirin) 81 mg PO DAILY 12/11/22 [History Last Taken 08/16/23] calcium carb-vit [id number] 333 mg-200 unit-133 mg-5 mg tablet 1 tab PO DAILY 12/11/22 [History Last Taken 08/17/23] hydroxyzine HCl 25 mg tablet 12.5 mg PO Q8H PRN itching 12/11/22 [History Last Taken Unknown] vitamin K2 100 mcg capsule 100 mcg PO DAILY 12/11/22 [History Last Taken 08/16/23] lisinopril 5 mg tablet 5 mg PO DAILY #90 tabs 09/09/23 [Rx Last Taken Unknown] flecainide 50 mg tablet 50 mg PO Q12H OK to give with Plaquenil, pt has been on both #180 tabs 12/02/23 [Rx Last Taken Unknown] acetaminophen 500 mg tablet 1,000 mg PO Q8 PRN fever or pain 02/26/24 [History Last Taken Unknown] apixaban 5 mg tablet (Eliquis) 5 mg PO BID 02/26/24 [History Last Taken Unknown] diltiazem HCl 30 mg tablet 30 mg PO Q8H 02/26/24 [History Last Taken Unknown] duloxetine 20 mg capsule,delayed release 40 mg PO DAILY 02/26/24 [History Last Taken Unknown] hydroxychloroquine 200 mg tablet 200 mg PO BID 02/26/24 [History Last Taken Unknown] oxycodone 5 mg tablet 5 mg PO BID PRN pain 02/26/24 [History Last Taken Unknown] Allergy/AdvReac Type Severity Reaction Status Date / Time baclofen AdvReac Severe emotional Verified 02/26/24 15:21 issues propranolol AdvReac Severe nightmare Verified 02/26/24 15:21 sulfadiazine AdvReac Unknown not as Verified 02/26/24 15:21 effective Family History Father Cancer Sister Cancer Diabetes Heart disease Surgical History H/O varicose vein ligation and stripping History of back surgery (03/2018) History of herniorrhaphy History of hysterectomy History of left heart catheterization (04/25/17) History of tubal ligation Hx of LASIK Hx of left cataract extraction Hx of right cataract extraction S/P shoulder replacement Spinal cord stimulator status (05/2020) Social History Smoking Status: Never smoker alcohol intake: never substance use type: does not use caffeine: Yes Type: coffee Number of servings: 1 ROS ROS ED ROS Narrative Constitutional: No fever, no chills. HEENT: No sore throat. No neck pain. No loss of vision. No rhinorrhea. Cardiovascular: No chest pain. No palpitations. No pedal edema. Respiratory: No cough, no shortness of breath. Abdominal: No abdominal pain. No nausea. No vomiting. Genitourinary: No dysuria. No hematuria. Musculoskeletal: No myalgias. No arthralgias. Pain swelling and bruising of left lower extremity with known DVT. Neurologic: No headaches. No dizziness. No lightheadedness. Skin: No rash. No change in color. Psychiatric: No depression. No anxiety. EXAM Physical Exam Narrative Exam Narrative: Afebrile. Vital signs noted. HEENT: Normocephalic. Atraumatic. PERRL, EOMI. Neck soft and supple. No point tenderness or step off. Cardiovascular: Regular rate and rhythm. No murmurs, rubs, or gallops appreciated. Respiratory: No tachypnea. Lungs clear to auscultation bilaterally. Gastrointestinal: Abdomen soft, nontender, with normoactive bowel sounds. No rebound or guarding. Neurological: Awake. Alert. Nonfocal, nonlateralizing. Skin: No rash. Normal color. No pallor. Musculoskeletal: No pedal edema. Full range of motion extremities. Const Vital Signs: 02/26/24 15:18 02/26/24 17:18 02/26/24 19:00 Temperature 98 F Temperature Source Temporal Pulse Rate 68 72 Respiratory Rate 17 16 Blood Pressure 118/97 H 162/81 H Blood Pressure Mean 104 108 Pulse Ox 96 92 98 Oxygen Delivery Method Room Air Room Air Room Air MDM MDM MDM Narrative Medical decision making narrative: CTA will be obtained. Concern would be for hematoma of left lower extremity and arterial bleeding versus compartment syndrome. I have low suspicion for compartment syndrome as she has a palpable dorsalis pedis pulse on the left. Additionally, another relative of hers gives further history that she is still taking her Eliquis so I have lower concern for worsening DVT. They state that they did have an ultrasound performed recently that showed that her blood clot was still there. With concern for hematoma and arterial bleeding, CTA will be obtained along with CBC and BMP to check her kidney function. I reviewed her laboratory work and she has normal white count of 8.0, hemoglobin 12.0, hematocrit 38.2, platelet count normal at 354. Electrolyte panel shows chloride slightly elevated at 110 which I think is nonspecific with a BUN of 18 and creatinine 0.77. Glucose appropriately elevated at 97. I reviewed the radiology report for the CT of the left lower extremity. There is no comment of a hematoma or active extravasation or arterial bleed. There is significant stenosis throughout the arterial branch system of the left lower extremity. She does have a palpable dorsalis pedis pulse on my examination. At this point in time, I discussed the patient with Dr. Rajan Phillip. I reviewed her ultrasound from yesterday which shows chronic DVT, but no acute DVT. In discussion with vascular surgery, it was felt that she can be discharged to follow-up as an outpatient closely. She has already had 6 months of Eliquis so she is able to hold this for her mouth surgery and 1 to 2 weeks. However, Dr. Phillip does state that he is comfortable with her continuing the Eliquis as long as a large hematoma does not develop. It was thought that this is probably superficial ecchymosis. Patient would like to be discharged and will follow-up with vascular surgery. Disposition is discharged home in stable condition. History & Record Review Discussion w/independent historian: Patient and Family Additional record(s) reviewed:: Prior outpatient record Lab Data Attestation: I reviewed the patient's lab results. Labs: Laboratory Results - last 24 hr 02/26/24 16:27 WBC 8.0 RBC 3.93 L Hgb 12.0 Hct 38.2 MCV 97.2 MCH 30.5 MCHC 31.4 L RDW Std Deviation 50.0 H RDW Coeff of Lenin 14.2 Plt Count 354 MPV 9.4 Immature Gran % (Auto) 0.500 Neut % (Auto) 65.0 Lymph % (Auto) 20.3 [place] % (Auto) 9.1 Eos % (Auto) 4.0 Baso % (Auto) 1.1 H Absolute Neuts (auto) 5.2 Absolute Lymphs (auto) 1.63 Nucleated RBC % 0 Sodium 142 Potassium 3.5 Chloride 110 H Carbon Dioxide 31.0 Anion Gap 1 L BUN 18 Creatinine 0.77 Estim Creat Clear Calc 61.26 Est GFR (MDRD) Af Amer 94 Est GFR (MDRD) Non-Af 77 BUN/Creatinine Ratio 23.5 H Glucose 97 Calcium 9.2 Radiography Diagnostic Testing: Clinical Impression(s) from Imaging Studies Lower Extremity CTA 02/26/24 15:56 IMPRESSION: 1. Extensive multilevel calcifications throughout the LEFT lower extremity arterial tree. No maury stenosis and involving the vessels to level of the popliteal artery. 2. There is a moderate approximately 50% stenosis of the tibial peroneal trunk. 3. Multiple calcifications in the PAUL which however is patent to the level of the dorsalis pedis. 4. Extensive calcifications in the CLOTH EXAMINER with a moderate length segment of diminished contrast opacification suspicious of high-grade stenosis versus occlusion. Plantar arch is not well opacified. 5. Peroneal artery is patent to the level of the ankle. Electronically Signed: Jian Porter MD at 19:25 EDT , Discharge Plan Triage Chief Complaint: Lower Extremity Injury ED Provider: [employer] [facility] Dx/Rx/DC Orders Clinical Impression: Superficial bruising of thigh, Chronic deep vein thrombosis (DVT) Instructions: ED Contusion, Lower Extremity, ED Deep Vein Thrombosis (DVT) Prescriptions: No Action biotin 10,000 mcg capsule 10,000 mcg PO DAILY alendronate [Fosamax] 70 mg tablet 70 mg PO QWEEK Hold Instructions: HOLD PRIOR TO PROCEDURE carbidopa-levodopa 25-100 mg tablet 1.5 tab PO TID Dairy Aid 3,000 unit tablet,chewable 3,000 unit PO ONCE Rx Instructions: administer with meals and/or snacks vitamin K2 100 mcg capsule 100 mcg PO DAILY aspirin [Adult Low Dose Aspirin] 81 mg tablet,delayed release (DR/EC) 81 mg PO DAILY calcium carb-D3-mag [id number] lm-[id number]-wc-mg tablet 1 tab PO DAILY Rx Instructions: administer with a meal hydroxyzine HCl 25 mg tablet 12.5 mg PO Q8H PRN (Reason: itching) oxycodone 5 mg tablet 5 mg PO BID PRN (Reason: pain) Eliquis 5 mg tablet 5 mg PO BID duloxetine 20 mg capsule,delayed release(DR/EC) 40 mg PO DAILY acetaminophen 500 mg Tablet 1,000 mg PO Q8 PRN (Reason: fever or pain) diltiazem HCl 30 mg tablet 30 mg PO Q8H hydroxychloroquine 200 mg tablet 200 mg PO BID lisinopril 5 mg tablet 5 mg PO DAILY Qty: 90 3RF Hold Instructions: HYPOTENSION Patient Comments: THIS HAS BEEN ON HOLD flecainide 50 mg tablet 50 mg PO Q12H Qty: 180 3RF Primary Care Provider: Rajan Cervantes Referrals: Rajan Cervantes MD [Primary Care Provider] - Rajan Phillip MD [Med Staff - Active Staff] - 3-5 Days Activity Restrictions/Additional Instructions: You may continue your Eliquis as previously directed until seen by Dr. Phillip. If you have increasing leg swelling, you should stop. It is okay to hold your Eliquis for your mouth surgery as directed. Disposition Disposition: Home, Self Care
[2024-02-26 16:43] LABS: Absolute Lymphocyte Count 1.63 X10^3/uL (0.83-4.51); Absolute Neutrophil Count 5.2 X10^3/uL (2.0-7.7); Basophil# 0.09 X10^3/uL; Basophil% 1.1 % (0-1); Eosinophil# 0.32 X10^3/uL; Hematocrit 38.2 % (37-47); Lymphocyte # 1.63 X10^3/ul (0.83-4.51); Lymphocyte % 20.3 % (19-41); Mean Corp Hgb Conc 31.4 g/dL (32-36); Mean Corpuscular Hgb 30.5 pg (27.0-32.0); Mean Corpuscular Volume 97.2 fL (81-99); Mean Platelet Vol. 9.4 fl (6.2-12.0); Monocyte# 0.73 X10^3/uL; Monocyte% 9.1 % (0-10); NRBC Flagged by Analyzer 0 % (0-5); Neutrophil # 5.21 X10^3/uL (2.7-7.7); Platelet Count 354 K/mm3 (150-450); RBC Distribution Width CV 14.2 % (11.6-14.6); Red Blood Count 3.93 M/mm3 (4.2-5.4)
[2024-02-26 16:57] LABS: Anion Gap 1 (5-15); BUN 18 mg/dL (7-18); BUN/Creat Ratio 23.5 RATIO (10-20); Calcium,Total 9.2 mg/dL (8.5-10.1); Chloride 110 mmol/L (98-107); Creatinine, Serum 0.77 mg/dL (0.55-1.02); EST Glomerular Filtration Rate 77 mL/min (>60); Est Glom Filt Rate - Afr Amer 94 mL/min (>60); Estimated Creatinine Clearance 61.26 ml/min; Glucose 97 mg/dL (74-106); Potassium 3.5 mmol/L (3.5-5.1); Sodium Level 142 mmol/L (136-145)
[2024-02-26 17:18] VITALS: BP 162/81; PULSE 72; RESP 16; O2SAT 92
[2024-02-26 19:00] VITALS: O2SAT 98
[2024-02-26 20:50] VITALS: BP 154/76; PULSE 72; RESP 16; TEMP 36.6; O2SAT 97
== END 2024-02-26 21:30 | disposition home or self-care (01) ==
PROVIDERS: Emergency Provider Emergency Medicine; PCP Family Medicine; Visit Provider Emergency Medicine
DX: S70.12XA Contusion of left thigh, initial encounter (principal); G20.A1 Parkinson's disease without dyskinesia, without mention of fluctuations; I48.0 Paroxysmal atrial fibrillation; I82.502 Chronic embolism and thrombosis of unspecified deep veins of left lower extremity; X58.XXXA Exposure to other specified factors, initial encounter; I10 Essential (primary) hypertension; Z79.01 Long term (current) use of anticoagulants; Z79.82 Long term (current) use of aspirin; Z79.899 Other long term (current) drug therapy
CPT/HCPCS: 73706; 80048; 85025; 99283; Q9967; A4216

== ENCOUNTER 2024-03-05 11:55 | Observation (INO) | payer MEDICARE, SELFPAY ==
[2024-03-05] VITALS (7 sets, daily range): BP systolic 115–168; BP diastolic 79–91; PULSE 68–92; RESP 16–20; TEMP 36.4–36.8; O2SAT 95–97; BMI 33.6; BMI 32.5
--- NOTE | 2024-03-05 12:14 | EKG12_ITS ---
Test Reason : GENERAL Blood Pressure : / mmHG Vent. Rate : 083 BPM Atrial Rate : 083 BPM P-R Int : 186 ms QRS Dur : 090 ms QT Int : 410 ms P-R-T Axes : 000 -34 049 degrees QTc Int : 481 ms Sinus rhythm with occasional Premature ventricular complexes Left axis deviation Inferior infarct , age undetermined Cannot rule out Anterior infarct , age undetermined Abnormal ECG Confirmed by HAILEY REDMOND MD ([id number]), managing editor BART JEFFERSON ([id number]) on 03/06/2024 8:19:21 AM Referred By: Confirmed By:HAILEY REDMOND MD
--- NOTE | 2024-03-05 12:18 | ED.VIS.FALL ---
HPI <ALEX Santillan - Last Filed: 03/05/24 14:21> HPI - Fall History of Present Illness Chief Complaint: Fall Narrative Narrative: 78-year-old female with past medical history of HTN, DVT on Eliquis was standing at the kitchen this morning and fell backwards hitting her head on the carpeted floor. She is not quite sure why she fell. She does not recall feeling dizzy or lightheaded and she did not lose consciousness. She had her phone and called her family member who helped her up within several minutes. She does not have any obvious injuries or pain. She lives at home with 2 other family members who thought she seemed confused last night. 2 days ago she had several teeth extracted and was told by the dentist to restart her lisinopril so her daughter is concerned maybe her blood pressure is dropping too low. She also has been taking Percocet since a right shoulder replacement in September. Daughter states when she arrived this morning her morning pill box was in disarray and she had an extra bottle of Percocet so she is not really sure how many she took last night and this may be contributing. [facility] <ALEX Santillan - Last Filed: 03/05/24 14:21> [facility] Medical History Anxiety Anxiety disorder Arthritis Cardiology follow-up encounter Chronic pain DDD (degenerative disc disease) Depression DVT (deep venous thrombosis) Essential (primary) hypertension Fall Heartburn History of edema History of stress test Hx of bladder problems Lactose intolerance Lumbar compression fracture (05/2018) Non-smoker Osteoarthritis Parkinson disease Paroxysmal atrial fibrillation Peripheral vascular disease Post-menopausal Shortness of breath on exertion Sleep apnea Thyroid nodule Walker as ambulation aid Home Medications biotin 10,000 mcg capsule 10,000 mcg PO DAILY 07/04/18 [History Last Taken 08/17/23] alendronate 70 mg tablet (Fosamax) 70 mg PO QWEEK 07/01/19 [History Last Taken 08/18/23] carbidopa 25 mg-levodopa 100 mg tablet 1.5 tab PO TID 11/29/20 [History Last Taken 08/22/23] lactase 3,000 unit chewable tablet (Dairy Aid) 3,000 unit PO ONCE 08/02/21 [History Last Taken Unknown] aspirin 81 mg tablet,delayed release (Adult Low Dose Aspirin) 81 mg PO DAILY 12/11/22 [History Last Taken 08/16/23] calcium carb-vit [id number] 333 mg-200 unit-133 mg-5 mg tablet 1 tab PO DAILY 12/11/22 [History Last Taken 08/17/23] hydroxyzine HCl 25 mg tablet 12.5 mg PO Q8H PRN anxiety 12/11/22 [History Last Taken Unknown] vitamin K2 100 mcg capsule 100 mcg PO DAILY 12/11/22 [History Last Taken 08/16/23] lisinopril 5 mg tablet 5 mg PO DAILY #90 tabs 09/09/23 [Rx Last Taken Unknown] flecainide 50 mg tablet 50 mg PO Q12H OK to give with Plaquenil, pt has been on both #180 tabs 12/02/23 [Rx Last Taken Unknown] acetaminophen 500 mg tablet 1,000 mg PO Q8 PRN fever or pain 02/26/24 [History Last Taken Unknown] apixaban 5 mg tablet (Eliquis) 5 mg PO BID 02/26/24 [History Last Taken Unknown] diltiazem HCl 30 mg tablet 30 mg PO Q8H 02/26/24 [History Last Taken Unknown] duloxetine 20 mg capsule,delayed release 40 mg PO DAILY 02/26/24 [History Last Taken Unknown] hydroxychloroquine 200 mg tablet 200 mg PO BID 02/26/24 [History Last Taken Unknown] oxycodone 5 mg tablet 5 mg PO BID PRN pain 02/26/24 [History Last Taken Unknown] Allergy/AdvReac Type Severity Reaction Status Date / Time baclofen AdvReac Severe emotional Verified 03/05/24 11:55 issues propranolol AdvReac Severe nightmare Verified 03/05/24 11:55 sulfadiazine AdvReac Unknown not as Verified 03/05/24 11:55 effective Family History Father Cancer Sister Cancer Diabetes Heart disease Surgical History H/O varicose vein ligation and stripping History of back surgery (03/2018) History of herniorrhaphy History of hysterectomy History of left heart catheterization (04/25/17) History of tubal ligation Hx of LASIK Hx of left cataract extraction Hx of right cataract extraction S/P shoulder replacement Spinal cord stimulator status (05/2020) Social History (Updated 03/05/24 @ 14:[address] Nannette Marks MD) household members: family Smoking Status: Never smoker alcohol intake: never substance use type: does not use caffeine: Yes Type: coffee Number of servings: 1 ROS <ALEX Santillan - Last Filed: 03/05/24 14:21> ROS ED ROS Narrative Constitutional: Negative for fever, chills, malaise. CVS: Negative for chest pain, syncope. Respiratory: Negative for shortness of breath, cough. GI: Negative for abdominal pain, nausea, vomiting. : Negative for dysuria. Neuro: Negative for headache. EXAM <ALEX Santillan - Last Filed: 03/05/24 14:21> Physical Exam Narrative Exam Narrative: CONST: Patient sitting in no acute distress. EYES: Normal inspection. PERRL, EOMI. HEAD: Head normocephalic atraumatic, no raccoon eyes or bowers sign, no hemotympanum, no nasal septal hematoma, no CSF otorrhea or rhinorrhea. NECK: Normal inspection. No midline spinal tenderness, no step off or crepitus. RESP: No respiratory distress, CTAB. Chest wall nontender. CVS: Regular rate and rhythm, no murmur, no gallop. ABD: Soft and nontender, no guarding or rebound, nondistended. Back: Normal inspection, no midline tenderness. SKIN: Color normal, no rash, warm, dry, intact. EXTREMITIES: Normal appearance, full ROM upper and lower extremities, 2+ radial DP pulses. NEURO: Alert and oriented x 4, answering questions appropriately. PSYCH: Normal affect. Const Vital Signs: 03/05/24 11:56 03/05/24 12:47 03/05/24 14:03 Temperature 97.6 F L Temperature Source Temporal Pulse Rate 92 Pulse Rate [Lying] 79 Pulse Rate [Sitting (for 1 minute prior to obtaining)] 79 Pulse Rate [Standing (for 1 minute prior to obtaining)] 80 Respiratory Rate 18 Respiratory Effort Normal Non-Labored Respiratory Depth Normal Respiratory Pattern Normal Blood Pressure 115/79 Blood Pressure [Lying] 157/91 H Blood Pressure [Sitting (for 1 minute prior to obtaining)] 151/88 H Blood Pressure [Standing (for 1 minute prior to obtaining)] 148/91 H Blood Pressure Mean 91 Blood Pressure Mean [Lying] 113 Blood Pressure Mean [Sitting (for 1 minute prior to obtaining)] 109 Blood Pressure Mean [Standing (for 1 minute prior to obtaining)] 110 Pulse Ox 96 Oxygen Delivery Method Room Air 03/05/24 14:04 Temperature 98.2 F Temperature Source Pulse Rate 82 Pulse Rate [Lying] Pulse Rate [Sitting (for 1 minute prior to obtaining)] Pulse Rate [Standing (for 1 minute prior to obtaining)] Respiratory Rate 18 Respiratory Effort Respiratory Depth Respiratory Pattern Blood Pressure 148/91 H Blood Pressure [Lying] Blood Pressure [Sitting (for 1 minute prior to obtaining)] Blood Pressure [Standing (for 1 minute prior to obtaining)] Blood Pressure Mean 110 Blood Pressure Mean [Lying] Blood Pressure Mean [Sitting (for 1 minute prior to obtaining)] Blood Pressure Mean [Standing (for 1 minute prior to obtaining)] Pulse Ox 95 Oxygen Delivery Method <Dr. Brad Huber, DO - Last Filed: 03/05/24 15:16> Physical Exam Const Vital Signs: 03/05/24 11:56 03/05/24 12:47 03/05/24 14:03 Temperature 97.6 F L Temperature Source Temporal Pulse Rate 92 Pulse Rate [Lying] 79 Pulse Rate [Sitting (for 1 minute prior to obtaining)] 79 Pulse Rate [Standing (for 1 minute prior to obtaining)] 80 Respiratory Rate 18 Respiratory Effort Normal Non-Labored Respiratory Depth Normal Respiratory Pattern Normal Blood Pressure 115/79 Blood Pressure [Lying] 157/91 H Blood Pressure [Sitting (for 1 minute prior to obtaining)] 151/88 H Blood Pressure [Standing (for 1 minute prior to obtaining)] 148/91 H Blood Pressure Mean 91 Blood Pressure Mean [Lying] 113 Blood Pressure Mean [Sitting (for 1 minute prior to obtaining)] 109 Blood Pressure Mean [Standing (for 1 minute prior to obtaining)] 110 Pulse Ox 96 Oxygen Delivery Method Room Air 03/05/24 14:04 Temperature 98.2 F Temperature Source Pulse Rate 82 Pulse Rate [Lying] Pulse Rate [Sitting (for 1 minute prior to obtaining)] Pulse Rate [Standing (for 1 minute prior to obtaining)] Respiratory Rate 18 Respiratory Effort Respiratory Depth Respiratory Pattern Blood Pressure 148/91 H Blood Pressure [Lying] Blood Pressure [Sitting (for 1 minute prior to obtaining)] Blood Pressure [Standing (for 1 minute prior to obtaining)] Blood Pressure Mean 110 Blood Pressure Mean [Lying] Blood Pressure Mean [Sitting (for 1 minute prior to obtaining)] Blood Pressure Mean [Standing (for 1 minute prior to obtaining)] Pulse Ox 95 Oxygen Delivery Method [facility] <ALEX Santillan - Last Filed: 03/05/24 14:21> [facility] Narrative Medical decision making narrative: History gathered from: Patient, daughter Patient fell this morning hitting her head on the ground. No LOC. She is on Eliquis. Per family report there has been a day or 2 of waxing and waning confusion. She is awake alert with stable vital signs. She is alert and oriented x 4 and has no focal deficits. She has no external signs of injury or head trauma. CT brain is negative. Basic labs are unremarkable, CXR and UA negative for infection. Orthostatic vital signs are negative. Patient uses a rollator at home. The nurse tried to get her up to ambulate in the room but she could not take even 1-2 steps without a lot of assistance. She complained her right shoulder hurt where she had a prior replacement. The x-ray was negative for fracture. Patient's reported confusion at home and difficulty ambulating the multifactorial?she recently restarted lisinopril, is taking Percocet due to chronic right shoulder pain and recent dental extractions, has a history of Parkinson's, possibly some undiagnosed dementia. At this point she is not safe to go home and cannot ambulate independently. Case will be discussed with the hospitalist for admission. Lab Data Attestation: I reviewed the patient's lab results. Labs: Laboratory Results - last 24 hr 03/05/24 03/05/24 12:10 12:58 WBC 9.5 RBC 4.09 L Hgb 12.8 Hct 40.7 MCV 99.5 H MCH 31.3 MCHC 31.4 L RDW Std Deviation 54.9 H RDW Coeff of Lenin 15.0 H Plt Count 330 MPV 10.7 Immature Gran % (Auto) 0.500 Neut % (Auto) 69.8 Lymph % (Auto) 16.7 L [place] % (Auto) 10.8 H Eos % (Auto) 1.3 Baso % (Auto) 0.9 Absolute Neuts (auto) 6.6 Absolute Lymphs (auto) 1.59 Nucleated RBC % 0 Sodium 142 Potassium 3.5 Chloride 111 H Carbon Dioxide 26.0 Anion Gap 5 BUN 25 H Creatinine 0.97 Estim Creat Clear Calc 49.74 Est GFR (MDRD) Af Amer 71 Est GFR (MDRD) Non-Af 59 L BUN/Creatinine Ratio 25.8 H Glucose 110 H Calcium 9.3 Phosphorus 3.8 Magnesium 2.3 Troponin I High Sens 11 Urine Color Yellow Urine Clarity Sl. Cloudy Urine pH 5.0 Ur Specific [place] 1.025 Urine Protein 30 H Urine Glucose (UA) Normal Urine Ketones 15 H Urine Occult Blood 10 H Urine Nitrite Negative Urine Bilirubin 1 H Urine Urobilinogen 1 H Ur Leukocyte Esterase 25 H Urine RBC 0-5 SEEN Urine WBC 0-5 SEEN Ur Squamous Epith Cells 0-5 SEEN Urine Bacteria 0 SEEN Urine Mucus 0 SEEN Radiography Diagnostic Testing: Clinical Impression(s) from Imaging Studies Brain CT 03/05/24 12:30 IMPRESSION: 1. No acute intracranial process. 2. Chronic involutional changes of the brain. Electronically Signed: Shady Spaulding MD at 12:47 EDT , Chest X-Ray 03/05/24 12:31 IMPRESSION: No radiographic evidence of acute cardiopulmonary disease. Electronically Signed: Shady Spaulding MD at 12:47 EDT , ED attending interpretation of 1-view chest x-ray shows normal heart size, no acute infiltrate, no evidence of pneumothorax. EKG Initial EKG: Attestation: I personally reviewed and interpreted this EKG as follows: Interpretation: Sinus Rhythm and No Acute Injury Pattern Comments: Normal sinus rhythm with occasional PVCs at 83 bpm Left axis deviation Normal intervals, no acute ischemic changes <Dr. Brad Huber, DO - Last Filed: 03/05/24 15:16> [facility] Narrative Medical decision making narrative: History gathered from: Patient, daughter Patient fell this morning hitting her head on the ground. No LOC. She is on Eliquis. Per family report there has been a day or 2 of waxing and waning confusion. She is awake alert with stable vital signs. She is alert and oriented x 4 and has no focal deficits. She has no external signs of injury or head trauma. CT brain is negative. Basic labs are unremarkable, CXR and UA negative for infection. Orthostatic vital signs are negative. Patient uses a rollator at home. The nurse tried to get her up to ambulate in the room but she could not take even 1-2 steps without a lot of assistance. She complained her right shoulder hurt where she had a prior replacement. The x-ray was negative for fracture. Patient's reported confusion at home and difficulty ambulating the multifactorial?she recently restarted lisinopril, is taking Percocet due to chronic right shoulder pain and recent dental extractions, has a history of Parkinson's, possibly some undiagnosed dementia. At this point she is not safe to go home and cannot ambulate independently. Case will be discussed with the hospitalist for admission. I have personally performed a face to face assessment of the patient and have reviewed the NAT Note. I performed a substantive portion of the visit including all aspects of the following. My hannah findings include: History is 78-year-old female presenting following a fall this morning. Patient has a history of Parkinson's lives at home on the bottom floor with her grandson upstairs. about 2 years ago who is her primary caregiver. She underwent tooth extraction with local anesthesia. Daughter notes that she seems rather weak and confused. She states she does not feel that she is safe at home. Daughter handles her medications. Daughter states that she is wondering if the patient is having some visual hallucinations. Patient asked her to spray for antibiotics 3 to 4 years in the house which she is not seeing any evidence of. Exam is nonfocal extremely weak with attempted ambulation. No outward signs of trauma. Medical Decison Making basic blood work was obtained. No obvious UTI. CT of the brain demonstrates no acute trauma. Negative interpretation of chest x-ray is no acute process. Will discuss with hospitalist. Please see PA note for details History & Record Review Discussion w/independent historian: Patient and Family Lab Data Labs: Laboratory Results - last 24 hr 03/05/24 03/05/24 12:10 12:58 WBC 9.5 RBC 4.09 L Hgb 12.8 Hct 40.7 MCV 99.5 H MCH 31.3 MCHC 31.4 L RDW Std Deviation 54.9 H RDW Coeff of Lenin 15.0 H Plt Count 330 MPV 10.7 Immature Gran % (Auto) 0.500 Neut % (Auto) 69.8 Lymph % (Auto) 16.7 L [place] % (Auto) 10.8 H Eos % (Auto) 1.3 Baso % (Auto) 0.9 Absolute Neuts (auto) 6.6 Absolute Lymphs (auto) 1.59 Nucleated RBC % 0 Sodium 142 Potassium 3.5 Chloride 111 H Carbon Dioxide 26.0 Anion Gap 5 BUN 25 H Creatinine 0.97 Estim Creat Clear Calc 49.74 Est GFR (MDRD) Af Amer 71 Est GFR (MDRD) Non-Af 59 L BUN/Creatinine Ratio 25.8 H Glucose 110 H Calcium 9.3 Phosphorus 3.8 Magnesium 2.3 Troponin I High Sens 11 Urine Color Yellow Urine Clarity Sl. Cloudy Urine pH 5.0 Ur Specific [place] 1.025 Urine Protein 30 H Urine Glucose (UA) Normal Urine Ketones 15 H Urine Occult Blood 10 H Urine Nitrite Negative Urine Bilirubin 1 H Urine Urobilinogen 1 H Ur Leukocyte Esterase 25 H Urine RBC 0-5 SEEN Urine WBC 0-5 SEEN Ur Squamous Epith Cells 0-5 SEEN Urine Bacteria 0 SEEN Urine Mucus 0 SEEN Radiography Diagnostic Testing: Clinical Impression(s) from Imaging Studies Brain CT 03/05/24 12:30 IMPRESSION: 1. No acute intracranial process. 2. Chronic involutional changes of the brain. Electronically Signed: Shady Spaulding MD at 12:47 EDT Reading Location ID and State: [facility] / [place] Tel , Service support , Chest X-Ray 03/05/24 12:31 IMPRESSION: No radiographic evidence of acute cardiopulmonary disease. Electronically Signed: Shady Spaulding MD at 12:47 EDT , Discharge Plan Triage Chief Complaint: Fall ED Midlevel Provider: Becky Ny ED Provider: Brad Huber Dx/Rx/DC Orders Clinical Impression: History of Parkinson's disease, Head injury, Difficulty in walking, Fall Primary Care Provider: Rajan Cervantes
--- NOTE | 2024-03-05 12:30 | CT_ITS ---
INDICATION: fall EXAMINATION: CT BRAIN - CT Head or Brain W/O Contrast Injection TECHNIQUE: Multiple axial images were obtained of the head without intravenous contrast. A radiation dose optimization technique was used for this scan. IV Contrast dosage and agent: None. RADIATION DOSAGE (If Supplied By Facility): CTDIvol = ( 44.99 ) mGy, DLP = ( 812.98 ) mGycm COMPARISON: No relevant prior comparison study available FINDINGS: BRAIN PARENCHYMA: No intra- or extra-axial hemorrhage. No evidence of acute infarct. No intracranial mass or mass effect. There is preservation of the garcia/white matter interface. Mild chronic periventricular deep white matter changes likely due to microvascular disease. Atherosclerotic calcifications of the cavernous internal carotid arteries. Posterior fossa structures are unremarkable. CSF SPACES: Mild atrophy appropriate for patient''s age. No hydrocephalus. Basal cisterns are patent. CALVARIUM, SKULL BASE, PARANASAL SINUSES AND MASTOID AIR CELLS: Clear. No discrete lytic or blastic abnormalities. ORBITS: Previous bilateral cataract surgery. ASPECTS Score for Acute Strokes: 10 CT/Brain/Head without Contrast IMPRESSION: 1. No acute intracranial process. 2. Chronic involutional changes of the brain. Electronically Signed: Shady Spaulding MD at 12:47 EDT ,
--- NOTE | 2024-03-05 12:31 | RAD_ITS ---
INDICATION: weakness EXAMINATION/TECHNIQUE: X-RAY - XR Chest 1 View COMPARISON: No relevant prior comparison study available FINDINGS: LINES/DEVICES: None. LUNGS: No consolidation, edema or effusion. No pneumothorax. MEDIASTINUM AND CARDIOVASCULAR STRUCTURES: Cardiac silhouette not enlarged. Central airways and mediastinal contour are unremarkable. BONES AND SOFT TISSUES: Right shoulder arthroplasty. No demonstrated acute osseous changes. RAD/Chest 1 View (Portable) IMPRESSION: No radiographic evidence of acute cardiopulmonary disease. Electronically Signed: Shady Spaulding MD at 12:47 EDT ,
[2024-03-05 12:53] LABS: Absolute Lymphocyte Count 1.59 X10^3/uL (0.83-4.51); Absolute Neutrophil Count 6.6 X10^3/uL (2.0-7.7); Basophil# 0.09 X10^3/uL; Basophil% 0.9 % (0-1); Eosinophil# 0.12 X10^3/uL; Eosinophils% 1.3 % (0-5); Hematocrit 40.7 % (37-47); Hemoglobin 12.8 g/dL (12.0-15.0); Lymphocyte # 1.59 X10^3/ul (0.83-4.51); Lymphocyte % 16.7 % (19-41); Mean Corp Hgb Conc 31.4 g/dL (32-36); Mean Corpuscular Hgb 31.3 pg (27.0-32.0); Mean Corpuscular Volume 99.5 fL (81-99); Mean Platelet Vol. 10.7 fl (6.2-12.0); Monocyte# 1.03 X10^3/uL; Monocyte% 10.8 % (0-10); NRBC Flagged by Analyzer 0 % (0-5); Neutrophil # 6.64 X10^3/uL (2.7-7.7); Neutrophil % 69.8 % (47-70); Platelet Count 330 K/mm3 (150-450); RBC Distribution Width SD 54.9 fl (35.1-43.9); Red Blood Count 4.09 M/mm3 (4.2-5.4); White Blood Count 9.5 K/mm3 (4.4-11.0)
[2024-03-05 13:01] LABS: Bacteria 0 SEEN /hpf (None Seen); Mucous, Urine 0 SEEN /hpf (<or=2+)
[2024-03-05 13:11] LABS: Anion Gap 5 (5-15); BUN 25 mg/dL (7-18); BUN/Creat Ratio 25.8 RATIO (10-20); Calcium,Total 9.3 mg/dL (8.5-10.1); Chloride 111 mmol/L (98-107); Creatinine, Serum 0.97 mg/dL (0.55-1.02); EST Glomerular Filtration Rate 59 mL/min (>60); Est Glom Filt Rate - Afr Amer 71 mL/min (>60); Estimated Creatinine Clearance 49.74 ml/min; Glucose 110 mg/dL (74-106); Potassium 3.5 mmol/L (3.5-5.1); Sodium Level 142 mmol/L (136-145); Troponin-I HS 11 pg/mL (3.0-54.0)
[2024-03-05 13:12] LABS: Color, Urine Yellow (Yellow); Glucose, Dipstick Normal (Normal); Ketone-Dipstick 15 mg/dl (Negative); Leukocyte Esterase-Dipstick 25 /ul (Negative); Nitrite-Dipstick Negative (Negative); Occult Blood-Urine 10 /ul (Negative); Protein-Dipstick 30 mg/dl (Negative); Specific Gravity, Urine 1.025 (1.002-1.030); Urine Clarity Sl. Cloudy (Clear); Urine Urobilinogen 1 mg/dl (Normal)
[2024-03-05 13:20] LABS: Red Blood Cells-Urine 0-5 SEEN /hpf (0-5); Squamous Epithelial Cells - UA 0-5 SEEN /hpf (5-10); Urine Bilirubin Dipstick 1 mg/dL (Negative); White Blood Cells 0-5 SEEN /hpf (0-5)
--- NOTE | 2024-03-05 14:19 | HP.PCM.HOS_ITS ---
HPI - General General Date of Admission: 03/05/24 Date of Service: 03/05/24 Chief Complaint: Fall, Adult FTT HPI Narrative The patient is a 78 y/o F w/ PMHx: Rheumatoid arthritis, CKD stage II, Anxiety and Depression, HTN, HLD, Hx VTE, Chronic back pain with DDD w/ Hx spinal cord stimulator, Parkinson's disease, PAF, SIERRA who presents to the [facility] ED on 03/05/24 with history of standing in the kitchen on morning on day of presentation unfort unately falling backwards and hitting her head on the carpeted floor with unclear specific reason with no dizziness, lightheadedness with no loss of consciousness fortunately having her phone on her prompting her to call her family members to his sister with no obvious injuries but patient lives at home with some support but seem to be potentially confused in the evening prior with reportedly teeth extraction (under local only) 2 days prior with ongoing Percocet usage following a shoulder replacement the prior September but unfortunately family did note that her morning pillbox was in disarray so there is possibly an error in the medication she took prompting them to bring her to the ED for evaluation. Workup in the ED included T97.6, heart 92, BP 115/79, respiratory rate 18, 96% on room air, orthostatic vital signs unremarkable, CBC with WBC 9.5, hemoglobin 12.8, MCV 99.5, platelet 330 without marked shift, BMP with BUN/creatinine 25/0.97, GFR 59, glucose 110, troponin 11, urinalysis with cloudy appearing urine and elevated specific gravity 1.025, protein 30, ketone 15, occult blood 10, negative nitrite, leukocyte Estrace 25 with no obvious evidence of UTI, chest x-ray with no acute cardiopulmonary findings, CT brain with chronic involutional changes with no acute intracranial process, EKG with sinus rhythm with occasional PVC with no acute evidence of ischemia. [facility] Medical History Anxiety Anxiety disorder Arthritis Cardiology follow-up encounter Chronic pain DDD (degenerative disc disease) Depression DVT (deep venous thrombosis) Essential (primary) hypertension Fall Heartburn History of edema History of stress test Hx of bladder problems Lactose intolerance Lumbar compression fracture (05/2018) Non-smoker Osteoarthritis Parkinson disease Paroxysmal atrial fibrillation Peripheral vascular disease Post-menopausal Rheumatoid arthritis Shortness of breath on exertion Sleep apnea Thyroid nodule Walker as ambulation aid Home Medications biotin 10,000 mcg capsule 10,000 mcg PO DAILY 07/04/18 [History Last Taken 08/17/23] alendronate 70 mg tablet (Fosamax) 70 mg PO QWEEK 07/01/19 [History Last Taken 08/18/23] carbidopa 25 mg-levodopa 100 mg tablet 1.5 tab PO TID 11/29/20 [History Last Taken 08/22/23] lactase 3,000 unit chewable tablet (Dairy Aid) 3,000 unit PO ONCE 08/02/21 [History Last Taken Unknown] aspirin 81 mg tablet,delayed release (Adult Low Dose Aspirin) 81 mg PO DAILY 12/11/22 [History Last Taken 08/16/23] calcium carb-vit [id number] 333 mg-200 unit-133 mg-5 mg tablet 1 tab PO DAILY 12/11/22 [History Last Taken 08/17/23] hydroxyzine HCl 25 mg tablet 12.5 mg PO Q8H PRN anxiety 12/11/22 [History Last Taken Unknown] vitamin K2 100 mcg capsule 100 mcg PO DAILY 12/11/22 [History Last Taken 08/16/23] lisinopril 5 mg tablet 5 mg PO DAILY #90 tabs 09/09/23 [Rx Last Taken Unknown] flecainide 50 mg tablet 50 mg PO Q12H OK to give with Plaquenil, pt has been on both #180 tabs 12/02/23 [Rx Last Taken Unknown] acetaminophen 500 mg tablet 1,000 mg PO Q8 PRN fever or pain 02/26/24 [History Last Taken Unknown] apixaban 5 mg tablet (Eliquis) 5 mg PO BID 02/26/24 [History Last Taken Unknown] diltiazem HCl 30 mg tablet 30 mg PO Q8H 02/26/24 [History Last Taken Unknown] duloxetine 20 mg capsule,delayed release 40 mg PO DAILY 02/26/24 [History Last Taken Unknown] hydroxychloroquine 200 mg tablet 200 mg PO BID 02/26/24 [History Last Taken Unknown] oxycodone 5 mg tablet 5 mg PO BID PRN pain 02/26/24 [History Last Taken Unknown] Allergy/AdvReac Type Severity Reaction Status Date / Time baclofen AdvReac Severe emotional Verified 03/05/24 11:55 issues propranolol AdvReac Severe nightmare Verified 03/05/24 11:55 sulfadiazine AdvReac Unknown not as Verified 03/05/24 11:55 effective Family History (Updated 03/05/24 @ 19:[address] Nannette Marks MD) Father Cancer Sister Cancer Diabetes Heart disease Mother Anxiety and depression Surgical History H/O varicose vein ligation and stripping History of back surgery (03/2018) History of herniorrhaphy History of hysterectomy History of left heart catheterization (04/25/17) History of tubal ligation Hx of LASIK Hx of left cataract extraction Hx of right cataract extraction S/P shoulder replacement Spinal cord stimulator status (05/2020) Social History household members: family Smoking Status: Never smoker alcohol intake: never substance use type: does not use caffeine: Yes Type: coffee Number of servings: 1 ROS ROS Narrative Admission Review of Systems: CONSTITUTIONAL: No weight loss, fever, chills, + weakness or fatigue. HEENT: Eyes: No visual loss, blurred vision, double vision or yellow sclerae. Ears, Nose, Throat: No hearing loss, sneezing, congestion, runny nose or sore throat. SKIN: No rash or itching, lesions, wounds. CARDIOVASCULAR: No chest pain, chest pressure or chest discomfort, palpitations, edema, orthopnea, syncopal events. RESPIRATORY: No shortness of breath, cough or sputum, wheezing, hemoptysis. GASTROINTESTINAL: No anorexia, nausea, vomiting or diarrhea, abdominal pain, melena, BRBPR. GENITOURINARY: No dysuria, frequency, urgency or retention. NEUROLOGICAL: + Falls, underlying Parkinson's disease with tremors, possible developing Parkinson's disease associated dementia. No headache, dizziness, syncope, paralysis, ataxia, numbness or tingling in the extremities, focal weakness, change in bowel or bladder control, seizure. MUSCULOSKELETAL: + muscle, back pain, joint pain or stiffness. HEMATOLOGIC: + Anemia, easy bleeding/bruising. LYMPHATICS: No enlarged nodes. No history of splenectomy. PSYCHIATRIC: + History of anxiety and depression. ENDOCRINOLOGIC: No reports of sweating, cold or heat intolerance. No polyuria or polydipsia. ALLERGIES: No history of asthma, hives, eczema or rhinitis. Vital Signs Vital Signs Vital Signs: 03/05/24 11:56 03/05/24 12:47 03/05/24 14:03 Temperature 97.6 F L Temperature Source Temporal Pulse Rate 92 Pulse Rate [Lying] 79 Pulse Rate [Sitting (for 1 minute prior to obtaining)] 79 Pulse Rate [Standing (for 1 minute prior to obtaining)] 80 Respiratory Rate 18 Respiratory Effort Normal Non-Labored Respiratory Depth Normal Respiratory Pattern Normal Blood Pressure 115/79 Blood Pressure [Lying] 157/91 H Blood Pressure [Sitting (for 1 minute prior to obtaining)] 151/88 H Blood Pressure [Standing (for 1 minute prior to obtaining)] 148/91 H Blood Pressure Mean 91 Blood Pressure Mean [Lying] 113 Blood Pressure Mean [Sitting (for 1 minute prior to obtaining)] 109 Blood Pressure Mean [Standing (for 1 minute prior to obtaining)] 110 Pulse Ox 96 Oxygen Delivery Method Room Air 03/05/24 14:04 Temperature 98.2 F Temperature Source Pulse Rate 82 Pulse Rate [Lying] Pulse Rate [Sitting (for 1 minute prior to obtaining)] Pulse Rate [Standing (for 1 minute prior to obtaining)] Respiratory Rate 18 Respiratory Effort Respiratory Depth Respiratory Pattern Blood Pressure 148/91 H Blood Pressure [Lying] Blood Pressure [Sitting (for 1 minute prior to obtaining)] Blood Pressure [Standing (for 1 minute prior to obtaining)] Blood Pressure Mean 110 Blood Pressure Mean [Lying] Blood Pressure Mean [Sitting (for 1 minute prior to obtaining)] Blood Pressure Mean [Standing (for 1 minute prior to obtaining)] Pulse Ox 95 Oxygen Delivery Method Weight Weight: 190 lb 0.615 oz Body Mass Index (BMI) 33.6 Physical Exam Narrative Physical Examination: General: Awake, alert, oriented to self, place, year, month despite history of recent confusion, remains cooperative but is very fatigued, laying in the ED bed, calm appearing. Skin: Normal color, normal turgor, no icterus, no cyanosis except occasional staged ecchymoses, abrasion. HEENT: AT/NC, EOMI, PERRLA, mildly dry MM, no carotid bruits or JVD noted. Lungs: Mildly diminished, greater bases, appropriate effort, no rales, ronchi or wheezing. Heart: Regular rate and rhythm; no gallop, rub audible. Abdomen: Soft, obese, NTTP, ND, mildly hyperactive BS, no appreciated HSM. Extremities: No cyanosis, no clubbing, mild peripheral chronic edema. Neurological: Patient awake, alert, oriented as noted, cognitive function reported as altered however patient currently answering questions appropriately, family notes she is improved but still not baseline intact; pupils equally reactive to light and accommodation, cranial nerves grossly normal, moving all 4 extremities, no focal deficits, strength moderately globally decreased. Psychiatric: Affect appears fatigued, no acute evidence of depressive or anxiety feelings but does have underlying history. Results Lab / Micro Data 03/05/24 12:10 03/05/24 12:10 Labs: Laboratory Results - last 24 hr 03/05/24 12:10: WBC 9.5, RBC 4.09 L, Hgb 12.8, Hct 40.7, MCV 99.5 H, MCH 31.3, MCHC 31.4 L, RDW Std Deviation 54.9 H, RDW Coeff of [place] 15.0 H, Plt Count 330, MPV 10.7, Immature Gran % (Auto) 0.500, Neut % (Auto) 69.8, Lymph % (Auto) 16.7 L, [place] % (Auto) 10.8 H, Eos % (Auto) 1.3, Baso % (Auto) 0.9, Absolute Neuts (auto) 6.6, Absolute Lymphs (auto) 1.59, Nucleated RBC % 0, Sodium 142, Potassium 3.5, Chloride 111 H, Carbon Dioxide 26.0, Anion Gap 5, BUN 25 H, Creatinine 0.97, Estim Creat Clear Calc 49.74, Est GFR (MDRD) Af Amer 71, Est GFR (MDRD) Non-Af 59 L, BUN/Creatinine Ratio 25.8 H, Glucose 110 H, Calcium 9.3, Troponin I High Sens 11 03/05/24 12:58: Urine Color Yellow, Urine Clarity Sl. Cloudy, Urine pH 5.0, Ur Specific [place] 1.025, Urine Protein 30 H, Urine Glucose (UA) Normal, Urine Ketones 15 H, Urine Occult Blood 10 H, Urine Nitrite Negative, Urine Bilirubin 1 H, Urine Urobilinogen 1 H, Ur Leukocyte Esterase 25 H, Urine RBC 0-5 SEEN, Urine WBC 0-5 SEEN, Ur Squamous Epith Cells 0-5 SEEN, Urine Bacteria 0 SEEN, Urine Mucus 0 SEEN Imaging Radiology Impression Brain CT 03/05/24 12:30 IMPRESSION: 1. No acute intracranial process. 2. Chronic involutional changes of the brain. Electronically Signed: Shady Spauldign MD at 12:47 EDT , Chest X-Ray 03/05/24 12:31 IMPRESSION: No radiographic evidence of acute cardiopulmonary disease. Electronically Signed: Shady Spaulding MD at 12:47 EDT , Assessment & Plan Assessment/Plan (1) Fall: PLAN: Plan The patient is a 78 y/o F w/ PMHx: Rheumatoid arthritis, CKD stage II, Anxiety and Depression, HTN, HLD, Hx VTE, Chronic back pain with DDD w/ Hx spinal cord stimulator, Parkinson's disease, PAF, SIERRA who presents to the [facility] ED on 03/05/24 with history of standing in the kitchen on morning on day of presentation unfortunately falling backwards and hitting her head on the carpeted floor with unclear specific reason with no prodrome and no obvious injuries but patient lives at home with some support with reportedly teeth extraction (under local only) 2 days prior with ongoing Percocet usage and noted medications on day of presentation jumbled and unclear intake of her regimen. #1. Adult FTT with noted Mechanical Fall, no specific prodrome, possibly mechanical versus generalized weakness in addition to noted history below: Will admit to [facility], maintain on fall precautions, assure no infectious etiology, given underlying Parkinson's disease likely in part contributing, PT/OT/CM for discharge planning. #2. Mild Confusion, Encephalopathy, Suspect Multifactorial, Recent Dental Extraction: Possibly related with increased pain regimen from recent extraction, will hold oral narcotic, will obtain procalcitonin however UA/CXR not marked ap pearing. #3. Parkinson's Disease with Questionable Parkinson's Disease Dementia: Suspect potential underlying dementia from discussion with her family, but this will need to be further assessed outpatient with Neurology, continue home sinemet regimen. #4. Chronic Kidney Disease Stage II primarily per previous GFR trending: Admission BUN/Cr 25/0.97, GFR 59, prior to this primarily 70 to upper 80 range, baseline renal function 0.6-0.8 primarily, repeat BMP in AM. #5. Anxiety and Depression: Will continue patient home duloxetine. #6. Hypertension: Continue home regimen including lisinopril, diltiazem, PRN hydralazine. #7. Hyperlipidemia: Not on statin therapy, defer to outpatient. #8. Hx VTE: We will continue patient home Eliquis regimen. #9. Chronic back pain with DDD: Patient with Hx spinal cord stimulator, will temporally hold narcotic regimen given increased confusion certainly could be contributing as unclear if patient is taking medications how she should. Encourage offloading, positional changes, PT/OT/case management consulted as noted. #10. PAF: We will continue patient home diltiazem as well as flecainide and apixaban regimen. #11. SIERRA: Encourage CPAP q HS. #12. Rheumatoid arthritis: Will continue patient home hydroxychloroquine regimen given no obvious evidence of any infectious etiology. #13. DVT Prophylaxis: Continue home eliquis regimen. #14. CODE status: Patient HCPOA is [place]hemi and living will is currently in place. Discussed CODE status at length including difference between FULL code, DNR-CCA and DNR-CC status. Following discussions about the differences in these status, requested DNR-CCA, no intubation. Advanced Care Planning Face to Face Time: 16 minutes. Charges/Coding Visit Charges Inpatient E&M: 58333 Init Hosp L2 Procedures Hospitalists Procedures: 92605 Advncd Care Plan 30 Min
[2024-03-05 15:12] LABS: Magnesium 2.3 mg/dL (1.6-2.6); Phosphorus 3.8 mg/dL (2.5-4.9)
[2024-03-05] MEDS: Flecainide 100 MG Tablet 50 MG PO (20:18)
[2024-03-05] MEDS: Carbidopa/Levodopa 25/100 Tablet PO (20:18)
[2024-03-05] MEDS: Acetaminophen 325 MG Tablet 650 MG PO (20:19)
[2024-03-05] MEDS: dilTIAZem 30 MG Tablet PO (20:19)
[2024-03-05] MEDS: APIXABAN 5 MG TABLET PO (20:19)
[2024-03-05] MEDS: Hydroxychloroquine 200 MG Tablet PO (20:24)
--- NOTE | 2024-03-05 21:36 | CPS ---
Patient does not wear CPAP at home and does not want to wear one here.
[2024-03-06 01:25] VITALS: BMI 32.5
[2024-03-06 02:42] VITALS: BP 123/81; PULSE 63; RESP 18; TEMP 36.7; O2SAT 98
[2024-03-06] MEDS: Acetaminophen 325 MG Tablet 650 MG PO ×2 (02:56→13:27)
[2024-03-06] MEDS: dilTIAZem 30 MG Tablet PO ×2 (05:42→13:25)
[2024-03-06] MEDS: Carbidopa/Levodopa 25/100 Tablet PO ×2 (05:42→13:24)
--- NOTE | 2024-03-06 07:06 | PN.HOSP_ITS ---
Reason for Visit Reason for Visit: Diagnoses Unspecified fall, initial encounter (03/05/24) Subjective Subjective Feels well. Ambulated did not the hallways with therapy with no issues. Patient thinks that she may have tripped over her orthotics that led to her fall. Patient recalls falling and then bumping her head but did not lose consciousness. Objective Data Objective Data Vital Signs: Vital Signs Temp Pulse Resp BP Pulse Ox O2 Del Method 36.7 C 63 18 123/81 H 98 Room Air 03/06/24 02:42 03/06/24 02:42 03/06/24 02:42 03/06/24 02:42 03/06/24 02:42 03/06/24 02:42 Oxygen Delivery Method Room Air Weight: 83.2 kg Body Mass Index (BMI) 32.5 Lab / Micro Data 03/06/24 07:15 03/06/24 07:15 Labs: Laboratory Results - last 24 hr 03/05/24 12:10: WBC 9.5, RBC 4.09 L, Hgb 12.8, Hct 40.7, MCV 99.5 H, MCH 31.3, MCHC 31.4 L, RDW Std Deviation 54.9 H, RDW Coeff of Lenin 15.0 H, Plt Count 330, MPV 10.7, Immature Gran % (Auto) 0.500, Neut % (Auto) 69.8, Lymph % (Auto) 16.7 L, [place] % (Auto) 10.8 H, Eos % (Auto) 1.3, Baso % (Auto) 0.9, Absolute Neuts (auto) 6.6, Absolute Lymphs (auto) 1.59, Nucleated RBC % 0, Sodium 142, Potassium 3.5, Chloride 111 H, Carbon Dioxide 26.0, Anion Gap 5, BUN 25 H, Creatinine 0.97, Estim Creat Clear Calc 49.74, Est GFR (MDRD) Af Amer 71, Est GFR (MDRD) Non-Af 59 L, BUN/Creatinine Ratio 25.8 H, Glucose 110 H, Calcium 9.3, Phosphorus 3.8, Magnesium 2.3, Troponin I High Sens 11 03/05/24 12:58: Urine Color Yellow, Urine Clarity Sl. Cloudy, Urine pH 5.0, Ur Specific [place] 1.025, Urine Protein 30 H, Urine Glucose (UA) Normal, Urine Ketones 15 H, Urine Occult Blood 10 H, Urine Nitrite Negative, Urine Bilirubin 1 H, Urine Urobilinogen 1 H, Ur Leukocyte Esterase 25 H, Urine RBC 0-5 SEEN, Urine WBC 0-5 SEEN, Ur Squamous Epith Cells 0-5 SEEN, Urine Bacteria 0 SEEN, Urine Muc us 0 SEEN Radiography Diagnostic Testing: Radiology Impression Brain CT 03/05/24 12:30 IMPRESSION: 1. No acute intracranial process. 2. Chronic involutional changes of the brain. Electronically Signed: Shady Spaulding MD at 12:47 EDT , Chest X-Ray 03/05/24 12:31 IMPRESSION: No radiographic evidence of acute cardiopulmonary disease. Electronically Signed: Shady Spaulding MD at 12:47 EDT , Physical Exam Const alert and no apparent distress Constitutional Narrative: Very interactive and talkative. HEENT head/scalp atraumatic and moist oral mucous membranes Neuro moves all extremities Assessment & Plan Assessment/Plan (1) Fall: PLAN: Plan Adult FTT * In patient with Parkinson's disease * PT OT eval and treat. * Patient may have tripped over her orthotics. Patient did well with therapy today. No additional therapy recommended but given fact the patient does live with family is not there all time we will see about having home care evaluate her. Acute Encephalopathy * Patient denies this. Patient does take narcotics chronically. Discussed with the case with the patient's daughter states that they been trying to wean that down recently and are working with her primary care doctor in regards to the. * Review of OARRS shows that pt chronically takes on oxycodone. Reportedly pillbox was in disarray, so cannot rule out missuse of narcotics. Chronic pain * per OARRS, pt has been on 5mg oxycodone 4x/d at least since 2021. Family and primary care is working on weaning that down over time. Will defer that management to PCP and family. Chronic conditions: * Parkinson's Disease with Questionable Parkinson's Disease Dementia: Suspect potential underlying dementia from discussion with her family, but this will need to be further assessed outpatient with Neurology, continue home sinemet regimen. * Chronic Kidney Disease Stage II primarily per previous GFR trending: Admission BUN/Cr 25/0.97, GFR 59, prior to this primarily 70 to upper 80 range, baseline renal function 0.6-0.8 primarily, repeat BMP in AM. * Anxiety and Depression: Will continue patient home duloxetine. * Hypertension: Continue home regimen including lisinopril, diltiazem, PRN hydralazine. * Hyperlipidemia: Not on statin therapy, defer to outpatient. * Hx VTE: We will continue patient home Eliquis regimen. * Chronic back pain with DDD: Patient with Hx spinal cord stimulator, will temporally hold narcotic regimen given increased confusion certainly could be contributing as unclear if patient is taking medications how she should. Encourage offloading, positional changes, PT/OT/case management consulted as noted. * PAF: We will continue patient home diltiazem as well as flecainide and apixaban regimen. * SIERRA: Encourage CPAP q HS. * Rheumatoid arthritis: Will continue patient home hydroxychloroquine regimen given no obvious evidence of any infectious etiology. DVT Prophylaxis: Continue home eliquis regimen. CODE status: DNR-CCA, no intubation.
[2024-03-06 07:27] VITALS: O2SAT 94
[2024-03-06 07:52] LABS: Absolute Lymphocyte Count 1.52 X10^3/uL (0.83-4.51); Absolute Neutrophil Count 4.9 X10^3/uL (2.0-7.7); Basophil# 0.08 X10^3/uL; Basophil% 1.1 % (0-1); Eosinophil# 0.33 X10^3/uL; Eosinophils% 4.4 % (0-5); Hematocrit 36.9 % (37-47); Lymphocyte # 1.52 X10^3/ul (0.83-4.51); Lymphocyte % 20.2 % (19-41); Mean Corp Hgb Conc 32.5 g/dL (32-36); Mean Corpuscular Hgb 32.3 pg (27.0-32.0); Mean Corpuscular Volume 99.2 fL (81-99); Mean Platelet Vol. 9.6 fl (6.2-12.0); Monocyte# 0.67 X10^3/uL; Monocyte% 8.9 % (0-10); NRBC Flagged by Analyzer 0 % (0-5); Neutrophil # 4.91 X10^3/uL (2.7-7.7); Neutrophil % 65.1 % (47-70); Platelet Count 341 K/mm3 (150-450); RBC Distribution Width SD 54.4 fl (35.1-43.9); Red Blood Count 3.72 M/mm3 (4.2-5.4); White Blood Count 7.5 K/mm3 (4.4-11.0)
[2024-03-06 08:21] LABS: ALB/GLOB Ratio 1.2 RATIO (0.9-2.4); AST(SGOT) 23 U/L (15-37); Alanine Aminotransfer ALT/SGPT < 6 U/L (13-56); Alkaline Phosphatase 67 U/L (45-117); Anion Gap 7 (5-15); BUN 17 mg/dL (7-18); BUN/Creat Ratio 26.7 RATIO (10-20); Calcium,Total 8.3 mg/dL (8.5-10.1); Chloride 109 mmol/L (98-107); Creatinine, Serum 0.64 mg/dL (0.55-1.02); EST Glomerular Filtration Rate 96 mL/min (>60); Est Glom Filt Rate - Afr Amer 116 mL/min (>60); Estimated Creatinine Clearance 59.21 ml/min; Globulin 2.6 g/dL (2.2-4.2); Glucose 134 mg/dL (74-106); Potassium 3.4 mmol/L (3.5-5.1); Protein, Total 5.6 g/dL (6.4-8.2); Sodium Level 141 mmol/L (136-145); Thyroid Stim Hormone (TSH) 0.74 uIU/mL (0.358-3.74)
[2024-03-06] MEDS: Aspirin E.C. 81 MG Tablet PO (08:55)
[2024-03-06] MEDS: APIXABAN 5 MG TABLET PO (08:55)
[2024-03-06] MEDS: DULoxetine Hcl 20 MG Capsule 40 MG PO (08:55)
[2024-03-06] MEDS: Hydroxychloroquine 200 MG Tablet PO (08:56)
[2024-03-06] MEDS: Flecainide 100 MG Tablet 50 MG PO (08:56)
[2024-03-06 09:01] VITALS: BP 121/79; PULSE 70; RESP 18; TEMP 37.1; O2SAT 98
[2024-03-06 09:03] VITALS: PULSE 70; RESP 18
--- NOTE | 2024-03-06 10:40 | CASEMGMT ---
Addendum entered by Catie Teran 03/06/24 12:34: Provided pt with private duty list and HH list. Pt denies further needs and is happy to be going home today. Original Note: VALERIANO FAN Assessment: Face to Face with pt for initial transition planning/care coordination assessment. VALERIANO FAN introduced self and role at [facility], pt voices understanding and consents to assessment. Pt is A&O x4 and answers all questions appropriately at this time. Pt sitting up in chair in no distress. Care providers, pharmacy, and demographics verified/updated. Admitting Dx: fall, confusion/possibly dementia related PCP:Billy Specialists:kate Pollard Preferred Pharmacy: [facility] Insurance: [employer] Prescription Benefit: yes LNOK: Catherine Ventura, dtr; Oleksandr Hook, dtr Living Arrangements: Pt lives with grandson, his and their 2 1/2 year old in a two story home with a ramp to enter. Pt reports that she is I in ADL's. She states she only showers when someone is in the home. Pt states her children cook for her, she does her own laundry and her family gets her groceries. Pt denies concerns at home. Transportation: Pt reports she chooses not to drive, her dtr Evita transports her to appts. DME:shower chair and 4 prong cane- pt doesn't use; rollator, grab bars throughout the home. Pt states she is in the middle of having a walk in shower installed. HHC/SNF: Pt has had HHC in the past but cannot recall the name. Pt has been to [facility] in the past. Pt states no concerns with going home at time of dc. She states she is going to [facility] for PT and OT, she would like to continue this. Pt reports that she has been contemplating hiring someone to assist her with bathing. Pt is agreeable to a private duty list. Pt states no further concerns/needs. CM to follow. Advised pt to ask CM if any further question/concerns/needs arise, voices understanding. Pt Goal: Home with outpt therapy Plan: Home with outpt therapy 1145- TC to pt dtr Oleksandr, discussed plan for dc. She is agreeable to this. Discussed HH vs outpt and she states Dr. Pollard has expressed that he prefers outpt. She is aware that a private duty list and [employer] list will be provided should this be needed at a later time. Updated hospitalist. Ronald BAL CM
--- NOTE | 2024-03-06 11:11 | DS.PCM_ITS ---
Providers Date of Admission: 03/05/24 Primary Care Physician: Dr. Rajan Cervantes MD Reason For Visit: FALL, CONFUSION/POSSIBLY DEMENTIA RELATED Diagnosis Discharge Diagnosis (1) Fall: Status: Acute Code(s): W19.XXXA - Unspecified fall, initial encounter Plan Adult FTT * In patient with Parkinson's disease * PT OT eval and treat. * Patient may have tripped over her orthotics. Patient did well with therapy today. No additional therapy recommended but given fact the patient does live with family is not there all time we will see about having home care evaluate her. Acute Encephalopathy * Patient denies this. Patient does take narcotics chronically. Discussed with the case with the patient's daughter states that they been trying to wean that down recently and are working with her primary care doctor in regards to the. * Review of [place] shows that pt chronically takes on oxycodone. Reportedly pillbox was in disarray, so cannot rule out missuse of narcotics. Chronic pain * per [place]AR[place], pt has been on 5mg oxycodone 4x/d at least since 2021. Family and primary care is working on weaning that down over time. Will defer that management to PCP and family. Chronic conditions: * Parkinson's Disease with Questionable Parkinson's Disease Dementia: Suspect potential underlying dementia from discussion with her family, but this will need to be further assessed outpatient with Neurology, continue home sinemet regimen. * Chronic Kidney Disease Stage II primarily per previous GFR trending: Admission BUN/Cr 25/0.97, GFR 59, prior to this primarily 70 to upper 80 range, baseline renal function 0.6-0.8 primarily, repeat BMP in AM. * Anxiety and Depression: Will continue patient home duloxetine. * Hypertension: Continue home regimen including lisinopril, diltiazem, PRN hydralazine. * Hyperlipidemia: Not on statin therapy, defer to outpatient. * Hx VTE: We will continue patient home Eliquis regimen. * Chronic back pain with DDD: Patient with Hx spinal cord stimulator, will temporally hold narcotic regimen given increased confusion certainly could be contributing as unclear if patient is taking medications how she should. Encourage offloading, positional changes, PT/OT/case management consulted as noted. * PAF: We will continue patient home diltiazem as well as flecainide and apixaban regimen. * SIERRA: Encourage CPAP q HS. * Rheumatoid arthritis: Will continue patient home hydroxychloroquine regimen given no obvious evidence of any infectious etiology. DVT Prophylaxis: Continue home eliquis regimen. CODE status: DNR-CCA, no intubation. Medications at Discharge Home Medications biotin 10,000 mcg capsule 10,000 mcg PO DAILY 07/04/18 alendronate 70 mg tablet (Fosamax) 70 mg PO QWEEK 07/01/19 carbidopa 25 mg-levodopa 100 mg tablet 1.5 tab PO TID 11/29/20 lactase 3,000 unit chewable tablet (Dairy Aid) 3,000 unit PO ONCE 08/02/21 aspirin 81 mg tablet,delayed release (Adult Low Dose Aspirin) 81 mg PO DAILY 12/11/22 calcium carb-vit P2-qvujudvwq-ypzp 333 mg-200 unit-133 mg-5 mg tablet 1 tab PO DAILY 12/11/22 hydroxyzine HCl 25 mg tablet 12.5 mg PO Q8H PRN anxiety 12/11/22 vitamin K2 100 mcg capsule 100 mcg PO DAILY 12/11/22 lisinopril 5 mg tablet 5 mg PO DAILY #90 tabs 09/09/23 flecainide 50 mg tablet 50 mg PO Q12H OK to give with Plaquenil, pt has been on both #180 tabs 12/02/23 acetaminophen 500 mg tablet 1,000 mg PO Q8 PRN fever or pain 02/26/24 apixaban 5 mg tablet (Eliquis) 5 mg PO BID 02/26/24 diltiazem HCl 30 mg tablet 30 mg PO Q8H 02/26/24 duloxetine 20 mg capsule,delayed release 40 mg PO DAILY 02/26/24 hydroxychloroquine 200 mg tablet 200 mg PO BID 02/26/24 oxycodone 5 mg tablet 5 mg PO BID PRN pain 02/26/24 Hospital Course Operations None Procedures None Summary of Care Provided Minutes Spent on Discharge: 40 Hospital Course: Patient had fallen at home. Brought to the hospital is concerned about encephalopathy. Patient was noted to be confused but since then has improved overall. Patient states that she tripped over her orthotics and fell. Did not lose consciousness. Patient was evaluate by therapy and did very well. Patient will be discharged home with home care. Patient does take oxycodone chronically and I discussed with the patient's daughter and she and the primary care team are working with weaning that down. Weight / BMI Weight Weight: 83.2 kg Body Mass Index (BMI) 32.5 ABG / Lab / Microbiology Data 03/06/24 07:15 03/06/24 07:15 Laboratory: Laboratory Results - last 24 hr 03/05/24 12:10: WBC 9.5, RBC 4.09 L, Hgb 12.8, Hct 40.7, MCV 99.5 H, MCH 31.3, MCHC 31.4 L, RDW Std Deviation 54.9 H, RDW Coeff of Lenin 15.0 H, Plt Count 330, MPV 10.7, Immature Gran % (Auto) 0.500, Neut % (Auto) 69.8, Lymph % (Auto) 16.7 L, [place] % (Auto) 10.8 H, Eos % (Auto) 1.3, Baso % (Auto) 0.9, Absolute Neuts (auto) 6.6, Absolute Lymphs (auto) 1.59, Nucleated RBC % 0, Sodium 142, Potassium 3.5, Chloride 111 H, Carbon Dioxide 26.0, Anion Gap 5, BUN 25 H, Creatinine 0.97, Estim Creat Clear Calc 49.74, Est GFR (MDRD) Af Amer 71, Est GFR (MDRD) Non-Af 59 L, BUN/Creatinine Ratio 25.8 H, Glucose 110 H, Calcium 9.3, Phosphorus 3.8, Magnesium 2.3, Troponin I High Sens 11 03/05/24 12:58: Urine Color Yellow, Urine Clarity Sl. Cloudy, Urine pH 5.0, Ur Specific [place] 1.025, Urine Protein 30 H, Urine Glucose (UA) Normal, Urine Ketones 15 H, Urine Occult Blood 10 H, Urine Nitrite Negative, Urine Bilirubin 1 H, Urine Urobilinogen 1 H, Ur Leukocyte Esterase 25 H, Urine RBC 0-5 SEEN, Urine WBC 0-5 SEEN, Ur Squamous Epith Cells 0-5 SEEN, Urine Bacteria 0 SEEN, Urine Mucus 0 SEEN 03/06/24 07:15: WBC 7.5, RBC 3.72 L, Hgb 12.0, Hct 36.9 L, MCV 99.2 H, MCH 32.3 H, MCHC 32.5, RDW Std Deviation 54.4 H, RDW Coeff of Lenin 15.0 H, Plt Count 341, MPV 9.6, Immature Gran % (Auto) 0.300, Neut % (Auto) 65.1, Lymph % (Auto) 20.2, [place] % (Auto) 8.9, Eos % (Auto) 4.4, Baso % (Auto) 1.1 H, Absolute Neuts (auto) 4.9, Absolute Lymphs (auto) 1.52, Nucleated RBC % 0, Sodium 141, Potassium 3.4 L , Chloride 109 H, Carbon Dioxide 25.0, Anion Gap 7, BUN 17, Creatinine 0.64, Estim Creat Clear Calc 59.21, Est GFR (MDRD) Af Amer 116, Est GFR (MDRD) Non-Af 96, BUN/Creatinine Ratio 26.7 H, Glucose 134 H, Calcium 8.3 L, Total Bilirubin 0.80, AST 23, ALT < 6 L, Alkaline Phosphatase 67, Total Protein 5.6 L, Albumin 3.0 L, Globulin 2.6, Albumin/Globulin Ratio 1.2, TSH 0.74 Radiography Diagnostic Testing: Radiology Impression Brain CT 03/05/24 12:30 IMPRESSION: 1. No acute intracranial process. 2. Chronic involutional changes of the brain. Electronically Signed: Shady Spaulding MD at 12:47 EDT , Chest X-Ray 03/05/24 12:31 IMPRESSION: No radiographic evidence of acute cardiopulmonary disease. Electronically Signed: Shady Spaulding MD at 12:47 EDT , D/C Instructions Discharge Diet: No restrictions Meaningful Use Info Meaningful Use Meaningful Use Diagnoses (Choose all that apply): None applicable Ischemic Stroke Statin Dosing Therapy Reference: STATIN DOSE THERAPY REFERENCE: * Patients > 75 years receive moderate or high dose statin therapy. * Patients 75 years or YOUNGER should receive HIGH intensity statin dose unless contraindicated. You will be required to document reason for non-treatment if statin daily dose does not meet guidelines. HIGH DOSE STATIN THERAPY DAILY Atorvastatin > than or = to 40 mg Rosuvastatin > than or = to 20 mg Amlodipine + Atorvastatin > than or = to 2.5/40 mg Ezetimibe + Simvastatin 10/80 mg Simvastatin 80mg Discharge Plan Admission Admit Date/Time: 03/05/24 14:39 Primary Reason for Your Visit: Fall Attending Provider: Rajan Guerrier Primary Care Provider: Rajan Cervantes Consulting Providers: Nannette Marks Discharge Orders/Prescriptions Prescriptions: Continued biotin 10,000 mcg capsule 10,000 mcg PO DAILY alendronate [Fosamax] 70 mg tablet 70 mg PO QWEEK Hold Instructions: on hold carbidopa-levodopa 25-100 mg tablet 1.5 tab PO TID Dairy Aid 3,000 unit tablet,chewable 3,000 unit PO ONCE Rx Instructions: administer with meals and/or snacks vitamin K2 100 mcg capsule 100 mcg PO DAILY aspirin [Adult Low Dose Aspirin] 81 mg tablet,delayed release (DR/EC) 81 mg PO DAILY calcium carb-D3-mag [id number] [phone] ng-szcz-fu-mg tablet 1 tab PO DAILY Rx Instructions: administer with a meal hydroxyzine HCl 25 mg tablet 12.5 mg PO Q8H PRN (Reason: anxiety) oxycodone 5 mg tablet 5 mg PO BID PRN (Reason: pain) Eliquis 5 mg tablet 5 mg PO BID duloxetine 20 mg capsule,delayed release(DR/EC) 40 mg PO DAILY acetaminophen 500 mg Tablet 1,000 mg PO Q8 PRN (Reason: fever or pain) diltiazem HCl 30 mg tablet 30 mg PO Q8H hydroxychloroquine 200 mg tablet 200 mg PO BID lisinopril 5 mg tablet 5 mg PO DAILY Qty: 90 3RF Hold Instructions: HYPOTENSION flecainide 50 mg tablet 50 mg PO Q12H Qty: 180 3RF Referrals / Follow Up: Rajan Cervantes MD [Primary Care Provider] - Within 2 Weeks Disposition Disposition (needs filled in before D/C Order can be placed): Home Health Service Charges/Coding Visit Charges Inpatient E&M: 70060 Disch Hosp >30min
--- NOTE | 2024-03-06 11:43 | PHA.DC.MR.R ---
[facility] has performed discharge medication reconciliation for this patient. The patient's discharge medication list was reviewed for discrepancies and discrepancies were resolved. Medications at Discharge Home Medications biotin 10,000 mcg capsule 10,000 mcg PO DAILY 07/04/18 alendronate 70 mg tablet (Fosamax) 70 mg PO QWEEK 07/01/19 carbidopa 25 mg-levodopa 100 mg tablet 1.5 tab PO TID 11/29/20 lactase 3,000 unit chewable tablet (Dairy Aid) 3,000 unit PO ONCE 08/02/21 aspirin 81 mg tablet,delayed release (Adult Low Dose Aspirin) 81 mg PO DAILY 12/11/22 calcium carb-vit X2-adjfhlamq-grra 333 mg-200 unit-133 mg-5 mg tablet 1 tab PO DAILY 12/11/22 hydroxyzine HCl 25 mg tablet 12.5 mg PO Q8H PRN anxiety 12/11/22 vitamin K2 100 mcg capsule 100 mcg PO DAILY 12/11/22 lisinopril 5 mg tablet 5 mg PO DAILY #90 tabs 09/09/23 flecainide 50 mg tablet 50 mg PO Q12H OK to give with Plaquenil, pt has been on both #180 tabs 12/02/23 acetaminophen 500 mg tablet 1,000 mg PO Q8 PRN fever or pain 02/26/24 apixaban 5 mg tablet (Eliquis) 5 mg PO BID 02/26/24 diltiazem HCl 30 mg tablet 30 mg PO Q8H 02/26/24 duloxetine 20 mg capsule,delayed release 40 mg PO DAILY 02/26/24 hydroxychloroquine 200 mg tablet 200 mg PO BID 02/26/24 oxycodone 5 mg tablet 5 mg PO BID PRN pain 02/26/24
[2024-03-06] MEDS: Mag Hydrox/Al Hydrox/Simeth 30 ML UDC PO (13:27)
[2024-03-06 13:34] VITALS: BP 122/87; PULSE 67; RESP 18; TEMP 36.7; O2SAT 97
== END 2024-03-06 14:41 | disposition home health service (06) ==
LOC: ED 14:29 → MS3 14:54
PROVIDERS: Physician Assistant; Admitting Provider Family Medicine; Emergency Provider Emergency Medicine; PCP Family Medicine
DX: R62.7 Adult failure to thrive (principal); M06.9 Rheumatoid arthritis, unspecified; I48.0 Paroxysmal atrial fibrillation; S09.90XA Unspecified injury of head, initial encounter; G89.29 Other chronic pain; Z79.83 Long term (current) use of bisphosphonates; I12.9 Hypertensive chronic kidney disease with stage 1 through stage 4 chronic kidney disease, or unspecified chronic kidney disease; E78.5 Hyperlipidemia, unspecified; W19.XXXA Unspecified fall, initial encounter; N18.2 Chronic kidney disease, stage 2 (mild); Z79.82 Long term (current) use of aspirin; F41.9 Anxiety disorder, unspecified; Z79.899 Other long term (current) drug therapy; Z86.718 Personal history of other venous thrombosis and embolism; Z79.01 Long term (current) use of anticoagulants; F32.A Depression, unspecified; G93.40 Encephalopathy, unspecified; G47.33 Obstructive sleep apnea (adult) (pediatric)
CPT/HCPCS: 36415; 70450; 71045; 80048; 80053; 81001; 83735; 84100; 84443; 84484; 85025; 93005; 94668; 97162; 97166; 99221; 99285; J7030; P9612; A4216; G0378

== ENCOUNTER → 2024-09-22 | Outpatient (CLI) | payer MEDICARE, SELFPAY ==
[2024-09-22 15:51] LABS: Vitamin B12 388 pg/mL (211-911)
[2024-09-22 16:09] LABS: Absolute Lymphocyte Count 1.62 X10^3/uL (0.83-4.51); Absolute Neutrophil Count 3.8 X10^3/uL (2.0-7.7); Basophil# 0.08 X10^3/uL; Basophil% 1.2 % (0-1); Eosinophil# 0.18 X10^3/uL; Eosinophils% 2.8 % (0-5); Lymphocyte # 1.62 X10^3/ul (0.83-4.51); Lymphocyte % 25.2 % (19-41); Mean Corp Hgb Conc 31.8 g/dL (32-36); Mean Corpuscular Hgb 31.3 pg (27.0-32.0); Mean Corpuscular Volume 98.4 fL (81-99); Mean Platelet Vol. 10.6 fl (6.2-12.0); Monocyte# 0.72 X10^3/uL; Monocyte% 11.2 % (0-10); NRBC Flagged by Analyzer 0 % (0-5); Neutrophil # 3.81 X10^3/uL (2.7-7.7); Neutrophil % 59.1 % (47-70); Platelet Count 346 K/mm3 (150-450); RBC Distribution Width CV 12.7 % (11.6-14.6); RBC Distribution Width SD 45.9 fl (35.1-43.9); Red Blood Count 4.47 M/mm3 (4.2-5.4); White Blood Count 6.4 K/mm3 (4.4-11.0)
[2024-09-22 16:11] LABS: Hemoglobin A1c 5.7 % (3.8-5.6)
[2024-09-22 16:13] LABS: ALB/GLOB Ratio 1.1 RATIO (0.9-2.4); AST(SGOT) 23 U/L (15-37); Alanine Aminotransfer ALT/SGPT 21 U/L (13-56); Albumin, Serum 3.4 g/dL (3.2-5.0); Alkaline Phosphatase 83 U/L (45-117); Anion Gap 8 (5-15); BUN 20 mg/dL (7-18); BUN/Creat Ratio 27.9 RATIO (10-20); Calcium,Total 9.1 mg/dL (8.5-10.1); Chloride 108 mmol/L (98-107); Creatinine, Serum 0.72 mg/dL (0.55-1.02); EST Glomerular Filtration Rate 83 mL/min (>60); Est Glom Filt Rate - Afr Amer 101 mL/min (>60); Globulin 3.2 g/dL (2.2-4.2); Glucose 94 mg/dL (74-106); Iron 65 ug/dL (50-170); Protein, Total 6.6 g/dL (6.4-8.2); Sodium Level 139 mmol/L (136-145); Thyroid Stim Hormone (TSH) 0.777 uIU/mL (0.358-3.740)
[2024-09-22 16:14] LABS: Erythrocyte Sedimentation Rate 3 mm/hr (0-30)
== END | disposition home or self-care (01) ==
LOC: MFPLAB 11:57
PROVIDERS: PCP Family Medicine; Visit Provider Family Medicine
DX: R53.83 Other fatigue (principal)
CPT/HCPCS: 36415; 80053; 82607; 83036; 83540; 84443; 85025; 85652

== ENCOUNTER → 2024-12-14 | Outpatient (CLI) | payer MEDICARE, SELFPAY ==
[2024-12-14 15:51] LABS: Erythrocyte Sedimentation Rate 9 mm/hr (0-30)
[2024-12-14 15:53] LABS: Absolute Lymphocyte Count 1.32 X10^3/uL (0.83-4.51); Absolute Neutrophil Count 4.8 X10^3/uL (2.0-7.7); Basophil# 0.06 X10^3/uL; Basophil% 0.8 % (0-1); Eosinophil# 0.26 X10^3/uL; Eosinophils% 3.6 % (0-5); Hematocrit 42.9 % (37-47); Hemoglobin 13.7 g/dL (12.0-15.0); Lymphocyte # 1.32 X10^3/ul (0.83-4.51); Lymphocyte % 18.3 % (19-41); Mean Corp Hgb Conc 31.9 g/dL (32-36); Mean Corpuscular Hgb 31.2 pg (27.0-32.0); Mean Corpuscular Volume 97.7 fL (81-99); Mean Platelet Vol. 10.8 fl (6.2-12.0); Monocyte# 0.71 X10^3/uL; Monocyte% 9.9 % (0-10); NRBC Flagged by Analyzer 0 % (0-5); Neutrophil # 4.83 X10^3/uL (2.7-7.7); Neutrophil % 67.1 % (47-70); Platelet Count 266 K/mm3 (150-450); RBC Distribution Width CV 13.1 % (11.6-14.6); RBC Distribution Width SD 46.8 fl (35.1-43.9); Red Blood Count 4.39 M/mm3 (4.2-5.4); White Blood Count 7.2 K/mm3 (4.4-11.0)
== END | disposition home or self-care (01) ==
LOC: MTLAB 11:03
PROVIDERS: PCP Family Medicine; Referring Provider Physician Assistant Surgical; Visit Provider Physician Assistant Surgical
DX: M25.511 Pain in right shoulder (principal); Z96.611 Presence of right artificial shoulder joint
CPT/HCPCS: 36415; 85025; 85652; 86140

== ENCOUNTER → 2025-07-20 | Outpatient (CLI) | payer MEDICARE, SELFPAY ==
--- NOTE | 2025-07-20 13:33 | VDLE_ITS ---
Reason For Study Reason For Study: Elevated D Dimer RIGHT LEFT GSV is normal. GSV non visualized. HX ablation/stripping procedure. CFV is compressible, spontaneous, phasic, competent CFV is PARTIALLY COMPRESSIBLE, spontaneous, phasic, and demonstrates normal augmentation. competent, and demonstrates normal augmentation. FV is compressible, spontaneous, phasic, competent FV is PARTIALLY COMPRESSIBLE, spontaneous, phasic, and demonstrates normal augmentation. competent and demonstrates normal augmentation. POP V is compressible, spontaneous, phasic, competent POP V is compressible, phasic, and INCOMPETENT for and demonstrates normal augmentation. greater than 1.0 second. T/P Trunk is compressible. T/P Trunk is compressible Acute deep vein thrombosis is noted in the PTV is compressible. Gastrocnemius V. It is dilated and NONCOMPRESSIBLE. LT PerV is compressible. PTV is compressible. LT calf vein varicosities appear compressible. RT PerV is compressible. Non vascularized anechoic area noted in Rt Pop Fossa measuring approximately 6.23cm x 1.16cm. Procedure This is a venous duplex using B-mode, color flow and spectral Doppler. Exam performed in department. The exam was diagnostic. A preliminary report was called and/or faxed to Ana Laura @ Dr. Brantley's office. VL/Venous Duplex US - Antonio Extrem Interpretation Summary Acute deep vein thrombosis is noted in the right gastrocnemius vein. Chronic deep vein thrombosis noted in the left common femoral vein, femoral vei n. Incidental reflux, left popliteal vein. Non vascularized anechoic area noted in right popliteal fossa measuring approxi mately 6.23cm x 1.16cm. Ordering Physician: Luis Eduardo Brantley Referring Physician: Rajan Cervantes Performed By: Aleksandr Desouza, RVT
== END | disposition home or self-care (01) ==
PROVIDERS: PCP Family Medicine; Referring Provider Internal Medicine Medical Oncology; Visit Provider Internal Medicine Medical Oncology
DX: R79.1 Abnormal coagulation profile (principal); Z86.718 Personal history of other venous thrombosis and embolism
CPT/HCPCS: 93970

== ENCOUNTER 2025-08-15 12:31 | Emergency (ER) | payer MEDICARE, SELFPAY ==
[2025-08-15 12:32] VITALS: BP 110/79; PULSE 76; RESP 18; TEMP 35.9; O2SAT 97
[2025-08-15 12:35] VITALS: BMI 35.7
--- NOTE | 2025-08-15 12:42 | CT_ITS ---
PROCEDURE: SPINE CERVICAL WITHOUT CONTRAS 08/15/2025 REASON FOR EXAM: FALL TECHNIQUE: Procedure Code: CTSPC Modality: CT Procedure: SPINE CERVICAL WITHOUT CONTRAS Coronal and Sagittal reconstruction series were provided. One or more dose reduction techniques were used (e.g., Automated exposure control, adjustment of the mA and/or kV according to patient size, use of iterative reconstruction technique. RADIATION DOSE SUMMARY: CTDlvol: 23.22 mGy DLP: 1283.54 mGycm COMPARISON: None. FINDINGS: Alignment: Anterolisthesis C5 on C6 by 2 mm. Vertebrae: Acute fracture of the right C5 facet joint. Ultrasound may be performed for further evaluation. Soft Tissues: No soft tissue abnormalities. Disc levels: Multilevel degenerate changes predominantly at C5-C6 and C6-C7 where there is disc space narrowing, uncovertebral hypertrophy, facet joint arthropathy with mild bilateral foramina stenosis and without canal stenosis. CT/Spine Cervical without Contras IMPRESSION: Acute fracture of the right C5 facet joint. MRI cervical spine without contras t is recommended for further evaluation. Reading Location: [id number]
--- NOTE | 2025-08-15 12:42 | CT_ITS ---
PROCEDURE: BRAIN/HEAD WITHOUT CONTRAST 08/15/2025 REASON FOR EXAM: FALL, HEAD INJURY TECHNIQUE: Procedure Code: CTBR Modality: CT Procedure: BRAIN/HEAD WITHOUT CONTRAST Coronal and Sagittal reconstruction series were provided. One or more dose reduction techniques were used (e.g., Automated exposure control, adjustment of the mA and/or kV according to patient size, use of iterative reconstruction technique. RADIATION DOSE SUMMARY: CTDlvol: 23.22 mGy DLP: 1283.54 mGycm COMPARISON: CT head 03/05/2024 FINDINGS: Brain: Extensive low density in the deep cerebral white matter most likely represents advanced chronic small vessel ischemic disease. No acute territorial infarction. No acute intracranial hemorrhage. No ventriculomegaly. The orbits are within normal limits. The craniocervical junction is unremarkable. Atherosclerotic calcifications of the carotid siphons. CSF Spaces: Unremarkable. Sinuses/Mastoids: Clear. Bones: No acute bony abnormalities. CT/Brain/Head without Contrast IMPRESSION: No acute intracranial abnormalities. Reading Location: [id number]
--- NOTE | 2025-08-15 12:44 | EX.ED.GENINJ ---
HPI History of Present Illness Chief Complaint: Head Injury Detail of Chief Complaint: Fall with head injury Informant: patient Narrative Narrative: Patient presents to the emergency department after falling while trying to get up from her wheelchair. She fell and hit the corner of an end table with her head. No loss of consciousness. She sustained a laceration to her forehead. Denies neck pain. She denies chest or abdomen pain. Patient has history of Parkinson's. She is on Eliquis for history of DVT. [facility] Medical History (Updated 08/15/25 @ 14:20 by Jordana Phoenix) Osteoporosis Atrial fibrillation Rheumatoid arthritis History of Parkinson's disease Anxiety disorder Chronic pain Peripheral vascular disease Osteoarthritis Lactose intolerance Post-menopausal Depression Anxiety Walker as ambulation aid Hx of bladder problems Arthritis DVT (deep venous thrombosis) Fall Heartburn Non-smoker Shortness of breath on exertion History of edema History of stress test Cardiology follow-up encounter Parkinson disease DDD (degenerative disc disease) Essential (primary) hypertension Paroxysmal atrial fibrillation Thyroid nodule Sleep apnea Lumbar compression fracture (05/2018) Home Medications ?Medication ?Instructions ?Recorded ?Last Taken ?Type alendronate 70 mg tablet (Fosamax) 70 mg PO QWEEK 07/01/19 08/14/25 History carbidopa 25 mg-levodopa 100 mg 1.5 tab PO TID 11/29/20 08/15/25 History tablet lactase 3,000 unit chewable tablet 3,000 unit PO ONCE 08/02/21 08/15/25 History (Dairy Aid) aspirin 81 mg tablet,delayed 81 mg PO DAILY 12/11/22 08/15/25 History release (Adult Low Dose Aspirin) acetaminophen 500 mg tablet 1,000 mg PO Q8 PRN fever or pain 02/26/24 08/15/25 History diltiazem HCl 30 mg tablet 30 mg PO Q8H 02/26/24 08/15/25 History duloxetine 20 mg capsule,delayed 40 mg PO DAILY 02/26/24 08/14/25 History release hydroxychloroquine 200 mg tablet 200 mg PO BID 02/26/24 08/15/25 History oxycodone 5 mg tablet 5 mg PO BID PRN pain 02/26/24 08/15/25 History calcium 333 mg-vit D3 200 1 tab PO DAILY 03/11/24 08/15/25 History unit-magnesium 133 mg-zinc 5 mg tablet lisinopril 5 mg tablet 5 mg PO DAILY #90 tabs 09/10/24 08/15/25 Rx flecainide 50 mg tablet 50 mg PO Q12H #180 TABLETS 07/07/25 08/15/25 Rx apixaban 5 mg (74 tabs) tablets in See Rx Instructions PO PER PKG DIR 07/20/25 08/15/25 Rx a dose pack (EliOKKAM DVT-PE Treat #74 tabs 30D Start) Lactobacillus acidophilus 10 100 mmu cells PO DAILY 08/15/25 08/15/25 History billion cell capsule (NewFlora) diclofenac sodium 1 % topical gel 2 ea topical 4X/DAY 08/15/25 08/14/25 History mometasone 50 mcg/actuation nasal 1 - 2 spray intranasal DAILY 08/15/25 08/14/25 History spray Allergy/AdvReac Type Severity Reaction Status Date / Time baclofen AdvReac Severe emotional Verified 08/15/25 12:32 issues propranolol AdvReac Severe nightmare Verified 08/15/25 12:32 sulfadiazine AdvReac Unknown not as Verified 08/15/25 12:32 effective Family History Father Cancer Sister Cancer Diabetes Heart disease Mother Anxiety and depression Surgical History (Updated 08/15/25 @ 14:20 by Jordana Phoenix) History of cholecystectomy S/P shoulder replacement H/O varicose vein ligation and stripping History of tubal ligation Status post replacement of right shoulder joint Hx of right cataract extraction Hx of left cataract extraction Hx of LASIK Spinal cord stimulator status (05/2020) History of back surgery (03/2018) History of left heart catheterization (04/25/17) History of herniorrhaphy History of hysterectomy Social History household members: family Smoking Status: Never smoker alcohol intake: never substance use type: does not use caffeine: Yes Type: coffee Number of servings: 1 ROS ROS ED Review of Systems ROS Unobtainable: other Constitutional Constitutional ED: Reports lethargy; Denies chills, fever(s), sweats or weight loss Eyes Eyes: Denies blurry vision, change in vision or diplopia ENT ENT ED: Denies rhinorrhea or sore throat Cardiovascular Cardiovascular: Denies chest pain, orthopnea or racing heartbeat Respiratory/Chest Respiratory/Chest: Denies cough, dyspnea, dyspnea on exertion, orthopnea or sputum Gastrointestinal Gastrointestinal: Denies abdominal pain, diarrhea, nausea or vomiting Genitourinary Genitourinary ED: Denies dysuria, hematuria or urinary frequency Musculoskeletal Musculoskeletal: Denies arthralgias, back pain, myalgias or neck pain Integumentary Reports other Details: Right forehead laceration ; Denies abscess, Abrasions or rash Neurologic Neurologic: Reports headache(s); Denies weakness Psychiatric Psychiatric: Denies anxiety, depression or suicidal thoughts Endocrine Endocrinology: Denies polydipsia, polyphagia or polyuria Hematologic/Lymphatic Hematologic/Lymphatic: Denies easy bleeding, easy bruising or lymphadenopathy Allergic/Immunologic Allergic/Immunologic ED: Denies mouth swelling, tongue swelling or urticaria EXAM Physical Exam Const Vital Signs: 08/15/25 12:32 Temperature 96.7 F L Temperature Source Temporal Pulse Rate 76 Respiratory Rate 18 Blood Pressure 110/79 Blood Pressure Mean 89 Pulse Ox 97 Oxygen Delivery Method Room Air Positive well nourished and well developed General Appearance ED: well developed and NAD HEENT Reports TM's clear and moist mucous membranes HEENT Narrative: Patient with a 3.5 cm laceration to the right forehead just above the right eyebrow. No bony step-offs or depressions noted. No significant active bleeding currently. normocephalic and atraumatic; Negative for trauma or tenderness Tympanic Membrane ED: Yes TM's clear Eyes PERRL and EOMs intact bilaterally General Eye ED: Negative for pale conjunctiva or scleral icterus Neck no lymphadenopathy, supple and no JVD General: Negative for tenderness Chest Wall inspection of chest normal and palpation of chest normal Chest: Negative for tenderness Resp normal respiratory effort and clear to auscultation bilaterally Effort and Inspection: Negative for respiratory distress or pain with movement Auscultation: Negative for rhonchi, wheezes or diminished lung sounds Cardio regular rate, regular rhythm, S1 normal heart sound, S2 normal heart sound and no murmurs Peripheral Pulses: pulses 2+ throughout GI normal to inspection, nondistended, normoactive bowel sounds, soft to palpation, non-tender, non-distended and no masses Back/Spine no CVA tenderness and no thoracic nor lumbar tenderness Extremity normal to inspection General Extremety ED: Negative for edema General Extremity: Negative for edema Neuro oriented x3, CN's II-XII intact bilaterally, no sensory deficits noted and gait normal Sensorium / Orientation: awake, alert, oriented to person, oriented to place and oriented to time Motor Exam: strength 5/5 throughout and strength abnormal Psych mental status grossly normal Skin no rashes or lesions noted and no wounds PROC Procedures Lacerations Forehead laceration: Length: 1.38 in Depth: Sub Q Shape: Linear Prep: Sterile Conditions and Shure-Clens Laceration repair: Irrigated, Lidocaine and Local Irrigated (ml): 50 Number of Sutures/[place]: 6 Suture Information: Ethilon, Simple and 6-0 MDM MDM MDM Narrative Medical decision making narrative: Patient presents with fall same height striking her head on an end table. On Eliquis for history of DVT. Patient with history of Parkinson's. Patient had a CT scan of the brain without contrast that showed no acute traumatic injury. She had a CT of the cervical spine that showed acute fracture of the right C5 facet joint MRI cervical spine without contrast recommended for further evaluation. Patient not having significant neck pain but was placed in a c-collar. I did repair her forehead laceration please see procedure note. I do not have orthopedics on-call today. Will discuss case with trauma center to transfer for further evaluation of her cervical spine fracture and definitive treatment. Discussed results with patient and her family members. Discussed with [facility] Emergency room physician Dr. Molina who accepted transfer of patient to their facility. Trauma surgeon on-call also was notified by their transfer team. Radiography Diagnostic Testing: Clinical Impression(s) from Imaging Studies Brain CT 08/15/25 12:42 IMPRESSION: No acute intracranial abnormalities. Reading Location: [facility] Cervical Spine CT 08/15/25 12:42 IMPRESSION: Acute fracture of the right C5 facet joint. MRI cervical spine without contrast is recommended for further evaluation. Reading Location: [facility] Discharge Plan Triage Chief Complaint: Head Injury Other Complaint: Laceration ED Provider: Werner Esquivel Dx/Rx/DC Orders Clinical Impression: Closed head injury, Cervical spine fracture, Fall, Forehead laceration Prescriptions: No Action alendronate [Fosamax] 70 mg tablet 70 mg PO QWEEK carbidopa-levodopa 25-100 mg tablet 1.5 tab PO TID Dairy Aid 3,000 unit tablet,chewable 3,000 unit PO ONCE Rx Instructions: administer with meals and/or snacks aspirin [Adult Low Dose Aspirin] 81 mg tablet,delayed release (DR/EC) 81 mg PO DAILY calcium carb-D3-mag [id number] tablet 1 tab PO DAILY Rx Instructions: administer with a meal oxycodone 5 mg tablet 5 mg PO BID PRN (Reason: pain) Eliquis DVT-PE Treat 30D Start 5 mg (74 tabs) tablets,dose pack See Rx Instructions PO PER PKG DIR Qty: 74 0RF Rx Instructions: PO PER PKG DIR 10mg bid x7 then 5mg bid duloxetine 20 mg capsule,delayed release(DR/EC) 40 mg PO DAILY acetaminophen 500 mg Tablet 1,000 mg PO Q8 PRN (Reason: fever or pain) diltiazem HCl 30 mg tablet 30 mg PO Q8H hydroxychloroquine 200 mg tablet 200 mg PO BID mometasone 50 mcg/actuation spray,non-aerosol 1 - 2 spray INTRANASAL DAILY diclofenac sodium 1 % gel 2 ea topical 4X/DAY NewFlora 10 billion cell capsule 100 mmu cells PO DAILY lisinopril 5 mg tablet 5 mg PO DAILY Qty: 90 3RF Patient Comments: thinks had today, but not positive flecainide 50 mg tablet 50 mg PO Q12H Qty: 180 3RF Primary Care Provider: Rajan Cervantes Referrals: Rajan Cervantes MD [Primary Care Provider, Family Practice] Print Language: Azerbaijani Disposition Disposition: DC/Tx to Another Type of HCF
[2025-08-15] MEDS: Lidocaine 1% /Epi 1:100 (20ml) 20 ML Vial 8 ML INFILT (14:17)
--- NOTE | 2025-08-15 14:22 | ED.RN ---
cervical collar applied.
[2025-08-15 14:31] VITALS: BP 143/78; PULSE 77; RESP 16; TEMP 36.6; O2SAT 95
[2025-08-15 15:11] VITALS: BP 144/63; PULSE 78; RESP 14; O2SAT 98
[2025-08-15 15:33] VITALS: BP 144/63; PULSE 79; RESP 14; TEMP 37.1; O2SAT 98
--- NOTE | 2025-08-15 15:33 | ED.RN ---
REPORT CALLED TO [facility], RON, AT THIS TIME.
== END 2025-08-15 16:12 | disposition other institution (70) ==
PROVIDERS: Emergency Provider Emergency Medicine; PCP Family Medicine; Visit Provider Emergency Medicine
DX: S12.490A Other displaced fracture of fifth cervical vertebra, initial encounter for closed fracture (principal); G20.A1 Parkinson's disease without dyskinesia, without mention of fluctuations; S01.81XA Laceration without foreign body of other part of head, initial encounter; W18.39XA Other fall on same level, initial encounter; I10 Essential (primary) hypertension; Z79.01 Long term (current) use of anticoagulants; Z79.82 Long term (current) use of aspirin; Z79.899 Other long term (current) drug therapy; Z86.718 Personal history of other venous thrombosis and embolism
CPT/HCPCS: 12013; 70450; 72125; 99285

== ENCOUNTER → 2025-10-12 | Outpatient (CLI) | payer MEDICARE, SELFPAY ==
[2025-10-12 11:57] LABS: Mucous, Urine 0 SEEN /hpf (<or=2+)
[2025-10-12 13:10] LABS: Color, Urine Yellow (Yellow); Glucose, Dipstick Normal (Normal); Ketone-Dipstick 5 mg/dl (Negative); Leukocyte Esterase-Dipstick 25 /ul (Negative); Nitrite-Dipstick Positive (Negative); Occult Blood-Urine 25 /ul (Negative); Protein-Dipstick 30 mg/dl (Negative); Specific Gravity, Urine 1.025 (1.002-1.030)
[2025-10-12 13:11] LABS: Urine Bilirubin Dipstick 1 mg/dL (Negative)
[2025-10-12 13:20] LABS: Red Blood Cells-Urine 0-5 SEEN /hpf (0-5); Squamous Epithelial Cells - UA 5-10 SEEN /hpf (5-10)
== END | disposition home or self-care (01) ==
LOC: LABSPEC 11:31
PROVIDERS: PCP Family Medicine; Referring Provider Family Medicine; Visit Provider Family Medicine
DX: R30.0 Dysuria (principal)
CPT/HCPCS: 81001; 87077; 87086; 87088; 87186

== ENCOUNTER → 2025-11-17 | Outpatient (CLI) | payer MEDICARE, SELFPAY ==
[2025-11-17 16:44] LABS: Mucous, Urine 0 SEEN /hpf (<or=2+); Squamous Epithelial Cells - UA 0 SEEN /hpf (5-10)
--- OUTSIDE RECORDS SUMMARY | 2025-11-17 16:45 | XMS RPT_ITS | CCD ---
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 Mone Cervantes Primary Care Provider Dr. Delmy Bosch Attending Provider Dr. Wei Pollard Referring Provider Dr. Mone Cervantes Referring Provider Charlie CUSHION BUILDER, CUSHION BUILDER-C Beatriz Attending Provider Dr. Wei Pollard Admit Provider Dr. Wei Pollard Other Provider Charlie CUSHION BUILDER, CUSHION BUILDER-C Beatriz Other Provider [phone]([facility])[phone] Dr. Mauro Pacheco Other Provider Unavailable Dr. Jhony Lindo Attending Provider Dr. Jhony Lindo Other Provider Dr. Konrad Fleming Attending Provider Dr. Konrad Fleming Other Provider Dr. Orly Hudson Attending Provider [phone] [place] CUSHION BUILDER, CUSHION BUILDER-C Margaret Attending Provider Unav Dr. Mone Gallego Primary Care Provider [phone] Orly Hudson Attending Provider [phone] Dr. Mone Cervantes Referring Provider Dr. Luis Molina Attending Provider Dr. Mone Cervantes Primary Care Provider Dr. Mone Cervantes Referring Provider Tracy, Dr. Luis Pelaez Attending Provider Dr. Mone Phillip Attending Provider Barbara Wasserman Attending Provider Unavailable Dr. Luis Eduardo Brantley Attending Provider Dr. Raheem Swartz Referring Provider Dr. Brad Huber Emergency Provider Dr. Nannette Marks Admit Provider Dr. Nannette Marks Other Provider Dr. Mone Guerrier Attending Provider Dr. Mone Guerrier Other Provider Dr. Mone Cervantes MD Primary Care Provider Eshenaur PA-C, Ray Attending Provider Eshenaur PA-C, Ray Referring Provider Dr. Mone Cervantes MD Primary Care Provider Dr. Luis Eduardo Brantley MD Attending Provider Dr. Luis Eduardo Brantley MD Referring Provider Dr. Mone Cervantes MD Referring Provider [phone] Mone Phillip MD Attending Provider Dr. Mone Cervantes MD Primary Care Physician Dr. Luis Eduardo Brantley MD Attending Physician Dr. Mone Phillip MD Attending Physician Dr. Werner Esquivel DO Attending Physician [phone] Werner Esquivel DO Emergency Department Physici an Mone Cervantes Referring Unavailable Mone Cervantes Primary Care Unavailable Luis Eduardo Brantley Attending Unavailable Mone Cervantes Referring Unavailable Cervantes, Mone Primary Care Unavailable Vasquez Vaca Attending Unavailable Cervantes, Mone Referring Unavailable Cervantes, Mone Primary Care Unavailable Cervantes, Mone Attending Unavailable Luis Eduardo Brantley Attending Unavailable Karon, Luis Eduardo Referring Unavailable Cervantes, Mone Primary Care Unavailable Cervantes, Mone Primary Care Unavailable Manuel Neal Unavailable Cervantes, Mone Primary Care Unavailable Werner Esquivel Attending Unavailable Prafarida, Luis Eduardo Referring Unavailable Cervantes, Mone Primary Care Unavailable Luis Eduardo Brantley Attending Unavailable Cervantes, Mone Attending Unavailable Cervatnes, Mone Primary Care Unavailable Cervantes, Mone Primary Care Unavailable Yakelin PA, Anatoly Attending Unavailable EsAnatoly Graham Referring Unavailable Cervantes, Mone Referring Unavailable Evita Trejo Attending Unavail able Cervantes, Mone Primary Care Unavailable Prafarida, Luis Eduardo Referring Unavailable Cervantes, Mone Primary Care Unavailable Mone Phillip Attending Unavailable CERVANTES, MONE A Primary Care Unavailable ERNESTO GANDHI Admitting Unavailable GENNY SYED Attending Unavailable CERVANTES, MONE A Consulting Unavailable ARSH CARLSON Referring Unavailable CERVANTES, MONE A Primary Care Unavailable SARAH MARTIN Attending Unavailable CARLSON, ARSH Referring Unavailable CERVANTES, MONE A Primary Care Unavailable Allergies Allergy Classification Reported Allergen(s) Allergy Type Date of Onset Reaction(s) Facility (9 sources) Baclofen Drug Allergy 4 emotional issues [facility] (9 sources) Propranolol Drug Allergy 4 nightmare [facility] (9 sources) sulfADIAZINE Drug Allergy 4 not as effective [facility] (1 source) Baclofen Drug Allergy 5 [facility] Repository (1 source) Propranolol Drug Allergy 5 [facility] Repository (1 source) sulfADIAZINE Drug Allergy 5 [facility] Repository Medications Current Medications Medication Drug Class(es) Dates Sig (Normalized) Sig (Original) acetaminophen 500 mg oral tablet (20 sources) Start: 08-26-2023 End: 02-26-2024 take 2 tablets by mouth every eight hours as needed for pain Acetaminophen 500 mg Tablet Active 1000 mg PO EVERY 8 HOURS as needed for fever or pain February 26, 2024 12:00am Complies with drug therapy Start: 08-26-2023 End: 02-26-2024 take 1000 mg by mouth every eight hours Acetaminophen Active 1000 MG PO EVERY 8 HOURS February 26, 2024 12:00am alendronic acid 70 mg oral tablet (20 sources) Bisphosphonate Start: 07-01-2019 take 1 tablet by mouth every week Alendronate (Fosamax) 70 mg tablet Active 70 mg PO EVERY WEEK July 01, 2019 12:00am Complies with drug therapy Start: 07-04-2018 End: 12-26-2018 take 1 tablet by mouth every week Alendronate (Fosamax) 70 mg tablet Discontinued 70 mg PO EVERY WEEK July 04, 2018 12:00am December 26, 2018 3:54pm Apixaban (11 sources) Factor Xa Inhibitor Start: 07-20-2025 take 1 tablet by mouth twice daily, then take 5 mg by mouth twice daily Apixaban (Eliquis Dvt-Pe Treat 30d Start) 5 mg (74 tabs) tablets,dose pack Active 0 PO per package directions 74 0 July 20, 2025 12:00am PO PER PKG DIR 10mg bid x7 then 5mg bid Complies with drug therapy Start: 07-20-2025 take 1 tablet by shannan th twice daily, then take 5 mg by mouth twice daily Apixaban (Eliquis Dvt-Pe Treat 30d Start) 5 mg (74 tabs) tablets,dose pack Active 0 PO per package directions 74 0 July 20, 2025 12:00am PO PER PKG DIR 10mg bid x7 then 5mg bid Start: 02-26-2024 End: 09-11-2024 take 1 tablet by mouth twice daily Apixaban (Eliquis) 5 mg tablet Discontinued 5 mg PO TWICE A DAY February 26, 2024 12:00am September 11, 2024 10:49am Calcium (8 sources) Phosphate Binder, Calcium Start: 12-11-2022 take 1 tablet by mouth once daily Calcium Carb-D3-Mag [id number]-Xtep Active 1 TABLET PO DAILY December 11, 2022 12:00am administer with a meal Start: 12-11-2022 take 1 tablet by shannan th once daily Calcium Carb-D3-Mag [id number]-[id number] Active 1 TABLET PO DAILY December 11, 2022 1:00am administer with a meal Calcium Carb-D3-Mag Lqy73-Ol nc [phone] lm-xaxj-ic-mg tablet (10 sources) Start: 03-11-2024 Calcium Carb-D 3-Mag Jbj85-Nzuf [phone] nj-diek-oq-mg tablet Active 1 {tbl} PO DAILY March 11, 2024 11:50am administer with a meal Complies with drug therapy Start: 03-11-2024 Calcium Carb-D 3-Mag Lup30-Mctr [phone] zh-xocu-lt-mg tablet Active 1 {tbl} PO DAILY March 11, 2024 11:50am administer with a meal Start: 12-11-2022 End: 03-11-2024 Calcium Carb-D3-Mag Bke05-Dv nc [phone] ts-btdk-ia-mg tablet Discontinued 1 {tbl} PO DAILY December 11, 2022 1:00am March 11, 2024 11:52am administer with a meal carbidopa 25 mg / levodopa 100 mg oral tablet (13 sources) Aromatic Amino Acid Decarboxylation Inhibitor, Aromatic Amino Acid Start: 11-29-2020 Carbidopa-Levodopa 2 5-100 mg tablet Active 1.5 {tbl} PO THREE TIMES A DAY November 29, 2020 1:00am Complies with drug therapy Start: 11-29-2020 take 1.5 tablets by mouth three times daily Carbidopa-Levodopa Active 1.5 TABLET PO THREE TIMES A DAY November 29, 2020 1:00am diclofenac sodium 0.01 mg/mg topical gel (1 source) Nonsteroidal Anti-inflammatory Drug Start: 08-15-2025 Diclofenac Sodium 1 % gel Active 2 NMA TOPICAL 4 TIMES DAILY August 15, 2025 12:00am Complies with drug therapy dilTIAZem hydrochloride 30 mg oral tablet (20 sources) Calcium Channel Honey Start: 02-26-2024 take 1 tablet by mouth every eight hours Diltiazem Hcl 30 mg tablet Active 30 mg PO Q8H February 26, 2024 12:00am Complies with drug therapy Start: 08-01-2023 End: 02-26-2024 take 1 tablet by mouth three times daily Diltiazem Hcl 30 mg tablet Discontinued 30 mg PO THREE TIMES A DAY August 01, 2023 12:00am February 26, 2024 11:54am Start: 04-24-2017 End: 01-03-2023 take 1 capsule by mouth once daily Diltiazem Hcl 120 mg capsule,extended release 24hr Discontinued 120 mg PO DAILY 90 3 March 20, 2022 8:45am January 03, 2023 5:06pm Start: 02-26-2017 take 1 tablet by shannan once daily DILTIAZEM HCL ER 120 MG [id number] One tablet by mouth daily DILTIAZEM HCL [id number] Evita Zhang PA-C Start: 02-26-2017 take 1 tablet by shannan th once daily CARDIZEM CD 120 MG [id number] One tablet by mouth daily DILTIAZEM HCL COATED BEADS [id number] Lyla Otero RN DULoxetine 20 mg delayed release oral capsule (20 sources) Serotonin and Norepinephrine Reuptake Inhibitor Start: 02-26-2024 take 2 capsules by mouth once daily Duloxetine 20 mg capsule,delayed release(DR/EC) Active 40 mg PO DAILY February 26, 2024 12:00am Complies with drug therapy Start: 02-26-2024 take 40 mg by mouth once daily Duloxetine Active 40 MG PO DAILY February 26, 2024 12:00am Start: 12-11-2022 End: 02-26-2024 Duloxetine 30 mg capsule,del ayed release(DR/EC) Discontinued 40 mg PO DAILY December 11, 2022 1:00am February 26, 2024 6:10pm Start: 12-11-2022 End: 02-26-2024 take 40 mg by mouth once daily Duloxetine Discontinued 40 MG PO DAILY December 11, 2022 1:00am February 26, 2024 6:10pm Start: 12-11-2022 take 30 mg by mouth once daily Duloxetine Active 30 MG PO DAILY December 11, 2022 12:00am hydroxychloroquine sulfate 200 mg oral tablet (20 sources) Antimalarial, Antirheumatic Agent Start: 12-07-2021 End: 02-26-2024 take 1 tablet by mouth twice daily Hydroxychloroquine 200 mg tablet Active 200 mg PO TWICE A DAY February 26, 2024 12:00am Complies with drug therapy lactase 3000 unt chewable tablet (13 sources) Start: 08-02-2021 take 1 tablet by mouth once at mealtime Lactase (Dairy Aid) 3,000 unit tablet,chewable Active 3000 U PO ONCE August 02, 2021 12:00am administer with meals and/or snacks Complies with drug therapy lactobacillus acidophilus [id number] unt oral capsule (20 sources) Start: 08-15-2025 take 10 capsules by mouth once daily Lactobacillus Acidophilus (Newflora) 10 billion cell capsule Active 100 NMA PO DAILY August 15, 2025 12:00am Complies with drug therapy Start: 07-04-2018 End: 02-26-2024 take 1 capsule by mouth once daily Lactobacillus Acidophilus (Acidophilus) capsule Discontinued 10 mg PO daily July 04, 2018 12:00am February 26, 2024 11:54am Start: 01-23-2017 End: 07-04-2018 Lactobacillus Acidophilus 1 EACH capsule Discontinued 1 NMA PO DAILY January 23, 2017 1:00am July 04, 2018 11:09am SUPPLEMENT Start: 01-23-2017 End: 07-04-2018 Lactobacillus Acidophilus Discontinued 1 EACH PO DAILY January 23, 2017 12:00am July 04, 2018 10:09am Start: 01-23-2017 End: 07-04-2018 Lactobacillus Acidophilus Discontinued 1 EACH PO DAILY January 23, 2017 1:00am July 04, 2018 11:09am mometasone furoate 0.05 mg/actuat metered dose nasal spray (1 source) Corticosteroid Start: 08-15-2025 Mometasone 50 mcg/actuation spray,non-aerosol Active 1 - 2 NMA INTRANASAL DAILY August 15, 2025 12:00am Complies with drug therapy oxyCODONE hydrochloride 5 mg oral tablet (20 sources) Opioid Agonist Start: 02-26-2024 take 1 tablet by mouth twice daily as needed for pain Oxycodone 5 mg tablet Active 5 mg PO TWICE A DAY as needed for pain 0 February 26, 2024 12:00am Complies with drug therapy Start: 08-24-2023 End: 02-26-2024 take 5-10 mg by mouth every four hours as needed for pain Oxycodone 5 mg tablet Discontinued 5 - 10 mg PO EVERY 4 HOURS NEEDED as needed for Pain Score 4-10 42 7 0 September 28, 2023 February 26, 2024 2:07pm 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 Start: 12-11-2022 take 5 mg by mouth e very six hours Oxycodone Active 5 MG PO EVERY 6 HOURS December 11, 2022 2:14pm Start: 05-30-2018 End: 12-11-2022 take 5-10 mg by mouth every four hours as needed for pain Oxycodone 5 MG tablet Discontinued 5 - 10 mg PO Q4H as needed for Severe Pain (6-10) 18 3 0 May 30, 2018 12:00am December 11, 2022 2:22pm Compression fracture of vertebra Completed/Discontinued Medications Medication Drug Class(es) Dates Sig (Normalized) Sig (Original) aspirin 81 mg delayed release oral tablet (20 sources) Nonsteroidal Anti-inflammatory Drug Start: 08-26-2023 End: 02-26-2024 take 1 tablet by mouth twice daily Aspirin 81 mg Tablet,Delayed Release (Dr/Ec) Discontinued 81 mg PO TWICE A DAY 56 28 0 August 26, 2023 12:00am February 26, 2024 2:05pm Start: 12-11-2022 Aspirin (Adult Low Dose Aspirin) 81 mg tablet,delayed release (DR/EC) Active 81 mg PO DAILY December 11, 2022 1:00am Complies with drug therapy Start: 10-30-2012 End: 04-27-2015 take 1 tablet by mouth once daily ASPIRIN 325 MG TABS One tablet by mouth daily ASPIRIN [id number] Vasquez Vaca MD Start: 09-25-2012 take 1 tablet by shannan th once daily ASPIRIN 81 MG TABS One tablet by mouth daily ASPIRIN [id number] Vasquez Vaca MD baclofen 20 mg oral tablet (13 sources) gamma-Aminobutyric Acid-ergic Agonist Start: 07-04-2018 End: 12-26-2018 take 10 mg by mouth three times daily Baclofen 20 mg tablet Discontinued 10 mg PO THREE TIMES A DAY July 04, 2018 12:00am December 26, 2018 3:54pm Start: 07-04-2018 End: 12-26-2018 take 10 mg by mouth three times daily Baclofen Discontinued 10 MG PO THREE TIMES A DAY July 04, 2018 12:00am December 26, 2018 3:54pm biotin 10 mg oral capsule (20 sources) Start: 07-04-2018 End: 07-20-2025 take 1 capsule by mouth once daily Biotin 10,000 mcg capsule Discontinued [id number] ug PO DAILY 0 July 04, 2018 12:00am July 20, 2025 11:22am Start: 04-27-2015 End: 08-21-2016 take 1 tablet by mouth once daily BIOTIN FORTE TABS .One tablet by mouth daily BIOTIN TABS [id number] Vasquez Vaca MD Start: 04-27-2015 take 1 tablet by shannan th once daily BIOTIN FORTE TABS .One tablet by mouth daily BIOTIN TABS [id number] Vasquez Vaca MD calcium carbonate 1250 mg / cholecalciferol 200 unt oral tablet (20 sources) Vitamin D Start: 12-11-2022 End: 02-26-2024 Calcium Carbonate-Vitamin D3 500 mg-5 mcg (200 unit) tablet Discontinued 1 {tbl} PO DAILY December 11, 2022 2:16pm February 26, 2024 11:53am SUPPLEMENT Start: 12-11-2022 End: 02-26-2024 take 1 tablet by mouth once daily Calcium Carbonate-Vitamin D3 Discontinued 1 TABLET PO DAILY December 11, 2022 2:16pm February 26, 2024 11:53am Start: 04-24-2017 End: 12-11-2022 Calcium Carbonate-Vitamin D3 1 TABLET tablet Discontinued 1 {tbl} PO TWICE A DAY April 24, 2017 12:00am December 11, 2022 2:22pm SUPPLEMENT Start: 04-24-2017 End: 12-11-2022 take 1 tablet by mouth twice daily Calcium Carbonate-Vitamin D3 Discontinued 1 TABLET PO TWICE A DAY April 24, 2017 12:00am December 11, 2022 2:22pm calcium carbonate / vitamin D (8 sources) Start: 09-05-2012 take 1 tablet by mouth once daily CALCIUM CARBONATE-VITAMIN D 600-125 MG-UNIT TABS One tablet by mouth daily CALCIUM CARBONATE-VITAMIN D Vasquez Vaca MD Start: 09-05-2012 take 1 tablet by shannan twice daily CALCIUM CARBONATE-VITAMIN D 600-125 MG-UNIT TABS One tablet by mouth twice daily CALCIUM CARBONATE-VITAMIN D [id number] Katelyn Hernandez GLUCOSAMINE-CHONDROITIN CAPS (4 sources) Start: 09-05-2012 take 1 tablet by mouth twice daily GLUCOSAMINE-CHONDROITIN CAPS One tablet by mouth twice daily GLUCOSAMINE-CHONDROITIN CAPS [id number] Katelyn Hernandez chondroitin sulfates 400 mg / glucosamine hydrochloride 500 mg / methylsulfonylmethane 83 mg oral tablet (13 sources) Start: 04-24-2017 End: 12-26-2018 take 1 tablet by mouth twice daily Glucosamine Xut-Dvs-Lehzqmwgkj 1 EACH tablet Discontinued 1 NMA PO TWICE A DAY April 24, 2017 12:00am December 26, 2018 3:53pm SUPPLEMENT Start: 04-24-2017 End: 12-26-2018 Glucosamine Tue-Tue-Qquohbfi tn Discontinued 1 EACH PO TWICE A DAY April 24, 2017 12:00am December 26, 2018 3:53pm clopidogrel 75 mg oral tablet (3 sources) P2Y12 Platelet Inhibitor Start: 04-09-2017 take 1 tablet by mouth once daily PLAVIX 75 MG TABS One tablet by mouth daily CLOPIDOGREL BISULFATE [id number] Vasquez Vaca MD cyclobenzaprine hydrochloride 10 mg oral tablet (13 sources) Muscle Relaxant Start: 05-30-2018 End: 07-04-2018 take 1 tablet by mouth three times daily as needed for muscle spasms Cyclobenzaprine 10 MG tablet Discontinued 10 mg PO 3 TIMES DAILY NEEDED as needed for Muscle Spasm 0 May 30, 2018 12:00am July 04, 2018 11:09am 1 ml denosumab 60 mg/ml prefilled syringe (13 sources) RANK Ligand Inhibitor Start: 12-26-2018 End: 02-26-2024 Denosumab (Prolia) 60 mg/mL syringe Discontinued 60 mg SC every 6 months December 26, 2018 1:00am February 26, 2024 2:05pm dronedarone 400 mg oral tablet (8 sources) Antiarrhythmic Start: 04-27-2015 End: 05-27-2015 take 1 tablet by mouth twice daily MULTAQ 400 MG TABS One tablet by mouth twice daily DRONEDARONE HCL [id number] Vasquez Vaca MD estradiol 0.1 mg/ml vaginal cream (20 sources) Estrogen Start: 09-11-2022 End: 02-26-2024 Estradiol 0.01 % (0.1 mg/gram) cream Discontinued 0 VAGINAL .COMPLEX as needed August 13, 2023 1:59pm February 26, 2024 6:06pm small amount as directed vaginally opening twice a week; PRN; Start: 09-11-2022 End: 02-26-2024 Estradiol Active 0 VAGINAL . COMPLEX August 13, 2023 12:59pm small amount as directed vaginally opening twice a week; PRN; Start: 12-07-2021 End: 12-11-2022 Estradiol 0.5 mg/0.5 gram (0 .1 %) gel in packet Discontinued 1 NMA TD .2 x week December 07, 2021 1:00am December 11, 2022 2:17pm Start: 12-07-2021 End: 12-11-2022 Estradiol Discontinued 1 PAC KET TD .2 x week December 07, 2021 1:00am December 11, 2022 2:17pm Start: 09-05-2012 End: 09-09-2015 ESTRACE 0.1 MG/GM CREA Vagin al cream - Apply as directed twice weekly ESTRADIOL [id number] Vasquez Vaca MD Start: 09-05-2012 ESTRACE 0.1 MG /GM CREA Vaginal cream - Apply as directed twice weekly ESTRADIOL [id number] Katelyn Hernandez fish oil (11 sources) Start: 09-25-2012 End: 04-09-2017 take 2 tablets by mouth once daily FISH OIL CAPS Two tablets by mouth daily OMEGA-3 FATTY ACIDS CAPS [id number] Vasquez Vaca MD Start: 09-25-2012 take 2 tablets by [facility] once daily FISH OIL CAPS Two tablets by mouth daily OMEGA-3 FATTY ACIDS CAPS [id number] Vasquez Vaca MD Start: 09-05-2012 take 1 tablet by [facility] twice daily FISH OIL CAPS One tablet by mouth twice daily OMEGA-3 FATTY ACIDS CAPS [id number] Katelyn Hernandez flecainide acetate 50 mg oral tablet (20 sources) Antiarrhythmic Start: 2018 End: 07-07-2025 take 1 tablet by mouth every twelve hours Flecainide 50 mg tablet Discontinued 50 mg PO Q12H 180 3 July 07, 2025 10:39am July 07, 2025 10:39am Start: 01-23-2017 End: 2018 Flecainide 100 MG tablet Discontinued 50 mg PO TWICE A DAY January 23, 2017 1:00am 2018 5:17pm HEART Start: 01-23-2017 End: 2018 take 50 mg by mouth twice daily Flecainide Discontinue d 50 MG PO TWICE A DAY January 23, 2017 1:00am 2018 5:17pm Start: 06-15-2015 take 1 tablet by shannan th twice daily FLECAINIDE ACETATE 100 MG TABS One tablet by mouth twice daily FLECAINIDE ACETATE [id number] Evita Zhang PA-C Start: 06-15-2015 take 1 tablet by shannan th twice daily FLECAINIDE ACETATE 50 MG TABS One tablet by mouth twice daily FLECAINIDE ACETATE [id number] Vasquez Vaca MD LISINOPRIL-HYDROCHLOROTHIAZI DE (12 sources) Thiazide Diuretic, Angiotensin Converting Enzyme Inhibitor Start: 09-25-2012 take 1 tablet by mouth once daily ZESTORETIC 10-12.5 MG TABS One half tablet by mouth daily LISINOPRIL-HYDROCHLOROTHIAZIDE [id number] Vasquez Vaca MD Start: 09-25-2012 End: 05-27-2015 take 1 tablet by mouth once daily ZESTORETIC 10-12.5 MG TABS One half tabl et by mouth daily LISINOPRIL-HYDROCHLOROTHIAZIDE [id number] Vasquez Vaca MD Start: 09-05-2012 take 1 tablet by shannan th once daily ZESTORETIC 10-12.5 MG TABS One tablet by mouth daily LISINOPRIL-HYDROCHLOROTHIAZIDE [id number] Katelyn Hernandez hydrOXYzine hydrochloride 25 mg oral tablet (13 sources) Antihistamine Start: 12-11-2022 End: 08-15-2025 Hydroxyzine Hcl 25 mg tablet Discontinued 12.5 mg PO Q8H as needed for anxiety December 11, 2022 1:00am August 15, 2025 1:57pm Start: 12-11-2022 take 12.5 mg by mout h every eight hours Hydroxyzine Hcl Active 12.5 MG PO Q8H December 11, 2022 1:00am LACTOBACILLUS CAPS (4 sources) Start: 09-25-2012 take 1 tablet by mouth once daily ACIDOPHILUS CAPS One tablet by mouth daily LACTOBACILLUS CAPS [id number] Vasquez Vaca MD Lidocaine (20 sources) Antiarrhythmic, Amide Local Anesthetic Start: 07-04-2018 End: 12-26-2018 Lidocaine (Aspercreme (Lidocaine)) 4 % adhesive patch,medicated Discontinued 1 NMA TOPICAL Q12H July 04, 2018 12:00am December 26, 2018 3:53pm Start: 07-04-2018 End: 12-26-2018 apply 1 dose topically every twelve hours Lidocaine (Aspercreme (Lidocaine)) 4 % adhesive patch,medicated Discontinued 1 PATCH TOPICAL Q12H July 03, 2018 11:00pm December 26, 2018 2:53pm Start: 07-04-2018 End: 12-26-2018 apply 1 dose topically every twelve hours Lidocaine (Aspercreme (Lidocaine)) 4 % adhesive patch,medicated Discontinued 1 PATCH TOPICAL Q12H July 04, 2018 12:00am December 26, 2018 3:53pm Start: 05-30-2018 End: 07-04-2018 Lidocaine 1 PATCH patch Disc ontinued 1 NMA TOPICAL DAILY 0 May 30, 2018 12:00am July 04, 2018 11:10am Please contact the information source for Protocol details. Start: 05-30-2018 End: 07-04-2018 apply 1 dose topically once daily Lidocaine Discontinued 1 PATCH TOPICAL DAILY May 30, 2018 12:00am July 04, 2018 11:10am lisinopril 5 mg oral tablet (20 sources) Angiotensin Converting Enzyme Inhibitor Start: 11-29-2020 End: 09-10-2024 take 1 tablet by mouth once daily Lisinopril 5 mg tablet Discontinued 5 mg PO DAILY 90 3 September 09, 2023 8:13am September 10, 2024 8:33am magnesium oxide 400 mg oral tablet (13 sources) Start: 12-09-2017 End: 12-11-2022 take 1 tablet by mouth once daily Magnesium Oxide 400 mg tablet Discontinued 400 mg PO DAILY 30 30 0 December 09, 2017 1:00am December 11, 2022 2:20pm melatonin 5 mg oral capsule (20 sources) Start: 02-26-2024 End: 02-26-2024 Melatonin 5 mg capsule Discontinued mg PO February 26, 2024 12:00am February 26, 2024 2:07pm Start: 02-26-2024 End: 02-26-2024 Melatonin Discontinued MG PO February 26, 2024 12:00am February 26, 2024 2:07pm Start: 12-11-2022 Melatonin Acti ve MG PO December 11, 2022 1:00am Start: 08-02-2021 End: 12-07-2021 take 1 capsule by mouth at bedtime as needed Melatonin 3 mg capsule Discontinued 3 mg PO BEDTIME as needed August 02, 2021 12:00am December 07, 2021 3:17pm meloxicam 7.5 mg oral tablet (12 sources) Nonsteroidal Anti-inflammatory Drug Start: 08-24-2023 End: 02-26-2024 take 1 tablet by mouth twice daily Meloxicam 7.5 mg Tablet Discontinued 7.5 mg PO TWICE A DAY 60 30 0 August 24, 2023 12:00am February 26, 2024 6:09pm METOPROLOL SUCCINATE (20 sources) beta-Adrenergic Honey Start: 04-27-2015 End: 04-09-2017 TOPROL XL 25 MG [id number] 1/2 tablet by mouth daily- STOP METOPROLOL SUCCINATE [id number] Vasquez Vaca MD Start: 04-27-2015 TOPROL XL 25 M G [id number] 1/2 tablet by mouth daily- STOP METOPROLOL SUCCINATE [id number] Evita Zhang PA-C Start: 04-27-2015 take 1 tablet by shannan th once daily TOPROL XL 25 MG [id number] One tablet by mouth daily METOPROLOL SUCCINATE [id number] Leatha Starr RN Start: 04-27-2015 take 1 tablet by shannan th once daily TOPROL XL 50 MG [id number] One tablet by mouth daily METOPROLOL SUCCINATE [id number] Vasquez Vaca MD Start: 04-27-2015 take 1 tablet by shannan th once daily TOPROL XL 25 MG [id number] One tablet by mouth daily METOPROLOL SUCCINATE [id number] Evita Zhang PA-C Start: 04-27-2015 take 1 tablet by shannan th once daily TOPROL XL 25 MG [id number] One half tablet by mouth daily METOPROLOL SUCCINATE [id number] Evita Zhang PA-C Start: 04-27-2015 take 0.5 tablet by m out once daily TOPROL XL 25 MG [id number] 1/2 tablet by mouth daily METOPROLOL SUCCINATE [id number] Vasquez Vaca MD MULTIPLE VITAMIN (4 sources) Start: 09-05-2012 take 1 tablet by mouth once daily MULTIVITAMINS TABS One tablet by mouth daily MULTIPLE VITAMIN [id number] Katelyn Ang Hernandez niacin 500 mg oral tablet (8 sources) Nicotinic Acid Start: 10-30-2012 End: 04-27-2015 take 1 tablet by mouth once daily NIACIN 500 MG TABS One tablet by mouth daily (OTC) NIACIN [id number] Vasquez Vaca MD potassium citrate 5 meq extended release oral tablet (13 sources) Start: 12-09-2017 End: 11-29-2020 take 1 tablet by mouth once daily Potassium Citrate 5 mEq (540 mg) tablet extended release Discontinued 540 mg PO DAILY 30 30 0 December 09, 2017 1:00am November 29, 2020 4:20pm potassium gluconate (7 sources) Start: 08-21-2016 End: 04-09-2017 take 1 tablet by mouth once daily POTASSIUM GLUCONATE 550 (90 K) MG TABS One tablet by mouth daily POTASSIUM GLUCONATE [id number] Vasquez Vaca MD Start: 08-21-2016 take 1 tablet by shannan th once daily POTASSIUM GLUCONATE 550 (90 K) MG TABS One tablet by mouth daily POTASSIUM GLUCONATE [id number] Vasquez Vaca MD propranolol hydrochloride 10 mg oral tablet (13 sources) beta-Adrenergic Honey Start: 12-11-2022 End: 02-26-2024 take 1 tablet by mouth at bedtime Propranolol 10 mg tablet Discontinued 10 mg PO AT BEDTIME December 11, 2022 1:00am February 26, 2024 11:55am rivaroxaban 20 mg oral tablet (20 sources) Factor Xa Inhibitor Start: 12-07-2021 End: 12-11-2022 take 1 tablet by mouth every other day Rivaroxaban (Xarelto) 20 mg tablet Discontinued 20 mg PO .QOD December 07, 2021 3:18pm December 11, 2022 2:21pm BLOOD THINNER Start: 04-27-2015 End: 12-07-2021 take 1 tablet by mouth once daily Rivaroxaban (Xarelto) 20 mg tablet Discontinued 20 mg PO DAILY 17 10September 25, 2021 12:39pm December 07, 2021 3:20pm BLOOD THINNER tiZANidine 4 mg oral capsule (13 sources) Central alpha-2 Adrenergic Agonist Start: 12-26-2018 End: 07-01-2019 take 1 capsule by mouth three times daily as needed Tizanidine 4 mg capsule Discontinued 4 mg PO THREE TIMES A DAY as needed December 26, 2018 1:00am July 01, 2019 11:07am triamcinolone acetonide 0.70770 mg/mg topical ointment (20 sources) Corticosteroid Start: 12-11-2022 End: 02-26-2024 Triamcinolone Acetonide 0.025 % ointment Discontinued 1 NMA TOPICAL DAILY as needed August 13, 2023 2:00pm February 26, 2024 6:12pm vitamin k and D3 100/125 (13 sources) Start: 11-29-2020 End: 12-11-2022 vitamin k and D3 100/125 Discontinued 1 {tbl} PO 0 November 29, 2020 1:00am December 11, 2022 2:21pm Start: 11-29-2020 End: 12-11-2022 vitamin k and D3 100/125 Dis continued 1 {tbl} PO November 29, 2020 1:00am December 11, 2022 2:21pm Start: 11-29-2020 End: 12-11-2022 vitamin k and D3 100/125 Dis continued 1 TABLET PO November 29, 2020 12:00am December 11, 2022 1:21pm Start: 11-29-2020 End: 12-11-2022 vitamin k and D3 100/125 Dis continued 1 TABLET PO November 29, 2020 1:00am December 11, 2022 2:21pm vitamin k2 0.1 mg oral capsu le (13 sources) Start: 12-11-2022 End: 08-15-2025 Vitamin K2 100 mcg capsule Discontinued 100 ug PO DAILY December 11, 2022 1:00am August 15, 2025 1:58pm Problems Active Problems Problem Classification Problem Date Documented Da te Episodic/Chronic Cardiac dysrhythmias (20 sources) Paroxysmal atrial fibrillation; Translations: [Paroxysmal atrial fibrillation] Onset: 09-05-2012 09-05-2012 Chronic E Codes: Fall (11 sources) Fall; Translations: [Unspecified fall, initial encounter] Onset: 08-15-2025 03-05-2024 Episodic Essential hypertension (19 sources) Hypertensive disorder; Translations: [Essential hypertension] Onset: 09-05-2012 09-05-2012 Chronic Comment on above: CONTROLLED WITH MED Heart valve disorders (2 sources) Nonrheumatic mitral (valve) insufficiency; Translations: [Nonrheumatic mitral (valve) insufficiency] Onset: 04-10-2017 04-10-2017 Chronic Immunizations and screening for infectious disease (20 sources) Patient encounter status; Translations: [Encounter for screening for COVID-19] 12-06-2021 Episodic Open wounds of head; neck; and trunk (3 sources) Laceration of forehead; Translations: [Laceration without foreign body of other part of head, initial encounter] Onset: 08-15-2025 08-15-2025 Episodic Other aftercare (5 sources) Long-term current use of drug therapy; Translations: [Encounter for therapeutic drug level monitoring] 12-06-2021 Episodic Other connective tissue disease (12 sources) History of right shoulder arthroplasty; Translations: [Presence of right artificial shoulder joint] 09-03-2023 Chronic Other connective tissue disease (2 sources) Presence of right artificial shoulder joint; Translations: [Shoulder joint replacement] 08-26-2023 Chronic Other fractures (1 source) Fracture of cervical spine; Translations: [Fracture of neck, unspecified, initial encounter] 08-15-2025 Episodic Other fractures (1 source) Other nondisplaced fracture of fifth cervical vertebra, initial encounter for closed fracture; Translations: [Other closed nondisplaced fracture of fifth cervical vertebra, initial encounter ([facility])] Onset: 08-17-2025 Episodic Other injuries and conditions due to external causes (7 sources) Injury of head; Translations: [Unspecified injury of head, initial encounter] 03-05-2024 Episodic Other injuries and conditions due to external causes (2 sources) Unspecified injury of head, initial encounter; Translations: [Head injury, unspecified] 03-05-2024 Episodic Other injuries and conditions due to external causes (5 sources) Contusion; Translations: [Other injury of unspecified body region, initial encounter] 03-11-2024 Episodic Comment on above: L thigh is improving . Other injuries and conditions due to external causes (1 source) Closed injury of head; Translations: [Unspecified injury of head, initial encounter] 08-15-2025 Episodic Other nervous system disorders (7 sources) Difficulty walking; Translations: [Difficulty in walking, not elsewhere classified] 03-05-2024 Chronic Other nervous system disorders (2 sources) Difficulty in walking, not elsewhere classified; Translations: [Difficulty in walking] 03-05-2024 Chronic Other nervous system disorders (7 sources) H/O: brain disorder; Translations: [Personal history of other diseases of the nervous system and sense organs] 03-05-2024 Episodic Other nervous system disorders (2 sources) Personal history of other diseases of the nervous system and sense organs; Translations: [Personal history of other disorders of nervous system and sense organs] 03-05-2024 Episodic Other nutritional; endocrine; and metabolic disorders (16 sources) Body mass index (BMI) 33.0-33.9, adult; Translations: [Body mass index (BMI) 31.0-31.9, adult] Onset: 09-09-2015 Resolved: 02-26-2017 09-09-2015 Chronic Other screening for suspected conditions (not mental disorders or infectious disease) (6 sources) D-dimer above reference range; Translations: [Other specified abnormal findings of blood chemistry] Onset: 07-20-2025 07-23-2025 Episodic Comment on above: Doppler shows clot i n R gastronemieus vein, chronic DVT L leg Phlebitis; thrombophlebitis and thromboembolism (15 sources) Chronic deep venous thrombosis; Translations: [Chronic embolism and thrombosis of unspecified deep veins of unspecified lower extremity] Onset: 07-20-2025 02-26-2024 Chronic Phlebitis; thrombophlebitis and thromboembolism (20 sources) Deep venous thrombosis of lower extremity; Translations: [Acute embolism and thrombosis of unspecified deep veins of unspecified lower extremity] Onset: 07-20-2025 02-26-2024 Episodic Comment on above: Doppler on 02/25/2024 reviewed, shows chronic L DVT. She is still on Eliquis.D-dimers <0.27 today, can stop Eliquis, Doppler on 02/25/2024 reviewed, showed chronic L DVT. Off Eliquis, D-dimers are elevated. Residual codes; unclassified (5 sources) Edema of left lower limb; Translations: [Localized edema] 04-03-2024 Episodic Superficial injury; contusion (20 sources) Contusion of thigh; Translations: [Contusion of unspecified thigh, initial encounter] 02-26-2024 Episodic Comment on above: Medial aspect of L t high. Unclassified (1 source) Unknown / UNK(Unknown) Onset: 07-22-2018 Unclassified (1 source) Established Patient Onset: 09-03-2025 Past or Other Problems Problem Classification Problem Date Documented Date Episodic/Chronic Abdominal hernia (4 sources) Inguinal hernia without obstruction AND without gangrene; Translations: [Unilateral inguinal hernia, without obstruction or gangrene, not specified as recurrent] Onset: 07-26-2016 07-26-2016 Episodic Malaise and fatigue (7 sources) Malaise and fatigue; Translations: [Fatigue] Onset: 09-05-2012 04-10-2017 Episodic Other circulatory disease (8 sources) Electrocardiogram abnormal; Translations: [Abnormal electrocardiogram [ECG] [EKG]] Onset: 09-05-2012 Resolved: 09-09-2015 09-09-2015 Episodic Other lower respiratory disease (2 sources) Dyspnea on exertion; Translations: [Other forms of dyspnea] Onset: 04-10-2017 04-10-2017 Episodic Other non-traumatic joint disorders (1 source) Pain in right shoulder; Translations: [Pain in right shoulder] Onset: 12-30-2024 Episodic Unclassified (8 sources) Preoperative cardiovascular examination ; Translations: [Encounter for preprocedural cardiovascular examination] Onset: 09-05-2012 Resolved: 09-09-2015 09-09-2015 Unclassified (1 source) Wedge compression fracture of fourth lumbar vertebra, initial encounter for closed fracture Onset: 07-22-2018 Results Test Name Value Interpretation Reference Range Facility [facility] 09-03-2025 CNOV Office Visit (NEAGCL M) ANNABELLE VENTURA ([id number]) 1945 F Date Time Provider Department 09/03/25 3:00 PM SARAH MARTIN NEAGCLM During your visit today, we recorded the following information about you: Pulse Respiration Blood pressure Height 57/minute 16/minute 105/68 1.6 m Sarah Martin APRN.CNP 09/03/2025 4:55 PM Signed SPINE SURGERY FOLLOW UP NOTE CRISTIAN Haro Date of visit: September 03, 2025 Patient Name: Mrs.Shirley Tessa Ventura Date of : 1945 Current Age: [age] year old Sex: female MRN/E# [id number] Last Office Visit: Visit date not found Chief Complaint: No chief complaint on file. HPI Mrs.Shirley Tessa Ventura has a [facility] Parkinson's disease, Afib on Xarelto. She presented to [facility] After a fall on 08/15/2025. Per chart review, patient reported she was seated at desk watching [employer] when she attempted to get up and missed the brake of rollator, striking her head on desk. She denied LOC. At outside ED they repaired facial LAC and found unilateral right C5 facet fracture. She was transferred to [facility] for further evaluation. Neurosurgery, Dr. Mccray, consulted for unilateral facet fracture at C5, L4 bridging osteophyte fx, age indeterminate L5 compression fx. Dr. Mccray recommended nonoperative treatment and conservative treatment to include cervical collar for a total of 3 months and no bracing required for lumbar fractures. She was discharged on 08/17/2025 with instructions to follow-up outpatient with neurosurgery for continued monitoring of fractures. Of note, trauma workup demonstrated incidental finding of multiple pulmonary nodules. Per chart review, upon hospital discharge instructions patient was recommended to follow-up with primary care provider for further monitoring. She presents to the office today for continued monitoring of unilateral facet fracture at C5, L4 bridging osteophyte fx, age indeterminate L5 compression fx- 2 weeks since initial injury. Today she reports: -Currently participating in physical therapy at longterm facility. Anticipates discharge from longterm facility hopefully soon. - Reports chronic pain that is managed with Oxy IR every 6 hours. Chronic pain has been ongoing since prior to fall and medication managed by PCP. - Denies significant pain in neck or low back at this time. - Reports chronic pain in right shoulder that has been ongoing since prior to fall - Denies new weakness, feels she is gradually improving strength at nursing facility - Reports compliance with activity restrictions including cervical collar. PAIN EVALUATION No data found in the last 1 encounters. No past medical history on file. No past surgical history on file. No family history on file. ALLERGIES No Known Allergies Current Outpatient Medications Medication Sig Dispense Refill acetaminophen (TYLENOL) 325 mg tablet Take 2 tablets by mouth every 6 hours as needed for pain. DULoxetine DR (CYMBALTA) 40 mg capsule Take 40 mg by mouth once daily. carbidopa-levodopa CR (SINEMET CR) 25-100 mg per tablet Take 1 tablet by mouth. Take at 8-2-8. hydrOXYchloroQUINE (PLAQUENIL) 200 mg tablet Take 200 mg by mouth two times a day. XARELTO 20 mg tablet 1 tablet once daily. flecainide (TAMBOCOR) 50 mg tablet 1 tablet twice daily. multivitamin tablet 1 tablet once daily. DAIRY DIGESTIVE SUPPLEMENT 9,000 unit tab 1 tablet once daily. potassium gluconate 550 mg (90 mg) tab 1 tablet once daily. Lactobacillus acidophilus (ACIDOPHILUS ORAL) 1 tablet once daily. CARTIA XT 120 mg 24 hr capsule 1 tablet once daily. calcium citrate/vitamin D3 (CALCIUM CITRATE + D ORAL) 1 tablet once daily. magnesium oxide 400 mg cap Take 1 capsule by mouth once daily. Biotin 10,000 mcg cap Take 1 capsule by mouth once daily. alendronate (FOSAMAX) 70 mg tablet Take 70 mg by mouth. 1 No current facility-administered medications for this visit. REVIEW OF SYSTEMS Review of Systems Constitutional: Positive for activity change. Musculoskeletal: Positive for gait problem. Negative for back pain and neck pain. Neurological: Negative for weakness and headaches. Psychiatric/Behavioral : Negative for agitation and behavioral problems. OBJECTIVE: There were no vitals taken for this visit. PHYSICAL EXAM: General appearance: Well nourished, well developed, and no apparent distress. Mental State : Alert, memory function unremarkable. Oriented to person, place and time. Pulmonary: Respirations regular and unlabored. Skin: Intact, warm, dry. MUSCULOSKELETAL Sensory: Sensation intact to light touch Motor: Normal muscle tone and bulk. No tremor or uncontrollable movements. Gait and Station: In wheelchair Range of motion: Cervical: Restricted range of motion, cervical collar maintained. Lumbar: Normal range of motion, no tenderness. (more content not included)... [facility] XR CERVICAL 2V AP/LATon 08-18 XR CERVICAL 2V AP/LAT * * *Final Report* * * DATE OF EXAM: Sep 03 2025 2:41PM A1X 5308 - XR CERVICAL 2V AP/LAT / PROCEDURE REASON: Other closed nondisplaced fracture of fifth cervical vertebra, initial encounter * * * * Physician Interpretation * * * * EXAMINATION / TECHNIQUE: XR CERVICAL 2V AP/LAT HISTORY: C5 facet fx, fall 08/15/2025, follow up, no neck compalnints Other closed nondisplaced fracture of fifth cervical vertebra, initial encounter ([facility]) COMPARISON: 08/16/25. RESULT: See impression IMPRESSION: Right C5 facet fracture is better appreciated on prior CT. Otherwise, vertebral body heights, sagittal alignment, and disc spaces are unchanged. Prevertebral soft tissues are normal. [facility] Supervisor[facility] Transcribe Date/Time: Sep 09 2025 7:50A Dictated by : KAMILAH SULLIVAN MD This examination was interpreted and the report reviewed and electronically signed by: KAMILAH SULLIVAN MD on Sep 09 2025 7:51AM EST [id number] [facility] XR LUMBAR 2V AP/LATon 2024 XR LUMBAR 2V AP/LAT * * *Final Report* * * DATE OF EXAM: Sep 03 2025 2:40PM A1X 5229 - XR LUMBAR 2V AP/LAT / PROCEDURE REASON: Other closed nondisplaced fracture of fifth cervical vertebra, initial encounter * * * * Physician Interpretation * * * * EXAMINATION / TECHNIQUE: XR LUMBAR 2V AP/LAT HISTORY: L5 fx, follow up, low back pain insteady on feet Other closed nondisplaced fracture of fifth cervical vertebra, initial encounter ([facility]) COMPARISON: 08/15/2025. RESULT: See Impression IMPRESSION: L4 and L5 fractures described on recent CT are not as well appreciated on this exam. Status post L4 vertebral body augmentation. Sagittal alignment and disc spaces are unchanged. [facility] Supervisor: [facility] Transcribe Date/Time: Sep 09 2025 7:51A Dictated by : KAMILAH SULLIVAN MD This examination was interpreted and the report reviewed and electronically signed by: KAMILAH SULLIVAN MD on Sep 09 2025 7:52AM EST [id number] [facility] 08-30-2025 [facility] Telephone (NEAGCLM) ANNABELLE VENTURA ([id number]) 1945 F Date Time Provider Department 08/30/25 MANUEL WHITT [facility] During your visit today, we recorded the following information about you: Lani Guzman 08/31/2025 10:13 AM Signed I returned patient , first number kept ringing and disconnected. I called patient phone directly leaving a that appt on 08/31 was cancelled per her request and provided on the the phone number for patient to call and get medical records patient is requesting Allergies As of Date: 08/30/2025 (No Known Allergies) Date Reviewed: 08/15/2025 Reviewed by: Aniyah Dee, VALERIANO - Fully Assessed Prescriptions as of 08/31/2025 - acetaminophen (TYLENOL) 325 mg tablet Take 2 tablets by mouth every 6 hours as needed for pain. - DULoxetine DR (CYMBALTA) 40 mg capsule Take 40 mg by mouth once daily. - carbidopa-levodopa CR (SINEMET CR) 25-100 mg per tablet Take 1 tablet by mouth. Take at 8-2-8. - hydrOXYchloroQUINE (PLAQUENIL) 200 mg tablet Take 200 mg by mouth two times a day. - XARELTO 20 mg tablet 1 tablet once daily. - flecainide (TAMBOCOR) 50 mg tablet 1 tablet twice daily. - multivitamin tablet 1 tablet once daily. - DAIRY DIGESTIVE SUPPLEMENT 9,000 unit tab 1 tablet once daily. - potassium gluconate 550 mg (90 mg) tab 1 tablet once daily. - Lactobacillus acidophilus (ACIDOPHILUS ORAL) 1 tablet once daily. - CARTIA XT 120 mg 24 hr capsule 1 tablet once daily. - calcium citrate/vitamin D3 (CALCIUM CITRATE + D ORAL) 1 tablet once daily. - magnesium oxide 400 mg cap Take 1 capsule by mouth once daily. - Biotin 10,000 mcg cap Take 1 capsule by mouth once daily. - alendronate (FOSAMAX) 70 mg tablet Take 70 mg by mouth. Problem List As Of Date 08/30/2025 Noted Resolved Chronic low back pain without sciatica [M54.50,*10/02/2018 Trauma [T14.90XA] 08/15/2025 Closed nondisplaced fracture of fifth cervical *08/15/2025 Obesity, Class II, BMI 35-39.9 [E66.812] 08/17/2025 Closed compression fracture of L5 lumbar verteb*08/17/2025 Encounter Status:Closed by LANI GUZMAN on 08/31/25 [facility] CBC-Complete Blood Cnt No Di ffon 08-24-2025 Erythrocyte distribution width (RBC) [Ratio] 13.2 % Normal 11.6-14.6 [facility] Comment on above: Performed By: #### L 501.9310, L500.4050, L100.0500, L501.9985, L501.9520, L500.4100 #### [facility] Laboratory [address] [place], [place], [id number] Hematocrit (Bld) [Volume fraction] 42.5 % Normal 37-47 [facility] Comment on above: Performed By: #### L 501.9310, L500.4050, L100.0500, L501.9985, L501.9520, L500.4100 #### [facility] [address] [place], [address] Hemoglobin (Bld) [Mass/Vol] 13.7 g/dL Normal 12.0-15.0 [facility] Comment on above: Performed By: #### L [id number], L500.4050, L100.0500, L501.9985, L501.9520, L500.4100 #### [facility] [address] [place], [address] MCH (RBC) [Entitic mass] 32.3 pg High 27.0-32.0 [facility] Comment on above: Performed By: #### L 501.9310, L500.4050, L100.0500, L501.9985, L501.9520, L500.4100 #### [facility] [address] [place], [address] MCHC (RBC) [Mass/Vol] 32.2 g/dL Normal 32-36 [facility] Comment on above: Performed By: #### L 501.9310, L500.4050, L100.0500, L501.9985, L501.9520, L500.4100 #### [facility] [address] [place], [address] MCV (RBC) [Entitic vol] 100.2 fL High 81-99 [facility] Comment on above: Performed By: #### L 501.9310, L500.4050, L100.0500, L501.9985, L501.9520, L500.4100 #### [facility] [address] [place], [address] Platelet mean volume (Bld) [Entitic vol] 10.6 fL Normal 6.2-12.0 [facility] Comment on above: Performed By: #### L 501.9310, L500.4050, L100.0500, L501.9985, L501.9520, L500.4100 #### [facility] [address] [place], [address] Platelets (Bld) [#/Vol] 321 10*3/uL Normal 150-450 [facility] Comment on above: Performed By: #### L 501.9310, L500.4050, L100.0500, L501.9985, L501.9520, L500.4100 #### [facility] [address] [place], [address] RBC (Bld) [#/Vol] 4.24 10*6/uL Normal 4.2-5.4 [facility] Comment on above: Performed By: #### L 501.9310, L500.4050, L100.0500, L501.9985, L501.9520, L500.4100 #### [facility] [address] [place], [address] RDW SD 48.9 fl High 35.1-43.9 [facility] Comment on above: Performed By: #### L 501.9310, L500.4050, L100.0500, L501.9985, L501.9520, L500.4100 #### [facility] [address] [place], [address] WBC (Bld) [#/Vol] 6.8 10*3/uL Normal 4.4-11.0 [facility] Comment on above: Performed By: #### L 501.9310, L500.4050, L100.0500, L501.9985, L501.9520, L500.4100 #### [facility] [address] [place], [address] Comprehensive Metabolic Prof ilon 08-24-2025 Albumin [Mass/Vol] 3.6 g/dL Normal 3.4-4.8 [facility] Comment on above: Performed By: #### L 501.9310, L500.4050, L100.0500, L501.9985, L501.9520, L500.4100 ####[facility] [id number] [place], [address] Albumin/Globulin [Mass ratio] 1.5 {ratio} Normal 0.9-2.4 [facility] Comment on above: Performed By: #### L 501.9310, L500.4050, L100.0500, L501.9985, L501.9520, L500.4100 ####[facility] [id number] [place], [address] ALK PHOS 86 U/L Normal 35-104 [facility] Comment on above: Performed By: #### L 501.9310, L500.4050, L100.0500, L501.9985, L501.9520, L500.4100 ####[facility] [id number] [place], [address] ALT [Catalytic activity/Vol] 7 U/L Normal <=34 [facility] Comment on above: Performed By: #### L 501.9310, L500.4050, L100.0500, L501.9985, L501.9520, L500.4100 ####[facility] [id number] [place], [address] AST [Catalytic activity/Vol] 22 U/L Normal <=31 [facility] Comment on above: Performed By: #### L 501.9310, L500.4050, L100.0500, L501.9985, L501.9520, L500.4100 ####[facility] [id number] [place], [address] Bilirubin [Mass/Vol] 0.30 mg/dL Normal 0.00-1.30 [facility] Comment on above: Performed By: #### L 501.9310, L500.4050, L100.0500, L501.9985, L501.9520, L500.4100 ####[facility] [id number] [place], [address] BUN/CRE 26.1 RATIO High 10-20 [facility] Comment on above: Performed By: #### L 501.9310, L500.4050, L100.0500, L501.9985, L501.9520, L500.4100 ####[facility] [id number] [place], [address] Calcium [Mass/Vol] 9.2 mg/dL Normal 7.6-11.0 [facility] Comment on above: Performed By: #### L 501.9310, L500.4050, L100.0500, L501.9985, L501.9520, L500.4100 ####[facility] [address] [place], [address] Chloride [Moles/Vol] 104 mmol/L Normal 98-108 [facility] Comment on above: Performed By: #### L 501.9310, L500.4050, L100.0500, L501.9985, L501.9520, L500.4100 ####[facility] [address] [place], [address] CO2 [Moles/Vol] 22.1 mmol/L Normal 21.0-32.0 [facility] Comment on above: Performed By: #### L 501.9310, L500.4050, L100.0500, L501.9985, L501.9520, L500.4100 ####[facility] [address] [place], [address] Creatinine [Mass/Vol] 0.69 mg/dL Low 0.70-1.20 [facility] Comment on above: Performed By: #### L 501.9310, L500.4050, L100.0500, L501.9985, L501.9520, L500.4100 ####[facility] [address] [place], [address] GAP 15 Normal 5-15 [facility] Comment on above: Performed By: #### L 501.9310, L500.4050, L100.0500, L501.9985, L501.9520, L500.4100 ####[facility] [address] [place], [address] GFR/1.73 sq M.predicted among non-blacks MDRD (S/P/Bld) [Vol rate/Area] 88 mL/min/{1.73_m2} Normal >60 [facility] Comment on above: Result Comment: mL/m in/1.73m2 CKD-EPI Creatinine Equation (2020) Performed By: #### L 501.9310, L500.4050, L100.0500, L501.9985, L501.9520, L500.4100 ####[facility] [address] [place], [address] Globulin (S) [Mass/Vol] 2.5 g/dL Normal 2.2-4.2 [facility] Comment on above: Performed By: #### L 501.9310, L500.4050, L100.0500, L501.9985, L501.9520, L500.4100 ####[facility] [address] [place], [address] Glucose [Mass/Vol] 98 mg/dL Normal 70-99 [facility] Comment on above: Performed By: #### L 501.9310, L500.4050, L100.0500, L501.9985, L501.9520, L500.4100 ####[facility] [address] [place], [address] Potassium [Moles/Vol] 3.8 mmol/L Normal 3.3-5.1 [facility] Comment on above: Performed By: #### L 501.9310, L500.4050, L100.0500, L501.9985, L501.9520, L500.4100 ####[facility] [address] [place], [address] Sodium [Moles/Vol] 141 mmol/L Normal 133-145 [facility] Comment on above: Performed By: #### L 501.9310, L500.4050, L100.0500, L501.9985, L501.9520, L500.4100 ####[facility] [address] [place], [address] T PROT 6.1 g/dL Normal 5.9-8.4 [facility] Comment on above: Performed By: #### L 501.9310, L500.4050, L100.0500, L501.9985, L501.9520, L500.4100 ####[facility] [address] [place], [address] Urea nitrogen [Mass/Vol] 18 mg/dL Normal 4-19 [facility] Comment on above: Performed By: #### L 501.9310, L500.4050, L100.0500, L501.9985, L501.9520, L500.4100 ####[facility] [address] [place], [address] Hemoglobin A1con 08-24-2025 HbA1c (Bld) [Mass fraction] 5.6 % Normal <=5.6 [facility] Comment on above: Result Comment: Norm al < 5.7 % Prediabetic 5.7 - 6.4 % Diabetic >or= 6.5 % Please note range changes. Performed By: #### L 501.9310, L500.4050, L100.0500, L501.9985, L501.9520, L500.4100 #### [facility] Laboratory [address] [place], [address] Lipid Profileon 08-24-2025 CHOL:HDL 3.38 Normal [facility] Comment on above: Performed By: #### L 501.9310, L500.4050, L100.0500, L501.9985, L501.9520, L500.4100 ####[facility] [address] [place], [address] Cholesterol [Mass/Vol] 157 mg/dL Normal <=200 [facility] Comment on above: Result Comment: Chol esterol level, Desirable <200 mg/dL Borderline high cholesterol 200-239 mg/dL High cholesterol >=240 mg/dL Recommendations of the NCEP Adult Treatment Panel for the following risk-cutoff thresholds for the [place] population. Performed By: #### L 501.9310, L500.4050, L100.0500, L501.9985, L501.9520, L500.4100 ####[facility] [address] [place], [address] Cholesterol in HDL [Mass/Vol] 47 mg/dL Normal [facility] Comment on above: Result Comment: Argenis onal Cholesterol Education Program (NCEP) guidelines: <40 mg/dL: Low HDL-cholesterol (major risk factor for CHD) >= 60 mg/dL: High HDL-cholesterol (negative risk factor for CHD) HDL-cholesterol is affected by a number of factors, e.g. smoking, exercise, hormones, sex and age. Performed By: #### L 501.9310, L500.4050, L100.0500, L501.9985, L501.9520, L500.4100 ####[facility] [address] [place], [address] Cholesterol in LDL [Mass/Vol] 73 mg/dL Normal [facility] Comment on above: Result Comment: Bord luxkpa=721-607 mg/dL Higher Ctlc=444 mg/dL or greater Friedwald Equation for LDL-C Performed By: #### L 501.9310, L500.4050, L100.0500, L501.9985, L501.9520, L500.4100 ####[facility] [address] [place], [address] Cholesterol in VLDL [Mass/Vol] 38 mg/dL Normal 5-40 [facility] Comment on above: Performed By: #### L 501.9310, L500.4050, L100.0500, L501.9985, L501.9520, L500.4100 ####[facility] [address] [place], [address] Triglyceride [Mass/Vol] 188 mg/dL Normal [facility] Comment on above: Result Comment: The drugs N-Acetylcysteine and Metamizole may falsely depress this assay. Normal range: <150 mg/dL Borderline High: 150-199 mg/dL High: 200-499 mg/dL Very High: >500 mg/dL Performed By: #### L 501.9310, L500.4050, L100.0500, L501.9985, L501.9520, L500.4100 ####[facility] [address] [place], [address] T4 Total, Thyroxinon 025 T4 [Mass/Vol] 5.8 ug/dL Normal 4.8-13.9 [facility] Comment on above: Performed By: #### L 501.9310, L500.4050, L100.0500, L501.9985, L501.9520, L500.4100 ####[facility] [address] [place], [address] Thyroid Stim Hormone (TSH)on 08-24-2025 TSH 1.860 uIU/mL Normal 0.300-4.200 [facility] Comment on above: Performed By: #### L 501.9310, L500.4050, L100.0500, L501.9985, L501.9520, L500.4100 ####[facility] [address] [place], [address] Basic metabolic 2000 panelon 08-17-2025 Anion gap [Moles/Vol] 14 mmol/L Normal 8-15 [facility] Comment on above: Order Comment: Speci men Type: BLOOD SPECIMENOrdering Facility: [facility] Address: [address] [place] [address] Performed By: #### 2 4321-2 ####[facility] LABORATORYCLIA [id number] [place] [address] [place] Calcium [Mass/Vol] 9.2 mg/dL Normal 8.5-10.2 [facility] Comment on above: Order Comment: Speci men Type: BLOOD SPECIMENOrdering Facility: [facility] Address: [address] [place] [address] Performed By: #### 2 4321-2 ####[facility] LABORATORYCLIA [id number] [place] [address] [place] Chloride [Moles/Vol] 102 mmol/L Normal 98-107 [facility] Comment on above: Order Comment: Speci men Type: BLOOD SPECIMENOrdering Facility: [facility] Address: [address] [place] [address] Performed By: #### 2 4321-2 ####[facility] LABORATORYCLIA [id number] [place] [address] [place] CO2 [Moles/Vol] 22 mmol/L Normal 22-30 [facility] Comment on above: Order Comment: Speci men Type: BLOOD SPECIMENOrdering Facility: [facility] Address: [address] [place] [address] Performed By: #### 2 4321-2 ####[facility] LABORATORYCLIA [id number] [place] [address] [place] Creatinine [Mass/Vol] 0.63 mg/dL Normal 0.58-0.96 [facility] Comment on above: Order Comment: Speci men Type: BLOOD SPECIMENOrdering Facility: [facility] Address: [address] [place] [address] Performed By: #### 2 4321-2 ####[facility] [id number] [address] [place] eGFRcr SerPlBld CKD-EPI 2020 90 mL/min/1.73m??? Normal >=60 [facility] Comment on above: Order Comment: Wendie rl Type: BLOOD SPECIMENOrdering Facility: [facility] Address: [address] [place] [address] Result Comment: Erma mated Glomerular Filtration Rate (eGFR) is calculated using the 2020 CKD-EPI creatinine equation. This equation utilizes serum creatinine, sex, and age as parameters. The creatinine assay has traceable calibration to isotope dilution-mass spectrometry. Refer to KDIGO guidelines for clinical interpretation. In patients with unstable renal function, e.g. those with acute kidney injury, the eGFR may not accurately reflect actual GFR. Performed By: #### 2 4321-2 ####[facility] [id number] [place] [address] [place] Glucose [Mass/Vol] 103 mg/dL High 74-99 [facility] Comment on above: Order Comment: Wendie shine Type: BLOOD SPECIMENOrdering Facility: [facility] Address: [address] [place] [address] Result Comment: The [place] Diabetes Association (ADA) provides guidance for cutoff values for fasting glucose and random glucose. The ADA defines fasting as no caloric intake for at least 8 hours. Fasting plasma glucose results between 100 to 125 mg/dL indicate increased risk for diabetes (prediabetes). Fasting plasma glucose results greater than or equal to 126 mg/dL meet the criteria for diagnosis of diabetes. In the absence of unequivocal hyperglycemia, results should be confirmed by repeat testing. In a patient with classic symptoms of hyperglycemia or hyperglycemic crisis, random plasma glucose results greater than or equal to 200 mg/dL meet the criteria for diagnosis of diabetes. Reference: Standards of Medical Care in Diabetes 2016, [place] [employer]. Diabetes Care. 2016.39(Suppl 1). Performed By: #### 2 4321-2 ####[facility] [id number] [place] [address] [place] Potassium [Moles/Vol] 3.6 mmol/L Low 3.7-5.1 [facility] Comment on above: Order Comment: Speci men Type: BLOOD SPECIMENOrdering Facility: [facility] Address: [address] [place] [address] Performed By: #### 2 4321-2 ####[facility] LABORATORYCLIA [id number] [place] [id number] [place] Sodium [Moles/Vol] 138 mmol/L Normal 136-144 [facility] Comment on above: Order Comment: Speci men Type: BLOOD SPECIMENOrdering Facility: [facility] Address: [address] [place] [address] Performed By: #### 2 4321-2 ####[facility] LABORATORYCLIA [id number] [address] STATES [facility] Urea nitrogen [Mass/Vol] 16 mg/dL Normal 7-21 [facility] Comment on above: Order Comment: Speci men Type: BLOOD SPECIMENOrdering Facility: [facility] Address: [address] [place] [address] Performed By: #### 2 4321-2 ####[facility] LABORATORYCLIA [id number] [address] [place] CBC panel Auto (Bld)on 08-17 Erythrocyte distribution width (RBC) [Ratio] 12.9 % Normal 11.5-15.0 [facility] Comment on above: Order Comment: Speci men Type: BLOOD SPECIMENOrdering Facility: [facility] Address: [address] [place] [address] Performed By: #### 5 8410-2 ####[facility] LABORATORYCLIA [id number] [address] Hematocrit (Bld) [Volume fraction] 44.9 % Normal 36.0-46.0 [facility] Comment on above: Order Comment: Speci men Type: BLOOD SPECIMENOrdering Facility: [facility] Address: [address] [place] [address] Performed By: #### 5 8410-2 ####[facility] LABORATORYCLIA [id number] [address] OF [facility] Hemoglobin (Bld) [Mass/Vol] 14.7 g/dL Normal 11.5-15.5 [facility] Comment on above: Order Comment: Speci men Type: BLOOD SPECIMENOrdering Facility: [facility] Address: [address] [place] [address] Performed By: #### 5 8410-2 ####[facility] LABORATORYCLIA [id number] [address] MCH (RBC) [Entitic mass] 32.1 pg Normal 26.0-34.0 [facility] Comment on above: Order Comment: Speci men Type: BLOOD SPECIMENOrdering Facility: [facility] Address: [address] [place] [address] Performed By: #### 5 8410-2 ####[facility] LABORATORYCLIA [id number] [address] MCHC (RBC) [Mass/Vol] 32.7 g/dL Normal 30.5-36.0 [facility] Comment on above: Order Comment: Speci men Type: BLOOD SPECIMENOrdering Facility: [facility] Address: [address] [place] [address] Performed By: #### 5 8410-2 ####[facility] LABORATORYCLIA [id number] [address] MCV (RBC) [Entitic vol] 98.0 fL Normal 80.0-100.[address] [facility] Comment on above: Order Comment: Speci men Type: BLOOD SPECIMENOrdering Facility: [facility] Address: [address] [place] [address] Performed By: #### 5 8410-2 ####[facility] LABORATORYCLIA [id number] [address] Nucleated RBC (Bld) [#/Vol] 10*3/uL Normal <0.01 [facility] Comment on above: Order Comment: Speci men Type: BLOOD SPECIMENOrdering Facility: [facility] Address: [facility] [place] [address] Performed By: #### 5 8410-2 ####[facility] LABORATORYCLIA [id number] [place] [address] [place] Platelet mean volume (Bld) [Entitic vol] 10.0 fL Normal 9.0-12.7 [facility] Comment on above: Order Comment: Speci men Type: BLOOD SPECIMENOrdering Facility: [facility] Address: [address] [place] [address] Performed By: #### 5 8410-2 ####[facility] LABORATORYCLIA [id number] [place] [address] [place] Platelets (Bld) [#/Vol] 306 10*3/uL Normal 150-400 [facility] Comment on above: Order Comment: Speci men Type: BLOOD SPECIMENOrdering Facility: [facility] Address: [address] [place] [address] Performed By: #### 5 8410-2 ####[facility] LABORATORYCLIA [id number] [place] [address] [place] RBC (Bld) [#/Vol] 4.58 10*6/uL Normal 3.90-5.20 [facility] Comment on above: Order Comment: Speci men Type: BLOOD SPECIMENOrdering Facility: [facility] Address: [address] [place] [address] Performed By: #### 5 8410-2 ####[facility] LABORATORYCLIA [id number] [place] [address] [place] WBC (Bld) [#/Vol] 8.16 10*3/uL Normal 3.70-11.00 [facility] Comment on above: Order Comment: Speci men Type: BLOOD SPECIMENOrdering Facility: [facility] Address: [address] [place] [address] Performed By: #### 5 8410-2 ####[facility] [id number] [address] OF [facility] CNDSon 08-17-2025 CN HNO ID: [id number] Author: ENRIKE JIMENEZ PA-C Service: General Surgery Author Type: Physician Day Care Assistant Type: Discharge Summary Filed: 08/17/2025 10:24 Note Text: Attestation signed by Genny Syed MD at 08/17/2025 3:46 PM The NAT, acting on behalf of the attending physician, has completed the [id number] portion of the patient discharge encounter. SIGNATURE: Genny Syed MD PATIENT NAME: Annabelle Ventura DATE: August 17, 2025 TIME: 3:46 PM Pager: [phone] DISCHARGE SUMMARY PATIENT NAME: Annabelle Ventura Code Status: Full Code Highest Readmission Risk Score: 11 The 30 day readmissions risk score is derived from an internally validated risk model which evaluates patient level characteristics, utilization history, medication orders and lab results up until the day of discharge. Patients with a score of 39 or above are considered highest risk for readmission. Specific patient level drivers will be listed at the bottom of the summary. Admission Information Admission Information ADMIT DATE: 08/15/2025 DISCHARGE DATE: 08/17/2025 MY DOCTORS AND MEDICAL TEAM: My Main Hospital Doctor: Genny Syed MD Primary Care Provider: Mone Cervantes MD My Medical Team Members: Treatment Team: Attending Provider: Genny Syed MD MY CONDITION AT DISCHARGE: Stable REASON I WAS IN THE HOSPITAL: C5 facet fracture; Age-indeterminate L5 compression fracture SUMMARY OF WHAT HAPPENED WHILE I WAS IN THE HOSPITAL: Annabelle Ventura presented to [facility] on 08/15/2025 as a transfer from [facility] for treatment of injuries sustained during a reported mechanical fall. She sustained a right forehead laceration that was repaired with non-absorbable sutures prior to transfer. CT imaging identified the following injuries: 1. Acute fracture of the right C5 facet joint 2. Age-indeterminate compression fracture at L5 with approximately 10% decrease in the mid vertebral body height Mrs. Ventura was immobilized in a cervical collar and assessed by neurosurgery who recommended non-operative treatment of her cervical spine fracture with continued immobilization in a cervical collar and outpatient follow-up with additional x-ray imaging to assess alignment and healing. Upright imaging of her cervical and lumbar spine completed during admission remained stable. She would not require bracing for her age-indeterminate L5 compression fracture. Pain was controlled with appropriate medications and she remained neurologically intact without deficits. Mrs. Ventura's home Eliquis was temporarily held during admission and may be resume at discharge. She was started on a 5-day course of Macrobid for UTI treatment based on urinalysis. Mrs. Ventura was assessed by physical and occupational therapy who recommended discharge to a longterm facility for further therapy. She was discharged in stable condition on 08/17/2025 and would require outpatient follow-up care with her PCP and neurosurgery. Incidentally, multiple small pulmonary nodules were identified on CT imaging of her chest. Radiology recommended follow-up imaging with repeat CT scan in 24-48 months as indicated. It was recommended that she follow-up with her PCP for further monitoring. OTHER PROBLEMS/DIAGNOSIS: Principal Problem: Trauma Active Problems: Closed nondisplaced fracture of fifth cervical vertebra (HCC) Obesity, Class II, BMI 35-39.9 Closed compression fracture of L5 lumbar vertebra, initial encounter ([facility] Resolved Problems: * No resolved hospital problems. * OPERATIONS PERFORMED WHILE IN THE HOSPITAL: None IMPORTANT TEST/PROCEDURES: No procedures performed TEST RESULTS NOT AVAILABLE AT THIS TIME: No pending results Discharge Disposition Discharge Disposition: Custodial Facility - Less than 30 Days Activity When You Leave the Hospital Do not bend over at the waist to lift heavy objects Lifting is restricted to: 10 pounds or less May bathe and shower May walk with a walker No prolonged bedrest, longer than 8 hours in a 24 hour period Other: Cervical collar to be worn at all times until cleared by neurosurgery at follow-up Diet Instructions Avoid Alcohol Resume your pre-hospital diet For Pain When You Leave the Hospital Continue taking previously prescribed pain medications as directed If you become constipated, you may use any byak-kpd-hmjcpiy treatment such as Milk of Magnesia, Sennakot, Prune Juice, Suppositories, etc. in addition to the stool softener/fiber supplement No alcohol or driving while on pain medication Use acetaminophen (Tylenol) as recommended on the bottle Use the dispensed medication (see prescription) Call Your Doctor If You have a severe headache You h (more content not included)... Normal [facility] THERAPY NTon 08-17-2025 THERAPY NT HNO ID: [id number] Author: CHARLOTTE CHANG CCC-SUPERVISORY AIDE Service: Speech/Swallow Author Type: Speech Language Pathologist Type: Therapy (PT/OT/Speech/Resp) Filed: 08/17/2025 10:27 Note Text: Speech Therapy Clinical Swallow Evaluation SERVICE DATE: 08/17/2025 SERVICE TIME: 0955 to 1010 ROOM: [place] [address] IMPRESSION Functional oropharyngeal phases of swallowing: without identified risk for aspiration RECOMMENDATIONS Diet Recommendations Regular Consistency Thin Liquids IDDSI Level 0 Nursing Recommendations Encourage participation Response to Therapy Interventions: Good participation in activities Rehabilitation Precautions: Dysphagia DISCHARGE RECOMMENDATIONS Recommended Discharge Disposition: No further skilled speech therapy services anticipated CURRENT HOSPITAL COURSE Admit s/p fall with acute fx of R C5 facet joint + forehead laceration. Reason for Speech Therapy Consult: Swallow eval Relevant Past Medical History: Parkinson's; A-fib HOME ENVIRONMENT / PRIOR FUNCTIONAL LEVEL Prior Functional Level: Within Functional Limits Patient Lives With: Self/Alone Prior Swallowing Function/Diet Textures: Regular Consistency, Thin Liquids IDDSI Level 0 SUBJECTIVE Upright in chair, alert and agreeable to evaluation. Denies dysphagia; reports xerostomia THERAPY DIAGNOSIS Dysphagia, unspecified TREATMENT INTERVENTIONS Clinical Swallow Evaluation (52896) Skilled Treatment Time (minutes): 15 $ Clinical Swallow Evaluation (03026) Billed Units: 1 unit TRAINING AND EDUCATION PROVIDED IN Dietary Consistencies, Results and Recommendations of Session THERAPEUTIC SKILLS USED Demonstration / modeling of taught behavior / exercise, Discharge planning, Education on role of discipline / importance of activity OBJECTIVE Current Status Oral Hygiene: Clear, moist oral cavity, Oral Health Assessment Tool (OHAT) Dentition: Retains Natural Dentition Current Feeding Method: Oral Current Diet Textures: Regular Consistency, Thin Liquids IDDSI Level 0 Current Level Of Communication: Verbal Current Management Of Secretions: Able to self-manage Oral Motor Exam: Within Functional Limits ORAL HEALTH ASSESSMENT TOOL Lips: 0 Tongue: 0 Gums and Tissues: 0 Saliva: 0 Natural Teeth: 0 Dentures: 0 Oral Cleanliness: 0 Dental Pain: 0 OHAT Total Score: 0 SWALLOW ASSESSMENT Position Of Patient During Assessment: Upright In Chair Feeding Method: Patient Self-Fed Consistencies Presented: Thin Liquids IDDSI Level 0, Pureed Solids IDDSI Level 4, Solid Thin Liquids Oral Phase: (Clinically unremarkable) Thin Liquids Pharyngeal Phase: (Clinically unremarkable) Pureed Solids Oral Phase: (Clinically unremarkable) Pureed Solids Pharyngeal Phase: (Clinically unremarkable) Solid Oral Phase: Impaired Mastication (Prolonged but complete) Solid Pharyngeal Phase: (Clinically unremarkable) Response to Swallow Interventions: No overt signs of aspiration or dysphagia Compensatory Strategies Utilized During Assessment: Alternate bites and sips, Sit upright 90 degrees for all PO Nicole Swallow Protocol: Pass Suspected Esophageal Deficits: No Pt appears safe for unrestricted PO diet from swallow standpoint as tolerated/medically appropriate. No skilled speech therapy needs identified at this time; will discharge from service. GOALS Patient /Caregiver Goals: Go Home ACUTE CARE TREATMENT PLAN ST Frequency: Discontinue Therapy Services Reasons Inpatient Therapy Services Discontinued: No skilled needs Treatment Interventions: Dysphagia Management SIGNATURE: Charlotte Chang CCC-SUPERVISORY AIDE PATIENT NAME: Annabelle Ventura DATE: August 17, 2025 TIME: 10:25 AM Normal [facility] Basic metabolic 2000 panelon 08-16-2025 Anion gap [Moles/Vol] 12 mmol/L Normal 8-15 [facility] Comment on above: Order Comment: Speci men Type: BLOOD SPECIMENOrdering Facility: [facility] Address: [address] [place] [address] Performed By: #### 2 4321-2 ####[facility] LABORATORYCLIA [id number] [place] [address] [place] Calcium [Mass/Vol] 8.6 mg/dL Normal 8.5-10.2 [facility] Comment on above: Order Comment: Speci men Type: BLOOD SPECIMENOrdering Facility: [facility] Address: [address] [place] [address] Performed By: #### 2 4321-2 ####[facility] LABORATORYCLIA [id number] [place] [address] [place] Chloride [Moles/Vol] 106 mmol/L Normal 98-107 [facility] Comment on above: Order Comment: Speci men Type: BLOOD SPECIMENOrdering Facility: [facility] Address: [address] [place] [address] Performed By: #### 2 4321-2 ####[facility] LABORATORYCLIA [id number] [place] [address] [place] CO2 [Moles/Vol] 22 mmol/L Normal 22-30 [facility] Comment on above: Order Comment: Speci men Type: BLOOD SPECIMENOrdering Facility: [facility] Address: [address] [place] [address] Performed By: #### 2 4321-2 ####[facility] LABORATORYCLIA [id number] [place] [address] [place] Creatinine [Mass/Vol] 0.63 mg/dL Normal 0.58-0.96 [facility] Comment on above: Order Comment: Speci men Type: BLOOD SPECIMENOrdering Facility: [facility] Address: [address] [place] [address] Performed By: #### 2 4321-2 ####[facility] LABORATORYCLIA [id number] [place] [address] [place] eGFRcr SerPlBld CKD-EPI 2020 90 mL/min/1.73m??? Normal >=60 [facility] Comment on above: Order Comment: Speci men Type: BLOOD SPECIMENOrdering Facility: [facility] Address: [address] [place] [address] Result Comment: Erma mated Glomerular Filtration Rate (eGFR) is calculated using the 2020 CKD-EPI creatinine equation. This equation utilizes serum creatinine, sex, and age as parameters. The creatinine assay has traceable calibration to isotope dilution-mass spectrometry. Refer to KDIGO guidelines for clinical interpretation. In patients with unstable renal function, e.g. those with acute kidney injury, the eGFR may not accurately reflect actual GFR. Performed By: #### 2 4321-2 ####[facility] LABORATORYCLIA [id number] [place] [address] [place] Glucose [Mass/Vol] 88 mg/dL Normal 74-99 [facility] Comment on above: Order Comment: Speci men Type: BLOOD SPECIMENOrdering Facility: [facility] Address: [address] [place] [address] Result Comment: The [place] [employer] (ADA) provides guidance for cutoff values for fasting glucose and random glucose. The ADA defines fasting as no caloric intake for at least 8 hours. Fasting plasma glucose results between 100 to 125 mg/dL indicate increased risk for diabetes (prediabetes). Fasting plasma glucose results greater than or equal to 126 mg/dL meet the criteria for diagnosis of diabetes. In the absence of unequivocal hyperglycemia, results should be confirmed by repeat testing. In a patient with classic symptoms of hyperglycemia or hyperglycemic crisis, random plasma glucose results greater than or equal to 200 mg/dL meet the criteria for diagnosis of diabetes. Reference: Standards of Medical Care in Diabetes 2016, [place] [employer]. Diabetes Care. 2016.39(Suppl 1). Performed By: #### 2 4321-2 ####[facility] LABORATORYCLIA [id number] [place] [address] [place] Potassium [Moles/Vol] 4.1 mmol/L Normal 3.7-5.1 [facility] Comment on above: Order Comment: Speci men Type: BLOOD SPECIMENOrdering Facility: [facility] Address: [address] [id number] Performed By: #### 2 4321-2 ####[facility] LABORATORYCLIA [id number] [place] [address] [place] Sodium [Moles/Vol] 140 mmol/L Normal 136-144 [facility] Comment on above: Order Comment: Speci men Type: BLOOD SPECIMENOrdering Facility: [facility] Address: [address] [place] [address] Performed By: #### 2 4321-2 ####[facility] LABORATORYCLIA [id number] [place] [id number] [place] [facility] Urea nitrogen [Mass/Vol] 14 mg/dL Normal 7-21 [facility] Comment on above: Order Comment: Speci men Type: BLOOD SPECIMENOrdering Facility: [facility] Address: [address] [place] [address] Performed By: #### 2 4321-2 ####[facility] LABORATORYCLIA [id number] [address] STATES [facility] CBC panel Auto (Bld)on 08-16 Erythrocyte distribution width (RBC) [Ratio] 13.0 % Normal 11.5-15.0 [facility] Comment on above: Order Comment: Speci men Type: BLOOD SPECIMENOrdering Facility: [facility] Address: [address] [place] [address] Performed By: #### 5 8410-2 ####[facility] LABORATORYCLIA [id number] [address] STATES OF [facility] Hematocrit (Bld) [Volume fraction] 41.9 % Normal 36.0-46.0 [facility] Comment on above: Order Comment: Speci men Type: BLOOD SPECIMENOrdering Facility: [facility] Address: [address] [place] [address] Performed By: #### 5 8410-2 ####[facility] LABORATORYCLIA [id number] [address] [place] Hemoglobin (Bld) [Mass/Vol] 13.5 g/dL Normal 11.5-15.5 [facility] Comment on above: Order Comment: Speci men Type: BLOOD SPECIMENOrdering Facility: [facility] Address: [address] [place] [address] Performed By: #### 5 8410-2 ####[facility] LABORATORYCLIA [id number] [address] [place] MCH (RBC) [Entitic mass] 32.2 pg Normal 26.0-34.0 [facility] Comment on above: Order Comment: Speci men Type: BLOOD SPECIMENOrdering Facility: [facility] Address: [address] [place] [address] Performed By: #### 5 8410-2 ####[facility] LABORATORYCLIA [id number] [address] STATES [facility] MCHC (RBC) [Mass/Vol] 32.2 g/dL Normal 30.5-36.0 [facility] Comment on above: Order Comment: Speci men Type: BLOOD SPECIMENOrdering Facility: [facility] Address: [address] [place] [address] Performed By: #### 5 8410-2 ####[facility] LABORATORYCLIA [id number] [address] [place] MCV (RBC) [Entitic vol] 100.0 fL Normal 80.0-100.[address] [facility] Comment on above: Order Comment: Speci men Type: BLOOD SPECIMENOrdering Facility: [facility] Address: [address] [place] [address] Performed By: #### 5 8410-2 ####[facility] LABORATORYCLIA [id number] [address] Nucleated RBC (Bld) [#/Vol] 10*3/uL Normal <0.01 [facility] Comment on above: Order Comment: Speci men Type: BLOOD SPECIMENOrdering Facility: [facility] Address: [address] [place] [address] Performed By: #### 5 8410-2 ####[facility] LABORATORYCLIA [id number] [address] Platelet mean volume (Bld) [Entitic vol] 10.1 fL Normal 9.0-12.7 [facility] Comment on above: Order Comment: Speci men Type: BLOOD SPECIMENOrdering Facility: [facility] Address: [address] [place] [address] Performed By: #### 5 8410-2 ####[facility] LABORATORYCLIA [id number] [place] [address] [place] Platelets (Bld) [#/Vol] 284 10*3/uL Normal 150-400 [facility] Comment on above: Order Comment: Speci men Type: BLOOD SPECIMENOrdering Facility: [facility] Address: [address] [place] [address] Performed By: #### 5 8410-2 ####[facility] LABORATORYCLIA [id number] [place] [address] [place] RBC (Bld) [#/Vol] 4.19 10*6/uL Normal 3.90-5.20 [facility] Comment on above: Order Comment: Speci men Type: BLOOD SPECIMENOrdering Facility: [facility] Address: [address] [place] [address] Performed By: #### 5 8410-2 ####[facility] LABORATORYCLIA [id number] [address] STATES OF [facility] WBC (Bld) [#/Vol] 7.88 10*3/uL Normal 3.70-11.00 [facility] Comment on above: Order Comment: Speci men Type: BLOOD SPECIMENOrdering Facility: [facility] Address: [address] [place] [address] Performed By: #### 5 8410-2 ####[facility] LABORATORYCLIA [id number] [address] [place] CNCOon 08-16-2025 CNCO Letter Text Normal [facility] THERAPY NTon 08-16-2025 THERAPY NT HNO ID: [id number] Author: NISHI KEITA, PT Service: Physical Therapy Author Type: Physical Therapist Type: Therapy (PT/OT/Speech/Resp) Filed: 08/16/2025 11:16 Note Text: Physical Therapy Evaluation Summary SERVICE DATE: 08/16/2025 SERVICE TIME: 1010 to 1029 ROOM: [place] [address] PT 6 Clicks Score: 14 DISCHARGE RECOMMENDATIONS Subacute/SNF Recommended Discharge Disposition Comments: Not at functional baseline, lives alone. Recommend SNF Recommended Discharge Disposition Due to: Functional deficits requiring ongoing therapy service prior to discharge home., Patient requires daily (5x/week) skilled therapy at next level of care., Balance deficits, Functional status decline, Requires multiple therapy disciplines ASSESSMENT Response to Therapy Interventions: Good Participation in Activities Discussed use of C-collar for mobility, explained that Bi Castellano seemed to fit her well. Educated patient on spine precautions (BLT): no bending, lifting >8-10 lbs, and no twisting. Educated patient on use of log roll into/out of bed to maintain neutral spine alignment and discourage twisting at trunk. Encouraged change of position, sitting up in chair and limiting time spent in bed to aid in optimal healing. PRECAUTIONS Fall Risk, Spine, Brace Bi Castellano at all times CURRENT HOSPITAL COURSE s/p fall while attempting to get up with rollator. Presents with C5 facet Fx, temporal laceration - sutured in ED. 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 Reports fairly independent with ADLs, RN TRANSPLANT assists with showering. Reports some difficulty with LB dressing. Family lives in 2nd floor of the house; pt stays on main floor. SUBJECTIVE Agreeable to PT session THERAPY DIAGNOSIS Reduced mobility-other TREATMENT INTERVENTIONS Evaluation $ Evaluation-Moderate (23433) Billed Units: 1 unit Skilled Treatment Time (minutes): 19 TRAINING AND EDUCATION PROVIDED Assistive Device Use, Bed Mobility, Benefits of In-Hospital Mobility, Discharge Planning, Disease Specific Education, Expected Functional Level, Gait Pattern, Reduction of Deviations, Precautions/Restrictio ns, Pre-gait Activities, Sitting Balance, Role of Physical Therapy, Standing Balance, Transfers THERAPEUTIC SKILLS USED Cues for Sequencing/Proper Technique for Activity, Cuing Tactile, Cuing Verbal, Cuing Visual, Movement Facilitation, Physical Assist, Muscle Activation Facilitation, Postural Alignment Correction FUNCTIONAL STATUS Bed Mobility Sit to Supine: Moderate Assistance, Additional Information Requires increaesd assistance at legs and trunk to return to supine in bed. Transfers Sit To Stand: Minimal Assistance, Additional Information Cues to push up from the chair to get to standing position. Once standing, cues to stand tall and hold onto walker for support. Stand To Sit: Minimal Assistance, Additional Information Cues to make sure she is close enough and to reach back and sit slowly Bed to Chair Minimal Assistance, Additional Information Bed To Chair Transfer Type: Stepping Bed To Chair Transfer Equipment: Gait Belt, Wheeled Walker Cues to turn fully and to use walker for support in standing. Assisted with balance, slow transfer back to bed. Gait Stairs RANGE OF MOTION WFL STRENGTH Strength Limitation Comments: grossly 5/5 BLEs BALANCE Static Sitting Balance: Good Dynamic Sitting Balance: Good Static Standing Balance: Fair Dynamic Standing Balance: Fair GOALS Able to Perform HEP with: Contact Guard Assistance Rolling with: Contact Guard Assistance Transfer Supine to/from Sit with: Contact Guard Assistance Transfer Sit to/from Stand with: Contact Guard Assistance Ambulate with: Contact Guard Assistance Distance: 100ft Device: Wheeled Walker Transfer: complete bed to chair trasnfer with contact guard assist Rehab Potential: Good Good Rehab Potential Due To: Current objective clinical presentation ACUTE CARE TREATMENT PLAN PT Frequency: 4 Times Per Week (2-4) Treatment Interventions: Education, Strengthening, Neuromuscular Re-education, Functional Mobility Training, Balance Training SIGNATURE: Nishi Keita PT PATIENT NAME: Annabelle Ventura DATE: August 16, 2025 TIME: 11:16 AM Normal [facility] THERAPY NT HNO ID: [id number] Author: OSIEL HOFFMAN OTR/L Service: Occupational Therapy Author Type: Occupational Therapist Type: Therapy (PT/OT/Speech/Resp) Filed: 08/16/2025 09:31 Note Text: Occupational Therapy Evaluation Summary SERVICE DATE: 08/16/2025 SERVICE TIME: 844 to 15 ROOM: [id number] OT 6 Clicks Score: 16 DISCHARGE RECOMMENDATIONS Subacute/SNF Recommended Discharge Disposition Due to: Functional deficits requiring ongoing therapy service prior to discharge home., Functional status decline, ADL impairment, Requires multiple therapy disciplines, Patient requires daily (5x/week) skilled therapy at next level of care. ASSESSMENT Response to Therapy Interventions: Good Participation in Activities, Pain Instructed in spine precautions during ADLs to maintain "BLT" precautions. Allowed time for teach-back. Reinforced wearing schedule for C-collar. Provided instruction, cuing and facilitation for lower body dressing via figure-4 technique.currently requires moderate assist. Facilitated bed mobility via log roll technique with Head of bed elevated. Pt completes sit/stand with cues for hand placement and physical assist. Completed transfer around bed to bedside chair. Moves slowly and fearful of falling. Provided reassurance and verbal cues upon reaching chair to sit safely. Will continue. Patient set up in chair with call light and phone in reach on bedside table. Advised to use call light and wait for assist to get back to bed. PRECAUTIONS Fall Risk, Spine, Brace CURRENT HOSPITAL COURSE s/p fall while attempting to get up with rollator. Presents with C5 facet Fx, temporal laceration - sutured in ED. 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 Reports fairly independent with ADLs, RN TRANSPLANT assists with showering. Reports some difficulty with LB dressing. Family lives in 2nd floor of the house; pt stays on main floor. Baseline Cognition: Oriented to self, Oriented to place, Oriented to time SUBJECTIVE awake, agreeable to OT session COGNITION Responsiveness: Alert, Awake Follows Commands: 3-step Commands Executive Function Deficits: Safety Awareness 4AT Score: 0 (08/16/25) Delirium Positive/Negative: Negative (08/16/25) THERAPY DIAGNOSIS Reduced mobility-other, Decreased activities of daily living (ADL) TREATMENT INTERVENTIONS Evaluation, Self Fdc Management (76078) Timed Code Treatment (minutes): 15 Skilled Treatment Time (minutes): 30 $ Evaluation - Moderate (68787) Billed Units: 1 unit Self Fdc Management (67109) Treatment Minutes: 15 $ Self Fdc Management (76949) Billed Units: 1 unit TRAINING AND EDUCATION PROVIDED Role of Occupational Therapy, Expected Functional Level, Discharge Planning, Lower Extremity Dressing, Safety/Judgment, Precautions/Restrictio ns, Sling/Brace Management, Transfer - Bed to Chair THERAPEUTIC SKILLS USED Activity Dosing, Cues for Sequencing/Proper Technique for Activity, Physical Assist, Therapeutic Use of Self, Movement Facilitation, Cuing Verbal, Cuing Tactile FUNCTIONAL STATUS Activities of Daily Living Assist Level Additional Information Feeding Independent Grooming Set Up Bathing Upper Body Set Up Bathing Lower Body Moderate Assistance Dressing Upper Body Minimal Assistance Dressing Lower Body Moderate Assistance Toileting Moderate Assistance Mobility Assist Level Additional Information Bed Mobility Supine To Sit: Minimal Assistance Sit to Stand Minimal Assistance Stand to Sit Minimal Assistance Bed to Chair Minimal Assistance, Additional Information Bed To Chair Transfer Type: Stepping Bed To Chair Transfer Equipment: Wheeled Walker, Gait Belt slow process, fatigues quickly Toilet/Commode Shower Functional Mobility Minimal Assistance Functional Mobility Device: Wheeled Walker Range of Motion: WFL Strength: WFL Vision Deficits: Wears Corrective Lenses GOALS Upper Body Bathing with: Modified Independent Upper Body Dressing with: Modified Independent Lower Body Bathing with: Minimal Assistance Lower Body Dressing with: Minimal Assistance Toilet Hygiene with: Contact Guard Assistance Toilet Transfer with: Contact Guard Assistance Shower Transfer with: Contact Guard Assistance Car Transfer with: Minimal Assistance Tolerate (minutes of functional activity): 20 Functional Activity with: Minimal Assistance Rehab Potential: Good Good Rehab Potential Due To: Good mot (more content not included)... Normal [facility] TOXICOLOGY SCREEN, ROUTINE U RINEon 08-16-2025 Amphetamines Confirm (U) [Mass/Vol] Negative Normal Negative [facility] Comment on above: Order Comment: Speci men Type: URINE SPECIMENOrdering Facility: [facility] Address: [address] [place] [address] Result Comment: Cuto ff threshold at 1000 ng/mL. Performed By: #### U TOX2 ####[facility] LABORATORYCLIA [id number] [place] [address] [place] BARBITURATES, URINE Negative Normal Negative [facility] Comment on above: Order Comment: Speci men Type: URINE SPECIMENOrdering Facility: [facility] Address: [address] [place] [address] Result Comment: Cuto ff threshold at 200 ng/mL. Performed By: #### U TOX2 ####[facility]ORATORYCLIA [id number] [place] [address] [place] BENZODIAZEPINES, URINE Negative Normal Negative [facility] Comment on above: Order Comment: Speci men Type: URINE SPECIMENOrdering Facility: [facility] Address: [address] [place] [address] Result Comment: Cuto ff threshold at 200 ng/mL. Performed By: #### U TOX2 ####[facility]ORATORYCLIA [id number] [address] OF [facility] Cannabinoids Screen Ql (U) Negative Normal Negative [facility] Comment on above: Order Comment: Speci men Type: URINE SPECIMENOrdering Facility: [facility] Address: [address] [place] [address] Result Comment: Cuto ff threshold at 50 ng/mL. Performed By: #### U TOX2 ####[facility]ATORYCLIA [id number] [address] STATES [facility] Cocaine Ql (U) Negative Normal Negative [facility] Comment on above: Order Comment: Speci men Type: URINE SPECIMENOrdering Facility: [facility] Address: [address] [place] [address] Result Comment: Cuto ff threshold at 300 ng/mL. Performed By: #### U TOX2 ####[facility]ORATORYCLIA [id number] [address] [place] Ethanol (U) [Mass/Vol] <11 Normal <11 [facility] Comment on above: Order Comment: Speci men Type: URINE SPECIMENOrdering Facility: [facility] Address: [address] [place] [address] Performed By: #### U TOX2 ####[facility]ATORYCLIA [id number] [address] [place] fentaNYL Screen Ql (U) Negative Normal Negative [facility] Comment on above: Order Comment: Speci men Type: URINE SPECIMENOrdering Facility: [facility] Address: [address] [place] [address] Result Comment: Cuto ff threshold at 5 ng/mL. Performed By: #### U TOX2 ####[facility]ATORYCLIA [id number] [address] Opiates Screen Ql (U) Negative Normal Negative [facility] Comment on above: Order Comment: Speci men Type: URINE SPECIMENOrdering Facility: [facility] Address: [address] [place] [address] Result Comment: Cuto ff threshold at 300 ng/mL. Performed By: #### U TOX2 ####[facility]ATORYCLIA [id number] [address] oxyCODONE cutoff Screen (U) [Mass/Vol] Positive Abnormal Negative [facility] Comment on above: Order Comment: Speci men Type: URINE SPECIMENOrdering Facility: [facility] Address: [address] [place] [address] Result Comment: Cuto ff threshold at 100 ng/mL. Performed By: #### U TOX2 ####[facility] LABORATORYCLIA [id number] [address] Phencyclidine Ql (U) Negative Normal Negative [facility] Comment on above: Order Comment: Speci men Type: URINE SPECIMENOrdering Facility: [facility] Address: [address] [place] [address] Result Comment: Cuto ff threshold at 25 ng/mL. Performed By: #### U TOX2 ####[facility]ORATORYCLIA [id number] [address] Urinalysis complete panel (U )on 08-16-2025 Bilirubin Ql (U) Negative Normal Negative [facility] Comment on above: Order Comment: Speci men Type: URINE SPECIMENOrdering Facility: [facility] Address: [address] [place] [address] Performed By: #### 2 4356-8 ####[facility] LABORATORYCLIA [id number] [address] [place] Clarity (Unsp spec) Clear Normal Clear [facility] Comment on above: Order Comment: Speci men Type: URINE SPECIMENOrdering Facility: [facility] Address: [address] [place] [address] Performed By: #### 2 4356-8 ####[facility]ORATORYCLIA [id number] [address] STATES OF [facility] Color (U) Light Yellow Normal yellow [facility] Comment on above: Order Comment: Speci men Type: URINE SPECIMENOrdering Facility: [facility] Address: [address] [place] [address] Performed By: #### 2 4356-8 ####[facility]ORATORYCLIA [id number] [address] Glucose Test strip (U) [Mass/Vol] Negative Normal Trace, Negative [facility] Comment on above: Order Comment: Speci men Type: URINE SPECIMENOrdering Facility: [facility] [facility] Address: [address] [place] [address] Performed By: #### 2 4356-8 ####[facility] LABORATORYCLIA [id number] [place] [address] [place] Hemoglobin Ql (U) Negative Normal Negative, Trace [facility] Comment on above: Order Comment: Speci men Type: URINE SPECIMENOrdering Facility: [facility] Address: [address] [place] [address] Performed By: #### 2 4356-8 ####[facility] LABORATORYCLIA [id number] [place] [address] [place] Ketones Ql (U) Negative Normal Negative, Trace [facility] Comment on above: Order Comment: Speci men Type: URINE SPECIMENOrdering Facility: [facility] Address: [address] [place] [address] Performed By: #### 2 4356-8 ####[facility] LABORATORYCLIA [id number] [address] [place] Leukocyte esterase Test strip Ql (U) 250 Zoila/uL Abnormal Negative, 25 Zoila/uL [facility] Comment on above: Order Comment: Speci men Type: URINE SPECIMENOrdering Facility: [facility] Address: [address] [place] [address] Performed By: #### 2 4356-8 ####[facility] LABORATORYCLIA [id number] [address] STATES [facility] Nitrite Ql (U) 2+ Abnormal Negative [facility] Comment on above: Order Comment: Speci men Type: URINE SPECIMENOrdering Facility: [facility] Address: [address] [place] [address] Performed By: #### 2 4356-8 ####[facility] LABORATORYCLIA [id number] [address] [place] pH (U) 6.5 [pH] Normal 5.0-8.0 [facility] Comment on above: Order Comment: Speci men Type: URINE SPECIMENOrdering Facility: [facility] Address: [address] [place] [address] Performed By: #### 2 4356-8 ####[facility] LABORATORYCLIA [id number] [place] [address] [place] Protein (U) [Mass/Vol] Negative Normal Trace , Negative [facility] Comment on above: Order Comment: Speci men Type: URINE SPECIMENOrdering Facility: [facility] Address: [address] [place] [address] Performed By: #### 2 4356-8 ####[facility] LABORATORYCLIA [id number] [place] [address] [place] RBC LM.HPF (Urine sed) [#/Area] 0-3 /HPF Normal 0-3 /HPF [facility] Comment on above: Order Comment: Speci men Type: URINE SPECIMENOrdering Facility: [facility] Address: [address] [place] [address] Performed By: #### 2 4356-8 ####[facility] LABORATORYCLIA [id number] [address] [place] Specific gravity (U) [Rel density] >1.040 High 1.005-1.030 [facility] Comment on above: Order Comment: Speci men Type: URINE SPECIMENOrdering Facility: [facility] Address: [address] [place] [address] Performed By: #### 2 4356-8 ####[facility] LABORATORYCLIA [id number] [place] [address] [place] Urobilinogen Ql (U) Normal Normal Normal [facility] Comment on above: Order Comment: Speci men Type: URINE SPECIMENOrdering Facility: [facility] Address: [address] [place] [address] Performed By: #### 2 4356-8 ####[facility] LABORATORYCLIA [id number] [place] [id number] [place] WBC LM.HPF (Urine sed) [#/Area] 11-25 /HPF Abnormal 0-5 /HPF [facility] Comment on above: Order Comment: Speci men Type: URINE SPECIMENOrdering Facility: [facility] Address: [address] [place] [address] Performed By: #### 2 4356-8 ####[facility] LABORATORYCLIA [id number] [address] [place] XR CERVICAL 2V AP/LATon 07-20 XR CERVICAL 2V AP/LAT * * *Final Report* * * DATE OF EXAM: Aug 16 2025 1:05PM [id number] [id number] - XR CERVICAL 2V AP/LAT / PROCEDURE REASON: Spine fracture, cervical, traumatic * * * * Physician Interpretation * * * * XR CERVICAL 2V AP/LAT08/16/2025 1:05 PM CLINICAL HISTORY: Spine fracture, cervical, traumatic COMPARISON: CT cervical spine 08/15/2025 TECHNIQUE: XR CERVICAL 2V AP/LAT RESULT: The fracture of the right C5 facet described on prior exam is not well visualized on this radiograph. No additional fractures. Trace anterolisthesis of C4-C5. Moderate to severe multilevel degenerative changes of the spine worst at C5-C7. Prevertebral soft tissues unremarkable. IMPRESSION: No acute osseous findings. The right C5 facet fracture described on prior CT is not well seen on this exam. [facility] Supervisor: ANTOINE Transcribe Date/Time: Aug 17 2025 3:05P Dictated by : JED ALVAREZ MD This examination was interpreted and the report reviewed and electronically signed by: JED ALVAREZ MD on Aug 17 2025 3:07PM EST [id number] Normal [facility] XR LUMBAR 3V AP/LAT/L5-S1on 08-16-2025 XR LUMBAR 3V AP/LAT/L5-S1 * * *Final Report* * * DATE OF EXAM: Aug 16 2025 4:46PM [id number] - XR LUMBAR 3V AP/LAT/L5-S1 / PROCEDURE REASON: Fracture * * * * Physician Interpretation * * * * XR LUMBAR 3V AP/LAT/L5-S108/16/2025 4:46 PM CLINICAL HISTORY: Age indeterminant L5 compression deformity COMPARISON: CT lumbar spine 08/15/2025 TECHNIQUE: XR LUMBAR 3V AP/LAT/L5-S1 RESULT: For the purposes of numbering there are 5 lumbar-type vertebral bodies with the last fully formed disc space representing L5-S1. Vertebral augmentation at L4. Severe compression deformity at this level is stable from 2018. Mild superior endplate compression deformity which is better assessed on prior CT. Moderate multilevel degenerative changes of the spine. S-shaped curvature of the spine. Vascular calcifications. IMPRESSION: Mild superior end plate compression deformity of L5, age indeterminate but without progressive collapse. [facility] Supervisor: ANTOINE Transcribe Date/Time: Aug 17 2025 3:08P Dictated by : JED ALVAREZ MD This examination was interpreted and the report reviewed and electronically signed by: JED ALVAREZ MD on Aug 17 2025 3:10PM EST [id number] Normal [facility] 25(OH)D3 SerPl-mCncon 2024 25-hydroxyvitamin D3 [Mass/Vol] 57.9 ng/mL Normal >=30.0 [facility] Comment on above: Order Comment: Speci men Type: BLOOD SPECIMENOrdering Facility: [facility] Address: [address] [place] [id number] Result Comment: Clas sification of 25 [place] Vitamin D status: Deficiency: <= 20.0 ng/ml. Insufficiency: 21.0-29.0 ng/ml. Sufficiency: >= 30.0 ng/ml. Performed By: #### 1 989-3 ####[facility] LABORATORYCLIA [id number] [place] [id number] [place] [facility] Brain/Head without Contrasto n 08-15-2025 Brain/Head without Contrast [facility] Imaging Services [address] [place] [address] Brain/Head without Contrast MR#: [id number] Acct: [id number] Name: ANNABELLE VENTURA Rep #: [id number] : 1945 F 80 From: Kun Cortes MD PCP: Dr. Mone Cervantes MD Status: [facility] Study: Brain/Head without Contrast Date of Exam: 07/20 07/12 Exam# [id number] Ordering Dr: Werner Esquivel DO PROCEDURE: BRAIN/HEAD WITHOUT CONTRAST 08/15/2025 REASON FOR EXAM: FALL, HEAD INJURY TECHNIQUE: Procedure Code: CTBR Modality: CT Procedure: BRAIN/HEAD WITHOUT CONTRAST Coronal and Sagittal reconstruction series were provided. One or more dose reduction techniques were used (e.g., Automated exposure control, adjustment of the mA and/or kV according to patient size, use of iterative reconstruction technique. RADIATION DOSE SUMMARY: CTDlvol: 23.22 mGy DLP: 1283.54 mGycm COMPARISON: CT head 03/05/2024 FINDINGS: Brain: Extensive low density in the deep cerebral white matter most likely represents advanced chronic small vessel ischemic disease. No acute territorial infarction. No acute intracranial hemorrhage. No ventriculomegaly. The orbits are within normal limits. The craniocervical junction is unremarkable. Atherosclerotic calcifications of the carotid siphons. CSF Spaces: Unremarkable. Sinuses/Mastoids: Clear. Bones: No acute bony abnormalities. CT/Brain/Head without Contrast IMPRESSION: No acute intracranial abnormalities. Reading Location: [facility] CC: Dr. Mone Cervantes MD; Dr. Werner Esquivel DO [facility] Supervisor: Signed Normal [facility] CBC W Auto Differential pane l (Bld)on 08-15-2025 Basophils (Bld) [#/Vol] 0.07 10*3/uL Normal <0.11 [facility] Comment on above: Order Comment: Speci men Type: BLOOD SPECIMENOrdering Facility: [facility] Address: [address] [place] [address] Performed By: #### 5 7021-8 ####[facility]ORATORYCLIA [id number] [address] STATES [facility] Basophils/100 WBC (Bld) 0.7 % Normal [facility] Comment on above: Order Comment: Speci men Type: BLOOD SPECIMENOrdering Facility: [facility] Address: [address] [place] [address] Performed By: #### 5 7021-8 ####[facility]ORATORYCLIA [id number] [address] Differential cell count method Nom (Bld) Auto Normal [facility] Comment on above: Order Comment: Speci men Type: BLOOD SPECIMENOrdering Facility: [facility] Address: [address] [place] [address] Performed By: #### 5 7021-8 ####[facility] LABORATORYCLIA [id number] [address] Eosinophils (Bld) [#/Vol] 0.16 10*3/uL Normal <0.46 [facility] Comment on above: Order Comment: Speci men Type: BLOOD SPECIMENOrdering Facility: [facility] Address: [address] [place] [address] Performed By: #### 5 7021-8 ####[facility]ORATORYCLIA [id number] [address] Eosinophils/100 WBC (Bld) 1.5 % Normal [facility] Comment on above: Order Comment: Speci men Type: BLOOD SPECIMENOrdering Facility: [facility] Address: [address] [place] [address] Performed By: #### 5 7021-8 ####[facility]ORATORYCLIA [id number] [address] Erythrocyte distribution width (RBC) [Ratio] 13.1 % Normal 11.5-15.0 [facility] Comment on above: Order Comment: Speci men Type: BLOOD SPECIMENOrdering Facility: [facility] Address: [address] [place] [address] Performed By: #### 5 7021-8 ####[facility] LABORATORYCLIA [id number] [address] [place] Hematocrit (Bld) [Volume fraction] 43.4 % Normal 36.0-46.0 [facility] Comment on above: Order Comment: Speci men Type: BLOOD SPECIMENOrdering Facility: [facility] Address: [address] [place] [address] Performed By: #### 5 7021-8 ####[facility] LABORATORYCLIA [id number] [address] [place] Hemoglobin (Bld) [Mass/Vol] 13.8 g/dL Normal 11.5-15.5 [facility] Comment on above: Order Comment: Speci men Type: BLOOD SPECIMENOrdering Facility: [facility] Address: [address] [place] [address] Performed By: #### 5 7021-8 ####[facility] LABORATORYCLIA [id number] [address] [place] Immature granulocytes (Bld) [#/Vol] 0.05 10*3/uL Normal <0.10 [facility] Comment on above: Order Comment: Speci men Type: BLOOD SPECIMENOrdering Facility: [facility] Address: [address] [place] [address] Performed By: #### 5 7021-8 ####[facility] LABORATORYCLIA [id number] [address] Immature granulocytes/100 WBC (Bld) 0.5 % Normal [facility] Comment on above: Order Comment: Speci men Type: BLOOD SPECIMENOrdering Facility: [facility] Address: [address] [place] [address] Performed By: #### 5 7021-8 ####[facility] LABORATORYCLIA [id number] [address] [place] Lymphocytes (Bld) [#/Vol] 1.39 10*3/uL Normal 1.00-4.00 [facility] Comment on above: Order Comment: Speci men Type: BLOOD SPECIMENOrdering Facility: [facility] Address: [address] [place] [address] Performed By: #### 5 7021-8 ####[facility] LABORATORYCLIA [id number] [address] Lymphocytes/100 WBC (Bld) 13.0 % Normal [facility] Comment on above: Order Comment: Speci men Type: BLOOD SPECIMENOrdering Facility: [facility] Address: [address] [place] [address] Performed By: #### 5 7021-8 ####[facility] LABORATORYCLIA [id number] [address] [place] MCH (RBC) [Entitic mass] 32.1 pg Normal 26.0-34.0 [facility] Comment on above: Order Comment: Speci men Type: BLOOD SPECIMENOrdering Facility: [facility] Address: [address] [place] [address] Performed By: #### 5 7021-8 ####[facility] LABORATORYCLIA [id number] [address] [place] MCHC (RBC) [Mass/Vol] 31.8 g/dL Normal 30.5-36.0 [facility] Comment on above: Order Comment: Speci men Type: BLOOD SPECIMENOrdering Facility: [facility] Address: [address] [place] [address] Performed By: #### 5 7021-8 ####[facility] LABORATORYCLIA [id number] [address] MCV (RBC) [Entitic vol] 100.9 fL High 80.0-100.0 [facility] Comment on above: Order Comment: Speci men Type: BLOOD SPECIMENOrdering Facility: [facility] Address: [address] [place] [address] Performed By: #### 5 7021-8 ####[facility] LABORATORYCLIA [id number] [place] [address] [place] Monocytes (Bld) [#/Vol] 1.01 10*3/uL High <0.87 [facility] Comment on above: Order Comment: Speci men Type: BLOOD SPECIMENOrdering Facility: [facility] Address: [address] [place] [address] Performed By: #### 5 7021-8 ####[facility] LABORATORYCLIA [id number] [address] Monocytes/100 WBC (Bld) 9.5 % Normal [facility] Comment on above: Order Comment: Speci men Type: BLOOD SPECIMENOrdering Facility: [facility] Address: [address] [place] [address] Performed By: #### 5 7021-8 ####[facility]ORATORYCLIA [id number] [address] [place] Neutrophils (Bld) [#/Vol] 8.00 10*3/uL High 1.45-7.50 [facility] Comment on above: Order Comment: Speci men Type: BLOOD SPECIMENOrdering Facility: [facility] Address: [address] [place] [address] Performed By: #### 5 7021-8 ####[facility]ORATORYCLIA [id number] [address] [place] Neutrophils/100 WBC (Bld) 74.8 % Normal [facility] Comment on above: Order Comment: Speci men Type: BLOOD SPECIMENOrdering Facility: [facility] Address: [address] [place] [address] Performed By: #### 5 7021-8 ####[facility]ORATORYCLIA [id number] [place] [address] [place] Nucleated RBC (Bld) [#/Vol] 10*3/uL Normal <0.01 [facility] Comment on above: Order Comment: Speci men Type: BLOOD SPECIMENOrdering Facility: [facility] Address: [address] [place] [address] Performed By: #### 5 7021-8 ####[facility] LABORATORYCLIA [id number] [address] [place] Nucleated RBC/100 WBC (Bld) [Ratio] 0.0 /100 WBC Normal [facility] Comment on above: Order Comment: Speci men Type: BLOOD SPECIMENOrdering Facility: [facility] Address: [address] [place] [address] Performed By: #### 5 7021-8 ####[facility] LABORATORYCLIA [id number] [place] [address] [place] Platelet mean volume (Bld) [Entitic vol] 10.5 fL Normal 9.0-12.7 [facility] Comment on above: Order Comment: Speci men Type: BLOOD SPECIMENOrdering Facility: [facility] Address: [address] [place] [address] Performed By: #### 5 7021-8 ####[facility] LABORATORYCLIA [id number] [address] [place] Platelets (Bld) [#/Vol] 307 10*3/uL Normal 150-400 [facility] Comment on above: Order Comment: Speci men Type: BLOOD SPECIMENOrdering Facility: [facility] Address: [address] [place] [address] Performed By: #### 5 7021-8 ####[facility] LABORATORYCLIA [id number] [place] [address] [place] RBC (Bld) [#/Vol] 4.30 10*6/uL Normal 3.90-5.20 [facility] Comment on above: Order Comment: Speci men Type: BLOOD SPECIMENOrdering Facility: [facility] Address: [address] [place] [address] Performed By: #### 5 7021-8 ####[facility] LABORATORYCLIA [id number] [place] [address] [place] WBC (Bld) [#/Vol] 10.68 10*3/uL Normal 3.70-11.00 [facility] Comment on above: Order Comment: Speci men Type: BLOOD SPECIMENOrdering Facility: [facility] Address: [address] [place] [address] [place] [address] Performed By: #### 5 7021-8 ####[facility] LABORATORYCLIA [id number] [place] [address] [facility] CONSULTon 08-15-2025 CONSULT HNO ID: [id number] Author: ANIYAH MCCRAY MD Service: Neurosurgery Author Type: Physician Type: Consults Filed: 08/16/2025 12:03 Note Text: CONSULT: NEUROSURGERY SERVICE Patient Name: Annabelle Ventura Date of : 1945 SERVICE DATE: 08/15/2025 REASON FOR CONSULT: C spine fx REQUESTING PHYSICIAN: Enrike Watkins MD PRIMARY CARE PHYSICIAN: Mone Cervantes MD Consultation requested by Dr. Watkins for an opinion regarding C spine fx. My final recommendations will be communicated back to the requesting physician by way of shared Medical record or letter to requesting physician via US mail. CHIEF COMPLAINT: fall HISTORY OF PRESENT ILLNESS : Annablele Ventura is a 80 year old female PMH Parkinson's disease, Afib on Xarelto who presented s/p fall. Patient states she was seated at a desk watching her faith service when she attempted to get up and missed the brake of her rollator with her hand, striking her head on the desk. Denies LOC. Called friend when she noticed she was bleeding and presented to outside ED. At outside ED they repaired facial LAC and found unilateral right C5 facet fracture. Patient denies neck pain or numbness/tingling/weak ness of any extremity. Denies frequent falls. Of note she states that she pulled a muscle in her right shoulder few days ago. No past medical history on file. No past surgical history on file. No family history on file. ALLERGIES No Known Allergies Current Facility-Administered Medications Medication Dose Route Frequency Provider Last Rate Last Admin NaCl 0.9% iv flush bag 20 mL INTRAVENOUS PRN Kishore Hernandes MD iv contrast (radiology procedure) INTRAVENOUS DIRECTED PRN Krysten Reid MD iv contrast (radiology procedure) INTRAVENOUS DIRECTED PRN Krysten Reid MD Current Outpatient Medications Medication Sig Dispense Refill XARELTO 20 mg tablet 1 tablet once daily. flecainide (TAMBOCOR) 50 mg tablet 1 tablet twice daily. multivitamin tablet 1 tablet once daily. DAIRY DIGESTIVE SUPPLEMENT 9,000 unit tab 1 tablet once daily. potassium gluconate 550 mg (90 mg) tab 1 tablet once daily. Lactobacillus acidophilus (ACIDOPHILUS ORAL) 1 tablet once daily. CARTIA XT 120 mg 24 hr capsule 1 tablet once daily. calcium citrate/vitamin D3 (CALCIUM CITRATE + D ORAL) 1 tablet once daily. magnesium oxide 400 mg cap Take 1 capsule by mouth once daily. Biotin 10,000 mcg cap Take 1 capsule by mouth once daily. denosumab (PROLIA SUBCUTANEOUS) Inject subcutaneously. Every Six 6 months tiZANidine (ZANAFLEX) 4 mg tablet once daily. 0 alendronate (FOSAMAX) 70 mg tablet Take 70 mg by mouth. 1 cyclobenzaprine (FLEXERIL) 10 mg tablet Take 10 mg by mouth three times daily as needed. 0 oxyCODONE IR (ROXICODONE) 5 mg immediate release tablet TAKE ONE TABLET BY MOUTH THREE TIMES DAILY NEEDED AND TWO TABLETS AT BEDTIME FOR BACK PAIN 0 COMPLETE REVIEW OF SYSTEMS PAIN ASSESSMENT: see HPI Constitutional: Denies fatigue, fever/chills Eyes: Denies vision changes Ears: Denies hearing changes Cardiovascular: Denies palpitations Respiratory: Denies cough GI: Denies change in bowel or bladder habits : Denies incontinence, urinary infections Musculoskeletal: + chronic pain all over Integumentary: Denies rashes, color changes in skin or nails Neurological: Denies local weakness, numbness, tingling, tremors, memory changes Psychiatric: Denies anxiety, depressio Endocrine: Denies heat/cold intolerance Heme/Lymph: + easy bruising or bleeding Allergy/Immune: Denies fatigue, fever/chills MEDS: Current Facility-Administered Medications Medication Dose Route Frequency NaCl 0.9% iv flush bag 20 mL INTRAVENOUS PRN iv contrast (radiology procedure) INTRAVENOUS DIRECTED PRN iv contrast (radiology procedure) INTRAVENOUS DIRECTED PRN OBJECTIVE: BP 134/77 Pulse 75 Temp (Src) 98 (Axillary) Resp 15 Ht 5' 3" (1.60m) Wt 190 lb (86.2kg) SpO2 95% BMI 33.67 kg/(m2). O2 Therapy: Room Air IANDO: Recent Labs 08/15/25 1825 NA 144 K 4.1 CHLOR 109* CO2 25 BUN 18 CREAT 0.60 GLUC 84 ANION 10 CA 9.0 ALB 3.8* ALT 6* ALKPHOS 82 TBILI 0.2 WBC 10.68 HB 13.8 HCT 43.4 PLT 307 INR 1.2 PHYSICAL EXAM: GENERAL: awake and alert HEENT: normocephalic sutures above right eyebrow LUNGS: Unlabored, regular breathing NECK/BACK: C collar in place CARDIAC: rate and rhythm as above ABDOMEN: Soft, non-tender, non-distended EXTREMITIES: SORTO, No deformities, No edema SKIN: Skin color, texture, turgor normal, No rashes or lesions NEUROLOGICAL: Mental Status: GCS 15 Speech: Clear fluent No facial droop Motor Exam: Strength 5 out of 5 throughout all myotomes except right deltoid 4 out of 5 secondary to pain. Also reduced ROM to same shoulder Sensation: Intact to light touch in UE/LE/trunk DIAGNOSTICS: Imaging: CT brain and C spine reviewed ASSESSMENT AND PLAN: [facility] Hospital P (more content not included)... Normal [facility] CT ABD/PEL W IVCONon 025 CT ABD/PEL W IVCON * * *Final Report* * * DATE OF EXAM: Aug 15 2025 8:26PM [facility] 0530 - CT ABD/PEL W IVCON / PROCEDURE REASON: Abdominal trauma, blunt * * * * Physician Interpretation * * * * EXAMINATION: CHEST CT WITH CONTRAST ,CT ABDOMEN AND PELVIS WITH IV CONTRAST, RECONSTRUCTED CT SCAN OF THE THORACIC SPINE FROM THE CHEST CT AND RECONSTRUCTED CT SCAN OF THE LUMBAR SPINE FROM THE ABDOMINAL/PELVIC CT CLINICAL HISTORY: Patient presented after a fall with blunt trauma to the chest, abdomen and pelvis and clinical concern for injuries in the thoracolumbar spine. Known acute C5 fracture. 80 year old female with PMH of Afib (on eliquis), HTN, lumbar spinal stenosis/radiculopathy , Parkinson disease, R IHR, bilateral posterior hemilaminectomy L1-L4 non instrumented fusion L2-3?(2018) presenting as a T3 activation after a GLF on 08/15. States she was sitting in her chair at home and went to stand up to use her walker when she missed the handle and fell toward her right, hitting her right temporal region of head against a desk. Denies LOC and denies pain elsewhere. Denies any neck pain. Motor and sensory intact in all extremities. Denies any numbness or paresthesias, denies any headaches or blurry vision. She presented to the ED with a repaired head laceration (2-3 cm) above the right eye. GCS at Scene was 15. Technique: Spiral CT acquisition of the chest from the thoracic inlet to the upper abdomen following IV contrast. MQ: CTCW_6 CT of the abdomen and pelvis was performed using standard technique, scanning from just above the dome of the diaphragm to the symphysis pubis. Reconstructed CT scan thoracic spine from the chest CT. Axial, coronal and sagittal views are obtained. Reconstructed CT scan of the lumbar spine. Axial, coronal and sagittal views are obtained. Contrast: 100 mL Omnipaque [address] Radiation dose: Integrated Dose-length product (DLP) for this visit = 1556 mGy*cm CT Dose Reduction Employed: Automated exposure control(AEC) and iterative recon Comparison: No relevant prior studies are available for comparison. RESULT: Limitations: Motion artifacts. CHEST: Lines, tubes, and devices: None. Lung parenchyma and airways: No pulmonary parenchymal laceration or contusion. Subpleural bandlike segmental/subsegmental compressive atelectasis in the dependent regions of the lower lobes and upper lobes. No consolidation. The central airways are patent. Biapical scarring. Minimal bronchiectasis in left lower lobe. Pulmonary nodules, series 4: 1. 8.1 mm, groundglass nodule in the right lower lobe, image 96. 2. 2.7 cm, solid, left apical pulmonary nodule, image 20. 3. 2.6 mm, solid, right apical pulmonary nodule, image 20. 4. 2.7 mm, solid, right upper lobe pulmonary nodule, image 41. 5. Calcified granuloma in the left lower lobe. Pleural space: No pleural effusion. No pleural thickening. No pneumothorax. Lower neck, lymph nodes, and mediastinum: The imaged thyroid gland is normal to enlarged and containing exophytic, left inferior, 1.3 cm, nodule. If it is not done already, characterization with thyroid ultrasound as an outpatient is recommended. Left hilar and mediastinal calcified lymph nodes. No lymphadenopathy in the supraclavicular, axillary, mediastinal, or hilar regions. No mediastinal hematoma. Hiatal hernia containing the gastric fundus and part of the gastric body with no distention or findings to suggest acute obstruction. Heart, pericardium, and thoracic vessels: The thoracic aorta and main pulmonary artery are normal in caliber. The cardiac chambers are normal in size. Mitral annular valve calcifications. Moderate LAD coronary artery atherosclerotic calcifications are noted, although the study is not optimized for coronary assessment. No pericardial effusion or thickening. Bones and soft tissues: Unsupportive changes in the right shoulder joint and severe/end-stage left glenohumeral joint osteoarthrosis with evidence of fluid-filled/distended subcoracoid bursa containing lesion body/synovial osteochondromatosis consistent with bursitis and measuring approximately 5.8 cm. No body wall hematoma, subcutaneous gas or metallic foreign bodies. Chronic fractures involving the rib cage bilaterally with no definite acute fracture lucency or dislocation. No sternal fractures.. THORACIC SPINE: The cervical spine was assessed with outpatient CT from same day. The osseous structures are demineralized. If it is not done already, please consider DEXA scan as an outpatient to assess for osteopenia/osteoporosi s. Preserved lateral alignment of the thoracic spine with mild dextroconvex scoliotic curvature of the thoracic spine. No acute fracture lucency or dislocation. The vertebral body heights are maintained with no acute degenerative changes in the thoracic spine with no central canal stenosis. Compression deformities. ABDOMEN/PELVIS: Liver: No (more content not included)... Normal [facility] CT CHEST W IVCONon CT CHEST W IVCON * * *Final Report* * * DATE OF EXAM: Aug 15 2025 8:26PM [facility] 0539 - CT CHEST W IVCON / PROCEDURE REASON: Chest trauma, blunt * * * * Physician Interpretation * * * * EXAMINATION: CHEST CT WITH CONTRAST ,CT ABDOMEN AND PELVIS WITH IV CONTRAST, RECONSTRUCTED CT SCAN OF THE THORACIC SPINE FROM THE CHEST CT AND RECONSTRUCTED CT SCAN OF THE LUMBAR SPINE FROM THE ABDOMINAL/PELVIC CT CLINICAL HISTORY: Patient presented after a fall with blunt trauma to the chest, abdomen and pelvis and clinical concern for injuries in the thoracolumbar spine. Known acute C5 fracture. 80 year old female with PMH of Afib (on eliquis), HTN, lumbar spinal stenosis/radiculopathy , Parkinson disease, R IHR, bilateral posterior hemilaminectomy L1-L4 non instrumented fusion L2-3?(2018) presenting as a T3 activation after a GLF on 08/15. States she was sitting in her chair at home and went to stand up to use her walker when she missed the handle and fell toward her right, hitting her right temporal region of head against a desk. Denies LOC and denies pain elsewhere. Denies any neck pain. Motor and sensory intact in all extremities. Denies any numbness or paresthesias, denies any headaches or blurry vision. She presented to the ED with a repaired head laceration (2-3 cm) above the right eye. GCS at Scene was 15. Technique: Spiral CT acquisition of the chest from the thoracic inlet to the upper abdomen following IV contrast. MQ: CTCW_6 CT of the abdomen and pelvis was performed using standard technique, scanning from just above the dome of the diaphragm to the symphysis pubis. Reconstructed CT scan thoracic spine from the chest CT. Axial, coronal and sagittal views are obtained. Reconstructed CT scan of the lumbar spine. Axial, coronal and sagittal views are obtained. Contrast: 100 mL Omnipaque [address] Radiation dose: Integrated Dose-length product (DLP) for this visit = 1556 mGy*cm CT Dose Reduction Employed: Automated exposure control(AEC) and iterative recon Comparison: No relevant prior studies are available for comparison. RESULT: Limitations: Motion artifacts. CHEST: Lines, tubes, and devices: None. Lung parenchyma and airways: No pulmonary parenchymal laceration or contusion. Subpleural bandlike segmental/subsegmental compressive atelectasis in the dependent regions of the lower lobes and upper lobes. No consolidation. The central airways are patent. Biapical scarring. Minimal bronchiectasis in left lower lobe. Pulmonary nodules, series 4: 1. 8.1 mm, groundglass nodule in the right lower lobe, image 96. 2. 2.7 cm, solid, left apical pulmonary nodule, image 20. 3. 2.6 mm, solid, right apical pulmonary nodule, image 20. 4. 2.7 mm, solid, right upper lobe pulmonary nodule, image 41. 5. Calcified granuloma in the left lower lobe. Pleural space: No pleural effusion. No pleural thickening. No pneumothorax. Lower neck, lymph nodes, and mediastinum: The imaged thyroid gland is normal to enlarged and containing exophytic, left inferior, 1.3 cm, nodule. If it is not done already, characterization with thyroid ultrasound as an outpatient is recommended. Left hilar and mediastinal calcified lymph nodes. No lymphadenopathy in the supraclavicular, axillary, mediastinal, or hilar regions. No mediastinal hematoma. Hiatal hernia containing the gastric fundus and part of the gastric body with no distention or findings to suggest acute obstruction. Heart, pericardium, and thoracic vessels: The thoracic aorta and main pulmonary artery are normal in caliber. The cardiac chambers are normal in size. Mitral annular valve calcifications. Moderate LAD coronary artery atherosclerotic calcifications are noted, although the study is not optimized for coronary assessment. No pericardial effusion or thickening. Bones and soft tissues: Unsupportive changes in the right shoulder joint and severe/end-stage left glenohumeral joint osteoarthrosis with evidence of fluid-filled/distended subcoracoid bursa containing lesion body/synovial osteochondromatosis consistent with bursitis and measuring approximately 5.8 cm. No body wall hematoma, subcutaneous gas or metallic foreign bodies. Chronic fractures involving the rib cage bilaterally with no definite acute fracture lucency or dislocation. No sternal fractures.. THORACIC SPINE: The cervical spine was assessed with outpatient CT from same day. The osseous structures are demineralized. If it is not done already, please consider DEXA scan as an outpatient to assess for osteopenia/osteoporosi s. Preserved lateral alignment of the thoracic spine with mild dextroconvex scoliotic curvature of the thoracic spine. No acute fracture lucency or dislocation. The vertebral body heights are maintained with no acute degenerative changes in the thoracic spine with no central canal stenosis. Compression deformities. ABDOMEN/PELVIS: Liver: No mass. (more content not included)... Normal [facility] CT LUMBAR SPINE W RECON DATA -NBon 08-15-2025 CT LUMBAR SPINE W RECON DATA -NB * * *Final Report* * * DATE OF EXAM: Aug 15 2025 8:26PM [facility] 0481 - CT LUMBAR SPINE W RECON DATA -NB / PROCEDURE REASON: Spine fracture, lumbar, traumatic * * * * Physician Interpretation * * * * EXAMINATION: CHEST CT WITH CONTRAST ,CT ABDOMEN AND PELVIS WITH IV CONTRAST, RECONSTRUCTED CT SCAN OF THE THORACIC SPINE FROM THE CHEST CT AND RECONSTRUCTED CT SCAN OF THE LUMBAR SPINE FROM THE ABDOMINAL/PELVIC CT CLINICAL HISTORY: Patient presented after a fall with blunt trauma to the chest, abdomen and pelvis and clinical concern for injuries in the thoracolumbar spine. Known acute C5 fracture. 80 year old female with PMH of Afib (on eliquis), HTN, lumbar spinal stenosis/radiculopathy , Parkinson disease, R IHR, bilateral posterior hemilaminectomy L1-L4 non instrumented fusion L2-3?(2018) presenting as a T3 activation after a GLF on 08/15. States she was sitting in her chair at home and went to stand up to use her walker when she missed the handle and fell toward her right, hitting her right temporal region of head against a desk. Denies LOC and denies pain elsewhere. Denies any neck pain. Motor and sensory intact in all extremities. Denies any numbness or paresthesias, denies any headaches or blurry vision. She presented to the ED with a repaired head laceration (2-3 cm) above the right eye. GCS at Scene was 15. Technique: Spiral CT acquisition of the chest from the thoracic inlet to the upper abdomen following IV contrast. MQ: CTCW_6 CT of the abdomen and pelvis was performed using standard technique, scanning from just above the dome of the diaphragm to the symphysis pubis. Reconstructed CT scan thoracic spine from the chest CT. Axial, coronal and sagittal views are obtained. Reconstructed CT scan of the lumbar spine. Axial, coronal and sagittal views are obtained. Contrast: 100 mL Omnipaque [address] Radiation dose: Integrated Dose-length product (DLP) for this visit = 1556 mGy*cm CT Dose Reduction Employed: Automated exposure control(AEC) and iterative recon Comparison: No relevant prior studies are available for comparison. RESULT: Limitations: Motion artifacts. CHEST: Lines, tubes, and devices: None. Lung parenchyma and airways: No pulmonary parenchymal laceration or contusion. Subpleural bandlike segmental/subsegmental compressive atelectasis in the dependent regions of the lower lobes and upper lobes. No consolidation. The central airways are patent. Biapical scarring. Minimal bronchiectasis in left lower lobe. Pulmonary nodules, series 4: 1. 8.1 mm, groundglass nodule in the right lower lobe, image 96. 2. 2.7 cm, solid, left apical pulmonary nodule, image 20. 3. 2.6 mm, solid, right apical pulmonary nodule, image 20. 4. 2.7 mm, solid, right upper lobe pulmonary nodule, image 41. 5. Calcified granuloma in the left lower lobe. Pleural space: No pleural effusion. No pleural thickening. No pneumothorax. Lower neck, lymph nodes, and mediastinum: The imaged thyroid gland is normal to enlarged and containing exophytic, left inferior, 1.3 cm, nodule. If it is not done already, characterization with thyroid ultrasound as an outpatient is recommended. Left hilar and mediastinal calcified lymph nodes. No lymphadenopathy in the supraclavicular, axillary, mediastinal, or hilar regions. No mediastinal hematoma. Hiatal hernia containing the gastric fundus and part of the gastric body with no distention or findings to suggest acute obstruction. Heart, pericardium, and thoracic vessels: The thoracic aorta and main pulmonary artery are normal in caliber. The cardiac chambers are normal in size. Mitral annular valve calcifications. Moderate LAD coronary artery atherosclerotic calcifications are noted, although the study is not optimized for coronary assessment. No pericardial effusion or thickening. Bones and soft tissues: Unsupportive changes in the right shoulder joint and severe/end-stage left glenohumeral joint osteoarthrosis with evidence of fluid-filled/distended subcoracoid bursa containing lesion body/synovial osteochondromatosis consistent with bursitis and measuring approximately 5.8 cm. No body wall hematoma, subcutaneous gas or metallic foreign bodies. Chronic fractures involving the rib cage bilaterally with no definite acute fracture lucency or dislocation. No sternal fractures.. THORACIC SPINE: The cervical spine was assessed with outpatient CT from same day. The osseous structures are demineralized. If it is not done already, please consider DEXA scan as an outpatient to assess for osteopenia/osteoporosi s. Preserved lateral alignment of the thoracic spine with mild dextroconvex scoliotic curvature of the thoracic spine. No acute fracture lucency or dislocation. The vertebral body heights are maintained with no acute degenerative changes in the thoracic spine with no central canal stenosis. Compression deformities. ABD (more content not included)... Normal [facility] CT T-SPINE W RECON DATA -NBo n 08-15-2025 CT T-SPINE W RECON DATA -NB * * *Final Report* * * DATE OF EXAM: Aug 15 2025 8:26PM [facility] 0485 - CT T-SPINE W RECON DATA -NB / PROCEDURE REASON: Spine fracture, thoracic, traumatic * * * * Physician Interpretation * * * * EXAMINATION: CHEST CT WITH CONTRAST ,CT ABDOMEN AND PELVIS WITH IV CONTRAST, RECONSTRUCTED CT SCAN OF THE THORACIC SPINE FROM THE CHEST CT AND RECONSTRUCTED CT SCAN OF THE LUMBAR SPINE FROM THE ABDOMINAL/PELVIC CT CLINICAL HISTORY: Patient presented after a fall with blunt trauma to the chest, abdomen and pelvis and clinical concern for injuries in the thoracolumbar spine. Known acute C5 fracture. 80 year old female with PMH of Afib (on eliquis), HTN, lumbar spinal stenosis/radiculopathy , Parkinson disease, R IHR, bilateral posterior hemilaminectomy L1-L4 non instrumented fusion L2-3?(2018) presenting as a T3 activation after a GLF on 08/15. States she was sitting in her chair at home and went to stand up to use her walker when she missed the handle and fell toward her right, hitting her right temporal region of head against a desk. Denies LOC and denies pain elsewhere. Denies any neck pain. Motor and sensory intact in all extremities. Denies any numbness or paresthesias, denies any headaches or blurry vision. She presented to the ED with a repaired head laceration (2-3 cm) above the right eye. GCS at Scene was 15. Technique: Spiral CT acquisition of the chest from the thoracic inlet to the upper abdomen following IV contrast. MQ: CTCW_6 CT of the abdomen and pelvis was performed using standard technique, scanning from just above the dome of the diaphragm to the symphysis pubis. Reconstructed CT scan thoracic spine from the chest CT. Axial, coronal and sagittal views are obtained. Reconstructed CT scan of the lumbar spine. Axial, coronal and sagittal views are obtained. Contrast: 100 mL Omnipaque [address] Radiation dose: Integrated Dose-length product (DLP) for this visit = 1556 mGy*cm CT Dose Reduction Employed: Automated exposure control(AEC) and iterative recon Comparison: No relevant prior studies are available for comparison. RESULT: Limitations: Motion artifacts. CHEST: Lines, tubes, and devices: None. Lung parenchyma and airways: No pulmonary parenchymal laceration or contusion. Subpleural bandlike segmental/subsegmental compressive atelectasis in the dependent regions of the lower lobes and upper lobes. No consolidation. The central airways are patent. Biapical scarring. Minimal bronchiectasis in left lower lobe. Pulmonary nodules, series 4: 1. 8.1 mm, groundglass nodule in the right lower lobe, image 96. 2. 2.7 cm, solid, left apical pulmonary nodule, image 20. 3. 2.6 mm, solid, right apical pulmonary nodule, image 20. 4. 2.7 mm, solid, right upper lobe pulmonary nodule, image 41. 5. Calcified granuloma in the left lower lobe. Pleural space: No pleural effusion. No pleural thickening. No pneumothorax. Lower neck, lymph nodes, and mediastinum: The imaged thyroid gland is normal to enlarged and containing exophytic, left inferior, 1.3 cm, nodule. If it is not done already, characterization with thyroid ultrasound as an outpatient is recommended. Left hilar and mediastinal calcified lymph nodes. No lymphadenopathy in the supraclavicular, axillary, mediastinal, or hilar regions. No mediastinal hematoma. Hiatal hernia containing the gastric fundus and part of the gastric body with no distention or findings to suggest acute obstruction. Heart, pericardium, and thoracic vessels: The thoracic aorta and main pulmonary artery are normal in caliber. The cardiac chambers are normal in size. Mitral annular valve calcifications. Moderate LAD coronary artery atherosclerotic calcifications are noted, although the study is not optimized for coronary assessment. No pericardial effusion or thickening. Bones and soft tissues: Unsupportive changes in the right shoulder joint and severe/end-stage left glenohumeral joint osteoarthrosis with evidence of fluid-filled/distended subcoracoid bursa containing lesion body/synovial osteochondromatosis consistent with bursitis and measuring approximately 5.8 cm. No body wall hematoma, subcutaneous gas or metallic foreign bodies. Chronic fractures involving the rib cage bilaterally with no definite acute fracture lucency or dislocation. No sternal fractures.. THORACIC SPINE: The cervical spine was assessed with outpatient CT from same day. The osseous structures are demineralized. If it is not done already, please consider DEXA scan as an outpatient to assess for osteopenia/osteoporosi s. Preserved lateral alignment of the thoracic spine with mild dextroconvex scoliotic curvature of the thoracic spine. No acute fracture lucency or dislocation. The vertebral body heights are maintained with no acute degenerative changes in the thoracic spine with no central canal stenosis. Compression deformities. ABDOME (more content not included)... Normal [facility] Comprehensive metabolic 2000 panelon 08-15-2025 Albumin [Mass/Vol] 3.8 g/dL Low 3.9-4.9 [facility] Comment on above: Order Comment: Speci men Type: BLOOD SPECIMENOrdering Facility: [facility] Address: [address] [place] [address] Performed By: #### 3 -3, ####[facility] LABORATORYCLIA [id number] [address] STATES OF [facility] ALP [Catalytic activity/Vol] 82 U/L Normal 34-123 [facility] Comment on above: Order Comment: Speci men Type: BLOOD SPECIMENOrdering Facility: [facility] Address: [address] [place] [address] Performed By: #### 3 040-3, 62176-5 ####[facility] LABORATORYCLIA [id number] [address] STATES OF [facility] ALT With P-5'-P [Catalytic activity/Vol] 6 U/L Low 7-38 [facility] Comment on above: Order Comment: Speci men Type: BLOOD SPECIMENOrdering Facility: [facility] Address: [address] [place] [address] Performed By: #### 3 040-3, 84493-3 ####[facility] LABORATORYCLIA [id number] [address] STATES OF [facility] Anion gap [Moles/Vol] 10 mmol/L Normal 8-15 [facility] Comment on above: Order Comment: Speci men Type: BLOOD SPECIMENOrdering Facility: [facility] Address: [address] [place] [address] Performed By: #### 3 040-3, 20116-6 ####[facility] LABORATORYCLIA [id number] [address] [place] AST With P-5'-P [Catalytic activity/Vol] Normal [facility] Comment on above: Order Comment: Speci men Type: BLOOD SPECIMENOrdering Facility: [facility] Address: [address] [place] [address] Result Comment: Unab le to assay due to interference from hemolysis. Suggest reorder as clinically indicated. Performed By: #### 3 -3, ####[facility] LABORATORYCLIA [id number] [place] [address] [place] Bilirubin [Mass/Vol] 0.2 mg/dL Normal 0.2-1.3 [facility] Comment on above: Order Comment: Speci men Type: BLOOD SPECIMENOrdering Facility: [facility] Address: [address] [place] [address] Performed By: #### 3 3, ####[facility] LABORATORYCLIA [id number] [place] [address] [place] Calcium [Mass/Vol] 9.0 mg/dL Normal 8.5-10.2 [facility] Comment on above: Order Comment: Speci men Type: BLOOD SPECIMENOrdering Facility: [facility] Address: [address] [place] [address] Performed By: #### 3 , ####[facility] LABORATORYCLIA [id number] [place] [address] [place] Chloride [Moles/Vol] 109 mmol/L High 98-107 [facility] Comment on above: Order Comment: Speci men Type: BLOOD SPECIMENOrdering Facility: [facility] Address: [address] [place] [address] Performed By: #### 3 , ####[facility] LABORATORYCLIA [id number] [place] [address] [place] CO2 [Moles/Vol] 25 mmol/L Normal 22-30 [facility] Comment on above: Order Comment: Speci men Type: BLOOD SPECIMENOrdering Facility: [facility] Address: [address] [place] [address] Performed By: #### 3 3, 06783-2 ####[facility] EASTIA [id number] [place] [id number] [place] Creatinine [Mass/Vol] 0.60 mg/dL Normal 0.58-0.96 [facility] Comment on above: Order Comment: Wendie shine Type: BLOOD SPECIMENOrdering Facility: [facility] Address: [address] [place] [address] Performed By: #### 3 040-3, 09460-8 ####[facility] [id number] [place] [id number] [place] eGFRcr SerPlBld CKD-EPI 2020 91 mL/min/1.73m??? Normal >=60 [facility] Comment on above: Order Comment: Wendie shine Type: BLOOD SPECIMENOrdering Facility: [facility] Address: [address] [place] [address] Result Comment: Erma mated Glomerular Filtration Rate (eGFR) is calculated using the 2020 CKD-EPI creatinine equation. This equation utilizes serum creatinine, sex, and age as parameters. The creatinine assay has traceable calibration to isotope dilution-mass spectrometry. Refer to KDIGO guidelines for clinical interpretation. In patients with unstable renal function, e.g. those with acute kidney injury, the eGFR may not accurately reflect actual GFR. Performed By: #### 3 040-3, 50153-9 ####[facility] E[facility] [id number] [place] [address] [place] Glucose [Mass/Vol] 84 mg/dL Normal 74-99 [facility] Comment on above: Order Comment: Wendie shine Type: BLOOD SPECIMENOrdering Facility: [facility] Address: [address] [place] [address] Result Comment: The [place] [employer] (ADA) provides guidance for cutoff values for fasting glucose and random glucose. The ADA defines fasting as no caloric intake for at least 8 hours. Fasting plasma glucose results between 100 to 125 mg/dL indicate increased risk for diabetes (prediabetes). Fasting plasma glucose results greater than or equal to 126 mg/dL meet the criteria for diagnosis of diabetes. In the absence of unequivocal hyperglycemia, results should be confirmed by repeat testing. In a patient with classic symptoms of hyperglycemia or hyperglycemic crisis, random plasma glucose results greater than or equal to 200 mg/dL meet the criteria for diagnosis of diabetes. Reference: Standards of Medical Care in Diabetes 2016, [place] [employer]. Diabetes Care. 2016.39(Suppl 1). Performed By: #### 3 -3, ####[facility] LABORATORYCLIA [id number] [place] [address] [place] Potassium [Moles/Vol] 4.1 mmol/L Normal 3.7-5.1 [facility] Comment on above: Order Comment: Speci men Type: BLOOD SPECIMENOrdering Facility: [facility] Address: [address] [place] [address] Performed By: #### 3 , 37627-6 ####[facility] LABORATORYCLIA [id number] [place] [address] [place] Protein [Mass/Vol] 6.0 g/dL Low 6.3-8.0 [facility] Comment on above: Order Comment: Speci men Type: BLOOD SPECIMENOrdering Facility: [facility] Address: [address] [place] [address] Performed By: #### 3 , ####[facility] [facility] LABORATORYCLIA [id number] [address] [place] Sodium [Moles/Vol] 144 mmol/L Normal 136-144 [facility] Comment on above: Order Comment: Speci men Type: BLOOD SPECIMENOrdering Facility: [facility] Address: [address] [place] [address] Performed By: #### 3 , 09119-4 ####[facility] LABORATORYCLIA [id number] [place] [address] [place] Urea nitrogen [Mass/Vol] 18 mg/dL Normal 7-21 [facility] Comment on above: Order Comment: Speci men Type: BLOOD SPECIMENOrdering Facility: [facility] Address: [address] [place] [address] Performed By: #### 3 , 60857-7 ####[facility]ORATORYCLIA [id number] [place] [address] [facility] ED NOTEon 08-15-2025 ED NOTE HNO ID: [id number] Author: AGAPITO ROUSE RN Service: Emergency Medicine Author Type: Registered Nurse Type: ED Notes Filed: 08/15/2025 21:27 Note Text: Verified room ready on 52A and floor is ready for pt. [facility] ED NOTE HNO ID: [id number] Author: AGAPITO ROUSE RN Service: Emergency Medicine Author Type: Registered Nurse Type: ED Notes Filed: 08/15/2025 20:52 Note Text: XR states their XR is for blue collar from [employer], pt currently in green aspen collar. Awaiting [employer] at this time. [facility] ED NOTE HNO ID: [id number] Author: AGAPITO ROUSE RN Service: Emergency Medicine Author Type: Registered Nurse Type: ED Notes Filed: 08/15/2025 20:17 Note Text: MATHEMATICAL ENGINEER made aware about yanke consult. [facility] ED NOTE HNO ID: [id number] Author: AGAPITO ROUSE RN Service: Emergency Medicine Author Type: Registered Nurse Type: ED Notes Filed: 08/15/2025 20:08 Note Text: XR notified pt ready. [facility] ED NOTE HNO ID: [id number] Author: CHRIS DELANEY RN Service: Emergency Medicine Author Type: Registered Nurse Type: ED Notes Filed: 08/15/2025 19:16 Note Text: CT notified [facility] ED NOTE HNO ID: [id number] Author: AGAPITO ROUSE RN Service: Emergency Medicine Author Type: Registered Nurse Type: ED Notes Filed: 08/15/2025 21:10 Note Text: Surgery resident at bedside switching c-collar out. [facility] ED NOTE HNO ID: [id number] Author: DEL DRAKE RN Service: ? Author Type: Registered Nurse Type: ED Notes Filed: 08/15/2025 17:05 Note Text: Bed: 36-ED Expected date: Expected time: Means of arrival: Comments: hazel [facility] ED PROV NOTEon 08-15-2025 ED PROV NOTE HNO ID: [id number] Author: ENRIKE WATKINS MD Service: Emergency Medicine Author Type: Physician Type: ED Provider Notes Filed: 08/15/2025 20:11 Note Text: Attending Note I evaluated the patient and personally participated in the hannah components. I agree with the resident's findings and plan as documented and have discussed the case and management of the patient's care with the resident. I supervised the hannah portion(s) of procedures performed on this patient by the resident physician. Physical Exam Item(s): Patient has no neuro deficits on exam cranial nerves are intact sensation to light touch intact throughout strength 5 out of 5, there is no other external signs of trauma on exam other than the right frontal laceration, Mondovi collar is in place. This is a 80 year old female presenting with Functional Transfers (Patient transfer from [place] for trauma consult. C5 fracture laceration to right side of head arrives with c-collar on) Patient transferred from [place] for trauma and spine consult for fall resulting in a C5 facet fracture. Trauma and spine evaluated the patient with the patient in an Mondovi collar and patient is due for admission to trauma surgery. ENRIKE WATKINS 08/15/252010 [facility] ED PROV NOTE HNO ID: [id number] Author: ENRIKE WATKINS MD Service: Emergency Medicine Author Type: Physician Type: ED Provider Notes Filed: 08/16/2025 00:21 Note Text: ED Provider Note Patient Name: Annabelle Ventura : 1945 SERVICE DATE: 08/15/25 History Patient presents with: Functional Transfers: Patient transfer from [place] for trauma consult. C5 fracture laceration to right side of head arrives with c-collar on Annabelle Ventura is a 80 year old female with no significant PMHx who presents to the emergency department as a trauma transfer from [place]. Patient had a fall this morning when she hit her head at a desk on the way down. She is unsure how she fell, she does not recall dizziness, lightheadedness, or feeling sensations of being off balance before the fall. She does not recall tripping on any objects. Patient did strike her head on the corner of a desk on the way down causing a laceration to the right side of her face. She did a lot lose consciousness. She was unable to get her cell phone call her daughter came over, found her lying in blood, called EMS and she was taken to [facility]. Hurricane did CT scans of her head and neck found no intracranial abnormality however did see a C5 right sided facet fracture and transferred her to [facility] For further trauma evaluation. Patient arrives she does have aright sided facial laceration which has been repaired with sutures. She is in a cervical collar. She does endorse 1 episode of nausea with vomiting prior to arrival, however does not feel nauseous now. She does not have any focal deficits on my neuroexam. She is denying headache, chest pain, shortness of breath, weakness, or numbness. Complete ROS as documented below. No past medical history on file. No past surgical history on file. No family history on file. Social History[1] ALLERGIES No Known Allergies Review of Systems Constitutional: Negative for chills and fever. HENT: Negative for congestion. Respiratory: Negative for chest tightness and shortness of breath. Cardiovascular: Negative for chest pain. Gastrointestinal: Positive for nausea and vomiting. Negative for abdominal distention and abdominal pain. Genitourinary: Negative for dysuria. Musculoskeletal: Negative for myalgias. Skin: Positive for wound (Right sided facial LAC). Neurological: Negative for dizziness and syncope. Physical Exam Vitals [08/15/25 1714] BP Pulse Temp Temp src Resp SpO2 Weight Height 134/77 75 36.7 ?C (98 ?F) Axillary 15 95 % 86.2 kg (190 lb) 1.6 m (5' 3") Physical Exam Constitutional: Appearance: Normal appearance. She is normal weight. HENT: Head: Normocephalic and atraumatic. Right Ear: Tympanic membrane, ear canal and external ear normal. Left Ear: Tympanic membrane, ear canal and external ear normal. Nose: Nose normal. Mouth/Throat: Mouth: Mucous membranes are moist. Eyes: Extraocular Movements: Extraocular movements intact. Pupils: Pupils are equal, round, and reactive to light. Cardiovascular: Rate and Rhythm: Normal rate and regular rhythm. Pulses: Normal pulses. Heart sounds: Normal heart sounds. Pulmonary: Effort: Pulmonary effort is normal. No respiratory distress. Breath sounds: Normal breath sounds. No wheezing. Abdominal: General: Abdomen is flat. There is no distension. Tenderness: There is no abdominal tenderness. Musculoskeletal: General: No tenderness. Normal range of motion. Cervical back: Normal range of motion. No tenderness. Skin: General: Skin is warm. Findings: Lesion (3 cm right-sided facial laceration, repaired at outside hospital) present. Neurological: General: No focal deficit present. Mental Status: She is alert and oriented to person, place, and time. Cranial Nerves: No cranial nerve deficit. Sensory: No sensory deficit. Motor: No weakness. Coordination: Coordination normal. Diagnostic Testing ED Labs Ordered and Reviewed COMPLETE BLOOD COUNT AND DIFFERENTIAL - Abnormal; Notable for the following components: Result Value Ref Range MCV 100.9 (*) 80.0 - 100.0 fL Abs Neut 8.00 (*) 1.45 - 7.50 k/uL Abs [place] 1.01 (*) <0.87 k/uL All other components within normal limits COMPREHENSIVE METABOLIC PANEL - Abnormal; Notable for the following components: Protein, Total 6.0 (*) 6.3 - 8.0 g/dL Albumin 3.8 (*) 3.9 - 4.9 g/dL ALT 6 (*) 7 - 38 U/L Chloride 109 (*) 98 - 107 mmol/L All other components within normal limits ETHANOL/ALCOHOL - Normal LIPASE - Normal PROTHROMBIN TIME - Normal ACTIVATED PARTIAL THROMBOPLASTIN TIME - Normal Narrative: Unfractionated Heparin Therapeutic Ranges: Standard Heparin Nomogram: 53 to 78 seconds (anti-Xa level of 0.3 to 0.7 U/ml) Low Dose/ACS Nomogram: 49 to 67 seconds (anti-Xa level of 0.2 to 0.5 U/ml) Stroke Treatment Nomogram: 49 to 67 seconds (anti-Xa level of 0.2 to 0.5 U/ml) Note: The APTT therapeutic range has been det (more content not included)... Normal [facility] Emergency Department Summary on 08-15-2025 Emergency Department Summary [facility] Medical Records Department [address] [place] [address] Emergency Department Summary 08/15/25 MR#: [id number] Acct: [id number] Name: ANNABELLE VENTURA Rep #: [id number] : 1945 80 From: Werner Esquivel DO PCP: Dr. Mone Cervantes MD Status:REG ER Location: ED HPI History of Present Illness Chief Complaint: Head Injury Detail of Chief Complaint: Fall with head injury Informant: patient Narrative Narrative: Patient presents to the emergency department after falling while trying to get up from her wheelchair. She fell and hit the corner of an end table with her head. No loss of consciousness. She sustained a laceration to her forehead. Denies neck pain. She denies chest or abdomen pain. Patient has history of Parkinson's. She is on Eliquis for history of DVT. [facility] Medical History (Updated 08/15/25 @ 14:20 by Jordana Phoenix) Osteoporosis Atrial fibrillation Rheumatoid arthritis History of Parkinson's disease Anxiety disorder Chronic pain Peripheral vascular disease Osteoarthritis Lactose intolerance Post-menopausal Depression Anxiety Walker as ambulation aid Hx of bladder problems Arthritis DVT (deep venous thrombosis) Fall Heartburn Non-smoker Shortness of breath on exertion History of edema History of stress test Cardiology follow-up encounter Parkinson disease DDD (degenerative disc disease) Essential (primary) hypertension Paroxysmal atrial fibrillation Thyroid nodule Sleep apnea Lumbar compression fracture (05/2018) Home Medications ???Medication ???Instructions ???Recorded ???Last Taken ???Type alendronate 70 mg tablet (Fosamax) 70 mg PO QWEEK 07/01/19 08/14/25 History carbidopa 25 mg-levodopa 100 mg 1.5 tab PO TID 11/29/20 08/15/25 H istory tablet lactase 3,000 unit chewable tablet 3,000 unit PO ONCE 08/02/2107/20 History ([employer]) aspirin 81 mg tablet,delayed 81 mg PO DAILY 12/11/22 08/15/25 H istory release (Adult Low Dose Aspirin) acetaminophen 500 mg tablet 1,000 mg PO Q8 PRN fever or pain 0 02/26/24 08/15/25 History diltiazem HCl 30 mg tablet 30 mg PO Q8H 02/26/24 08/15/25 His tory duloxetine 20 mg capsule,delayed 40 mg PO DAILY 02/26/24 08/14/25 H istory release hydroxychloroquine 200 mg tablet 200 mg PO BID 02/26/24 08/15/25 Hi story oxycodone 5 mg tablet 5 mg PO BID PRN pain 02/26/2407/20 History calcium 333 mg-vit D3 200 1 tab PO DAILY 03/11/24 08/15/25 H istory unit-magnesium 133 mg-zinc 5 mg tablet lisinopril 5 mg tablet 5 mg PO DAILY #90 tabs 09/10/24 Rx flecainide 50 mg tablet 50 mg PO Q12H #180 TABLETS 5 08/15/25 Rx apixaban 5 mg (74 tabs) tablets in See Rx Instructions PO PER PKG D IR 07/20/25 08/15/25 Rx a dose pack (Eliquis DVT-PE Treat #74 tabs 30D Start) Lactobacillus acidophilus 10 100 mmu cells PO DAILY 08/15/25 History billion cell capsule (NewFlora) diclofenac sodium 1 % topical gel 2 ea topical 4X/DAY 08/15/2507/20 History mometasone 50 mcg/actuation nasal 1 - 2 spray intranasal DAILY 07/2008/14/25 History spray Allergy/AdvReac Type Severity Reaction Status Date / Time baclofen AdvReac Severe emotional Verified 08/15/25 12:32 issues propranolol AdvReac Severe nightmare Verified 08/15/25 12:32 sulfadiazine AdvReac Unknown not as Verified 08/15/25 12:32 effective Family History Father Cancer Sister Cancer Diabetes Heart disease Mother Anxiety and depression Surgical History (Updated 08/15/25 @ 14:20 by Jordana Phoenix) History of cholecystectomy S/P shoulder replacement H/O varicose vein ligation and stripping History of tubal ligation Status post replacement of right shoulder joint Hx of right cataract extraction Hx of left cataract extraction Hx of LASIK Spinal cord stimulator status (05/2020) History of back surgery (03/2018) History of left heart catheterization (04/25/17) History of herniorrhaphy History of hysterectomy Social History household members: family Smoking Status: Never smoker alcohol intake: never substance use type: does not use caffeine: Yes Type: coffee Number of servings: 1 ROS ROS ED Review of Systems ROS Unobtainable: other Constitutional Constitutional ED: Reports lethargy; Denies chills, fever(s), sweats or weight loss Eyes Eyes: Denies blurry vision, change in vision or diplopia ENT ENT ED: Denies rhinorrhea or sore throat Cardiovascular Cardiovascular: Denies chest pain, orthopnea or racing heartbeat Respiratory/Chest Respiratory/Chest: Denies cough, dyspnea, dyspnea on exertion, orthopnea or sputum Gastrointestinal Gastrointestinal: Denies abdominal (more content not included)... Normal [facility] Ethanol SerPl-mCncon 025 Ethanol [Mass/Vol] mg/dL Normal <11 [facility] Comment on above: Order Comment: Speci men Type: BLOOD SPECIMENOrdering Facility: [facility] Address: [address] [place] [address] Performed By: #### 5 643-2 ####[facility] LABORATORYCLIA [id number] [place] [address] [place] HISTORY PHYSICALon HISTORY PHYSICAL HNO ID: [id number] Author: ERNESTO GANDHI MD Service: General Surgery Author Type: Resident Type: H&P Filed: 09/01/2025 15:53 Note Text: Attestation signed by Ernesto Gandhi MD at 09/01/2025 3:53 PM Attending Note I discussed with resident. The patient was not examined by the attending. I reviewed the resident's note. I agree with the resident's assessment and plan unless otherwise noted. Signature: Ernesto Gandhi MD Delayed entry TRAUMA SURGERY HANDP [facility] ARRIVAL DATE: 08/15/2025 ARRIVAL TIME: 5:05 pm CATEGORY: Level 3 INJURY DATE: 08/15/2025 Subjective 80 year old female with PMH of Afib (on eliquis), HTN, lumbar spinal stenosis/radiculopathy , Parkinsons disease, R IHR, bilateral posterior hemilaminectomy L1-L4 non instrumented fusion L2-3 (2018) presenting as a T3 activation after a GLF on 08/15. States she was sitting in her chair at home and went to stand up to use her walker when she missed the handle and fell toward her right, hitting her right temporal region of head against a desk. Denies LOC and denies pain elsewhere. Denies any neck pain. Motor and sensory intact in all extremities. Denies any numbness or paresthesias, denies any headaches or blurry vision. She presented to the ED with a repaired head laceration (2-3 cm) above the right eye. GCS at Scene was 15. HPI/CHIEF COMPLAINT: GLF on 08/15 BRIEF DESCRIPTION OF INJURIES: acute C5 fracture, lac to right temporal region LAST FLUIDS/MEAL: AM CODE STATUS: Discussed with patient ALLERGIES No Known Allergies Prescriptions Prior to Admission[1] DATE OF LAST TETANUS: unknown There is no immunization history on file for this patient. No past medical history on file. No past surgical history on file. SOCIAL HISTORY[2] No family history on file. ROS: Is the patient having any pain? No 0 on a scale of 0 to 10 Constitutional: Negative Eye/Ear/Nose: Negative Respiratory: Negative Cardiovascular: Negative GI/Liver/Biliary: Negative Genitourinary: Negative Psychiatric: Negative Neurologic: Negative Musculoskeletal: Negative Integument: Negative Endocrine: Negative Heme/Lymph: Negative Objective PRIMARY SURVEY AIRWAY: Patent BREATHING: Breath sounds equal CIRCULATION: PT/DP 1+, Radials 1+, Femoral 2+ DISABILITY: Eye: 4=Spontaneous Verbal: 5=Oriented and Converses Motor: 6=Obeys Commands Total GCS: 15=4 Resp Rate: 10 to 29=4 Syst BP: > than 89=4 REVISED TRAUMA SCORE: 12 EXPOSE / ENVIRONMENT: Warm Blankets PROCEDURES: n/a SECONDARY SURVEY VITALS: 08/15/25 1714 BP: 134/77 Pulse: 75 Resp: 15 Temp: 36.7 ?C (98 ?F) TempSrc: Axillary SpO2: 95% Weight: 86.2 kg (190 lb) Height: 160 cm (5' 3") NEURO: Alert AND Oriented x 3, GCS 15, Cranial Nerves II-XII grossly Intact, Moves All Extremities, Strength Symmetrical, No Sensory Deficits. HEENT: Head: 3 cm laceration (previously sutured in outside ED) with surrounding bruising , no bony step-offs, midface stable to palpation. Eyes: PERRL, conjunctiva/corneas without lesions, EOMI. Ears: Canals without blood or CSF drainage, TMs clear, external ears without lacerations. Nose: Septum midline, no crepitus with motion. Throat: Oral mucosa without lacerations, teeth in place, tongue without lacerations. NECK: No midline pain with palpation, no lacerations/wounds, trachea midline. RESPIRATORY: No abrasions or contusions, no crepitus, chest wall without ttp, equal excursion. Unlabored breathing on RA CARDIOVASCULAR: regular rate, good perfusion throughout ABDOMEN: Soft, non-distended, non-tender, no scars or lacerations, no rebound or guarding. No masses or organomegaly. PELVIC/PERINEAL: Pelvis stable to palpation, no blood noted at urethra meatus, gluteal contraction intact. BACK/SPINE: Thoracolumbar spinal column non-tender, no step-off or deformity noted, no external injury noted. EXTREMITIES: Arm/shoulder normal bilaterally, forearm/elbow normal bilaterally, hand/wrist normal bilaterally, thigh/hip normal bilaterally, leg/knee normal bilaterally, foot/ankle normal bilaterally. RADIOLOGICAL/OTHER TEST DATA: No orders to display PRIOR TO ARRIVAL: No Loss of Consciousness Cervical Collar Labs: Recent Labs 08/15/25 1825 WBC 10.68 HB 13.8 HCT 43.4 PLT 307 ASSESSMENT AND PLAN: Assessment There are no active hospital problems to display for this patient. 80 year old female with PMH of Afib (on eliquis), HTN, lumbar spinal stenosis/radiculopathy , Parkinsons disease, R IHR, bilateral posterior hemilaminectomy L1-L4 non instrumented fusion L2-3 (2018) presenting as a T3 activation after a GLF on 08/15. Imaging performed: - CTHNCAP, TL spine Traumatic Injuries: - Acute fracture of R C5 facet joint [facility] (more content not included)... Normal [facility] Lipase SerPl-cCncon 08-15-20 25 Lipase [Catalytic activity/Vol] 16 U/L Normal 16-61 [facility] Comment on above: Order Comment: Speci men Type: BLOOD SPECIMENOrdering Facility: [facility] Address: [address] [place] [address] Performed By: #### 3 040-3, 79415-8 ####[facility] LABORATORYCLIA [id number] [place] [id number] [place] PT panel Coag (PPP)on 2024 INR Coag (PPP) [Relative time] 1.2 {INR} Normal 0.9-1.3 [facility] Comment on above: Order Comment: Speci men Type: BLOOD SPECIMENOrdering Facility: [facility] Address: [address] [place] [address] Result Comment: Lexie min K Antagonist (VKA) Therapeutic Range: INR 2 to 3 (Target INR of 2.5) Note: For patients treated with VKA drugs, such as warfarin, the [place] 2012 Guideline recommends a therapeutic INR range of 2 to 3 (target INR of 2.5). This recommendation includes high-risk patients with antiphospholipid syndrome with previous arterial or venous thromboembolism, current-generation mechanical or bioprosthetic aortic heart valve replacement. Note: Patients with mechanical aortic valve replacement and additional risk factors for thromboembolic events (atrial fibrillation, previous thromboembolism, LV dysfunction, hypercoagulable conditions) or an older generation mechanical AVR (i.e., ball in-Cage) or any mechanical MVR should have a INR therapeutic range of 2.5 to 3.5 (target INR of 3). Sydney GH, et al. Chest 2012, 141:7S-47S Mallory RA, et al. JAC 2017, 70: 252-289 Performed By: #### 3 4528-0, 96665-7 ####[facility] LABORATORYCLIA [id number] [place] [id number] [place] PT Coag (PPP) [Time] 12.5 s Normal 9.7-13.0 [facility] Comment on above: Order Comment: Speci men Type: BLOOD SPECIMENOrdering Facility: [facility] Address: [address] [place] [address] Performed By: #### 3 4528-0, 24938-1 ####[facility] LABORATORYCLIA [id number] [place] [address] [facility] Spine Cervical without Contr ason 08-15-2025 Spine Cervical without Contras [facility] Imaging Services [address] [place], [place] [id number] Spine Cervical without Contras MR#: [id number] Acct: [id number] Name: ANNABELLE VENTURA Rep #: [id number] : 1945 F 80 From: Kun Cortes MD PCP: Dr. Mone Cervantes MD Status: REG ER Study: Spine Cervical without Contras Date of Exam: 0 08/15/25 Exam# [id number] Ordering Dr: Werner Esquivel DO PROCEDURE: SPINE CERVICAL WITHOUT CONTRAS 08/15/2025 REASON FOR EXAM: FALL TECHNIQUE: Procedure Code: CTSPC Modality: CT Procedure: SPINE CERVICAL WITHOUT CONTRAS Coronal and Sagittal reconstruction series were provided. One or more dose reduction techniques were used (e.g., Automated exposure control, adjustment of the mA and/or kV according to patient size, use of iterative reconstruction technique. RADIATION DOSE SUMMARY: CTDlvol: 23.22 mGy DLP: 1283.54 mGycm COMPARISON: None. FINDINGS: Alignment: Anterolisthesis C5 on C6 by 2 mm. Vertebrae: Acute fracture of the right C5 facet joint. Ultrasound may be performed for further evaluation. Soft Tissues: No soft tissue abnormalities. Disc levels: Multilevel degenerate changes predominantly at C5-C6 and C6-C7 where there is disc space narrowing, uncovertebral hypertrophy, facet joint arthropathy with mild bilateral foramina stenosis and without canal stenosis. CT/Spine Cervical without Contras IMPRESSION: Acute fracture of the right C5 facet joint. MRI cervical spine without contrast is recommended for further evaluation. Reading Location: [facility] CC: Dr. Mone Cervantes MD; Dr. Werner Esquivel DO [facility] Supervisor: Signed Normal [facility] TYPE + SCREENon 08-15-2025 ABO B Normal [facility] Comment on above: Order Comment: Speci men Type: BLOOD SPECIMENOrdering Facility: [facility] Address: [address] [place] [address] Performed By: #### T SCR ####[facility] BLOOD BANKCLIA [id number] [address] [place] Rh Nom (Bld) Positive Normal [facility] Comment on above: Order Comment: Speci men Type: BLOOD SPECIMENOrdering Facility: [facility] Address: [address] [place] [address] Performed By: #### T SCR ####[facility] BLOOD BANKCLIA [id number] [address] STATES OF [facility] TYPE AND SCREEN EXPIRATION 08/18/2025 23:59 Normal [facility] Comment on above: Order Comment: Speci men Type: BLOOD SPECIMENOrdering Facility: [facility] Address: [address] [place] [address] Performed By: #### T SCR ####[facility] BLOOD BANKCLIA [id number] [address] [place] aPTT PPPon 08-15-2025 aPTT Coag (PPP) [Time] 25.4 s Normal 23.0-32.4 [facility] Comment on above: Order Comment: Speci men Type: BLOOD SPECIMENOrdering Facility: [facility] Address: [address] [place] [address] Performed By: #### 3 4528-0, 58774-6 ####[facility] LABORATORYCLIA [id number] [address] OF [facility] Venous duplex ultrasound rep ortOrdered By: Mone Phillip on 07-21-2025 US Vein [facility] Cardiovascular Services [address] [place] [address] Venous Duplex US - Antonio Extrem 07/20/25 1346 MR#: [id number] Acct: [id number] Name: ANNABELLE VENTURA Rep #:[id number] : 1945 80 From: Mone Pelaez Attending Dr: Dr. Luis Eduardo Brantley MD S tatus: REG CLI Ordering Dr: Luis Eduardo Brantley MD Date: 01/12 Location: [facility] Sex: F C Admitted: Reason For Study Reason For Study: Elevated D Dimer RIGHT LEFT GSV is normal. GSV non visualized. HX ablation/stripping procedure. CFV is compressible, spontaneous, phasic, competent CFV is PARTIALLY COMPRESSIBLE, spontaneous, phasic, and demonstrates normal augmentation. competent, anddemonstrates normal augmentation. FV is compressible, spontaneous, phasic, competent FV is PARTIALLY COMPRESSIBLE, spontaneous, phasic, and demonstrates normal augmentation. competent and demonstrates normal augmentation. POP V is compressible, spontaneous, phasic, competent POP V is compressible, phasic, and INCOMPETENT for and demonstrates normal augmentation. greater than 1.0 second. T/P Trunk is compressible. T/P Trunk is compressible Acute deep vein thrombosis is noted in the PTV is compressible. Gastrocnemius V. It is dilated and NONCOMPRESSIBLE. LT PerV is compressible. PTV is compressible. LT calf vein varicosities appear compressible. RT PerV is compressible. Non vascularized anechoic area noted in Rt Pop Fossa measuring approximately 6.23cm x 1.16cm. Procedure This is a venous duplex using B-mode, color flow and spectral Doppler. Exam performed in department. The exam was diagnostic. A preliminary report was called and/or faxed to Ana Laura Brantley's office. VL/Venous Duplex US - Antonio Extrem Interpretation Summary Acute deep vein thrombosis is noted in the right gastrocnemius vein. Chronic deep vein thrombosis noted in the left common femoral vein, femoral vein. Incidental reflux, left popliteal vein. Non vascularized anechoic area noted in right popliteal fossa measuring approximately 6.23cm x 1.16cm. Ordering Physician: Luis Eduardo Brantley Referring Physician: Mone Cervantes Performed By: Aleksandr Desouza, T 07/21/25 1327 Date _ Mone Phillip MD CC: Dr. Mone Cervantes MD; Dr. Luis Eduardo Brantley MD ~ Date Dictated: 07/20/25 1346 Date Transcribed: 07/21/25 132 [place] Supervisor: Signed [facility] Work Phone: Absolute lymphocyte countOrd ered By: Luis Eduardo Brantley on 07-20-2025 Lymphocytes Auto (Unsp spec) [#/Vol] 1.51 10*3/uL 0.83-4.51 [facility] Absolute neutrophil countOrd ered By: Luis Eduardo Brantley on 07-20-2025 Neutrophils (Bld) [#/Vol] 5.0 10*3/uL 2.0-7.7 [facility] Activated partial thrombopla stin time (aPTT) in platelet poor plasma by coagulation aOrdered By: Luis Eduardo Brantley on 07-20-2025 aPTT Coag (PPP) [Time] 23.9 s Low 24.1-36.2 [facility] Anion gap in Serum or Plasma Ordered By: Luis Eduardo Brantley on 07-20-2025 Anion gap [Moles/Vol] 10 mmol/L 5-15 [facility] Automated lymphocyte count a s percentage of total leukocytesOrdered By: Luis Eduardo Brantley on 07-20-2025 Lymphocytes/100 WBC Auto (Unsp spec) 20.0 % 19-41 [facility] BUN/creatinine ratioOrdered By: Luis Eduardo Brantley on 07-20-2025 Urea nitrogen/Creatinine [Mass ratio] 21.1 mg/mg High 10-20 [facility] Basophil percentageOrdered B y: Luis Eduardo Brantley on 07-20-2025 Basophils/100 WBC (Bld) 0.9 % 0-1 [facility] Bilirubin, totalOrdered By: Luis Eduardo Brantley on 07-20-2025 Bilirubin [Mass/Vol] 0.42 mg/dL 0.00-1.30 [facility] CBC W/Diff, Automatedon Absolute Lymph 1.51 X10 3/uL Normal 0.83-4.51 [facility] Comment on above: Performed By: #### L 300.4310, L300.8000, L100.0100, L300.3900, L504.2610, L500.4050 ####[facility] [address] [place], [address] Absolute Neut 5.0 X10 3/uL Normal 2.0-7.7 [facility] Comment on above: Performed By: #### L 300.4310, L300.8000, L100.0100, L300.3900, L504.2610, L500.4050 ####[facility] [address] [place], [address] Basophils/100 WBC (Bld) 0.9 % Normal 0-1 [facility] Comment on above: Performed By: #### L 300.4310, L300.8000, L100.0100, L300.3900, L504.2610, L500.4050 ####[facility] [address] [place], [address] Eosinophils/100 WBC (Bld) 3.4 % Normal 0-5 [facility] Comment on above: Performed By: #### L 300.4310, L300.8000, L100.0100, L300.3900, L504.2610, L500.4050 ####[facility] [address] [place], [address] Erythrocyte distribution width (RBC) [Ratio] 13.1 % Normal 11.6-14.6 [facility] Comment on above: Performed By: #### L 300.4310, L300.8000, L100.0100, L300.3900, L504.2610, L500.4050 ####[facility] [address] [place], [address] Hematocrit (Bld) [Volume fraction] 43.1 % Normal 37-47 [facility] Comment on above: Performed By: #### L 300.4310, L300.8000, L100.0100, L300.3900, L504.2610, L500.4050 ####[facility] [address] [place], [address] Hemoglobin (Bld) [Mass/Vol] 13.9 g/dL Normal 12.0-15.0 [facility] Comment on above: Performed By: #### L 300.4310, L300.8000, L100.0100, L300.3900, L504.2610, L500.4050 ####[facility] [address] [place], [address] IG% 0.400 Normal 0.0-0.9 [facility] Comment on above: Result Comment: IG% - Immature Granulocytes (promyelocytes, myelocytes and metamyelocytes) > 1% indicates that a LEFT SHIFT is Present. Performed By: #### L 300.4310, L300.8000, L100.0100, L300.3900, L504.2610, L500.4050 ####[facility] [address] [place], [address] Lymphocytes/100 WBC (Bld) 20.0 % Normal 19-41 [facility] Comment on above: Performed By: #### L 300.4310, L300.8000, L100.0100, L300.3900, L504.2610, L500.4050 ####[facility] [address] [place], [address] MCH (RBC) [Entitic mass] 32.2 pg High 27.0-32.0 [facility] Comment on above: Performed By: #### L 300.4310, L300.8000, L100.0100, L300.3900, L504.2610, L500.4050 ####[facility] [address] [place], [address] MCHC (RBC) [Mass/Vol] 32.3 g/dL Normal 32-36 [facility] Comment on above: Performed By: #### L 300.4310, L300.8000, L100.0100, L300.3900, L504.2610, L500.4050 ####[facility] [address] [place], [address] MCV (RBC) [Entitic vol] 99.8 fL High 81-99 [facility] Comment on above: Performed By: #### L 300.4310, L300.8000, L100.0100, L300.3900, L504.2610, L500.4050 ####[facility] [address] [place], [address] Monocytes/100 WBC (Bld) 9.3 % Normal 0-10 [facility] Comment on above: Performed By: #### L 300.4310, L300.8000, L100.0100, L300.3900, L504.2610, L500.4050 ####[facility] [address] [place], [address] Neutrophils/100 WBC (Bld) 66.0 % Normal 47-70 [facility] Comment on above: Performed By: #### L 300.4310, L300.8000, L100.0100, L300.3900, L504.2610, L500.4050 ####[facility] [address] [place], [address] Nucleated RBC (Bld) [#/Vol] 0 10*3/uL Normal 0-5 [facility] Comment on above: Performed By: #### L 300.4310, L300.8000, L100.0100, L300.3900, L504.2610, L500.4050 ####[facility] [address] [place], [address] Platelet mean volume (Bld) [Entitic vol] 9.5 fL Normal 6.2-12.0 [facility] Comment on above: Performed By: #### L 300.4310, L300.8000, L100.0100, L300.3900, L504.2610, L500.4050 ####[facility] [address] [place], [address] Platelets (Bld) [#/Vol] 323 10*3/uL Normal 150-450 [facility] Comment on above: Performed By: #### L 300.4310, L300.8000, L100.0100, L300.3900, L504.2610, L500.4050 ####[facility] [address] [place], [address] RBC (Bld) [#/Vol] 4.32 10*6/uL Normal 4.2-5.4 [facility] Comment on above: Performed By: #### L 300.4310, L300.8000, L100.0100, L300.3900, L504.2610, L500.4050 ####[facility] [address] [place], [address] RDW SD 47.9 fl High 35.1-43.9 [facility] Comment on above: Performed By: #### L 300.4310, L300.8000, L100.0100, L300.3900, L504.2610, L500.4050 ####[facility] [address] [place], [address] WBC (Bld) [#/Vol] 7.6 10*3/uL Normal 4.4-11.0 [facility] Comment on above: Performed By: #### L 300.4310, L300.8000, L100.0100, L300.3900, L504.2610, L500.4050 ####[facility] [address] [place], [address] Carbon dioxide, total [Moles /volume] in Central venous bloodOrdered By: Luis Eduardo Brantley on 07-20-2025 CO2 [Moles/Vol] 26.5 mmol/L 21.0-32.0 [facility] Chloride assayOrdered By: Ashleigh Brantley on 07-20-2025 Chloride [Moles/Vol] 103 mmol/L 98-108 [facility] Comprehensive Metabolic Prof ilon 07-20-2025 Albumin [Mass/Vol] 4.0 g/dL Normal 3.4-4.8 [facility] Comment on above: Performed By: #### L 300.4310, L300.8000, L100.0100, L300.3900, L504.2610, L500.4050 ####[facility] [address] [place], [address] Albumin/Globulin [Mass ratio] 1.5 {ratio} Normal 0.9-2.4 [facility] Comment on above: Performed By: #### L 300.4310, L300.8000, L100.0100, L300.3900, L504.2610, L500.4050 ####[facility] [address] [place], [address] ALK PHOS 86 U/L Normal 35-104 [facility] Comment on above: Performed By: #### L 300.4310, L300.8000, L100.0100, L300.3900, L504.2610, L500.4050 ####[facility] [address] [place], [address] ALT [Catalytic activity/Vol] U/L Normal <=34 [facility] Comment on above: Performed By: #### L 300.4310, L300.8000, L100.0100, L300.3900, L504.2610, L500.4050 ####[facility] [address] [place], [address] AST [Catalytic activity/Vol] 25 U/L Normal <=31 [facility] Comment on above: Performed By: #### L 300.4310, L300.8000, L100.0100, L300.3900, L504.2610, L500.4050 ####[facility] [address] [place], [address] Bilirubin [Mass/Vol] 0.42 mg/dL Normal 0.00-1.30 [facility] Comment on above: Performed By: #### L 300.4310, L300.8000, L100.0100, L300.3900, L504.2610, L500.4050 ####[facility] [address] [place], [address] BUN/CRE 21.1 RATIO High 10-20 [facility] Comment on above: Performed By: #### L 300.4310, L300.8000, L100.0100, L300.3900, L504.2610, L500.4050 ####[facility] [address] [place], [address] Calcium [Mass/Vol] 9.4 mg/dL Normal 7.6-11.0 [facility] Comment on above: Performed By: #### L 300.4310, L300.8000, L100.0100, L300.3900, L504.2610, L500.4050 ####[facility] [address] [place], [address] Chloride [Moles/Vol] 103 mmol/L Normal 98-108 [facility] Comment on above: Performed By: #### L 300.4310, L300.8000, L100.0100, L300.3900, L504.2610, L500.4050 ####[facility] [address] [place], [place], [phone] CO2 [Moles/Vol] 26.5 mmol/L Normal 21.0-32.0 [facility] Comment on above: Performed By: #### L 300.4310, L300.8000, L100.0100, L300.3900, L504.2610, L500.4050 ####[facility] [address] [place], [address] Creatinine [Mass/Vol] 0.81 mg/dL Normal 0.70-1.20 [facility] Comment on above: Performed By: #### L 300.4310, L300.8000, L100.0100, L300.3900, L504.2610, L500.4050 ####[facility] [address] [place], [place], [phone] ECRCL 57.50 ml/min Normal 50-250 [facility] Comment on above: Performed By: #### L 300.4310, L300.8000, L100.0100, L300.3900, L504.2610, L500.4050 ####[facility] [address] [place], [place], [phone] GAP 10 Normal 5-15 [facility] Comment on above: Performed By: #### L 300.4310, L300.8000, L100.0100, L300.3900, L504.2610, L500.4050 ####[facility] [address] [place], [place], [phone] GFR/1.73 sq M.predicted among non-blacks MDRD (S/P/Bld) [Vol rate/Area] 73 mL/min/{1.73_m2} Normal >60 [facility] Comment on above: Result Comment: mL/m in/1.73m2 CKD-EPI Creatinine Equation (2020) Performed By: #### L 300.4310, L300.8000, L100.0100, L300.3900, L504.2610, L500.4050 ####[facility] [address] [place], [address] Globulin (S) [Mass/Vol] 2.6 g/dL Normal 2.2-4.2 [facility] Comment on above: Performed By: #### L 300.4310, L300.8000, L100.0100, L300.3900, L504.2610, L500.4050 ####[facility] [address] [place], [address] Glucose [Mass/Vol] 89 mg/dL Normal 70-99 [facility] Comment on above: Performed By: #### L 300.4310, L300.8000, L100.0100, L300.3900, L504.2610, L500.4050 ####[facility] [address] [place], [address] Potassium [Moles/Vol] 4.1 mmol/L Normal 3.3-5.1 [facility] Comment on above: Performed By: #### L 300.4310, L300.8000, L100.0100, L300.3900, L504.2610, L500.4050 ####[facility] [address] [place], [address] Sodium [Moles/Vol] 140 mmol/L Normal 133-145 [facility] Comment on above: Performed By: #### L 300.4310, L300.8000, L100.0100, L300.3900, L504.2610, L500.4050 ####[facility] [address] [place], [address] T PROT 6.6 g/dL Normal 5.9-8.4 [facility] Comment on above: Performed By: #### L 300.4310, L300.8000, L100.0100, L300.3900, L504.2610, L500.4050 ####[facility] [address] [place], [place], [phone] Urea nitrogen [Mass/Vol] 17 mg/dL Normal 4-19 [facility] Comment on above: Performed By: #### L 300.4310, L300.8000, L100.0100, L300.3900, L504.2610, L500.4050 ####[facility] [address] [place], [address] D-Dimer Quantitative (DVT/PE )on 07-20-2025 D-DIMER QUANT 0.73 FEU/ug/m Invalid Interpretation Code 0.27-0.49 [facility] Comment on above: Order Comment: CRITI CHICO VALUE CALLED TO MISTY07/20/25 1101 Nithya Estrada.RESULTS READ BACK BY [facility] Result Comment: D-Di marge ELEVATED (>0.49): Additional studies and clinical assessments are indicated to conclude diagnosis of: Deep Vein Thrombosis (DVT) or Pulmonary Embolism (PE) Performed By: #### L 300.4310, L300.8000, L100.0100, L300.3900, L504.2610, L500.4050 ####[facility] [address] [place], [address] Eosinophil percentageOrdered By: Luis Eduardo Brantley on 07-20-2025 Eosinophils/100 WBC (Bld) 3.4 % 0-5 [facility] Erythrocyte distribution wid th ratioOrdered By: Luis Eduardo Brantley on 07-20-2025 Erythrocyte distribution width (RBC) [Ratio] 13.1 % 11.6-14.6 [facility] Erythrocyte distribution wid th standard deviationOrdered By: Luis Eduardo Brantley on 07-20-2025 Erythrocyte distribution width (RBC) [Ratio] 47.9 fl High 35.1-43.9 [facility] Glomerular filtration rate ( GFR) estimation/1.73 sq m using serum, plasma, or whole bOrdered By: Luis Eduardo Brantley on 07-20-2025 GFR/1.73 sq M.predicted among non-blacks MDRD (S/P/Bld) [Vol rate/Area] 73 mL/min/{1.73_m2} >60 [facility] Comment on above: mL/min/1.73m2 CKD-EP I Creatinine Equation (2020) Hematocrit Auto (Bld) [Volum e fraction]Ordered By: Luis Eduardo Tuttle on 07-20-2025 Hematocrit (Bld) [Volume fraction] 43.1 % 37-47 [facility] Hemoglobin measurementOrdere d By: Luis Eduardo Tuttle on 07-20-2025 Hemoglobin (Bld) [Mass/Vol] 13.9 g/dL 12.0-15.0 [facility] Immature granulocytes/100 WB C Auto (Bld)Ordered By: Luis Eduardo [facility] on 07-20-2025 Immature granulocytes/100 WBC (Bld) 0.400 % 0.0-0.9 [facility] Comment on above: IG% - Immature Granu locytes (promyelocytes, myelocytes and metamyelocytes) > 1% indicates that a LEFT SHIFT is Present. International normalized rat io (INR) calculationOrdered By: [facility] on 07-20-2025 INR Coag (Bld) [Relative time] 1.1 {INR} [facility] LDHon 07-20-2025 LDH 222 U/L Normal 84-246 [facility] Comment on above: Order Comment: 1 Performed By: #### L 300.4310, L300.8000, L100.0100, L300.3900, L504.2610, L500.4050 ####[facility] [address] [place], [place], [address] Laboratory - Chemistry and C hemistry - challengeOrdered By: [facility] on 07-20-2025 AST [Catalytic activity/Vol] 25 U/L <32 [facility] Lactate dehydrogenase (LDH) measurementOrdered By: [facility]ardo [facility] 07-[facility]25 LDH [Catalytic activity/Vol] 222 U/L 84-246 [facility] MCV (mean corpuscular volume ) determinationOrdered By: Luis Eduardo Brantley on 07-20-2025 MCV (RBC) [Entitic vol] 99.8 fL High 81-99 [facility] Mean corpuscular hemoglobin (MCH) determinationOrdered By: Luis Eduardo Brantley on 07-20-2025 MCH (RBC) [Entitic mass] 32.2 pg High 27.0-32.0 [facility] Mean corpuscular hemoglobin concentration (MCHC) determinationOrdered By: Luis Eduardo Brantley on 07-20-2025 MCHC (RBC) [Mass/Vol] 32.3 g/dL 32-36 [facility] Mean platelet volume determi nationOrdered By: Luis Eduardo Brantley on 07-20-2025 Platelet mean volume (Bld) [Entitic vol] 9.5 fL 6.2-12.0 [facility] Monocyte percentageOrdered B y: Luis Eduardo Brantley on 07-20-2025 Monocytes/100 WBC (Bld) 9.3 % 0-10 [facility] Neutrophil percentageOrdered By: Luis Eduardo Brantley on 07-20-2025 Neutrophils/100 WBC (Bld) 66.0 % 47-70 [facility] Nucleated red blood cell per centageOrdered By: Luis Eduardo Brantley on 07-20-2025 Nucleated RBC/100 WBC (Bld) [Ratio] 0 % 0-5 [facility] Oncology Visit Reporton 09 Oncology Visit Report [facility] [address] [place] [address] OFFICE VISIT Date of Service: 07/20/25 1120 MR#: [id number] Acct: [id number] Name: CARLOSANNABELLE Tessa Rep #: [id number] : 1945 From: Luis Eduardo Brantley MD Age/Sex: 80/F Location: [facility] Status: Signed HPI Subjective Date of Service 07/20/25 Chief Complaint F/u for DVT History of Present Illness 80-year-old woman had right shoulder surgery in August 2023. She developed DVT of the left leg in rehab and was started on Eliquis. She had a Doppler study in January 10, 2024 which showed persistent DVT in left common femoral and femoral veins so she remains on Eliquis. She then traveled to [place] on 02/14/2024 and came back on 02/22/2024. 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 She was found to have a big bruise of the L thigh, went to the ER on 02/26/2024, did not have deep tissue bleeding. She had dental work done. She remained on Eliquis till Jul 2024 when D-dimers normalized so she stopped Eliquis. She is on observation,, comes to the clinic for follow up. Feeling well, swelling of L leg has improved, Has L knee pain.. PFSH Medical History Rheumatoid arthritis History of Parkinson's disease Anxiety disorder Chronic pain Peripheral vascular disease Osteoarthritis Lactose intolerance Post-menopausal Depression Anxiety Walker as ambulation aid Hx of bladder problems Arthritis DVT (deep venous thrombosis) Fall Heartburn Non-smoker Shortness of breath on exertion History of edema History of stress test Cardiology follow-up encounter Parkinson disease DDD (degenerative disc disease) Essential (primary) hypertension Paroxysmal atrial fibrillation Thyroid nodule Sleep apnea Lumbar compression fracture (05/2018) Surgical History S/P shoulder replacement H/O varicose vein ligation and stripping History of tubal ligation Status post replacement of right shoulder joint Hx of right cataract extraction Hx of left cataract extraction Hx of LASIK Spinal cord stimulator status (05/2020) History of back surgery (03/2018) History of left heart catheterization (04/25/17) History of herniorrhaphy History of hysterectomy Family History Father Cancer Sister Cancer Diabetes Heart disease Mother Anxiety and depression Social History household members: family Smoking Status: Never smoker alcohol intake: never substance use type: does not use caffeine: Yes Type: coffee Number of servings: 1 Intake Vital Signs 09/11/24 10:44 07/20/25 11:20 Height 5 ft 3 in 5 ft 3 in Weight: 89.811 kg BMI 35.0 BP 129/74 H Blood Pressure Location Lt brachial Position Sitting Respiration 18 Pulse 72 Pulse Source Monitor Temp 97.6 F L Temperature Source Temporal Artery Pulse Oximetry (%) 95 Oxygen Delivery Method room air Intake Is patient in pain?: Yes (right knee) Pain scale (1-10): 7 Allergies baclofen Adverse Reaction (Severe, Verified 07/20/25 11:21) emotional issues propranolol Adverse Reaction (Severe, Verified 07/20/25 11:21) nightmare sulfadiazine Adverse Reaction (Unknown, Verified 07/20/25 11:21) not as effective Medications ???Medication ???Instructions ???Recorded ???Confirmed ???Type alendronate 70 mg tablet (Fosamax) 70 mg PO QWEEK 07/01/19 07/20/25 History carbidopa 25 mg-levodopa 100 mg 1.5 tab PO TID 11/29/20 07/20/25 H istory tablet lactase 3,000 unit chewable tablet 3,000 unit PO ONCE 08/02/2101/12 History ([employer]) aspirin 81 mg tablet,delayed 81 mg PO DAILY 12/11/22 07/20/25 H istory release (Adult Low Dose Aspirin) hydroxyzine HCl 25 mg tablet 12.5 mg PO Q8H PRN anxiety 3 07/20/25 History vitamin K2 100 mcg capsule 100 mcg PO DAILY 12/11/22 07/20/25 History acetaminophen 500 mg tablet 1,000 mg PO Q8 PRN fever or pain 0 02/26/24 07/20/25 History diltiazem HCl 30 mg tablet 30 mg PO Q8H 02/26/24 07/20/25 His tory duloxetine 20 mg capsule,delayed 40 mg PO DAILY 02/26/24 07/20/25 H istory release hydroxychloroquine 200 mg tablet 200 mg PO BID 02/26/24 07/20/25 Hi story oxycodone 5 mg tablet 5 mg PO BID PRN pain 02/26/2401/12 History calcium 333 mg-vit D3 200 1 tab PO DAILY 03/11/24 07/20/25 H istory unit-magnesium 133 mg-zinc 5 mg tablet lisinopril 5 mg tablet 5 mg PO DAILY #90 tabs 09/10/24 Rx flecainide 50 mg tablet 50 mg PO Q12H #180 TABLETS 5 07/20/25 Rx apix (more content not included)... Normal [facility] Partial Thromboplast Timeon 07-20-2025 aPTT Coag (Bld) [Time] 23.9 s Low 24.1-36.2 [facility] Comment on above: Order Comment: CRITI CHICO VALUE CALLED TO [facility]07/20/25 1101 Nithya Estrada.RESULTS READ BACK BY [facility] Performed By: #### L 300.4310, L300.8000, L100.0100, L300.3900, L504.2610, L500.4050 ####[facility] [address] [place], [place], [id number] Platelet countOrdered By: Ashleigh Brantley on 07-20-2025 Platelets (Bld) [#/Vol] 323 10*3/uL 150-450 [facility] Potassium measurement (mass/ volume)Ordered By: Luis Eduardo Brantley on 07-20-2025 Potassium (Unsp spec) [Mass/Vol] 4.1 mmol/L 3.3-5.1 [facility] Prothrombin Time w/INRon INR Coag (PPP) [Relative time] 1.1 {INR} Normal [facility] Comment on above: Order Comment: CRITI CHICO VALUE CALLED TO 07/20/25 1101 Nithya Estrada.RESULTS READ BACK BY [facility] Performed By: #### L 300.4310, L300.8000, L100.0100, L300.3900, L504.2610, L500.4050 ####[facility] [address] [place], [address] PT Coag (PPP) [Time] 14.6 s Normal 11.7-14.9 [facility] Comment on above: Order Comment: CRITI CHICO VALUE CALLED TO 07/20/25 1101 Nithya Estrada.RESULTS READ BACK BY [facility] Performed By: #### L 300.4310, L300.8000, L100.0100, L300.3900, L504.2610, L500.4050 ####[facility] [address] [place], [address] Prothrombin timeOrdered By: Luis Eduardo Brantley on 07-20-2025 PT Coag (PPP) [Time] 14.6 s 11.7-14.9 [facility] RBC Auto (Bld) [#/Vol]Ordere d By: Luis Eduardo Brantley on 07-20-2025 RBC (Bld) [#/Vol] 4.32 10*6/uL 4.2-5.4 [facility] Serum creatinine measurement (mass/volume)Ordered By: Luis Eduardo Brantley on 07-20-2025 Creatinine [Mass/Vol] 0.81 mg/dL 0.70-1.20 [facility] Serum globulin measurementOr dered By: Luis Eduardo Brantley on 07-20-2025 Globulin (S) [Mass/Vol] 2.6 g/dL 2.2-4.2 [facility] Serum glucose measurement (m ass/volume)Ordered By: Luis Eduardo Brantley on 07-20-2025 Glucose [Mass/Vol] 89 mg/dL 70-99 [facility] Serum or plasma alanine nayak otransferase (ALT) measurementOrdered By: Luis Eduardo Brantley on 07-20-2025 ALT [Catalytic activity/Vol] U/L <35 [facility] Serum or plasma albumin temi urement (mass/volume)Ordered By: Luis Eduardo Brantley on 07-20-2025 Albumin [Mass/Vol] 4.0 g/dL 3.4-4.8 [facility] Serum or plasma albumin/glob ulin mass ratioOrdered By: Luis Eduardo Brantley on 07-20-2025 Albumin/Globulin [Mass ratio] 1.5 {ratio} 0.9-2.4 [facility] Serum or plasma alkaline annamaria sphatase measurementOrdered By: Luis Eduardo Brantley on 07-20-2025 ALP [Catalytic activity/Vol] 86 U/L 35-104 [facility] Serum or plasma calcium temi urement (mass/volume)Ordered By: Luis Eduardo Brantley on 07-20-2025 Calcium [Mass/Vol] 9.4 mg/dL 7.6-11.0 [facility] Serum or plasma urea nitroge n measurement (mass/volume)Ordered By: Luis Eduardo Brantley on 07-20-2025 Urea nitrogen [Mass/Vol] 17 mg/dL 4-19 [facility] Sodium levelOrdered By: Adolfo jitendra Parag on 07-20-2025 Sodium [Moles/Vol] 140 mmol/L 133-145 [facility] Total proteinOrdered By: Hectorrenee Brantley on 07-20-2025 Protein [Mass/Vol] 6.6 g/dL 5.9-8.4 [facility] Venous Duplex US - Antonio Extre mon 07-20-2025 Venous Duplex US - Antonio Extrem [facility] [address] [place] [address] Venous Duplex US - Antonio Extrem 07/20/25 1346 MR#: [id number] Acct: [id number] Name: ANNABELLE VENTURA Rep #: [id number] : 1945 80 From: Mone Phillip MD Attending Dr: Dr. Luis Eduardo Brantley MD Status: REG C Ordering Dr: Luis Eduardo Brantley MD Date: 07/20/25 Location: CVS Sex: F C Admitted: Reason For Study Reason For Study: Elevated D Dimer RIGHT LEFT GSV is normal. GSV non visualized. HX ablation/stripping procedure. CFV is compressible, spontaneous, phasic, competent CFV is PARTIALLY COMPRESSIBLE, spontaneous, phasic, and demonstrates normal augmentation. competent, and demonstrates normal augmentation. FV is compressible, spontaneous, phasic, competent FV is PARTIALLY COMPRESSIBLE, spontaneous, phasic, and demonstrates normal augmentation. competent and demonstrates normal augmentation. POP V is compressible, spontaneous, phasic, competent POP V is compressible, phasic, and INCOMPETENT for and demonstrates normal augmentation. greater than 1.0 second. T/P Trunk is compressible. T/P Trunk is compressible Acute deep vein thrombosis is noted in the PTV is compressible. Gastrocnemius V. It is dilated and NONCOMPRESSIBLE. LT PerV is compressible. PTV is compressible. LT calf vein varicosities appear compressible. RT PerV is compressible. Non vascularized anechoic area noted in Rt Pop Fossa measuring approximately 6.23cm x 1.16cm. Procedure This is a venous duplex using B-mode, color flow and spectral Doppler. Exam performed in department. The exam was diagnostic. A preliminary report was called and/or faxed to Ana Laura @ Dr. Brantley's office. VL/Venous Duplex US - Antonio Extrem Interpretation Summary Acute deep vein thrombosis is noted in the right gastrocnemius vein. Chronic deep vein thrombosis noted in the left common femoral vein, femoral vein. Incidental reflux, left popliteal vein. Non vascularized anechoic area noted in right popliteal fossa measuring approximately 6.23cm x 1.16cm. Ordering Physician: Luis Eduardo Brantley Referring Physician: Mone Cervantes Performed By: Aleksandr Desouza RVT 07/21/25 1327 Date Mone Phillip MD CC: Dr. Mone Cervantes MD; Dr. Luis Eduardo Brantley MD Date Dictated: 07/20/25 1346 Date Transcribed: 07/21/25 132 [place] [facility] Supervisor: Signed Normal [facility] White blood cell (WBC) count Ordered By: Luis Eduardo Brantley on 07-20-2025 WBC (Bld) [#/Vol] 7.6 10*3/uL 4.4-11.0 [facility] Absolute lymphocyte countOrd ered By: Anatoly Hamlin on 12-14-2024 Lymphocytes Auto (Unsp spec) [#/Vol] 1.32 10*3/uL 0.83-4.51 [facility] Absolute neutrophil countOrd ered By: Anatoly Hamlin on 12-14-2024 Neutrophils (Bld) [#/Vol] 4.8 10*3/uL 2.0-7.7 [facility] Automated lymphocyte count a s percentage of total leukocytesOrdered By: Anatoly Hamlin on 12-14-2024 Lymphocytes/100 WBC Auto (Unsp spec) 18.3 % Low 19-41 [facility] Basophil percentageOrdered B y: Anatoly Hamlin on 12-14-2024 Basophils/100 WBC (Bld) 0.8 % 0-1 [facility] C-reactive protein measureme nt by high sensitivity methodOrdered By: Anatoly Hamlin on 12-14-2024 C-reactive protein measurement by high sensitivity method 22.70 mg/L High 0.0-3.0 [facility] Comment on above: C-Reactive Protein ( CRP) provides useful information for thediagnosis, therapy and monitoring of inflammatory processesand associated diseases. For the evaluation of Relative Riskfor Cardiovascular Disease, a High Sensitivity CRP (HSCRP)should be ordered. CBC W/Diff, Automatedon 11-19 Absolute Lymph 1.32 X10 3/uL Normal 0.83-4.51 [facility] Comment on above: Performed By: #### L 100.0100, L501.6710, L101.9900 #### [facility] Laboratory [address] [place], [address] Absolute Neut 4.8 X10 3/uL Normal 2.0-7.7 [facility] Comment on above: Performed By: #### L 100.0100, L501.6710, L101.9900 #### [facility] Laboratory [address] [place], [address] Basophils/100 WBC (Bld) 0.8 % Normal 0-1 [facility] Comment on above: Performed By: #### L 100.0100, L501.6710, L101.9900 #### [facility] Laboratory [address] [place], [address] Eosinophils/100 WBC (Bld) 3.6 % Normal 0-5 [facility] Comment on above: Performed By: #### L 100.0100, L501.6710, L101.9900 #### [facility] Laboratory [address] [place], [address] Erythrocyte distribution width (RBC) [Ratio] 13.1 % Normal 11.6-14.6 [facility] Comment on above: Performed By: #### L 100.0100, L501.6710, L101.9900 #### [facility] Laboratory [address] [place], [address] Hematocrit (Bld) [Volume fraction] 42.9 % Normal 37-47 [facility] Comment on above: Performed By: #### L 100.0100, L501.6710, L101.9900 #### [facility] Laboratory [address] [place], [address] Hemoglobin (Bld) [Mass/Vol] 13.7 g/dL Normal 12.0-15.0 [facility] Comment on above: Performed By: #### L 100.0100, L501.6710, L101.9900 #### [facility] Laboratory [address] [place], [address] IG% 0.300 Normal 0.0-0.9 [facility] Comment on above: Result Comment: IG% - Immature Granulocytes (promyelocytes, myelocytes and metamyelocytes) > 1% indicates that a LEFT SHIFT is Present. Performed By: #### L 100.0100, L501.6710, L101.9900 #### [facility] Laboratory [address] [place], [address] Lymphocytes/100 WBC (Bld) 18.3 % Low 19-41 [facility] Comment on above: Performed By: #### L 100.0100, L501.6710, L101.9900 #### [facility] Laboratory [address] [place], [address] MCH (RBC) [Entitic mass] 31.2 pg Normal 27.0-32.0 [facility] Comment on above: Performed By: #### L 100.0100, L501.6710, L101.9900 #### [facility] Laboratory [address] [place], [address] MCHC (RBC) [Mass/Vol] 31.9 g/dL Low 32-36 [facility] Comment on above: Performed By: #### L 100.0100, L501.6710, L101.9900 #### [facility] Laboratory [address] [place], [address] MCV (RBC) [Entitic vol] 97.7 fL Normal 81-99 [facility] Comment on above: Performed By: #### L 100.0100, L501.6710, L101.9900 #### [facility] Laboratory [address] [place], [address] Monocytes/100 WBC (Bld) 9.9 % Normal 0-10 [facility] Comment on above: Performed By: #### L 100.0100, L501.6710, L101.9900 #### [facility] Laboratory [address] [place], [address] Neutrophils/100 WBC (Bld) 67.1 % Normal 47-70 [facility] Comment on above: Performed By: #### L 100.0100, L501.6710, L101.9900 #### [facility] Laboratory [address] [place], [address] Nucleated RBC (Bld) [#/Vol] 0 10*3/uL Normal 0-5 [facility] Comment on above: Performed By: #### L 100.0100, L501.6710, L101.9900 #### [facility] Laboratory [address] [place], [address] Platelet mean volume (Bld) [Entitic vol] 10.8 fL Normal 6.2-12.0 [facility] Comment on above: Performed By: #### L 100.0100, L501.6710, L101.9900 #### [facility] Laboratory [address] [place], [address] Platelets (Bld) [#/Vol] 266 10*3/uL Normal 150-450 [facility] Comment on above: Performed By: #### L 100.0100, L501.6710, L101.9900 #### [facility] Laboratory [address] [place], [address] RBC (Bld) [#/Vol] 4.39 10*6/uL Normal 4.2-5.4 [facility] Comment on above: Performed By: #### L 100.0100, L501.6710, L101.9900 #### [facility] Laboratory [address] [place], [address] RDW SD 46.8 fl High 35.1-43.9 [facility] Comment on above: Performed By: #### L 100.0100, L501.6710, L101.9900 #### [facility] Laboratory [address] [place], [address] WBC (Bld) [#/Vol] 7.2 10*3/uL Normal 4.4-11.0 [facility] Comment on above: Performed By: #### L 100.0100, L501.6710, L101.9900 #### [facility] Laboratory [address] [place], [address] CRPon 12-14-2024 C-REACTIVE PROT 22.70 mg/L High 0.0-3.0 [facility] Comment on above: Result Comment: C-Re active Protein (CRP) provides useful information for the diagnosis, therapy and monitoring of inflammatory processes and associated diseases. For the evaluation of Relative Risk for Cardiovascular Disease, a High Sensitivity CRP (HSCRP) should be ordered. Performed By: #### L 100.0100, L501.6710, L101.9900 #### [facility] Laboratory [address] [place], [address] Eosinophil percentageOrdered By: Anatoly Hamlin on 12-14-2024 Eosinophils/100 WBC (Bld) 3.6 % 0-5 [facility] Erythrocyte Sed Rateon 12-14 SED RATE 9 mm/hr Normal 0-30 [facility] Comment on above: Performed By: #### L 100.0100, L501.6710, L101.9900 #### [facility] [place], [address] Erythrocyte distribution wid th ratioOrdered By: Anatoly Hamlin on 12-14-2024 Erythrocyte distribution width (RBC) [Ratio] 13.1 % 11.6-14.6 [facility] Erythrocyte distribution wid th standard deviationOrdered By: Anatoly Hamlin on 12-14-2024 Erythrocyte distribution width (RBC) [Ratio] 46.8 fl High 35.1-43.9 [facility] Erythrocyte sedimentation ra teOrdered By: Anatoly Hamlin on 12-14-2024 ESR (Bld) [Velocity] 9 mm/h 0-30 [facility] Hematocrit Auto (Bld) [Volum e fraction]Ordered By: Anatoly Hamlin on 12-14-2024 Hematocrit (Bld) [Volume fraction] 42.9 % 37-47 [facility] Hemoglobin measurementOrdere d By: Anatoly Hamlin on 12-14-2024 Hemoglobin (Bld) [Mass/Vol] 13.7 g/dL 12.0-15.0 [facility] Immature granulocytes/100 WB C Auto (Bld)Ordered By: Anatoly Hamlin on 12-14-2024 Immature granulocytes/100 WBC (Bld) 0.300 % 0.0-0.9 [facility] Comment on above: IG% - Immature Granu locytes (promyelocytes, myelocytes and metamyelocytes) > 1% indicates that a LEFT SHIFT is Present. MCV (mean corpuscular volume ) determinationOrdered By: Anatoly Hamlin on 12-14-2024 MCV (RBC) [Entitic vol] 97.7 fL 81-99 [facility] Mean corpuscular hemoglobin (MCH) determinationOrdered By: Anatoly Hamlin on 12-14-2024 MCH (RBC) [Entitic mass] 31.2 pg 27.0-32.0 [facility] Mean corpuscular hemoglobin concentration (MCHC) determinationOrdered By: Anatoly Hamlin on 12-14-2024 MCHC (RBC) [Mass/Vol] 31.9 g/dL Low 32-36 [facility] Mean platelet volume determi nationOrdered By: Anatoly Hamlin on 12-14-2024 Platelet mean volume (Bld) [Entitic vol] 10.8 fL 6.2-12.0 [facility] Monocyte percentageOrdered B y: Anatoly Hamlin on 12-14-2024 Monocytes/100 WBC (Bld) 9.9 % 0-10 [facility] Neutrophil percentageOrdered By: Anatoly Hamlin on 12-14-2024 Neutrophils/100 WBC (Bld) 67.1 % 47-70 [facility] Nucleated red blood cell per centageOrdered By: Anatoly Hamlin on 12-14-2024 Nucleated RBC/100 WBC (Bld) [Ratio] 0 % 0-5 [facility] Platelet countOrdered By: Ra joe Hamlin on 12-14-2024 Platelets (Bld) [#/Vol] 266 10*3/uL 150-450 [facility] RBC Auto (Bld) [#/Vol]Ordere d By: Anatoly Hamlin on 12-14-2024 RBC (Bld) [#/Vol] 4.39 10*6/uL 4.2-5.4 [facility] White blood cell (WBC) count Ordered By: Anatoly Hamlin on 12-14-2024 WBC (Bld) [#/Vol] 7.2 10*3/uL 4.4-11.0 [facility] CBC W/Diff, Automatedon 11-0 Absolute Lymph 1.62 X10 3/uL Normal 0.83-4.51 [facility] Comment on above: Performed By: #### L 503.6150, L500.4050, L503.0105, L101.9900, L501.9520, L501.9985, L100.0100 ####[facility] [address] [place], [address] Absolute Neut 3.8 X10 3/uL Normal 2.0-7.7 [facility] Comment on above: Performed By: #### L 503.6150, L500.4050, L503.0105, L101.9900, L501.9520, L501.9985, L100.0100 ####[facility] [address] [place], [address] Basophils/100 WBC (Bld) 1.2 % High 0-1 [facility] Comment on above: Performed By: #### L 503.6150, L500.4050, L503.0105, L101.9900, L501.9520, L501.9985, L100.0100 ####[facility] [address] [place], [address] Eosinophils/100 WBC (Bld) 2.8 % Normal 0-5 [facility] Comment on above: Performed By: #### L 503.6150, L500.4050, L503.0105, L101.9900, L501.9520, L501.9985, L100.0100 ####[facility] [address] [place], [address] Erythrocyte distribution width (RBC) [Ratio] 12.7 % Normal 11.6-14.6 [facility] Comment on above: Performed By: #### L 503.6150, L500.4050, L503.0105, L101.9900, L501.9520, L501.9985, L100.0100 ####[facility] [address] [place], [address] Hematocrit (Bld) [Volume fraction] 44.0 % Normal 37-47 [facility] Comment on above: Performed By: #### L 503.6150, L500.4050, L503.0105, L101.9900, L501.9520, L501.9985, L100.0100 ####[facility] [address] [place], [address] Hemoglobin (Bld) [Mass/Vol] 14.0 g/dL Normal 12.0-15.0 [facility] Comment on above: Performed By: #### L 503.6150, L500.4050, L503.0105, L101.9900, L501.9520, L501.9985, L100.0100 ####[facility] [address] [place], [address] IG% 0.500 Normal 0.0-0.9 [facility] Comment on above: Result Comment: IG% - Immature Granulocytes (promyelocytes, myelocytes and metamyelocytes) > 1% indicates that a LEFT SHIFT is Present. Performed By: #### L 503.6150, L500.4050, L503.0105, L101.9900, L501.9520, L501.9985, L100.0100 ####[facility] [address] [place], [address] Lymphocytes/100 WBC (Bld) 25.2 % Normal 19-41 [facility] Comment on above: Performed By: #### L 503.6150, L500.4050, L503.0105, L101.9900, L501.9520, L501.9985, L100.0100 ####[facility] [address] [place], [address] MCH (RBC) [Entitic mass] 31.3 pg Normal 27.0-32.0 [facility] Comment on above: Performed By: #### L 503.6150, L500.4050, L503.0105, L101.9900, L501.9520, L501.9985, L100.0100 ####[facility] [address] [place], [address] MCHC (RBC) [Mass/Vol] 31.8 g/dL Low 32-36 [facility] Comment on above: Performed By: #### L 503.6150, L500.4050, L503.0105, L101.9900, L501.9520, L501.9985, L100.0100 ####[facility] [address] [place], [address] MCV (RBC) [Entitic vol] 98.4 fL Normal 81-99 [facility] Comment on above: Performed By: #### L 503.6150, L500.4050, L503.0105, L101.9900, L501.9520, L501.9985, L100.0100 ####[facility] [address] [place], [address] Monocytes/100 WBC (Bld) 11.2 % High 0-10 [facility] Comment on above: Performed By: #### L 503.6150, L500.4050, L503.0105, L101.9900, L501.9520, L501.9985, L100.0100 ####[facility] [address] [place], [address] Neutrophils/100 WBC (Bld) 59.1 % Normal 47-70 [facility] Comment on above: Performed By: #### L 503.6150, L500.4050, L503.0105, L101.9900, L501.9520, L501.9985, L100.0100 ####[facility] [address] [place], [address] Nucleated RBC (Bld) [#/Vol] 0 10*3/uL Normal 0-5 [facility] Comment on above: Performed By: #### L 503.6150, L500.4050, L503.0105, L101.9900, L501.9520, L501.9985, L100.0100 ####[facility] [address] [place], [address] Platelet mean volume (Bld) [Entitic vol] 10.6 fL Normal 6.2-12.0 [facility] Comment on above: Performed By: #### L 503.6150, L500.4050, L503.0105, L101.9900, L501.9520, L501.9985, L100.0100 ####[facility] [address] [place], [address] Platelets (Bld) [#/Vol] 346 10*3/uL Normal 150-450 [facility] Comment on above: Performed By: #### L 503.6150, L500.4050, L503.0105, L101.9900, L501.9520, L501.9985, L100.0100 ####[facility] [address] [place], [address] RBC (Bld) [#/Vol] 4.47 10*6/uL Normal 4.2-5.4 [facility] Comment on above: Performed By: #### L 503.6150, L500.4050, L503.0105, L101.9900, L501.9520, L501.9985, L100.0100 ####[facility] [address] [place], [address] RDW SD 45.9 fl High 35.1-43.9 [facility] Comment on above: Performed By: #### L 503.6150, L500.4050, L503.0105, L101.9900, L501.9520, L501.9985, L100.0100 ####[facility] [address] [place], [address] WBC (Bld) [#/Vol] 6.4 10*3/uL Normal 4.4-11.0 [facility] Comment on above: Performed By: #### L 503.6150, L500.4050, L503.0105, L101.9900, L501.9520, L501.9985, L100.0100 ####[facility] [address] [place], [address] Comprehensive Metabolic Prof ilon 09-22-2024 Albumin [Mass/Vol] 3.4 g/dL Normal 3.2-5.0 [facility] Comment on above: Performed By: #### L 503.6150, L500.4050, L503.0105, L101.9900, L501.9520, L501.9985, L100.0100 ####[facility] [address] [place], [address] Albumin/Globulin [Mass ratio] 1.1 {ratio} Normal 0.9-2.4 [facility] Comment on above: Performed By: #### L 503.6150, L500.4050, L503.0105, L101.9900, L501.9520, L501.9985, L100.0100 ####[facility] [address] [place], [address] ALK P 83 U/L Normal 45-117 [facility] Comment on above: Performed By: #### L 503.6150, L500.4050, L503.0105, L101.9900, L501.9520, L501.9985, L100.0100 ####[facility] [address] [place], [address] ALT [Catalytic activity/Vol] 21 U/L Normal 13-56 [facility] Comment on above: Performed By: #### L 503.6150, L500.4050, L503.0105, L101.9900, L501.9520, L501.9985, L100.0100 ####[facility] [address] [place], [address] AST [Catalytic activity/Vol] 23 U/L Normal 15-37 [facility] Comment on above: Performed By: #### L 503.6150, L500.4050, L503.0105, L101.9900, L501.9520, L501.9985, L100.0100 ####[facility] [address] [place], [address] Bilirubin [Mass/Vol] 0.50 mg/dL Normal 0.20-1.00 [facility] Comment on above: Result Comment: For patients on eltrombopag therapy, use of Dimension Fitzgerald TBIL is not recommended. Performed By: #### L 503.6150, L500.4050, L503.0105, L101.9900, L501.9520, L501.9985, L100.0100 ####[facility] [address] [place], [address] BUN/CRE 27.9 RATIO High 10-20 [facility] Comment on above: Performed By: #### L 503.6150, L500.4050, L503.0105, L101.9900, L501.9520, L501.9985, L100.0100 ####[facility] [address] [place], [address] CA,Total 9.1 mg/dL Normal 8.5-10.1 [facility] Comment on above: Performed By: #### L 503.6150, L500.4050, L503.0105, L101.9900, L501.9520, L501.9985, L100.0100 ####[facility] [address] [place], [address] Chloride [Moles/Vol] 108 mmol/L High 98-107 [facility] Comment on above: Performed By: #### L 503.6150, L500.4050, L503.0105, L101.9900, L501.9520, L501.9985, L100.0100 ####[facility] [address] [place], [address] CO2 [Moles/Vol] 23.0 mmol/L Normal 21.0-32.0 [facility] Comment on above: Performed By: #### L 503.6150, L500.4050, L503.0105, L101.9900, L501.9520, L501.9985, L100.0100 ####[facility] [address] [place], [address] Creatinine [Mass/Vol] 0.72 mg/dL Normal 0.55-1.02 [facility] Comment on above: Result Comment: The validity of the calculated GFR GFRAA in patients over 70 years has not been determined. Clinical correlation is essential. Performed By: #### L 503.6150, L500.4050, L503.0105, L101.9900, L501.9520, L501.9985, L100.0100 ####[facility] [address] [place], [place], [phone] EST GFR - AA 101 mL/min Normal >60 [facility] Comment on above: Result Comment: Afri can Montserratian GFR Calc Performed By: #### L 503.6150, L500.4050, L503.0105, L101.9900, L501.9520, L501.9985, L100.0100 ####[facility] [address] [place], [address] GAP 8 Normal 5-15 [facility] Comment on above: Performed By: #### L 503.6150, L500.4050, L503.0105, L101.9900, L501.9520, L501.9985, L100.0100 ####[facility] [address] [place], [address] GFR/1.73 sq M.predicted among non-blacks MDRD (S/P/Bld) [Vol rate/Area] 83 mL/min/{1.73_m2} Normal >60 [facility] Comment on above: Result Comment: Non- GFR Calc Performed By: #### L 503.6150, L500.4050, L503.0105, L101.9900, L501.9520, L501.9985, L100.0100 ####[facility] [address] [place], [address] Globulin (S) [Mass/Vol] 3.2 g/dL Normal 2.2-4.2 [facility] Comment on above: Performed By: #### L 503.6150, L500.4050, L503.0105, L101.9900, L501.9520, L501.9985, L100.0100 ####[facility] [address] [place], [address] Glucose [Mass/Vol] 94 mg/dL Normal 74-106 [facility] Comment on above: Performed By: #### L 503.6150, L500.4050, L503.0105, L101.9900, L501.9520, L501.9985, L100.0100 ####[facility] [address] [place], [address] Potassium [Moles/Vol] 4.0 mmol/L Normal 3.5-5.1 [facility] Comment on above: Performed By: #### L 503.6150, L500.4050, L503.0105, L101.9900, L501.9520, L501.9985, L100.0100 ####[facility] [address] [place], [address] Sodium [Moles/Vol] 139 mmol/L Normal 136-145 [facility] Comment on above: Performed By: #### L 503.6150, L500.4050, L503.0105, L101.9900, L501.9520, L501.9985, L100.0100 ####[facility] [address] [place], [address] T PROT 6.6 g/dL Normal 6.4-8.2 [facility] Comment on above: Performed By: #### L 503.6150, L500.4050, L503.0105, L101.9900, L501.9520, L501.9985, L100.0100 ####[facility] [address] [place], [address] Urea nitrogen [Mass/Vol] 20 mg/dL High 7-18 [facility] Comment on above: Performed By: #### L 503.6150, L500.4050, L503.0105, L101.9900, L501.9520, L501.9985, L100.0100 ####[facility] [address] [place], [address] Erythrocyte Sed Rateon 09-22 SED RATE 3 mm/hr Normal 0-30 [facility] Comment on above: Performed By: #### L 503.6150, L500.4050, L503.0105, L101.9900, L501.9520, L501.9985, L100.0100 ####[facility] [address] [place], [address] Hemoglobin A1con 09-22-2024 HbA1c (Bld) [Mass fraction] 5.7 % High 3.8-5.6 [facility] Comment on above: Result Comment: Norm al < 5.7 % Prediabetic 5.7 - 6.4 % Diabetic >or= 6.5 % Please note range changes. Performed By: #### L 503.6150, L500.4050, L503.0105, L101.9900, L501.9520, L501.9985, L100.0100 ####[facility] [address] [place], [address] Ironon 09-22-2024 Iron [Mass/Vol] 65 ug/dL Normal 50-170 [facility] Comment on above: Performed By: #### L 503.6150, L500.4050, L503.0105, L101.9900, L501.9520, L501.9985, L100.0100 ####[facility] [address] [place], [address] Thyroid Stim Hormone (TSH)on 09-22-2024 TSH 0.777 uIU/mL Normal 0.358-3.740 [facility] Comment on above: Performed By: #### L 503.6150, L500.4050, L503.0105, L101.9900, L501.9520, L501.9985, L100.0100 ####[facility] [address] [place], [address] Vitamin B12on 09-22-2024 Cobalamin (Vitamin B12) [Mass/Vol] 388 pg/mL Normal 211-911 [facility] Comment on above: Performed By: #### L 503.6150, L500.4050, L503.0105, L101.9900, L501.9520, L501.9985, L100.0100 ####[facility] [address] [place], [address] 12 Lead EKG performed by [facility] on 09-11-2024 12 Lead EKG performed by [facility] [address] [place] [address] 12 Lead EKG performed by [facility] 09/11/24 1047 MR#: [id number] Acct: [id number] Name: ANNABELLE VENTURA Tessa Rep #: [id number] : 1945 79 From: Vasquez Vaca MD Attending Dr: Dr. 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 ABNORMAL Electronically signed on 09/11/2024 at 12:10 by Vasquez Vaca Software Version [id number] 09/11/24 1213 Date Vasquez Vaca MD CC: Dr. Mone Cervantes MD Date Dictated: 09/11/241046 Date Transcribed: 09/11/241046 [employer] Supervisor: [place] Signed Normal [facility] Cardiology Visit Reporton Cardiology Visit Report [facility] [address] [place], [place] [address] OFFICE VISIT Date of Service: 09/11/24 MR#: [id number] Acct: [id number] Name: ANNABELLE VENTURA Rep #: [id number] : 1945 Provider: Dr. Vasquez Vaca MD Age/Sex: 79/F Location: [facility] Status: Signed HPI [facility] History of Present Illness Details: ANNABELLE VENTURA, is a 79F who presents to the office today for cardiovascular follow-up. 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 She previously was on Multaq and this has been discontinued. She is now on a beta-honey and flecainide. Her major problem has to do with significant bruising which she had as well as gait instability. She did undergo a pharmacologic stress test in November 2020 which demonstrated no evidence of ischemia. From a cardiac standpoint, the patient is doing well. She is accompanied by her daughter, and uses a rollator to help with ambulation. She denies any palpitations, chest pain, pressure or heaviness. She denies SOB, Orthopnea, and PND. She does not have bleeding issues; no blood in urine, stool or nosebleeds. She denies any decrease in energy level, myalgias, or claudication. She does not have edema, or sudden weight gain. She denies dizziness, lightheadedness, syncopal or near syncopal episodes, and headaches. Her EKG today demonstrates normal sinus rhythm with a rate of 61 bpm. Intake Vital Signs 06/23/24 13:39 09/11/24 10:44 Height 5 ft 3 in 5 ft 3 in Weight: 189 lb 2 oz 190 lb BMI 33.5 33.6 BP 172/98 H 116/70 Blood Pressure Location Lt brachial Lt brachial Position Sitting Sitting Respiration 18 16 Pulse 77 60 Pulse Source Monitor Monitor Temp 98.7 F Temperature Source Temporal Artery Pulse Oximetry (%) 96 Oxygen Delivery Method room air Intake Visit Reasons: 1 Y FU Home Hospice Rn Required: No Accompanied by: Daughter Is patient in pain?: No Allergies baclofen Adverse Reaction (Severe, Verified 09/11/24 10:48) emotional issues propranolol Adverse Reaction (Severe, Verified 09/11/24 10:48) nightmare sulfadiazine Adverse Reaction (Unknown, Verified 09/11/24 10:48) not as effective Medications ???Medication ???Instructions ???Recorded ???Confirmed ???Type biotin 10,000 mcg capsule 10,000 mcg PO DAILY 07/04/18 09/11/24 History alendronate 70 mg tablet (Fosamax) 70 mg PO QWEEK 07/01/19 09/11/24 History carbidopa 25 mg-levodopa 100 mg 1.5 tab PO TID 11/29/20 09/11/24 History tablet lactase 3,000 unit chewable tablet 3,000 unit PO ONCE 08/02/21 09/11/24 History (Dairy Aid) aspirin 81 mg tablet,delayed 81 mg PO DAILY 12/11/22 09/11/24 History release (Adult Low Dose Aspirin) hydroxyzine HCl 25 mg tablet 12.5 mg PO Q8H PRN anxiety 12/11/22 09/11/24 History vitamin K2 100 mcg capsule 100 mcg PO DAILY 12/11/22 09/11/24 History flecainide 50 mg tablet 50 mg PO Q12H OK to give with 12/02/23 09/11/24 Rx Plaquenil, pt has been on both #180 tabs acetaminophen 500 mg tablet 1,000 mg PO Q8 PRN fever or pain 02/26/24 09/11/24 History diltiazem HCl 30 mg tablet 30 mg PO Q8H 02/26/24 09/11/24 History duloxetine 20 mg capsule,delayed 40 mg PO DAILY 02/26/24 09/11/24 History release hydroxychloroquine 200 mg tablet 200 mg PO BID 02/26/24 09/11/24 History oxycodone 5 mg tablet 5 mg PO BID PRN pain 02/26/24 09/11/24 History calcium 333 mg-vit D3 200 1 tab PO DAILY 03/11/24 09/11/24 History unit-magnesium 133 mg-zinc 5 mg tablet lisinopril 5 mg tablet 5 mg PO DAILY #90 tabs 09/10/24 09/11/24 Rx Have you fallen in the past year?: Yes PFSH Medical History Rheumatoid arthritis History of Parkinson's disease Anxiety disorder Chronic pain Peripheral vascular disease Osteoarthritis Lactose intolerance Post-menopausal Depression Anxiety Walker as ambulation aid Hx of bladder problems Arthritis DVT (deep venous thrombosis) Fall Heartburn Non-smoker Shortness of breath on exertion History of edema History of stress test Cardiology follow-up encounter Parkinson disease DDD (degenerative disc disease) Essential (primary) hypertension Paroxysmal atrial fibrillation Thyroid nodule Sleep apnea Lumbar compression fracture (05/2018) Surgical History S/P shoulder replacement H/O varicose vein ligation and stripping History of tubal ligation Status post replacement of right shoulder joint Hx of right cataract extraction Hx of left cataract extraction Hx of LASIK Spinal cord stimulator status (05/2020) History of back surgery (03/2018) History of left heart catheterization (04/25/17) History of herniorrhap (more content not included)... Normal [facility] Absolute lymphocyte countOrd ered By: on 03-06-2024 Lymphocytes Auto (Unsp spec) [#/Vol] 1.52 10*3/uL 0.83-4.51 [facility] Automated lymphocyte count a s percentage of total leukocytesOrdered By: on 03-06-2024 Lymphocytes/100 WBC Auto (Unsp spec) 20.2 % 19-41 [facility] Basophil percentageOrdered B y: on 03-06-2024 Basophils/100 WBC (Bld) 1.1 % 0-1 [facility] Bilirubin [Mass/Vol] 0.80 mg/dL 0.20-1.00 [facility] Comment on above: For patients on eltr ombopag therapy, use of Dimension Fitzgerald TBIL is not recommended. Chloride [Moles/Vol] 109 mmol/L 98-107 [facility] Eosinophils/100 WBC (Bld) 4.4 % 0-5 [facility] Glucose [Mass/Vol] 134 mg/dL 74-106 [facility] Comment on above: Fasting Glucose resu lt greater than or equal to 126 mg/dL suggests DIABETES MELLITUS per A.D.A. criteria. Hemoglobin (Bld) [Mass/Vol] 12.0 g/dL 12.0-15.0 [facility] Monocytes/100 WBC (Bld) 8.9 % 0-10 [facility] Neutrophils (Bld) [#/Vol] 4.9 10*3/uL 2.0-7.7 [facility] Neutrophils/100 WBC (Bld) 65.1 % 47-70 [facility] Potassium [Moles/Vol] 3.4 mmol/L 3.5-5.1 [facility] Protein [Mass/Vol] 5.6 g/dL 6.4-8.2 [facility] Sodium [Moles/Vol] 141 mmol/L 136-145 [facility] WBC (Bld) [#/Vol] 7.5 10*3/uL 4.4-11.0 [facility] Determination of erythrocyte mean corpuscular volume (MCV)Ordered By: Nannette Marks on 03-06-2024 MCV (RBC) [Entitic vol] 99.2 fL 81-99 [facility] Erythrocyte distribution wid th ratioOrdered By: on 03-06-2024 Erythrocyte distribution width (RBC) [Ratio] 15.0 % 11.6-14.6 [facility] Erythrocyte distribution wid th standard deviationOrdered By: on 03-06-2024 Erythrocyte distribution width (RBC) [Entitic vol] 54.4 fL 35.1-43.9 [facility] Hematocrit Auto (Bld) [Volum e fraction]Ordered By: Nannette Marks on 03-06-2024 Hematocrit (Bld) [Volume fraction] 36.9 % 37-47 [facility] Immature granulocytes/100 WB C Auto (Bld)Ordered By: Nannette Marks on 03-06-2024 Immature granulocytes/100 WBC (Bld) 0.300 % 0.0-0.9 [facility] Comment on above: IG% - Immature Granu locytes (promyelocytes, myelocytes and metamyelocytes) > 1% indicates that a LEFT SHIFT is Present. Laboratory - Chemistry and C hemistry - challengeOrdered By: Nannette Marks on 03-06-2024 Albumin/Globulin [Mass ratio] 1.2 {ratio} 0.9-2.4 [facility] ALP [Catalytic activity/Vol] 67 U/L 45-117 [facility] ALT [Catalytic activity/Vol] U/L 13-56 [facility] CO2 [Moles/Vol] 25.0 mmol/L 21.0-32.0 [facility] Globulin (S) [Mass/Vol] 2.6 g/dL 2.2-4.2 [facility] Urea nitrogen/Creatinine [Mass ratio] 26.7 mg/mg 10-20 [facility] Laboratory - Hematology and Cell countsOrdered By: Nannette Marks on 03-06-2024 MCH (RBC) [Entitic mass] 32.3 pg 27.0-32.0 [facility] MCHC (RBC) [Mass/Vol] 32.5 g/dL 32-36 [facility] Nucleated RBC/100 WBC (Bld) [Ratio] 0 % 0-5 [facility] Platelet mean volume (Bld) [Entitic vol] 9.6 fL 6.2-12.0 [facility] Platelets (Bld) [#/Vol] 341 10*3/uL 150-450 [facility] No Panel InformationOrdered By: Nannette Marks on 03-06-2024 Estimated Creatinine Clearance Calc 59.21 ml/min [facility] Estimated GFR (MDRD) Amer 116 mL/min >60 [facility] Comment on above: GFR Calc Estimated GFR (MDRD) Non-Af Amer 96 mL/min >60 [facility] Comment on above: Non- GFR Calc RBC Auto (Bld) [#/Vol]Ordere d By: Nannette Marks on 03-06-2024 RBC (Bld) [#/Vol] 3.72 10*6/uL 4.2-5.4 [facility] Serum or plasma calcium temi urement (mass/volume)Ordered By: Nannette Marks on 03-06-2024 Calcium [Mass/Vol] 8.3 mg/dL 8.5-10.1 [facility] Serum or plasma creatinine m easurement (mass/volume)Ordered By: Nannette Marks on 03-06-2024 Creatinine [Mass/Vol] 0.64 mg/dL 0.55-1.02 [facility] Comment on above: The validity of the calculated GFR & GFRAA in patients over 70 years has not been determined. Clinical correlation is essential. Serum or plasma thyroid stim ulating hormone (TSH) measurement (units/volume)Ordered By: Nannette Marks on 03-06-2024 TSH Qn 0.74 uIU/mL 0.358-3.74 [facility] Serum or plasma urea nitroge n measurement (mass/volume)Ordered By: Nannette Marks on 03-06-2024 Urea nitrogen [Mass/Vol] 17 mg/dL 7-18 [facility] Thin prep Papanicolaou smear with manual screeningOrdered By: Nannette Selina on 03-06-2024 Thin prep Papanicolaou smear with manual screening 3.0 g/dL 3.2-5.0 [facility] Thin prep Papanicolaou smear with manual screening 23 U/L 15-37 [facility] Thin prep Papanicolaou smear with manual screening 7 5-15 [facility] Absolute lymphocyte countOrd ered By: Becky Ny on 03-05-2024 Lymphocytes Auto (Unsp spec) [#/Vol] 1.59 10*3/uL 0.83-4.51 [facility] Automated lymphocyte count a s percentage of total leukocytesOrdered By: Becky Ny on 03-05-2024 Lymphocytes/100 WBC Auto (Unsp spec) 16.7 % 19-41 [facility] Basophil percentageOrdered B y: Becky Ny on 03-05-2024 Basophil percentage 0-5 SEEN /hpf 0-5 [facility] Basophils/100 WBC (Bld) 0.9 % 0-1 [facility] Chloride [Moles/Vol] 111 mmol/L 98-107 [facility] Eosinophils/100 WBC (Bld) 1.3 % 0-5 [facility] Glucose [Mass/Vol] 110 mg/dL 74-106 [facility] Comment on above: Fasting Glucose resu lt from 100 to 125 mg/dL suggests IMPAIRED HOMEOSTASIS per A.D.A. criteria. Hemoglobin (Bld) [Mass/Vol] 12.8 g/dL 12.0-15.0 [facility] Monocytes/100 WBC (Bld) 10.8 % 0-10 [facility] Neutrophils (Bld) [#/Vol] 6.6 10*3/uL 2.0-7.7 [facility] Neutrophils/100 WBC (Bld) 69.8 % 47-70 [facility] Potassium [Moles/Vol] 3.5 mmol/L 3.5-5.1 [facility] Sodium [Moles/Vol] 142 mmol/L 136-145 [facility] WBC (Bld) [#/Vol] 9.5 10*3/uL 4.4-11.0 [facility] Basophil percentageOrdered B y: Nannette White on 03-05-2024 Basophil percentage 3.8 mg/dL 2.5-4.9 [facility] Bilirubin Test strip Ql (U)O rdered By: Becky Ny on 03-05-2024 Bilirubin Ql (U) 1 mg/dL Negative [facility] Comment on above: COLOR OF URINE MAY A FFECT DIPSTICK RESULTS. Determination of erythrocyte mean corpuscular volume (MCV)Ordered By: Becky Ny on 03-05-2024 MCV (RBC) [Entitic vol] 99.5 fL 81-99 [facility] Erythrocyte distribution wid th ratioOrdered By: Becky Ny on 03-05-2024 Erythrocyte distribution width (RBC) [Ratio] 15.0 % 11.6-14.6 [facility] Erythrocyte distribution wid th standard deviationOrdered By: Becky Ny on 03-05-2024 Erythrocyte distribution width (RBC) [Entitic vol] 54.9 fL 35.1-43.9 [facility] Hematocrit Auto (Bld) [Volum e fraction]Ordered By: Becky Ny on 03-05-2024 Hematocrit (Bld) [Volume fraction] 40.7 % 37-47 [facility] Immature granulocytes/100 WB C Auto (Bld)Ordered By: Becky Ny on 03-05-2024 Immature granulocytes/100 WBC (Bld) 0.500 % 0.0-0.9 [facility] Comment on above: IG% - Immature Granu locytes (promyelocytes, myelocytes and metamyelocytes) > 1% indicates that a LEFT SHIFT is Present. Ketones Test strip Ql (U)Ord ered By: Becky Ny on 03-05-2024 Ketones Ql (U) 15 mg/dl Negative [facility] Laboratory - Chemistry and C hemistry - challengeOrdered By: Becky Ny on 03-05-2024 CO2 [Moles/Vol] 26.0 mmol/L 21.0-32.0 [facility] Urea nitrogen/Creatinine [Mass ratio] 25.8 mg/mg 10-20 [facility] Laboratory - Chemistry and C hemistry - challengeOrdered By: Nannette Marks on 03-05-2024 Magnesium [Mass/Vol] 2.3 mg/dL 1.6-2.6 [facility] Laboratory - Hematology and Cell countsOrdered By: Becky Ny on 03-05-2024 MCH (RBC) [Entitic mass] 31.3 pg 27.0-32.0 [facility] MCHC (RBC) [Mass/Vol] 31.4 g/dL 32-36 [facility] Nucleated RBC/100 WBC (Bld) [Ratio] 0 % 0-5 [facility] Platelet mean volume (Bld) [Entitic vol] 10.7 fL 6.2-12.0 [facility] Platelets (Bld) [#/Vol] 330 10*3/uL 150-450 [facility] Mucus LM Ql (Urine sed)Order ed By: Becky Ny on 03-05-2024 Mucus Ql (Urine sed) 0 SEEN /hpf [facility] Nitrite Test strip Ql (U)Ord ered By: Becky Ny on 03-05-2024 Nitrite Ql (U) Negative Negative [facility] No Panel InformationOrdered By: Becky Ny on 03-05-2024 Urine RBC 0-5 SEEN /hpf 0-5 [facility] Estimated Creatinine Clearance Calc 49.74 ml/min [facility] Estimated GFR (MDRD) Amer 71 mL/min >60 [facility] Comment on above: GFR Calc Estimated GFR (MDRD) Non-Af Amer 59 mL/min >60 [facility] Comment on above: Non- GFR Calc Troponin I High Sensitivity 11 pg/mL 3.0-54.0 [facility] Comment on above: Please Note: New Opal t Units and Gender Specific Reference Ranges. For more information see Policy Stat Procedure Fitzgerald High Sensitivity Troponin (TNIH) and attachments. Protein Test strip Ql (U)Ord ered By: Becky Ny on 03-05-2024 Protein Ql (U) 30 mg/dl Negative [facility] RBC Auto (Bld) [#/Vol]Ordere d By: Becky Ny on 03-05-2024 RBC (Bld) [#/Vol] 4.09 10*6/uL 4.2-5.4 [facility] Serum or plasma calcium temi urement (mass/volume)Ordered By: Becky Ny on 03-05-2024 Calcium [Mass/Vol] 9.3 mg/dL 8.5-10.1 [facility] Serum or plasma creatinine m easurement (mass/volume)Ordered By: Becky Ny on 03-05-2024 Creatinine [Mass/Vol] 0.97 mg/dL 0.55-1.02 [facility] Comment on above: The validity of the calculated GFR & GFRAA in patients over 70 years has not been determined. Clinical correlation is essential. Serum or plasma urea nitroge n measurement (mass/volume)Ordered By: Becky Ny on 03-05-2024 Urea nitrogen [Mass/Vol] 25 mg/dL 06-04 [facility] Squamous epithelial cells de tection in urine sediment by light microscopyOrdered By: Becky Ny on 03-05-2024 Epithelial cells.squamous LM Ql (Urine sed) 0-5 SEEN /hpf 5-10 [facility] Thin prep Papanicolaou smear with manual screeningOrdered By: Becky Ny on 03-05-2024 Thin prep Papanicolaou smear with manual screening 5 5-15 [facility] Urine blood detectionOrdered By: Becky Ny on 03-05-2024 RBC Ql (U) 10 /ul Negative [facility] Urine clarityOrdered By: Liza Ny on 03-05-2024 Clarity (U) Sl. Cloudy Clear [facility] Urine color determinationOrd ered By: Becky Ny on 03-05-2024 Color (U) Yellow Yellow [facility] Urine glucose detectionOrder ed By: Becky Ny on 03-05-2024 Glucose Ql (U) Normal mg/dl Normal [facility] Urine leukocyte esterase det ection by dipstickOrdered By: Becky Ny on 03-05-2024 Leukocyte esterase Test strip Ql (U) 25 /ul Negative [facility] Urine pHOrdered By: Becky gabriel on 03-05-2024 pH (U) 5.0 [pH] 5.0 - 8.0 [facility] Urine sediment bacteria coun t by microscopy (number/high power field)Ordered By: Becky Ny on 03-05-2024 Bacteria LM.HPF (Urine sed) [#/Area] 0 /[HPF] None Seen [facility] Urine specific gravity measu rementOrdered By: Becky Ny on 03-05-2024 Specific gravity (U) [Rel density] 1.025 1.002-1.030 [facility] Urine urobilinogen measureme ntOrdered By: Becky Ny on 03-05-2024 Urobilinogen Ql (U) 1 mg/dl Normal [facility] Absolute lymphocyte countOrd ered By: Grupo Krause on 02-26-2024 Lymphocytes Auto (Unsp spec) [#/Vol] 1.63 10*3/uL 0.83-4.51 [facility] Automated lymphocyte count a s percentage of total leukocytesOrdered By: Grupo Krause on 02-26-2024 Lymphocytes/100 WBC Auto (Unsp spec) 20.3 % 19-41 [facility] Basophil percentageOrdered B y: Grupo Krause on 02-26-2024 Basophils/100 WBC (Bld) 1.1 % 0-1 [facility] Chloride [Moles/Vol] 110 mmol/L 98-107 [facility] Eosinophils/100 WBC (Bld) 4.0 % 0-5 [facility] Glucose [Mass/Vol] 97 mg/dL 74-106 [facility] Hemoglobin (Bld) [Mass/Vol] 12.0 g/dL 12.0-15.0 [facility] Monocytes/100 WBC (Bld) 9.1 % 0-10 [facility] Neutrophils (Bld) [#/Vol] 5.2 10*3/uL 2.0-7.7 [facility] Neutrophils/100 WBC (Bld) 65.0 % 47-70 [facility] Potassium [Moles/Vol] 3.5 mmol/L 3.5-5.1 [facility] Sodium [Moles/Vol] 142 mmol/L 136-145 [facility] WBC (Bld) [#/Vol] 8.0 10*3/uL 4.4-11.0 [facility] Determination of erythrocyte mean corpuscular volume (MCV)Ordered By: Grupo Krause on 02-26-2024 MCV (RBC) [Entitic vol] 97.2 fL 81-99 [facility] Erythrocyte distribution wid th ratioOrdered By: Grupo Krause on 02-26-2024 Erythrocyte distribution width (RBC) [Ratio] 14.2 % 11.6-14.6 [facility] Erythrocyte distribution wid th standard deviationOrdered By: Grupo Krause on 02-26-2024 Erythrocyte distribution width (RBC) [Entitic vol] 50.0 fL 35.1-43.9 [facility] Hematocrit Auto (Bld) [Volum e fraction]Ordered By: Grupo Krause on 02-26-2024 Hematocrit (Bld) [Volume fraction] 38.2 % 37-47 [facility] Immature granulocytes/100 WB C Auto (Bld)Ordered By: Grupo Krause on 02-26-2024 Immature granulocytes/100 WBC (Bld) 0.500 % 0.0-0.9 [facility] Comment on above: IG% - Immature Granu locytes (promyelocytes, myelocytes and metamyelocytes) > 1% indicates that a LEFT SHIFT is Present. Laboratory - Chemistry and C hemistry - challengeOrdered By: Grupo Krause on 02-26-2024 CO2 [Moles/Vol] 31.0 mmol/L 21.0-32.0 [facility] Urea nitrogen/Creatinine [Mass ratio] 23.5 mg/mg 10-20 [facility] Laboratory - Hematology and Cell countsOrdered By: Grupo Krause on 02-26-2024 MCH (RBC) [Entitic mass] 30.5 pg 27.0-32.0 [facility] MCHC (RBC) [Mass/Vol] 31.4 g/dL 32-36 [facility] Nucleated RBC/100 WBC (Bld) [Ratio] 0 % 0-5 [facility] Platelet mean volume (Bld) [Entitic vol] 9.4 fL 6.2-12.0 [facility] Platelets (Bld) [#/Vol] 354 10*3/uL 150-450 [facility] No Panel InformationOrdered By: Grupo Krause on 02-26-2024 Estimated Creatinine Clearance Calc 61.26 ml/min [facility] Estimated GFR (MDRD) Amer 94 mL/min >60 [facility] Comment on above: GFR Calc Estimated GFR (MDRD) Non-Af Amer 77 mL/min >60 [facility] Comment on above: Non- GFR Calc RBC Auto (Bld) [#/Vol]Ordere d By: Grupo Krause on 02-26-2024 RBC (Bld) [#/Vol] 3.93 10*6/uL 4.2-5.4 [facility] Serum or plasma calcium temi urement (mass/volume)Ordered By: Grupo Krause on 02-26-2024 Calcium [Mass/Vol] 9.2 mg/dL 8.5-10.1 [facility] Serum or plasma creatinine m easurement (mass/volume)Ordered By: Grupo Krause on 02-26-2024 Creatinine [Mass/Vol] 0.77 mg/dL 0.55-1.02 [facility] Comment on above: The validity of the calculated GFR & GFRAA in patients over 70 years has not been determined. Clinical correlation is essential. Serum or plasma urea nitroge n measurement (mass/volume)Ordered By: Grupo Krause on 02-26-2024 Urea nitrogen [Mass/Vol] 18 mg/dL 7-18 [facility] Thin prep Papanicolaou smear with manual screeningOrdered By: Grupo Krause on 02-26-2024 Thin prep Papanicolaou smear with manual screening 1 5-15 [facility] Absolute lymphocyte countOrd ered By: Margaret Samson on 10-15-2023 Lymphocytes Auto (Unsp spec) [#/Vol] 2.05 10*3/uL 0.83-4.51 [facility] Basophil percentageOrdered B y: Margaret Samson on 10-15-2023 Basophils/100 WBC (Bld) 0.9 % 0-1 [facility] Chloride [Moles/Vol] 108 mmol/L 98-107 [facility] Eosinophils/100 WBC (Bld) 2.2 % 0-5 [facility] Glucose [Mass/Vol] 80 mg/dL 74-106 [facility] Neutrophils (Bld) [#/Vol] 6.5 10*3/uL 2.0-7.7 [facility] Neutrophils/100 WBC (Bld) 63.7 % 47-70 [facility] Potassium [Moles/Vol] 3.8 mmol/L 3.5-5.1 [facility] Sodium [Moles/Vol] 141 mmol/L 136-145 [facility] WBC (Bld) [#/Vol] 10.2 10*3/uL 4.4-11.0 [facility] Blood erythrocytes count (nu mber/volume)Ordered By: Margaret Samson on 10-15-2023 RBC (Bld) [#/Vol] 4.29 10*6/uL 4.2-5.4 [facility] Blood hemoglobin measurement (mass/volume)Ordered By: Margaret Samson on 10-15-2023 Hemoglobin (Bld) [Mass/Vol] 13.2 g/dL 12.0-15.0 [facility] Blood lymphocytes/100 leukoc ytesOrdered By: Margaret Samson on 10-15-2023 Lymphocytes/100 WBC (Bld) 20.1 % 19-41 [facility] Blood monocytes/100 leukocyt esOrdered By: Margaret Samson on 10-15-2023 Monocytes/100 WBC (Bld) 11.0 % 0-10 [facility] Blood platelet mean volumeOr dered By: Margaret Samson on 10-15-2023 Platelet mean volume (Bld) [Entitic vol] 9.4 fL 6.2-12.0 [facility] Determination of erythrocyte mean corpuscular volume (MCV)Ordered By: Margaret Samson on 10-15-2023 MCV (RBC) [Entitic vol] 98.8 fL 81-99 [facility] Hematocrit Auto (Bld) [Volum e fraction]Ordered By: Margaret Samson on 10-15-2023 Hematocrit (Bld) [Volume fraction] 42.4 % 37-47 [facility] Laboratory - Chemistry and C hemistry - challengeOrdered By: Margaret Samson on 10-15-2023 CO2 [Moles/Vol] 29.0 mmol/L 21.0-32.0 [facility] Urea nitrogen/Creatinine [Mass ratio] 28.0 mg/mg 10-20 [facility] Laboratory - Hematology and Cell countsOrdered By: Margaret Samson on 10-15-2023 Erythrocyte distribution width (RBC) [Entitic vol] 52.9 fL 35.1-43.9 [facility] Erythrocyte distribution width (RBC) [Ratio] 14.6 % 11.6-14.6 [facility] Immature granulocytes/100 WBC (Bld) 2.100 % 0.0-0.9 [facility] Comment on above: IG% - Immature Granu locytes (promyelocytes, myelocytes and metamyelocytes) > 1% indicates that a LEFT SHIFT is Present. MCH (RBC) [Entitic mass] 30.8 pg 27.0-32.0 [facility] Nucleated RBC/100 WBC (Bld) [Ratio] 0 % 0-5 [facility] MCHC Auto (RBC) [Mass/Vol]Or dered By: Margaret Samson on 10-15-2023 MCHC (RBC) [Mass/Vol] 31.1 g/dL 32-36 [facility] No Panel InformationOrdered By: Margaret Samson on 10-15-2023 Estimated GFR (MDRD) Amer 108 mL/min >60 [facility] Comment on above: GFR Calc Estimated GFR (MDRD) Non-Af Amer 89 mL/min >60 [facility] Comment on above: Non- GFR Calc Platelets bldOrdered By: Don Samson on 10-15-2023 Platelets (Bld) [#/Vol] 566 10*3/uL 150-450 [facility] Serum or plasma calcium temi urement (mass/volume)Ordered By: Margaret Samson on 10-15-2023 Calcium [Mass/Vol] 8.8 mg/dL 8.5-10.1 [facility] Serum or plasma creatinine m easurement (mass/volume)Ordered By: Margaret Samson on 10-15-2023 Creatinine [Mass/Vol] 0.68 mg/dL 0.55-1.02 [facility] Comment on above: The validity of the calculated GFR & GFRAA in patients over 70 years has not been determined. Clinical correlation is essential. Serum or plasma urea nitroge n measurement (mass/volume)Ordered By: Margaret Samson on 10-15-2023 Urea nitrogen [Mass/Vol] 19 mg/dL 7-18 [facility] Thin prep Papanicolaou smear with manual screeningOrdered By: Margaret Samson on 10-15-2023 Thin prep Papanicolaou smear with manual screening 4 5-15 [facility] Absolute lymphocyte countOrd ered By: Orly Hudson on 09-30-2023 Lymphocytes Auto (Unsp spec) [#/Vol] 1.33 10*3/uL 0.83-4.51 [facility] Basophil percentageOrdered B y: Orly Hudson on 09-30-2023 Basophils/100 WBC (Bld) 0.6 % 0-1 [facility] Chloride [Moles/Vol] 108 mmol/L 98-107 [facility] Eosinophils/100 WBC (Bld) 2.7 % 0-5 [facility] Glucose [Mass/Vol] 91 mg/dL 74-106 [facility] Neutrophils (Bld) [#/Vol] 7.8 10*3/uL 2.0-7.7 [facility] Neutrophils/100 WBC (Bld) 76.1 % 47-70 [facility] Potassium [Moles/Vol] 3.9 mmol/L 3.5-5.1 [facility] Sodium [Moles/Vol] 141 mmol/L 136-145 [facility] WBC (Bld) [#/Vol] 10.2 10*3/uL 4.4-11.0 [facility] Blood erythrocytes count (nu mber/volume)Ordered By: Orly Hudson on 09-30-2023 RBC (Bld) [#/Vol] 3.88 10*6/uL 4.2-5.4 [facility] Blood hemoglobin measurement (mass/volume)Ordered By: Orly Hudson on 09-30-2023 Hemoglobin (Bld) [Mass/Vol] 12.0 g/dL 12.0-15.0 [facility] Blood lymphocytes/100 leukoc ytesOrdered By: Orly Hudson on 09-30-2023 Lymphocytes/100 WBC (Bld) 13.0 % 19-41 [facility] Blood monocytes/100 leukocyt esOrdered By: Orly Hudson on 09-30-2023 Monocytes/100 WBC (Bld) 6.9 % 0-10 [facility] Blood platelet mean volumeOr dered By: Orly Hudson on 09-30-2023 Platelet mean volume (Bld) [Entitic vol] 10.3 fL 6.2-12.0 [facility] Determination of erythrocyte mean corpuscular volume (MCV)Ordered By: Orly Hudson on 09-30-2023 MCV (RBC) [Entitic vol] 101.5 fL 81-99 [facility] Hematocrit Auto (Bld) [Volum e fraction]Ordered By: Orly Hudson on 09-30-2023 Hematocrit (Bld) [Volume fraction] 39.4 % 37-47 [facility] Laboratory - Chemistry and C hemistry - challengeOrdered By: Orly Hudson on 09-30-2023 CO2 [Moles/Vol] 30.0 mmol/L 21.0-32.0 [facility] Urea nitrogen/Creatinine [Mass ratio] 40.1 mg/mg 10-20 [facility] Laboratory - Hematology and Cell countsOrdered By: Orly Hudson on 09-30-2023 Erythrocyte distribution width (RBC) [Entitic vol] 53.8 fL 35.1-43.9 [facility] Erythrocyte distribution width (RBC) [Ratio] 14.5 % 11.6-14.6 [facility] Immature granulocytes/100 WBC (Bld) 0.700 % 0.0-0.9 [facility] Comment on above: IG% - Immature Granu locytes (promyelocytes, myelocytes and metamyelocytes) > 1% indicates that a LEFT SHIFT is Present. MCH (RBC) [Entitic mass] 30.9 pg 27.0-32.0 [facility] Nucleated RBC/100 WBC (Bld) [Ratio] 0 % 0-5 [facility] MCHC Auto (RBC) [Mass/Vol]Or dered By: Orly Hudson on 09-30-2023 MCHC (RBC) [Mass/Vol] 30.5 g/dL 32-36 [facility] No Panel InformationOrdered By: Orly Hudson on 09-30-2023 Estimated GFR (MDRD) Amer 131 mL/min >60 [facility] Comment on above: GFR Calc Estimated GFR (MDRD) Non-Af Amer 108 mL/min >60 [facility] Comment on above: Non- GFR Calc Platelets bldOrdered By: Soren Hudson on 09-30-2023 Platelets (Bld) [#/Vol] 254 10*3/uL 150-450 [facility] Serum or plasma calcium temi urement (mass/volume)Ordered By: Orly Hudson on 09-30-2023 Calcium [Mass/Vol] 8.5 mg/dL 8.5-10.1 [facility] Serum or plasma creatinine m easurement (mass/volume)Ordered By: Orly Hudson on 09-30-2023 Creatinine [Mass/Vol] 0.57 mg/dL 0.55-1.02 [facility] Comment on above: The validity of the calculated GFR & GFRAA in patients over 70 years has not been determined. Clinical correlation is essential. Serum or plasma urea nitroge n measurement (mass/volume)Ordered By: Orly Hudson on 11-13-2023 Urea nitrogen [Mass/Vol] 23 mg/dL 7-18 [facility] Thin prep Papanicolaou smear with manual screeningOrdered By: Orly Hudson on 09-30-2023 Thin prep Papanicolaou smear with manual screening 3 5-15 [facility] Absolute lymphocyte countOrd ered By: Margaret Samson on 09-16-2023 Lymphocytes Auto (Unsp spec) [#/Vol] 1.75 10*3/uL 0.83-4.51 [facility] Basophil percentageOrdered B y: Margaret Samson on 09-16-2023 Basophils/100 WBC (Bld) 0.1 % 0-1 [facility] Chloride [Moles/Vol] 109 mmol/L 98-107 [facility] Eosinophils/100 WBC (Bld) 1.2 % 0-5 [facility] Glucose [Mass/Vol] 116 mg/dL 74-106 [facility] Comment on above: Fasting Glucose resu lt from 100 to 125 mg/dL suggests IMPAIRED HOMEOSTASIS per A.D.A. criteria. Neutrophils (Bld) [#/Vol] 11.0 10*3/uL 2.0-7.7 [facility] Neutrophils/100 WBC (Bld) 74.3 % 47-70 [facility] Potassium [Moles/Vol] 3.9 mmol/L 3.5-5.1 [facility] Sodium [Moles/Vol] 141 mmol/L 136-145 [facility] WBC (Bld) [#/Vol] 14.8 10*3/uL 4.4-11.0 [facility] Blood erythrocytes count (nu mber/volume)Ordered By: Margaret Samson on 09-16-2023 RBC (Bld) [#/Vol] 4.92 10*6/uL 4.2-5.4 [facility] Blood hemoglobin measurement (mass/volume)Ordered By: Margaret Samson on 09-16-2023 Hemoglobin (Bld) [Mass/Vol] 15.2 g/dL 12.0-15.0 [facility] Blood lymphocytes/100 leukoc ytesOrdered By: Margaret Samson on 09-16-2023 Lymphocytes/100 WBC (Bld) 11.9 % 19-41 [facility] Blood monocytes/100 leukocyt esOrdered By: Margaret Samson on 09-16-2023 Monocytes/100 WBC (Bld) 10.8 % 0-10 [facility] Blood platelet mean volumeOr dered By: Margaret Samson on 09-16-2023 Platelet mean volume (Bld) [Entitic vol] 10.7 fL 6.2-12.0 [facility] Determination of erythrocyte mean corpuscular volume (MCV)Ordered By: Margaret Samson on 09-16-2023 MCV (RBC) [Entitic vol] 97.6 fL 81-99 [facility] Hematocrit Auto (Bld) [Volum e fraction]Ordered By: Margaret Samson on 09-16-2023 Hematocrit (Bld) [Volume fraction] 48.0 % 37-47 [facility] Laboratory - Chemistry and C hemistry - challengeOrdered By: Margaret Samson on 09-16-2023 CO2 [Moles/Vol] 28.0 mmol/L 21.0-32.0 [facility] Urea nitrogen/Creatinine [Mass ratio] 50.0 mg/mg 10-20 [facility] Laboratory - Hematology and Cell countsOrdered By: Margaret Samson on 09-16-2023 Erythrocyte distribution width (RBC) [Entitic vol] 51.7 fL 35.1-43.9 [facility] Erythrocyte distribution width (RBC) [Ratio] 14.3 % 11.6-14.6 [facility] Immature granulocytes/100 WBC (Bld) 1.700 % 0.0-0.9 [facility] Comment on above: IG% - Immature Granu locytes (promyelocytes, myelocytes and metamyelocytes) > 1% indicates that a LEFT SHIFT is Present. MCH (RBC) [Entitic mass] 30.9 pg 27.0-32.0 [facility] Nucleated RBC/100 WBC (Bld) [Ratio] 0 % 0-5 [facility] MCHC Auto (RBC) [Mass/Vol]Or dered By: Margaret Samson on 09-16-2023 MCHC (RBC) [Mass/Vol] 31.7 g/dL 32-36 [facility] No Panel InformationOrdered By: Margaret Samson on 09-16-2023 Estimated GFR (MDRD) Amer 124 mL/min >60 [facility] Comment on above: GFR Calc Estimated GFR (MDRD) Non-Af Amer 103 mL/min >60 [facility] Comment on above: Non- GFR Calc Platelets bldOrdered By: Don Samson on 09-16-2023 Platelets (Bld) [#/Vol] 324 10*3/uL 150-450 [facility] Review by pathologistOrdered By: Margaret Samson on 09-16-2023 Pathologist review Eder (Unsp spec) [Interp] Reviewed [facility] Comment on above: Previous reported re sult: March tanesha Edited by: RGODIANNE on 09/17/23:1027Leukocytosis.PolycythemiaClinical correlation necessary.Eleno Shelby M.D. 09/17/23 AMENDED REPORT 09/17/23 1027 PATH REV previously reported as: Kita almendarez Serum or plasma calcium temi urement (mass/volume)Ordered By: Margaret Samson on 09-16-2023 Calcium [Mass/Vol] 8.7 mg/dL 8.5-10.1 [facility] Serum or plasma creatinine m easurement (mass/volume)Ordered By: Margaret Samson on 09-16-2023 Creatinine [Mass/Vol] 0.60 mg/dL 0.55-1.02 [facility] Comment on above: The validity of the calculated GFR & GFRAA in patients over 70 years has not been determined. Clinical correlation is essential. Serum or plasma urea nitroge n measurement (mass/volume)Ordered By: Margaret Samson on 09-16-2023 Urea nitrogen [Mass/Vol] 30 mg/dL 7-18 [facility] Thin prep Papanicolaou smear with manual screeningOrdered By: Margaret Samson on 09-16-2023 Thin prep Papanicolaou smear with manual screening 4 5-15 [facility] Absolute lymphocyte countOrd ered By: Orly Hudson on 08-28-2023 Lymphocytes Auto (Unsp spec) [#/Vol] 1.65 10*3/uL 0.83-4.51 [facility] Basophil percentageOrdered B y: Orly Hudson on 08-28-2023 Basophils/100 WBC (Bld) 0.8 % 0-1 [facility] Bilirubin [Mass/Vol] 0.40 mg/dL 0.20-1.00 [facility] Comment on above: For patients on eltr ombopag therapy, use of Dimension Fitzgerald TBIL is not recommended. Chloride [Moles/Vol] 110 mmol/L 98-107 [facility] Eosinophils/100 WBC (Bld) 7.5 % 0-5 [facility] Glucose [Mass/Vol] 92 mg/dL 74-106 [facility] Neutrophils (Bld) [#/Vol] 5.1 10*3/uL 2.0-7.7 [facility] Neutrophils/100 WBC (Bld) 59.8 % 47-70 [facility] Potassium [Moles/Vol] 3.9 mmol/L 3.5-5.1 [facility] Protein [Mass/Vol] 6.1 g/dL 6.4-8.2 [facility] Sodium [Moles/Vol] 142 mmol/L 136-145 [facility] WBC (Bld) [#/Vol] 8.5 10*3/uL 4.4-11.0 [facility] Blood erythrocytes count (nu mber/volume)Ordered By: Orly Hudson on 08-28-2023 RBC (Bld) [#/Vol] 4.33 10*6/uL 4.2-5.4 [facility] Blood hemoglobin measurement (mass/volume)Ordered By: Orly Hudson on 08-28-2023 Hemoglobin (Bld) [Mass/Vol] 13.3 g/dL 12.0-15.0 [facility] Blood lymphocytes/100 leukoc ytesOrdered By: Orly Hudson on 08-28-2023 Lymphocytes/100 WBC (Bld) 19.4 % 19-41 [facility] Blood monocytes/100 leukocyt esOrdered By: Orly Hudson on 08-28-2023 Monocytes/100 WBC (Bld) 11.9 % 0-10 [facility] Blood platelet mean volumeOr dered By: Orly Hudson on 08-28-2023 Platelet mean volume (Bld) [Entitic vol] 10.4 fL 6.2-12.0 [facility] Determination of erythrocyte mean corpuscular volume (MCV)Ordered By: Orly Hudson on 08-28-2023 MCV (RBC) [Entitic vol] 97.7 fL 81-99 [facility] Hematocrit Auto (Bld) [Volum e fraction]Ordered By: sueceresedmond Hudson on 08-28-2023 Hematocrit (Bld) [Volume fraction] 42.3 % 37-47 [facility] Laboratory - Chemistry and C hemistry - challengeOrdered By: sueceresedmond Hudson on 08-28-2023 ALP [Catalytic activity/Vol] 84 U/L 45-117 [facility] ALT [Catalytic activity/Vol] 20 U/L 13-56 [facility] CO2 [Moles/Vol] 26.0 mmol/L 21.0-32.0 [facility] Globulin (S) [Mass/Vol] 3.4 g/dL 2.2-4.2 [facility] Urea nitrogen/Creatinine [Mass ratio] 32.3 mg/mg 10-20 [facility] Laboratory - Hematology and Cell countsOrdered By: [facility] Hospitaled[facility] Gonzalezparag on 08-28-2023 Erythrocyte distribution width (RBC) [Entitic vol] 49.7 fL 35.1-43.9 [facility] Erythrocyte distribution width (RBC) [Ratio] 13.7 % 11.6-14.6 [facility] Immature granulocytes/100 WBC (Bld) 0.600 % 0.0-0.9 [facility] Comment on above: IG% - Immature Granu locytes (promyelocytes, myelocytes and metamyelocytes) > 1% indicates that a LEFT SHIFT is Present. MCH (RBC) [Entitic mass] 30.7 pg 27.0-32.0 [facility] Nucleated RBC/100 WBC (Bld) [Ratio] 0 % 0-5 [facility] MCHC Auto (RBC) [Mass/Vol]Or dered By: Orly Hudson on 08-28-2023 MCHC (RBC) [Mass/Vol] 31.4 g/dL 32-36 [facility] No Panel InformationOrdered By: clarence Hudson on 08-28-2023 Estimated GFR (MDRD) Amer 120 mL/min >60 [facility] Comment on above: GFR Calc Estimated GFR (MDRD) Non-Af Amer 99 mL/min >60 [facility] Comment on above: Non- GFR Calc Platelets bldOrdered By: Soren Hudson on 08-28-2023 Platelets (Bld) [#/Vol] 354 10*3/uL 150-450 [facility] Serum or plasma albumin temi urement (mass/volume)Ordered By: Orly Hudson on 08-28-2023 Albumin [Mass/Vol] 2.7 g/dL 3.2-5.0 [facility] Serum or plasma albumin/glob ulin mass ratioOrdered By: Orly Hudson on 08-28-2023 Albumin/Globulin [Mass ratio] 0.8 {ratio} 0.9-2.4 [facility] Serum or plasma calcium temi urement (mass/volume)Ordered By: Orly Hudson on 08-28-2023 Calcium [Mass/Vol] 8.7 mg/dL 8.5-10.1 [facility] Serum or plasma creatinine m easurement (mass/volume)Ordered By: Orly Hudson on 08-28-2023 Creatinine [Mass/Vol] 0.62 mg/dL 0.55-1.02 [facility] Comment on above: The validity of the calculated GFR & GFRAA in patients over 70 years has not been determined. Clinical correlation is essential. Serum or plasma urea nitroge n measurement (mass/volume)Ordered By: Orly Hudson on 08-28-2023 Urea nitrogen [Mass/Vol] 20 mg/dL 7-18 [facility] Thin prep Papanicolaou smear with manual screeningOrdered By: Orly Hudson on 08-28-2023 Thin prep Papanicolaou smear with manual screening 23 U/L 15-37 [facility] Thin prep Papanicolaou smear with manual screening 6 5-15 [facility] COVID-19 virus antigen assay Ordered By: Wei Pollard on 08-26-2023 SARS-CoV-2 (COVID-19) Ag IA.rapid Ql (Resp) [facility] Basophil percentageOrdered B y: Wei Pollard on 08-23-2023 Chloride [Moles/Vol] 111 mmol/L 98-107 [facility] Glucose [Mass/Vol] 156 mg/dL 74-106 [facility] Comment on above: Fasting Glucose resu lt greater than or equal to 126 mg/dL suggests DIABETES MELLITUS per A.D.A. criteria. Potassium [Moles/Vol] 3.8 mmol/L 3.5-5.1 [facility] Sodium [Moles/Vol] 142 mmol/L 136-145 [facility] WBC (Bld) [#/Vol] 13.2 10*3/uL 4.4-11.0 [facility] Blood erythrocytes count (nu mber/volume)Ordered By: Wei Pollard on 08-23-2023 RBC (Bld) [#/Vol] 4.31 10*6/uL 4.2-5.4 [facility] Blood hemoglobin measurement (mass/volume)Ordered By: Wei Pollard on 08-23-2023 Hemoglobin (Bld) [Mass/Vol] 13.3 g/dL 12.0-15.0 [facility] Blood platelet mean volumeOr dered By: Wei Pollard on 08-23-2023 Platelet mean volume (Bld) [Entitic vol] 10.3 fL 6.2-12.0 [facility] Determination of erythrocyte mean corpuscular volume (MCV)Ordered By: Wei Pollard on 08-23-2023 MCV (RBC) [Entitic vol] 96.5 fL 81-99 [facility] Hematocrit Auto (Bld) [Volum e fraction]Ordered By: Wei Pollard on 08-23-2023 Hematocrit (Bld) [Volume fraction] 41.6 % 37-47 [facility] Laboratory - Chemistry and C hemistry - challengeOrdered By: Wei Pollard on 08-23-2023 CO2 [Moles/Vol] 28.0 mmol/L 21.0-32.0 [facility] Urea nitrogen/Creatinine [Mass ratio] 15.2 mg/mg 10-20 [facility] Laboratory - Hematology and Cell countsOrdered By: Wei Pollard on 08-23-2023 Erythrocyte distribution width (RBC) [Entitic vol] 48.3 fL 35.1-43.9 [facility] Erythrocyte distribution width (RBC) [Ratio] 13.6 % 11.6-14.6 [facility] MCH (RBC) [Entitic mass] 30.9 pg 27.0-32.0 [facility] MCHC Auto (RBC) [Mass/Vol]Or dered By: Wei Pollard on 08-23-2023 MCHC (RBC) [Mass/Vol] 32.0 g/dL 32-36 [facility] No Panel InformationOrdered By: Wei Pollard on 08-23-2023 Estimated Creatinine Clearance Calc 38.35 ml/min [facility] Estimated GFR (MDRD) Amer 100 mL/min >60 [facility] Comment on above: GFR Calc Estimated GFR (MDRD) Non-Af Amer 83 mL/min >60 [facility] Comment on above: Non- GFR Calc Platelets bldOrdered By: Santos Pollard on 08-23-2023 Platelets (Bld) [#/Vol] 278 10*3/uL 150-450 [facility] Serum or plasma calcium temi urement (mass/volume)Ordered By: Wei Pollard on 08-23-2023 Calcium [Mass/Vol] 8.5 mg/dL 8.5-10.1 [facility] Serum or plasma creatinine m easurement (mass/volume)Ordered By: Wei Pollard on 08-23-2023 Creatinine [Mass/Vol] 0.72 mg/dL 0.55-1.02 [facility] Comment on above: The validity of the calculated GFR & GFRAA in patients over 70 years has not been determined. Clinical correlation is essential. Serum or plasma urea nitroge n measurement (mass/volume)Ordered By: Wei Pollard on 08-23-2023 Urea nitrogen [Mass/Vol] 11 mg/dL 7-18 [facility] Thin prep Papanicolaou smear with manual screeningOrdered By: Wei Pollard on 08-23-2023 Thin prep Papanicolaou smear with manual screening 3 5-15 [facility] Glucose Glucometer (BldC) [M ass/Vol]Ordered By: Wei Pollard on 08-22-2023 Glucose [Mass/Vol] 149 mg/dL 74-106 [facility] Comment on above: MANAGEMENT OF PATIEN T CARE PER NURSING PROTOCOL Laboratory - Chemistry and C hemistry - challengeOrdered By: Mone Bartholomew on 08-06-2023 Magnesium [Mass/Vol] 2.5 mg/dL 1.6-2.6 [facility] No Panel InformationOrdered By: Wei Pollard on 08-06-2023 Nasal Screen MRSA/MSSA [facility] Absolute lymphocyte countOrd ered By: Mone Cervantes on 07-18-2023 Lymphocytes Auto (Unsp spec) [#/Vol] 1.41 10*3/uL 0.83-4.51 [facility] Basophil percentageOrdered B y: Mone Cervantes on 07-18-2023 Basophils/100 WBC (Bld) 1.1 % 0-1 [facility] Bilirubin [Mass/Vol] 0.60 mg/dL 0.20-1.00 [facility] Comment on above: For patients on eltr ombopag therapy, use of Dimension Fitzgerald TBIL is not recommended. Chloride [Moles/Vol] 107 mmol/L 98-107 [facility] Eosinophils/100 WBC (Bld) 2.5 % 0-5 [facility] Glucose [Mass/Vol] 88 mg/dL 74-106 [facility] Neutrophils (Bld) [#/Vol] 4.8 10*3/uL 2.0-7.7 [facility] Neutrophils/100 WBC (Bld) 65.7 % 47-70 [facility] Potassium [Moles/Vol] 3.9 mmol/L 3.5-5.1 [facility] Protein [Mass/Vol] 6.9 g/dL 6.4-8.2 [facility] Sodium [Moles/Vol] 139 mmol/L 136-145 [facility] WBC (Bld) [#/Vol] 7.3 10*3/uL 4.4-11.0 [facility] Blood erythrocytes count (nu mber/volume)Ordered By: Mone Cervantes on 07-18-2023 RBC (Bld) [#/Vol] 4.71 10*6/uL 4.2-5.4 [facility] Blood hemoglobin measurement (mass/volume)Ordered By: Mone Cervantes on 07-18-2023 Hemoglobin (Bld) [Mass/Vol] 14.5 g/dL 12.0-15.0 [facility] Blood lymphocytes/100 leukoc ytesOrdered By: Mone Cervantes on 07-18-2023 Lymphocytes/100 WBC (Bld) 19.4 % 19-41 [facility] Blood monocytes/100 leukocyt esOrdered By: Mone Cervantes on 07-18-2023 Monocytes/100 WBC (Bld) 10.9 % 0-10 [facility] Blood platelet mean volumeOr dered By: Mone Cervantes on 07-18-2023 Platelet mean volume (Bld) [Entitic vol] 11.2 fL 6.2-12.0 [facility] Determination of erythrocyte mean corpuscular volume (MCV)Ordered By: Mone Cervantes on 07-18-2023 MCV (RBC) [Entitic vol] 96.2 fL 81-99 [facility] Hematocrit Auto (Bld) [Volum e fraction]Ordered By: Mone Cervantes on 07-18-2023 Hematocrit (Bld) [Volume fraction] 45.3 % 37-47 [facility] Laboratory - Chemistry and C hemistry - challengeOrdered By: Mone Cervantes on 07-18-2023 ALP [Catalytic activity/Vol] 79 U/L 45-117 [facility] ALT [Catalytic activity/Vol] 12 U/L 13-56 [facility] CO2 [Moles/Vol] 26.0 mmol/L 21.0-32.0 [facility] Globulin (S) [Mass/Vol] 3.3 g/dL 2.2-4.2 [facility] Urea nitrogen/Creatinine [Mass ratio] 25.0 mg/mg 10-20 [facility] Laboratory - Hematology and Cell countsOrdered By: Mone Cervantes on 07-18-2023 Erythrocyte distribution width (RBC) [Entitic vol] 49.0 fL 35.1-43.9 [facility] Erythrocyte distribution width (RBC) [Ratio] 13.7 % 11.6-14.6 [facility] Immature granulocytes/100 WBC (Bld) 0.400 % 0.0-0.9 [facility] Comment on above: IG% - Immature Granu locytes (promyelocytes, myelocytes and metamyelocytes) > 1% indicates that a LEFT SHIFT is Present. MCH (RBC) [Entitic mass] 30.8 pg 27.0-32.0 [facility] Nucleated RBC/100 WBC (Bld) [Ratio] 0 % 0-5 [facility] MCHC Auto (RBC) [Mass/Vol]Or dered By: Mone Cervantes on 07-18-2023 MCHC (RBC) [Mass/Vol] 32.0 g/dL 32-36 [facility] No Panel InformationOrdered By: Mone Cervantes on 07-18-2023 Estimated GFR (MDRD) Amer 84 mL/min >60 [facility] Comment on above: GFR Calc Estimated GFR (MDRD) Non-Af Amer 70 mL/min >60 [facility] Comment on above: Non- GFR Calc Thyroid Stimulating Hormone (TSH) 1.56 uIU/mL 0.358-3.74 [facility] Platelets bldOrdered By: Nathalia Cervantes on 07-18-2023 Platelets (Bld) [#/Vol] 282 10*3/uL 150-450 [facility] Serum or plasma albumin temi urement (mass/volume)Ordered By: Mone Cervantes on 07-18-2023 Albumin [Mass/Vol] 3.6 g/dL 3.2-5.0 [facility] Serum or plasma albumin/glob ulin mass ratioOrdered By: Mone Cervantes on 07-18-2023 Albumin/Globulin [Mass ratio] 1.1 {ratio} 0.9-2.4 [facility] Serum or plasma calcium temi urement (mass/volume)Ordered By: Mone Cervantes on 07-18-2023 Calcium [Mass/Vol] 8.9 mg/dL 8.5-10.1 [facility] Serum or plasma creatinine m easurement (mass/volume)Ordered By: Mone Cervantes on 07-18-2023 Creatinine [Mass/Vol] 0.84 mg/dL 0.55-1.02 [facility] Comment on above: The validity of the calculated GFR & GFRAA in patients over 70 years has not been determined. Clinical correlation is essential. Serum or plasma urea nitroge n measurement (mass/volume)Ordered By: Mone Cervantes on 07-18-2023 Urea nitrogen [Mass/Vol] 21 mg/dL 7-18 [facility] Thin prep Papanicolaou smear with manual screeningOrdered By: Mone Cervantes on 07-18-2023 Thin prep Papanicolaou smear with manual screening 20 U/L 15 [facility] Thin prep Papanicolaou smear with manual screening 6 5-15 [facility] Hemogramon 07-22-2018 Erythrocyte distribution width Auto Ratio (RBC) 12.3 % Normal 11.7-14.4 [facility] Comment on above: Performed By: #### C BC1 ####[place] [address] Hematocrit Auto Volume Fraction (Bld) 47.8 % High 34.1-44.9 [facility] Comment on above: Performed By: #### C BC1 ####[place] [address] Hemoglobin mass conc (Bld) 15.4 g/dL Normal 11.2-15.7 [facility] Comment on above: Performed By: #### C BC1 ####[place] [address] MCH Auto Entitic mass (RBC) 30.2 pg Normal 25.6-32.2 [facility] Comment on above: Performed By: #### C BC1 ####[place] [address] MCHC Auto mass conc (RBC) 32.2 % Normal 31.6-34.8 [facility] Comment on above: Performed By: #### C BC1 ####[place] [address] MCV Auto Entitic volume (RBC) 93.7 fL Normal 79.4-94.8 [facility] Comment on above: Performed By: #### C BC1 ####[place] [address] Platelet mean volume Auto Entitic volume (Bld) 9.4 fL Normal 9.4-12.3 [facility] Comment on above: Performed By: #### C BC1 ####[facility] [place], [place] [address] Platelets Auto #/vol (Bld) 339 thou/cmm Normal 182-369 [facility] Comment on above: Performed By: #### C BC1 ####[facility] [place] [address] RBC Auto #/vol (Bld) 5.10 mil/cmm Normal 3.93-5.22 [facility] Comment on above: Performed By: #### C BC1 ####[facility] [place] [address] RDW SD 42.7 fl Normal 36.4-46.3 [facility] Comment on above: Performed By: #### C BC1 ####[facility] [place] [address] WBC Auto #/vol (Bld) 7.61 thou/cmm Normal 3.98-10.04 [facility] Comment on above: Performed By: #### C BC1 ####[facility] [place] [address] KYPHOPLASTY LUMBAR [id number] 0 07-22-2018 KYPHOPLASTY LUMBAR [id number] Performed at [facility] APPROVED BY: Madhav Marks MD EXAM TITLE: FLUOROSCOPICALLY GUIDED KYPHOPLASTY/VERTEBROPL ASTY OF THE L4 VERTEBRAL BODY DATE: 07/22/2018 07:41 COMPARISON: None. CLINICAL INDICATION/HISTORY: The patient has a new fracture of the L4 vertebral body. The patient has failed conservative therapy. The patient has persistent pain. The patient is referred for image guided kyphoplasty and vertebroplasty of L4. FINDINGS: Informed consent was obtained from the patient. The patient was placed in the prone position. Utilizing biplane fluoroscopy the L4 vertebral body was localized. The skin was marked. All elements of maximum barrier technique including surgical cap and mask, sterile gown, sterile gloves, a large sterile drape, hand hygiene and appropriate prep agent for cutaneous antisepsis were utilized and maintained for this procedure. A timeout was performed. Local anesthesia was affected with 2% Xylocaine. Utilizing real-time fluoroscopic guidance an 11-gauge vertebroplasty needle was introduced into the L4 vertebral body utilizing a left transpedicular approach. Once the tip the needle was within the posterior third of the L4 vertebral body a curved introducer was inserted and a tract was formed from the left side of the vertebral body over to the right anterior aspect of the vertebral body. The introducer was removed and a sheath was left in place. A kyphoplasty balloon was then inserted through the sheath. Sheath was partially withdrawn. The kyphoplasty balloon was then inflated under fluoroscopic observation. The kyphoplasty balloon and the sheath were then withdrawn. A curved cannula was then introduced through the vertebroplasty needle with the distal tip positioned in the right anterior aspect of the L4 vertebral body. The VertaPlex hv cement was then mixed. Under fluoroscopic observation cement was instilled through the cannula. Cement was continued to be instilled while slowly withdrawing the cannula. There appeared to be good distribution of the cement throughout the L4 vertebral body. The cannula was removed. The stylette was then advanced through the vertebral plasty needle. Vertebral plasty needle was then withdrawn. The patient tolerated the procedure well. No immediate complications were noted. The patient received conscious sedation with intravenous Versed and Fentanyl. . The patient was monitored throughout the procedure by the Radiology nurse. Intra-service time (monitoring for moderate sedation) (starts with administration of agent, ends when continuous [id number] time ends): 60 minutes Patient monitoring: I personally supervised and directed an independent trained observer who assisted in monitoring the patient?s level of consciousness and physiological status throughout the procedure. The patient received intravenous Ancef for prophylaxis. The patient was placed in the supine position. The patient was then transferred to the radiology nursing station in stable condition. Patient is to remain flat the next 60 minutes in order to allow the cement to set. IMPRESSION: 1. Technically successful fluoroscopically guided kyphoplasty and vertebroplasty of the L4 vertebral body. Fluoroscopic Time: 9 minutes 24 seconds Radiation Exposure: 991 mGyVolume of Contrast: 10 cc of Omnipaque 240Number of Images: 8 Antibiotics: 2 g of Ancef intravenously for prophylaxis Normal [facility] Protimeon 07-22-2018 INR Coag RelTime (PPP) 1.15 {INR} Normal [facility] Comment on above: Result Comment: Reed cortez Therapy 2.0-3.0High Dose 2.5-3.5 Performed By: #### P T ####[facility] [place], [place] [address] Prothrombin time (PT) Coag time (PPP) 11.8 s Normal 9.3-11.9 [facility] Comment on above: Performed By: #### P T ####[facility] [place], [place] [address] VERTEBROPLASTY LUMBOSACRAL 2 2511on 07-22-2018 VERTEBROPLASTY LUMBOSACRAL [id number] Performed at [facility] APPROVED BY: Madhav Marks MD EXAM TITLE: FLUOROSCOPICALLY GUIDED KYPHOPLASTY/VERTEBROPL ASTY OF THE L4 VERTEBRAL BODY DATE: 07/22/2018 07:41 COMPARISON: None. CLINICAL INDICATION/HISTORY: The patient has a new fracture of the L4 vertebral body. The patient has failed conservative therapy. The patient has persistent pain. The patient is referred for image guided kyphoplasty and vertebroplasty of L4. FINDINGS: Informed consent was obtained from the patient. The patient was placed in the prone position. Utilizing biplane fluoroscopy the L4 vertebral body was localized. The skin was marked. All elements of maximum barrier technique including surgical cap and mask, sterile gown, sterile gloves, a large sterile drape, hand hygiene and appropriate prep agent for cutaneous antisepsis were utilized and maintained for this procedure. A timeout was performed. Local anesthesia was affected with 2% Xylocaine. Utilizing real-time fluoroscopic guidance an 11-gauge vertebroplasty needle was introduced into the L4 vertebral body utilizing a left transpedicular approach. Once the tip the needle was within the posterior third of the L4 vertebral body a curved introducer was inserted and a tract was formed from the left side of the vertebral body over to the right anterior aspect of the vertebral body. The introducer was removed and a sheath was left in place. A kyphoplasty balloon was then inserted through the sheath. Sheath was partially withdrawn. The kyphoplasty balloon was then inflated under fluoroscopic observation. The kyphoplasty balloon and the sheath were then withdrawn. A curved cannula was then introduced through the vertebroplasty needle with the distal tip positioned in the right anterior aspect of the L4 vertebral body. The VertaPlex hv cement was then mixed. Under fluoroscopic observation cement was instilled through the cannula. Cement was continued to be instilled while slowly withdrawing the cannula. There appeared to be good distribution of the cement throughout the L4 vertebral body. The cannula was removed. The stylette was then advanced through the vertebral plasty needle. Vertebral plasty needle was then withdrawn. The patient tolerated the procedure well. No immediate complications were noted. The patient received conscious sedation with intravenous Versed and Fentanyl. . The patient was monitored throughout the procedure by the Radiology nurse. Intra-service time (monitoring for moderate sedation) (starts with administration of agent, ends when continuous [id number] time ends): 60 minutes Patient monitoring: I personally supervised and directed an independent trained observer who assisted in monitoring the patient?s level of consciousness and physiological status throughout the procedure. The patient received intravenous Ancef for prophylaxis. The patient was placed in the supine position. The patient was then transferred to the radiology nursing station in stable condition. Patient is to remain flat the next 60 minutes in order to allow the cement to set. IMPRESSION: 1. Technically successful fluoroscopically guided kyphoplasty and vertebroplasty of the L4 vertebral body. Fluoroscopic Time: 9 minutes 24 seconds Radiation Exposure: 991 mGyVolume of Contrast: 10 cc of Omnipaque 240Number of Images: 8 Antibiotics: 2 g of Ancef intravenously for prophylaxis Normal [facility] Lab Report: Basic Metabolic Profile (BMP)on 04-10-2017 Anion gap 6 mmol/L Invalid Interpretation Code 5-15 [facility] [employer] Work Phone: [phone] BUN/Creatinine Ratio 22.7 RATIO High 10-20 [facility] [employer] Work Phone: [phone] Calcium 9.2 mg/dL Invalid Interpretation Code 8.5-10.1 [facility] [employer] Work Phone: [phone] Chloride 109 mmol/L High 98-107 [facility] [employer] Work Phone: [phone] CO2 29.0 mmol/L Invalid Interpretation Code 21.0-32.0 [facility] [employer] Work Phone: [phone] Creatinine 0.88 mg/dL Invalid Interpretation Code 0.55-1.02 [facility] [employer] Work Phone: [phone] eGFR (non-black) 67 mL/min/{1.73_m2} Invalid Interpretation Code >60 [employer] Work Phone: [phone] eGFR (non-black) 81 mL/min/{1.73_m2} Invalid Interpretation Code >60 [employer] Work Phone: [phone] Glucose 87 mg/dL Invalid Interpretation Code 70-110 [employer] Work Phone: [phone] Potassium 3.8 mmol/L Invalid Interpretation Code 3.5-5.1 [employer] Work Phone: [phone] Sodium 144 mmol/L Invalid Interpretation Code 136-145 [employer] Work Phone: [phone] Urea nitrogen 20 mg/dL High 7-18 [employer] Work Phone: [phone] Lab Report: CBC-Complete Blo od Cnt No Diffon 04-10-2017 Erythrocytes (RBC) 4.71 10*6/uL Invalid Interpretation Code 4.2-5.4 [employer] Work Phone: [phone] Hematocrit (HCT) 45.9 % Invalid Interpretation Code 37-47 [employer] Work Phone: [phone] Hemoglobin (HGB) 14.8 g/dL Invalid Interpretation Code 12.0-15.0 [employer] Work Phone: [phone] MCH 31.4 pg Invalid Interpretation Code 27.0-32.0 [facility] Work Phone: [phone] MCHC 32.2 G/GL Invalid Interpretation Code 32-36 [employer] Work Phone: [phone] MCV 97.5 fL Invalid Interpretation Code 81-99 [employer] Work Phone: [phone] Platelets 304 10*3/mm3 Invalid Interpretation Code 150-450 [employer] Work Phone: [phone] PMV by Jovon 11.0 fL Invalid Interpretation Code 6.2-12.0 [employer] Work Phone: [phone] RDW-CA 13.2 % Invalid Interpretation Code 11.6-14.6 [employer] Work Phone: [phone] red blood cell distribution width, size density 47.2 fL High 35.1-43.9 [facility] Work Phone: [phone] WBC (Leukocytes) 7.1 10*3/uL Invalid Interpretation Code 4.4-11.0 [facility] Phone: [phone] Office Visiton 04-09-2017 Documentation of current medications (procedure) Done Invalid Interpretation Code [facility] Phone: [phone] Fall risk assessment Yes Invalid Interpretation Code [employer] Work Phone: [phone] Replaced Document: Aj Tuttle CG Observationson 04-09-2017 electrocardiogram interpretation 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 ABNORMAL Invalid Interpretation Code [employer] Work Phone: [phone] GE use only - for [employer] import when terms are not otherwise specified 440 ms Invalid Interpretation Code [facility] Work Phone: [phone] P wave axis, electrocardiogram 60 deg Invalid Interpretation Code [facility] Work Phone: [phone] HI interval, electrocardiogram 186 ms Invalid Interpretation Code [facility] Phone: [phone] Pulse (Heart Rate) 52 /min Invalid Interpretation Code [facility] Work Phone: [phone] QRS axis, electrocardiogram -24 deg Invalid Interpretation Code [facility] Work Phone: [phone] QRS duration, electrocardiogram 101 ms Invalid Interpretation Code [facility] Phone: [phone] QT interval, electrocardiogram new path ms Invalid Interpretation Code [facility] Phone: [phone] T wave axis, electrocardiogram 36 deg Invalid Interpretation Code [facility] Phone: [phone] 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 Left ventricular Ejection fraction 60 % Invalid Interpretation Code [facility] Phone: [phone] Office Visit: [facility] 02-27-20 17 Documentation of current medications (procedure) Done Invalid Interpretation Code [facility] Phone: [phone] Fall risk assessment No Invalid Interpretation Code [facility] Phone: [phone] Office Visit: S/P Hernia rep airon 02-07-2017 Dietary management education, guidance, and counseling (procedure) yes Invalid Interpretation Code [facility] Phone: [phone] Tobacco smoking status NHIS Never Invalid Interpretation Code [facility] Work Phone: [phone] Tobacco use CPHS Never smoker Invalid Interpretation Code [facility] Work Phone: [phone] Lab Report: Basic Metabolic Profile (BMP)on 01-24-2017 Anion gap 10 mmol/L Invalid Interpretation Code 5-15 [facility] Work Phone: [phone] BUN/Creatinine Ratio 29.9 RATIO High 10-20 [facility] Work Phone: [phone] Calcium 8.8 mg/dL Invalid Interpretation Code 8.5-10.1 [facility] Work Phone: [phone] Chloride 109 mmol/L High 98-107 [facility] Work Phone: [phone] CO2 27.0 mmol/L Invalid Interpretation Code 21.0-32.0 [facility] Work Phone: [phone] Creatinine 57.51 mL/min Invalid Interpretation Code [facility] Work Phone: [phone] Creatinine 0.84 mg/dL Invalid Interpretation Code 0.55-1.02 [facility] Work Phone: [phone] eGFR (non-black) 71 mL/min/{1.73_m2} Invalid Interpretation Code >60 [facility] Work Phone: [phone] eGFR (non-black) 86 mL/min/{1.73_m2} Invalid Interpretation Code >60 [facility] Work Phone: [phone] Glucose 94 mg/dL Invalid Interpretation Code 70-110 [facility] Work Phone: [phone] Potassium 3.9 mmol/L Invalid Interpretation Code 3.5-5.1 [facility] Work Phone: [phone] Sodium 146 mmol/L High 136-145 [facility] Work Phone: [phone] Urea nitrogen 25 mg/dL High 7-18 [facility] Work Phone: [phone] Lab Report: CBC-Complete Blo od Cnt No Diffon 01-24-2017 Erythrocytes (RBC) 4.87 10*6/uL Invalid Interpretation Code 4.2-5.4 [facility] Work Phone: [phone] Hematocrit (HCT) 46.7 % Invalid Interpretation Code 37-47 [facility] Work Phone: [phone] Hemoglobin (HGB) 15.6 g/dL High 12.0-15.0 [employer] Work Phone: [phone] MCH 32.0 pg Invalid Interpretation Code 27.0-32.0 [employer] Work Phone: [phone] MCHC 33.4 G/GL Invalid Interpretation Code 32-36 [employer] Work Phone: [phone] MCV 95.9 fL Invalid Interpretation Code 81-99 [facility] Work Phone: [phone] Platelets 260 10*3/mm3 Invalid Interpretation Code 150-450 [employer] Work Phone: [phone] PMV by Jovon 10.4 fL Invalid Interpretation Code 6.2-12.0 [facility] Work Phone: [phone] RDW-CA 13.1 % Invalid Interpretation Code 11.6-14.6 [employer] Work Phone: [phone] red blood cell distribution width, size density 45.0 fL High 35.1-43.9 [employer] Work Phone: [phone] WBC (Leukocytes) 6.5 10*3/uL Invalid Interpretation Code 4.4-11.0 [facility] Work Phone: [phone] Lab Report: CBC W/Diff, Auto matedon 08-21-2016 Basophils/100 leukocytes 0.5 % Invalid Interpretation Code 0-1 [employer] Work Phone: [phone] Eosinophils/100 leukocytes 2.0 % Invalid Interpretation Code 0-5 [facility] Work Phone: [phone] immature granulocytes, percentage of total cells, blood 0.300 % Invalid Interpretation Code 0.0-0.9 [employer] Work Phone: [phone] Lymphocytes 2.30 X10 3/UL Invalid Interpretation Code 0.83-4.51 [facility] Work Phone: Lymphocytes/100 leukocytes 29.1 % Invalid Interpretation Code 19-41 [employer] Work Phone: Monocytes/100 leukocytes 9.0 % Invalid Interpretation Code 0-10 [facility] Work Phone: [phone] neutrophil count, blood 4.7 X10 3/UL Invalid Interpretation Code 2.0-7.7 [facility] Phone: [phone] Neutrophils/100 leukocytes 59.1 % Invalid Interpretation Code 47-70 [facility] Phone: [phone] Lab Report: Magnesiumon 10- Magnesium 2.4 mg/dL Invalid Interpretation Code 1.8-2.4 [facility] Phone: [phone] Lab Report: Thyroid Stim Hor mustapha (TSH)on 08-21-2016 Thyroid stimulating hormone (TSH) 0.79 u[iU]/mL Invalid Interpretation Code 0.358-3.74 [facility] Phone: [phone] Replaced Document: Midmark E CG Observationson 08-21-2016 electrocardiogram interpretation 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 ABNORMAL Invalid Interpretation Code [facility] Phone: [phone] GE use only - for [employer] import when terms are not otherwise specified 441 ms Invalid Interpretation Code [facility] Phone: [phone] P wave axis, electrocardiogram 50 deg Invalid Interpretation Code [facility] Phone: [phone] HI interval, electrocardiogram 182 ms Invalid Interpretation Code [facility] Phone: [phone] Pulse (Heart Rate) 50 /min Invalid Interpretation Code [facility] Phone: [phone] QRS axis, electrocardiogram -20 deg Invalid Interpretation Code [facility] Phone: [phone] QRS duration, electrocardiogram 100 ms Invalid Interpretation Code [facility] Phone: [phone] QT interval, electrocardiogram new path ms Invalid Interpretation Code [facility] Phone: [phone] T wave axis, electrocardiogram 55 deg Invalid Interpretation Code [facility] Phone: [phone] Office Visiton 09-09-2015 General cardiovascular disease 10Y risk [#] Kishore 4 % Invalid Interpretation Code [facility] Phone: [phone] Office Visiton 04-27-2015 cardiac risk group B Invalid Interpretation Code [facility] Phone: [phone] Clinical 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: 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 01-13-2015 Alanine aminotransferase (ALT) 28 U/L Invalid Interpretation Code [facility] Work Phone: [phone] Albumin 3.5 g/dL Invalid Interpretation Code [facility] Work Phone: [phone] Albumin/Globulin Ratio 1.0 {ratio} Invalid Interpretation Code [facility] Work Phone: [phone] Alkaline phosphatase (ALP) 65 U/L Invalid Interpretation Code [facility] Work Phone: [phone] Aspartate aminotransferase (AST) 17 U/L Invalid Interpretation Code [facility] Work Phone: [phone] Bilirubin (total) 0.70 mg/dL Invalid Interpretation Code [facility] Work Phone: [phone] Cholesterol 184 mg/dL Invalid Interpretation Code [facility] Work Phone: [phone] eGFR (non-black) 80 mL/min/{1.73_m2} Invalid Interpretation Code [facility] Work Phone: [phone] eGFR (non-black) 66 mL/min/{1.73_m2} Invalid Interpretation Code [facility] Work Phone: [phone] Globulin 3.5 g/dL Invalid Interpretation Code [facility] Work Phone: [phone] HDL Cholesterol 56 mg/dL Invalid Interpretation Code [facility] Work Phone: [phone] LDL Cholesterol 98 mg/dL Invalid Interpretation Code [facility] Work Phone: [phone] Protein 7.0 g/dL Invalid Interpretation Code [facility] Work Phone: [phone] Thyroxine (T4) free 0.95 ng/dL Invalid Interpretation Code [facility] Work Phone: [phone] Triglyceride 152 mg/dL Invalid Interpretation Code [facility] Work Phone: [phone] low density lipoproteins 30 mg/dL Invalid Interpretation Code [facility] Work Phone: [phone] Replaced Document: Aj Tuttle CG Observationson 10-30-2012 Pulse (Heart Rate) 435 ms Invalid Interpretation Code [facility] Work Phone: [phone] Vital Signs Date Time Vital Sign Value Performing Clinician Delaney clark 08-15-2025 15:33-0400 Body temperature 98.7 [degF] Dr. Mone Cervantes MD Work Phone: 1(516)[phone] [place] [address] 08-15-2025 15:33-0400 Diastolic blood pressure 63 mm[Hg] Dr. Mone Cervantes MD Work Phone: 6(369)279-033017 [place] [address] 08-15-2025 15:33-0400 Heart rate 79 /min Dr. Mone Cervantes MD Work Phone: 7(334)701-727917 [place] [address] 08-15-2025 15:33-0400 Respiratory rate 14 /min Dr. Mone Cervantes MD Work Phone: 9(367)792-355617 [place] [address] 08-15-2025 15:33-0400 SaO2% (BldA) [Mass fraction] 98 % Dr. Mone Cervantes MD Work Phone: 3(218)708-997917 [place] [address] 08-15-2025 15:33-0400 Systolic blood pressure 144 mm[Hg] Dr. Mone Cervantes MD Work Phone: 8(311)164-614917 [place] [address] 08-15-2025 12:35-0400 Body mass index (BMI) [Ratio] 35.7 kg/m2 Dr. Mone Cervantes MD Work Phone: 5(557)780-204417 [place] [address] 08-15-2025 12:35-0400 Body weight 91.[address] Mone Cervantes MD Work Phone: 3(103)029-145517 [place] [address] 08-15-2025 12:32-0400 Body height 160.[address] Mone Cervantes MD Work Phone: 6(176)285-358417 [place] [address] 07-20-2025 11:20-0400 Body height 160.[address] Mone Cervantes MD Work Phone: 4(700)243-019817 [place] [address] 07-20-2025 11:20-0400 Body mass index (BMI) [Ratio] 35 kg/m2 Dr. Mone Cervantes MD Work Phone: 9(465)335-075117 [place] [address] 07-20-2025 11:20-0400 Body temperature 97.6 [degF] Dr. Mone Cervantes MD Work Phone: 0(219)389-622117 [place] [address] 07-20-2025 11:20-0400 Body weight 89.[address] Mone Cervantes MD Work Phone: [facility] 07-20-2025 11:20-0400 Diastolic blood pressure 74 mm[Hg] Dr. Mone Cervantes MD Work Phone: [facility] 07-20-2025 11:20-0400 Heart rate 72 /min Dr. Mone Cervantes MD Work Phone: [facility] 07-20-2025 11:20-0400 Respiratory rate 18 /min Dr. Mone Cervantes MD Work Phone: [facility] 07-20-2025 11:20-0400 SaO2% (BldA) [Mass fraction] 95 % Dr. Mone Cervantes MD Work Phone: [facility] 07-20-2025 11:20-0400 Systolic blood pressure 129 mm[Hg] Dr. Mone Cervantes MD Work Phone: 4(369)322-047906 [place] [address] 03-06-2024 13:34-0400 Body temperature 98 [degF] Dr. Mone Cervantes Work Phone: 2(963)[phone] [place] [address] 03-06-2024 13:34-0400 Diastolic blood pressure 87 mm[Hg] Dr. Mone Cervantes Work Phone: [facility] 03-06-2024 13:34-0400 Heart rate 67 /min Dr. Mone Cervantes Work Phone: [facility] 03-06-2024 13:34-0400 Respiratory rate 18 /min Dr. Mone Cervantes Work Phone: [facility] 03-06-2024 13:34-0400 SaO2% (BldA) [Mass fraction] 97 % Dr. Mone Cervantes Work Phone: [facility] 03-06-2024 13:34-0400 Systolic blood pressure 122 mm[Hg] Dr. Mone Cervantes Work Phone: [facility] 03-06-2024 01:25-0400 Body mass index (BMI) [Ratio] 32.5 kg/m2 Dr. Mone Cervantes Work Phone: [facility] 03-06-2024 01:25-0400 Body weight 83.[address] Mone Cervantes Work Phone: [facility] 03-05-2024 19:04-0400 Body height 160.[address] Mone Cervantes Work Phone: [facility] 03-05-2024 16:53-0400 Diastolic blood pressure 82 mm[Hg] Dr. Mone Cervantes Work Phone: [facility] 03-05-2024 16:53-0400 Heart rate 68 /min Dr. Mone Cervantes Work Phone: [facility] 03-05-2024 16:53-0400 Respiratory rate 18 /min Dr. Mone Cervantes Work Phone: [facility] 03-05-2024 16:53-0400 SaO2% (BldA) [Mass fraction] 97 % Dr. Mone Cervantes Work Phone: [facility] 03-05-2024 16:53-0400 Systolic blood pressure 156 mm[Hg] Dr. Mone Cervantes Work Phone: [facility] 03-05-2024 14:04-0400 Body temperature 98.2 [degF] Dr. Mone Cervantes Work Phone: [facility] 03-05-2024 12:56-0400 Body mass index (BMI) [Ratio] 33.6 kg/m2 Dr. Mone Cervantes Work Phone: [facility] 03-05-2024 12:56-0400 Body weight 86.[address] Mone Cervantes Work Phone: [facility] 03-05-2024 11:56-0400 Body height 160.[address] Mone Cervantes Work Phone: [facility] 02-26-2024 20:50-0400 Body temperature 98 [degF] Dr. Mone Cervantes Work Phone: [facility] 02-26-2024 20:50-0400 Diastolic blood pressure 76 mm[Hg] Dr. Mone Cervantes Work Phone: [facility] 02-26-2024 20:50-0400 Heart rate 72 /min Dr. Mone Cervantes Work Phone: [facility] 02-26-2024 20:50-0400 Respiratory rate 16 /min Dr. Mone Cervantes Work Phone: [facility] 02-26-2024 20:50-0400 SaO2% (BldA) [Mass fraction] 97 % Dr. Mone Cervantes Work Phone: [facility] 02-26-2024 20:50-0400 Systolic blood pressure 154 mm[Hg] Dr. Mone Cervantes Work Phone: [facility] 02-26-2024 16:34-0400 Body mass index (BMI) [Ratio] 34.7 kg/m2 Dr. Mone Cervantes Work Phone: [facility] 02-26-2024 16:34-0400 Body weight 88.[address] Mone Cervantes Work Phone: [facility] 02-26-2024 15:18-0400 Body height 160.[address] Mone Cervantes Work Phone: [facility] 02-26-2024 14:00-0400 Body mass index (BMI) [Ratio] 35.1 kg/m2 Dr. Mone Cervantes Work Phone: [facility] 02-26-2024 14:00-0400 Body temperature 98 [degF] Dr. Mone Cervantes Work Phone: [facility] 02-26-2024 14:00-0400 Body weight 89.[address] Mone Cervantes Work Phone: [facility] 02-26-2024 14:00-0400 Diastolic blood pressure 78 mm[Hg] Dr. Mone Cervantes Work Phone: [facility] 02-26-2024 14:00-0400 Heart rate 71 /min Dr. Mone Cervantes Work Phone: [facility] 02-26-2024 14:00-0400 Respiratory rate 18 /min Dr. Mone Cervantes Work Phone: [facility] 02-26-2024 14:00-0400 SaO2% (BldA) [Mass fraction] 93 % Dr. Mone Cervantes Work Phone: 8(952)220-520106 [place] [address] 02-26-2024 14:00-0400 Systolic blood pressure 118 mm[Hg] Dr. Mone Cervantes Work Phone: 3(324)913-481517 [place] [address] 09-19-2023 12:24-0400 Body height 160.[address] Mone Cervantes Work Phone: 0(018)180-452217 [place] [address] 08-26-2023 13:40-0400 Body temperature 97.8 [degF] Dr. Mone Cervantes Work Phone: 4(595)522-252417 [place] [address] 08-26-2023 13:40-0400 Diastolic blood pressure 57 mm[Hg] Dr. Mone Cervantes Work Phone: 9(136)754-221517 [place] [address] 08-26-2023 13:40-0400 Heart rate 54 /min Dr. Mone Cervantes Work Phone: 6(737)516-736917 [place] [address] 08-26-2023 13:40-0400 Respiratory rate 18 /min Dr. Mone Cervantes Work Phone: 1(485)600-595817 [place] [address] 08-26-2023 13:40-0400 SaO2% (BldA) [Mass fraction] 96 % Dr. Mone Cervantes Work Phone: 3(088)745-788206 [place] [address] 08-26-2023 13:40-0400 Systolic blood pressure 113 mm[Hg] Dr. Mone Cervantes Work Phone: 6(811)159-271717 [place] [address] 08-26-2023 01:06-0400 Inhaled oxygen flow rate 2 L/min Dr. Mone Cervantes Work Phone: 0(922)457-464906 [place] [address] 08-22-2023 13:44-0400 Body mass index (BMI) [Ratio] 31.2 kg/m2 Dr. Mone eCrvantes Work Phone: 6(658)379-918006 [place] [address] 08-22-2023 13:44-0400 Body weight [address] Mone Cervantes Work Phone: [facility] 08-13-2023 13:49-0400 Body mass index (BMI) [Ratio] 31.4 kg/m2 Dr. Mone Cervantes Work Phone: [facility] 08-13-2023 13:49-0400 Body weight 80.[address] Mone Cervantes Work Phone: [facility] 08-13-2023 13:49-0400 Diastolic blood pressure 54 mm[Hg] Dr. Mone Cervantes Work Phone: [facility] 08-13-2023 13:49-0400 Heart rate 66 /min Dr. Mone Cervantes Work Phone: [facility] 08-13-2023 13:49-0400 Respiratory rate 18 /min Dr. Mone Cervantes Work Phone: [facility] 08-13-2023 13:49-0400 SaO2% (BldA) [Mass fraction] 94 % Dr. Mone Cervantes Work Phone: [facility] 08-13-2023 13:49-0400 Systolic blood pressure 92 mm[Hg] Dr. Mone Cervantes Work Phone: [facility] 04-09-2017 14:40-0400 BMI (Body Mass Index) 30.6 kg/m2 Leatha [facility] Work Phone: 04-09-2017 14:40-0400 BP Diastolic 70 mm[Hg] Leatha Starr RN [facility] Work Phone: 04-09-2017 14:40-0400 BP Systolic 140 mm[Hg] Leatha Starr RN [facility] Work Phone: 04-09-2017 14:40-0400 Height 166.47 cm Leatha Starr RN [facility] Work Phone: 04-09-2017 14:40-0400 Pulse (Heart Rate) 60 /min Leatha Starr RN [facility] Work Phone: 04-09-2017 14:40-0400 Respiratory Rate 20 /min Leatha Starr RN [facility] Work Phone: 04-09-2017 14:40-0400 Weight 84.82 kg Leatha Starr RN [facility] Work Phone: 02-26-2017 12:50-0400 BMI (Body Mass Index) 31 kg/m2 Leatha Starr RN [facility] Work Phone: 02-26-2017 12:50-0400 BP Diastolic 90 mm[Hg] Leatha Starr RN [facility] Work Phone: 02-26-2017 12:50-0400 BP Systolic 152 mm[Hg] Leatha Starr RN [facility] Work Phone: 02-26-2017 12:50-0400 Height 166.37 cm Leatha Starr RN [facility] Work Phone: 02-26-2017 12:50-0400 Pulse (Heart Rate) 52 /min Leatha Starr RN [facility] Work Phone: 02-26-2017 12:50-0400 Respiratory Rate 20 /min Leatha Starr RN [facility] Work Phone: 02-26-2017 12:50-0400 Weight 85.82 kg Leatha Starr RN [facility] Work Phone: 02-07-2017 10:00-0400 Body Temperature 97.9 [degF] Leatha Starr RN [facility] Work Phone: 02-07-2017 10:00-0400 Height 166.37 cm Leatha Starr RN [facility] Work Phone: 02-07-2017 10:00-0400 Pulse Oximetry 98 % Leatha Starr RN [facility] Work Phone: 02-07-2017 10:00-0400 Weight 81.65 kg Leatha Starr RN [facility] Work Phone: 08-21-2016 13:32-0400 BSA (Body Surface Area) 1.92 m2 Leatha Starr RN [facility] Work Phone: Encounters Encounter Date Encounter Type Care Provider Facility Start: 09-09-2025 ambulatory Mone Cervantes Facility:[facility] Start: 09-03-2025 End: 09-03-2025 ambulatory SARAHKANDACE CARRIONS Facility:[facility] Start: 08-24-2025 ambulatory Mone Cervantes Facility:[facility] Start: 08-15-2025 End: 08-17-2025 ambulatory MONE CERVANTES Facility:[facility] Start: 08-15-2025 End: 08-15-2025 Emergency department patient visit Dr. Werner Esquivel DO -Emergency Department Work Phone: Start: 07-20-2025 Non-patient / Non-visit Dr. Mone reyes MD -[facility] Start: 07-20-2025 End: 07-20-[address] Mone Cervantes MD Work Phone: -Cardiovascular Services Start: 07-20-2025 End: 07-20-[address] Luis Eduardo Brantley MD -Cardiovascular Services Work Phone: Start: 07-20-2025 End: 07-20-[address] Luis Eduardo Brantley MD -[facility] Work Phone: Start: 07-20-2025 End: 07-20-[address] Mone Cervantes MD Work Phone: -[facility] Start: 07-20-[address] Luis Eduardo Brantley MD -[facility] Start: 07-20-2025 End: 07-20-2025 ambulatory Luis Eduardo Brantley Facility:[facility] Start: 06-15-2025 ambulatory Mone Cervantes Facility:[facility] Start: 12-14-2024 End: 12-14-2024 Patient encounter procedure Anatoly Hamlin PA-C -[facility] Work Phone: Start: 12-14-2024 End: 12-14-2024 ambulatory Mone Cervantes Facility:[facility] Start: 09-22-2024 End: 09-22-2024 ambulatory Mone Cervantes Facility:[facility] Start: 09-11-2024 End: 09-11-2024 ambulatory Mone Cervantes Facility:[facility] Start: 03-06-2024 Non-patient / Non-visit Dr. Delano Cervantes Work Phone: [facility] Work Phone: Start: 03-05-2024 End: 03-06-2024 Evaluation and management of inpatient Dr. Mone Cervantes Work Phone: [facility]-Medical Surgical 3 Work Phone: Start: 03-05-2024 End: 03-06-[address] Mone Cervantes Work Phone: [facility] Work Phone: Start: 02-26-2024 End: 02-26-2024 Emergency department patient visit Dr. Mone Cervantes Work Phone: [facility]-Emergency Department Work Phone: Start: 02-26-2024 End: 02-26-[address] Mone Cervantes Work Phone: [facility] Work Phone: Start: 02-26-2024 Non-patient / Non-visit Dr. Delano Cervantes Work Phone: [facility] Work Phone: Start: 02-25-2024 Non-patient / Non-visit Dr. Delano Cervantes Work Phone: [facility] Start: 02-25-2024 End: 02-25-[address] Mone Cervantes Work Phone: [facility] Work Phone: Start: 02-25-2024 End: 02-25-[address] Moen Cervantes Work Phone: [facility]-Cardiovascular Services Work Phone: Start: 01-10-2024 Non-patient / Non-visit Dr. Delano Cervantes Work Phone: [facility] Start: 01-10-2024 End: 01-10-[address] oMne Cervantes Work Phone: [facility] Work Phone: Start: 01-10-2024 End: 01-10-[address] [facility] Start: 10-15-2023 End: 10-15-[address] Mone Cervantes Work Phone: [facility] Work Phone: Start: 10-15-2023 End: 10-15-[address] Mone Cervantes Work Phone: [facility] Start: 10-01-2023 End: 10-01-[address] Mone Cervantes Work Phone: [facility] Work Phone: Start: 09-30-2023 End: 09-30-[address] Mone Cervantes Work Phone: [facility] [facility] Start: 09-16-2023 End: 09-16-[address] Mone Cervantes Work Phone: [facility] Work Phone: Start: 09-16-2023 End: 09-16-[address] Mone Cervantes Work Phone: [facility] Start: 09-09-2023 End: 09-09-[address] Mone Cervantes Work Phone: [facility] Work Phone: Start: 09-03-2023 End: 09-03-[address] Mone Cervantes Work Phone: [facility] Work Phone: Start: 08-28-2023 End: 08-28-[address] Mone Cervantes Work Phone: [facility] Work Phone: Start: 08-28-[address] [facility] rosario [facility] Start: 08-27-2023 End: 08-27-[address] Mone Cervantes Work Phone: [facility] Work Phone: Start: 08-25-2023 Non-patient / Non-visit Dr. Delano Cervantes Work Phone: [facility] Work Phone: Start: 08-24-2023 Non-patient / Non-visit Dr. Delano Cervantes Work Phone: [facility] Work Phone: Start: 08-23-2023 Non-patient / Non-visit Dr. Delano Cervantes Work Phone: [facility] Work Phone: Start: 08-22-2023 Non-patient / Non-visit Dr. Delano Cervantes Work Phone: [facility] Work Phone: Start: 08-22-2023 End: 08-26-2023 Evaluation and management of inpatient Dr. Mone Cervantes Work Phone: [facility]-Medical Surgical 3 Work Phone: Start: 08-13-2023 End: 08-13-[address] Mone Cervantes Work Phone: [facility] Work Phone: Start: 08-06-2023 End: 08-06-2023 Non-patient / Non-visit Dr. Mone Cervantes Work Phone: [facility] Work Phone: Start: 07-18-2023 End: 07-18-2023 ambulatory [facility] Work Phone: Start: 07-18-2023 End: 07-18-2023 Patient encounter procedure [facility]-Laboratory, [place] Work Phone: Start: 06-04-2023 End: 06-04-2023 Patient encounter procedure [facility]-Cat Scan, [facility] Work Phone: Start: 07-22-2018 End: 07-22-2018 Evaluation and management of inpatient Madhav Marks Facility:[facility] Procedures Date Procedure Procedure Detail Performing Clinician Start: 08-15-2025 Antibody screen MONE TERAN Comment on above: Order Comment: Speci men Type: BLOOD SPECIMENOrdering Facility: [facility] Address: [address] [place] [address] Performed By: #### T SCR ####[facility] BLOOD BANKCLIA [id number] [place] [address] [place] Start: 08-15-2025 CT cervical spine wi thout contrast Dr. Mone Cervantes MD Work Phone: Start: 08-15-2025 CT of head without contrast Dr. Mone Cervantes MD Work Phone: Start: 07-20-2025 D-dimer assay, quantitative Dr. Mone Cervantes MD Work Phone: Comment on above: D-Dimer ELEVATED (>0 .49): Additional studies and clinicalassessments are indicated to conclude diagnosis of:Deep Vein Thrombosis (DVT) or Pulmonary Embolism (PE) Start: 07-20-[address] Mone Cervantes MD Work Phone: Start: 06-23-2024 Measurement of renal function Dr. Mone Cervantes MD Work Phone: Comment on above: GFR Calc Start: 03-05-2024 Plain chest X-ray Dr. Parag Cervantes Work Phone: Start: 03-05-2024 CT of head without contrast Dr. Mone Cervantes Work Phone: Start: 02-26-2024 CT angiography of lower limb Dr. Mone Cervantes Work Phone: Start: 08-26-[address] Mone Cervantes Work Phone: Start: 08-22-2023 Plain X-ray of shoulder Dr. Mone Cervantes Work Phone: Start: 08-06-2023 Nasal Screen MRSA/MSSA Dr. Mone Cervantes Work Phone: Start: 08-06-2023 Plain chest X-ray Dr. 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 Evita Zhang PA-C Work Phone: Start: 02-26-2017 End: 02-26-2017 Follow Up Appt 6 weeks Evita Zhang PA-C Work Phone: Start: 08-21-2016 End: 08-21-2016 [...] PA-C Work Phone: Start: 03-08-2016 End: 03-08-2016 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 TREAT 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 OPERATOR Evita Zhang PA-C Work Phone: Start: 03-08-2016 End: 03-08-2016 Follow Up Appt 6 months Evita Zhang PA-C Work Phone: Start: 09-09-2015 End: 09-10-2015 Documentation of current medications Vasquez Vaca MD Start: 09-09-2015 End: 09-09-2015 Electrocardiogram, complete Vasquez Acevedo i, MD Start: 09-09-2015 End: 09-09-2015 Follow Up Appt 6 months Sav Gallardo Start: 09-09-2015 End: 09-09-2015 MMM Vasquez Vaca MD Start: 05-27-2015 End: 05-27-2015 HEAT TREAT FURNACE OPERATOR Vasquez Vaca MD Start: 05-27-2015 End: 05-28-2015 Documentation of current medications Vasquez Vaca MD Start: 05-27-2015 End: 05-27-2015 Follow Up Appt 3 months Sav Gallardo Start: 05-27-2015 End: 06-03-2015 Nuclear stress test -Lexiscan Vasquez Stallworth MD Start: 04-27-2015 End: 05-25-2015 24 hour holter monitor Vasquez Vaca MD Start: 04-27-2015 End: 04-27-2015 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 TREAT FURNACE OPERATOR Vasquez Vaca MD Start: 04-27-2015 End: 04-28-2015 [...] 24 hour holter monitor Vasquez Vaca MD History of laser ass isted in situ keratomileusis Hx of LASIK Plan of Treatment Date Care Activity Detail Author Start: 08-15-2025 [facility] Start: 08-15-2025 Simple repair f/e/e/n/l/m 2.6cm-5.0 cm RPR F/E/E/N/L/M 2.6-5.0 CM [facility] Start: 07-20-2025 [facility] Start: 03-06-2024 Patient discharge [facility] Start: 03-05-2024 Continuous positive airway pressure ventilation treatment [facility] Start: 03-05-2024 Assessment of risk of venous thromboembolism [facility] Start: 03-05-2024 Fall prevention [facility] Start: 03-05-2024 Incentive spirometry [facility] Start: 03-05-2024 Inhalation therapy procedure [facility] Start: 03-05-2024 Insertion of catheter into peripheral vein [facility] Start: 03-05-2024 Introduction of urinary catheter [facility] Start: 03-05-2024 Measuring intake and output [facility] Start: 03-05-2024 Oxygen therapy [facility] Start: 03-05-2024 Providing care according to standard [facility] Start: 03-05-2024 Provision of activity privileges [facility] Start: 03-05-2024 Referral to occupational therapist [facility] Start: 03-05-2024 Referral to service [facility] Start: 03-05-2024 [facility] Start: 03-05-2024 Following clinical pathway protocol [facility] Start: 03-05-2024 Verification routine [facility] Start: 03-05-2024 Admission procedure [facility] Start: 03-05-2024 Hospital admission, emergency, from emergency room, medical nature [facility] Start: 03-05-2024 [facility] Start: 08-26-2023 Patient discharge [facility] Start: 08-23-2023 Referral to service [facility] Start: 08-22-2023 Referral to service [facility] Start: 08-22-2023 Anes arthroscopic total shoulder replacement ANESTH SHOULDER REPLACEMENT [facility] Start: 08-22-2023 Arthroplasty glenohumeral joint total shoulder RECONSTRUCT SHOULDER JOINT [facility] Start: 08-22-2023 Injection aa&/strd brachial plexus NJX AA&/STRD BRCH PLXS IMG [facility] Start: 08-22-2023 Recommendation to continue with treatment [facility] Start: 08-22-2023 Admission procedure [facility] Start: 08-22-2023 Ambulation therapy management [facility] Start: 08-22-2023 Application of device [facility] Start: 08-22-2023 Assessment of risk of venous thromboembolism [facility] Start: 08-22-2023 Catheterization of vein [facility] Start: 08-22-2023 Consultation [facility] Start: 08-22-2023 End: 08-22-2023 Following clinical pathway protocol [facility] Start: 08-22-2023 Incentive spirometry [facility] Start: 08-22-2023 Introduction of urinary catheter [facility] Start: 08-22-2023 Measuring intake and output [facility] Start: 08-22-2023 Neurovascular assessment [facility] Start: 08-22-2023 Patient education [facility] Start: 08-22-2023 Procedure discontinued [facility] Start: 08-22-2023 Provision of activity privileges [facility] Start: 08-22-2023 Referral to occupational therapist [facility] Start: 08-22-2023 Vital signs measurements [facility] Start: 08-22-2023 Wound care [facility] Start: 08-22-2023 [facility] Start: 08-22-2023 Medication education [facility] Start: 10-24-2017 End: 10-24-2017 Appointment Appointment [facility] Work Phone: Start: 04-09-2017 End: 04-09-2017 Appointment Appointment [facility] Work Phone: Start: 04-09-2017 End: 04-10-2017 *BMP *BMP [facility] Work Phone: Start: 04-09-2017 End: 04-10-2017 CBC W Auto Differential panel - Blood *CBC without Diff [facility] Work Phone: Start: 04-09-2017 End: 04-09-2017 Chest x-ray X-Ray, Chest, PA & Lateral [facility] Work Phone: Start: 04-09-2017 End: 04-09-2017 Electrocardiogram, complete EKG (In office) [facility] Work Phone: Start: 04-09-2017 End: 04-09-2017 Follow Up Appt 6 months Follow Up Appt 6 months [facility] Work Phone: Start: 04-09-2017 End: 04-09-2017 Left Heart Cath Left Heart Cath [facility] Work Phone: Start: 04-09-2017 End: 04-09-2017 MMM MMM [facility] Work Phone: Start: 02-26-2017 End: 02-26-2017 HEAT TREAT FURNACE OPERATOR HEAT TREAT FURNACE OPERATOR [facility] Work Phone: Start: 02-26-2017 End: 02-26-2017 Follow Up Appt 6 weeks Follow Up Appt 6 weeks [facility] Work Phone: Start: 02-07-2017 End: 02-07-2017 Follow-up visit Follow Up as needed [facility] Work Phone: Start: 08-21-2016 End: 08-21-2016 *BMP *BMP [facility] Work Phone: Start: 08-21-2016 End: 08-21-2016 *CBC with Differential *CBC with Differential [facility] Work Phone: Start: 08-21-2016 End: 08-21-2016 Electrocardiogram, complete EKG (In office) [facility] Work Phone: Start: 08-21-2016 End: 08-21-2016 Follow Up Appt 6 months Follow Up Appt 6 months [facility] Work Phone: Start: 08-21-2016 End: 08-21-2016 Magnesium *Magnesium [facility] Work Phone: Start: 08-21-2016 End: 08-21-2016 MMM MMM [facility] Work Phone: Start: 08-21-2016 End: 08-21-2016 Thyroid stimulating hormone (TSH) *TSH [facility] Work Phone: Start: 07-26-2016 End: 07-26-2016 Follow-up visit Follow Up as needed [facility] Work Phone: Start: 07-26-2016 End: 09-10-2016 Primary Care Physician Primary Care Physician Jama Keyes, [address] [place] [address], [address], [place], [address] [facility] Work Phone: Start: 07-04-2016 End: 07-04-2016 Follow Up BP Check Follow Up BP Check [facility] Work Phone: Start: 06-20-2016 End: 06-20-2016 Follow Up BP Check Follow Up BP Check [facility] Work Phone: Start: 03-08-2016 End: 03-08-2016 HEAT TREAT FURNACE OPERATOR HEAT TREAT FURNACE OPERATOR [facility] Work Phone: Start: 03-08-2016 End: 03-08-2016 Follow Up Appt 6 months Follow Up Appt 6 months [facility] Work Phone: Start: 09-09-2015 End: 09-09-2015 Electrocardiogram, complete EKG (In office) [facility] Work Phone: Start: 09-09-2015 End: 09-09-2015 Follow Up Appt 6 months Follow Up Appt 6 months [facility] Work Phone: Start: 09-09-2015 End: 09-09-2015 MMM MMM [facility] Work Phone: Start: 05-27-2015 End: 05-27-2015 HEAT TREAT FURNACE OPERATOR HEAT TREAT FURNACE OPERATOR [facility] Work Phone: Start: 05-27-2015 End: 05-27-2015 Follow Up Appt 3 months Follow Up Appt 3 months [facility] Work Phone: Start: 05-27-2015 End: 05-27-2015 Nuclear stress test -Lexiscan Nuclear stress test -Lexiscan [facility] Work Phone: Start: 04-27-2015 End: 04-27-2015 24 hour holter monitor 24 hour holter monitor [facility] Work Phone: Start: 04-27-2015 End: 04-27-2015 HEAT TREAT FURNACE OPERATOR HEAT TREAT FURNACE OPERATOR [facility] Work Phone: Start: 04-27-2015 End: 04-27-2015 Echocardiography Echocardiogram (complete) [facility] Work Phone: Start: 04-27-2015 End: 04-27-2015 Follow Up Appt 1 month Follow Up Appt 1 month [facility] Work Phone: Start: 10-30-2012 End: 10-30-2012 Follow Up Appt 4 months Follow Up Appt 4 months [facility] Work Phone: Start: 09-25-2012 End: 03-02-2013 *BMP *BMP [facility] Work Phone: Start: 09-25-2012 End: 09-25-2012 Follow Up Appt 6 months Follow Up Appt 6 months [facility] Work Phone: Start: 09-25-2012 End: 03-02-2013 Magnesium *Magnesium [facility] Work Phone: Start: 09-25-2012 End: 03-02-2013 Thyroid stimulating hormone (TSH) *TSH [facility] Work Phone: Start: 09-05-2012 End: 09-11-2012 24 hour holter monitor 24 hour holter monitor [facility] Work Phone: Patient Education [facility] Work Phone: Patient referral [facility] Work Phone: [email or web address] Lower ext remity vessels [facility] Immunizations Immunization Date Immunization Notes Care Provider Fa annemarie 12-28-2014 pneumococcal conjuga te vaccine, [address] Mone Cervantes Work Phone: [facility] 05-31-2010 pneumococcal polysaccharide vaccine, [address] Mone Cervantes Work Phone: [facility] 07-26-1993 tetanus and diphther ia toxoids, adsorbed, preservative free, for adult use (2 Lf of tetanus toxoid and 2 Lf of diphtheria toxoid) Dr. Mone Cervantes Work Phone: [facility] Payers Date Payer Category Payer Self-pay [id number] 2013 Medicare [id number] Unknown [id number] [id number] Unknown [id number] 2.16.8 [id number] Unknown [id number] 2.16.8 [id number] Unknown [id number] 2.16.8 [id number] Unknown [id number] 2.16.8 [id number] Unknown [id number] 2.16.8 [id number] Unknown [id number] 2.16.8 [id number] Unknown [id number] 2.16.8 [id number] Unknown [id number] 2.16.8 [id number] Unknown [id number] 2.16.8 [id number] Unknown [id number] 2.16.8 [id number] Social History Date Type Detail Facility Start: 12-11-2022 End: 09-19-2023 Tobacco smoking status NHIS Unknown if ever smoked [facility] Start: 05-27-2018 None [facility] Start: 05-27-2018 Spouse/ Signif icant Other [facility] Start: 05-12-2020 Non-smoker [facility] Start: 1945 Sex Assigned At Female [facility] Start: 03-05-2024 End: 08-15-2025 Tobacco smoking status NHIS Never smoked tobacco (finding) [facility] Sex Female [facility] NEGATED: Highlighted row [facility] Medical Equipment Procedure Code Equipment Code Equipment Origin al Text Equipment Identifier Dates Insertion, spinal cord stimulator, permanent LEAD KIT FOR SCS FDA Start: 05-23-2020 Insertion, spinal cord stimulator, permanent LEAD KIT FOR SCS FDA Start: 05-23-2020 Insertion, spinal cord stimulator, permanent STIMULATOR FDA Start: 05-23-2020 Insertion, spinal cord stimulator, permanent LEAD KIT FOR SCS FDA Start: 05-23-2020 Insertion, spinal cord stimulator, permanent LEAD KIT FOR SCS FDA Start: 05-23-2020 Insertion, spinal cord stimulator, permanent STIMULATOR FDA Start: 05-23-2020 Insertion, spinal cord stimulator, permanent LEAD KIT FOR SCS FDA Start: 05-23-2020 Insertion, spinal cord stimulator, permanent LEAD KIT FOR SCS FDA Start: 05-23-2020 Insertion, spinal cord stimulator, permanent STIMULATOR FDA Start: 05-23-2020 Insertion, spinal cord stimulator, permanent LEAD KIT FOR SCS FDA Start: 05-23-2020 Insertion, spinal cord stimulator, permanent LEAD KIT FOR SCS FDA Start: 05-23-2020 Insertion, spinal cord stimulator, permanent STIMULATOR FDA Start: 05-23-2020 Insertion, spinal cord stimulator, permanent LEAD KIT FOR SCS FDA Start: 05-23-2020 Insertion, spinal cord stimulator, permanent LEAD KIT FOR SCS FDA Start: 05-23-2020 Insertion, spinal cord stimulator, permanent STIMULATOR FDA Start: 05-23-2020 Insertion, spinal cord stimulator, permanent LEAD KIT FOR SCS FDA Start: 05-23-2020 Insertion, spinal cord stimulator, permanent LEAD KIT FOR SCS FDA Start: 05-23-2020 Insertion, spinal cord stimulator, permanent STIMULATOR FDA Start: 05-23-2020 Insertion, spinal cord stimulator, permanent LEAD KIT FOR SCS FDA Start: 05-23-2020 Insertion, spinal cord stimulator, permanent LEAD KIT FOR SCS FDA Start: 05-23-2020 Insertion, spinal cord stimulator, permanent STIMULATOR FDA Start: 05-23-2020 Insertion, spinal cord stimulator, permanent LEAD KIT FOR SCS FDA Start: 05-23-2020 Insertion, spinal cord stimulator, permanent LEAD KIT FOR SCS FDA Start: 05-23-2020 Insertion, spinal cord stimulator, permanent STIMULATOR FDA Start: 05-23-2020 Insertion, spinal cord stimulator, permanent LEAD KIT FOR SCS FDA Start: 05-23-2020 Insertion, spinal cord stimulator, permanent LEAD KIT FOR SCS FDA Start: 05-23-2020 Insertion, spinal cord stimulator, permanent STIMULATOR FDA Start: 05-23-2020 Insertion, spinal cord stimulator, permanent LEAD KIT FOR SCS FDA Start: 05-23-2020 Insertion, spinal cord stimulator, permanent LEAD KIT FOR SCS FDA Start: 05-23-2020 Insertion, spinal cord stimulator, permanent STIMULATOR FDA Start: 05-23-2020 Insertion, spinal cord stimulator, permanent LEAD KIT FOR SCS FDA Start: 05-23-2020 Insertion, spinal cord stimulator, permanent LEAD KIT FOR SCS FDA Start: 05-23-2020 Insertion, spinal cord stimulator, permanent STIMULATOR FDA Start: 05-23-2020 Insertion, spinal cord stimulator, permanent LEAD KIT FOR SCS FDA Start: 05-23-2020 Insertion, spinal cord stimulator, permanent LEAD KIT FOR SCS FDA Start: 05-23-2020 Insertion, spinal cord stimulator, permanent STIMULATOR FDA Start: 05-23-2020 Insertion, spinal cord stimulator, permanent LEAD KIT FOR SCS FDA Start: 05-23-2020 Insertion, spinal cord stimulator, permanent LEAD KIT FOR SCS FDA Start: 05-23-2020 Insertion, spinal cord stimulator, permanent STIMULATOR FDA Start: 05-23-2020 REF- [id number] 25MM CENTRAL SCREW FDA Start: 08-22-2023 REF- [id number] 14MM PERIPHERAL SCREW FDA Start: 08-22-2023 REF- [id number] 18MM PERIPHERAL SCREW FDA Start: 08-22-2023 REF- [id number] 22MM PERIPHERAL SCREW FDA Start: 08-22-2023 REF- [id number] 30MM PERIPHERAL SCREW FDA Start: 08-22-2023 REF- [id number] FULL-WEDGE AUGMENT BASEPLATE FDA Start: 08-22-2023 REF- [id number] RETENTIVE REVERSED INSERT FDA Start: 08-22-2023 Coated shoulder humeral stem prosthesis [id number] FDA Start: 08-22-2023 Reverse shoulder prosthesis head [id number] FDA Start: 08-22-2023 REF- [id number] 25MM CENTRAL SCREW FDA Start: 08-22-2023 REF- [id number] 14MM PERIPHERAL SCREW FDA Start: 08-22-2023 REF- [id number] 18MM PERIPHERAL SCREW FDA Start: 08-22-2023 REF- [id number] 22MM PERIPHERAL SCREW FDA Start: 08-22-2023 REF- [id number] 30MM PERIPHERAL SCREW FDA Start: 08-22-2023 REF- [id number] FULL-WEDGE AUGMENT BASEPLATE FDA Start: 08-22-2023 REF- [id number] RETENTIVE REVERSED INSERT FDA Start: 08-22-2023 REF- [id number] 25MM CENTRAL SCREW FDA Start: 08-22-2023 REF- [id number] 14MM PERIPHERAL SCREW FDA Start: 08-22-2023 REF- [id number] 18MM PERIPHERAL SCREW FDA Start: 08-22-2023 REF- [id number] 22MM PERIPHERAL SCREW FDA Start: 08-22-2023 REF- [id number] 30MM PERIPHERAL SCREW FDA Start: 08-22-2023 REF- [id number] FULL-WEDGE AUGMENT BASEPLATE FDA Start: 08-22-2023 REF- [id number] RETENTIVE REVERSED INSERT FDA Start: 08-22-2023 REF- [id number] 25MM CENTRAL SCREW FDA Start: 08-22-2023 REF- [id number] 14MM PERIPHERAL SCREW FDA Start: 08-22-2023 REF- [id number] 18MM PERIPHERAL SCREW FDA Start: 08-22-2023 REF- [id number] 22MM PERIPHERAL SCREW FDA Start: 08-22-2023 REF- [id number] 30MM PERIPHERAL SCREW FDA Start: 08-22-2023 REF- [id number] FULL-WEDGE AUGMENT BASEPLATE FDA Start: 08-22-2023 REF- [id number] RETENTIVE REVERSED INSERT FDA Start: 08-22-2023 REF- [id number] 25MM CENTRAL SCREW FDA Start: 08-22-2023 REF- [id number] 14MM PERIPHERAL SCREW FDA Start: 08-22-2023 REF- [id number] 18MM PERIPHERAL SCREW FDA Start: 08-22-2023 REF- [id number] 22MM PERIPHERAL SCREW FDA Start: 08-22-2023 REF- [id number] 30MM PERIPHERAL SCREW FDA Start: 08-22-2023 REF- [id number] FULL-WEDGE AUGMENT BASEPLATE FDA Start: 08-22-2023 REF- [id number] RETENTIVE REVERSED INSERT FDA Start: 08-22-2023 REF- [id number] 25MM CENTRAL SCREW FDA Start: 08-22-2023 REF- [id number] 14MM PERIPHERAL SCREW FDA Start: 08-22-2023 REF- [id number] 18MM PERIPHERAL SCREW FDA Start: 08-22-2023 REF- [id number] 22MM PERIPHERAL SCREW FDA Start: 08-22-2023 REF- [id number] 30MM PERIPHERAL SCREW FDA Start: 08-22-2023 REF- [id number] FULL-WEDGE AUGMENT BASEPLATE FDA Start: 08-22-2023 REF- [id number] RETENTIVE REVERSED INSERT FDA Start: 08-22-2023 REF- [id number] 25MM CENTRAL SCREW FDA Start: 08-22-2023 REF- [id number] 14MM PERIPHERAL SCREW FDA Start: 08-22-2023 REF- [id number] 18MM PERIPHERAL SCREW FDA Start: 08-22-2023 REF- [id number] 22MM PERIPHERAL SCREW FDA Start: 08-22-2023 REF- [id number] 30MM PERIPHERAL SCREW FDA Start: 08-22-2023 REF- [id number] FULL-WEDGE AUGMENT BASEPLATE FDA Start: 08-22-2023 REF- [id number] RETENTIVE REVERSED INSERT FDA Start: 08-22-2023 REF- [id number] 25MM CENTRAL SCREW FDA Start: 08-22-2023 REF- [id number] 14MM PERIPHERAL SCREW FDA Start: 08-22-2023 REF- [id number] 18MM PERIPHERAL SCREW FDA Start: 08-22-2023 REF- [id number] 22MM PERIPHERAL SCREW FDA Start: 08-22-2023 REF- [id number] 30MM PERIPHERAL SCREW FDA Start: 08-22-2023 REF- [id number] FULL-WEDGE AUGMENT BASEPLATE FDA Start: 08-22-2023 REF- [id number] RETENTIVE REVERSED INSERT FDA Start: 08-22-2023 REF- [id number] 25MM CENTRAL SCREW FDA Start: 08-22-2023 REF- [id number] 14MM PERIPHERAL SCREW FDA Start: 08-22-2023 REF- [id number] 18MM PERIPHERAL SCREW FDA Start: 08-22-2023 REF- [id number] 22MM PERIPHERAL SCREW FDA Start: 08-22-2023 REF- [id number] 30MM PERIPHERAL SCREW FDA Start: 08-22-2023 REF- [id number] FULL-WEDGE AUGMENT BASEPLATE FDA Start: 08-22-2023 REF- [id number] RETENTIVE REVERSED INSERT FDA Start: 08-22-2023 REF- [id number] 25MM CENTRAL SCREW FDA Start: 08-22-2023 REF- [id number] 14MM PERIPHERAL SCREW FDA Start: 08-22-2023 REF- [id number] 18MM PERIPHERAL SCREW FDA Start: 08-22-2023 REF- [id number] 22MM PERIPHERAL SCREW FDA Start: 08-22-2023 REF- [id number] 30MM PERIPHERAL SCREW FDA Start: 08-22-2023 REF- [id number] FULL-WEDGE AUGMENT BASEPLATE FDA Start: 08-22-2023 REF- [id number] RETENTIVE REVERSED INSERT FDA Start: 08-22-2023 REF- [id number] 25MM CENTRAL SCREW FDA Start: 08-22-2023 REF- [id number] 14MM PERIPHERAL SCREW FDA Start: 08-22-2023 REF- [id number] 18MM PERIPHERAL SCREW FDA Start: 08-22-2023 REF- [id number] 22MM PERIPHERAL SCREW FDA Start: 08-22-2023 REF- [id number] 30MM PERIPHERAL SCREW FDA Start: 08-22-2023 REF- [id number] FULL-WEDGE AUGMENT BASEPLATE FDA Start: 08-22-2023 REF- [id number] RETENTIVE REVERSED INSERT FDA Start: 08-22-2023 REF- [id number] 25MM CENTRAL SCREW FDA Start: 08-22-2023 REF- [id number] 14MM PERIPHERAL SCREW FDA Start: 08-22-2023 REF- [id number] 18MM PERIPHERAL SCREW FDA Start: 08-22-2023 REF- [id number] 22MM PERIPHERAL SCREW FDA Start: 08-22-2023 REF- [id number] 30MM PERIPHERAL SCREW FDA Start: 08-22-2023 REF- [id number] FULL-WEDGE AUGMENT BASEPLATE FDA Start: 08-22-2023 REF- [id number] RETENTIVE REVERSED INSERT FDA Start: 08-22-2023 Goals Date Patient Goal Desired Activity /State Functional Status Date Assessment Result Facility 03-06-2024 Functional status Ambulates [facility] Work Phone: 08-26-2023 Functional status Ambulates;Chair [facility] Work Phone: Mental Status Date Assessment Result Facility 03-06-2024 Cognitive function Demonstrates ability to follow instructions/comprehend [facility] Work Phone: 03-06-2024 Cognitive function Voice/Name [facility] Work Phone: 08-26-2023 Cognitive function Voice/Name [facility] Work Phone: Clinical Notes 02-26-2024 to 09-03-2025 Note Date & Type Note Facility 09-03-2025 Note HNO ID: [id number] Author: SARAH MARTIN APRN.CNP Service: ? Author Type: Nurse Practitioner Type: Progress Notes Filed: 09/03/2025 16:55 Note Text: SPINE SURGERY FOLLOW UP NOTE CRISTIAN Haro Date of visit: September 03, 2025 Patient Name: Mrs.Shirley Tessa Ventura Date of : 1945 Current Age: [age] year old Sex: female MRN/E# [id number] Last Office Visit: Visit date not found Chief Complaint: No chief complaint on file. [facility] Mrs.Shirley Tessa Ventura has a [facility] Parkinson's disease, Afib on Xarelto. She presented to [facility] After a fall on 08/15/2025. Per chart review, patient reported she was seated at desk watching [employer] when she attempted to get up and missed the brake of rollator, striking her head on desk. She denied LOC. At outside ED they repaired facial LAC and found unilateral right C5 facet fracture. She was transferred to [facility] for further evaluation. Neurosurgery, Dr. Mccray, consulted for unilateral facet fracture at C5, L4 bridging osteophyte fx, age indeterminate L5 compression fx. Dr. Mccray recommended nonoperative treatment and conservative treatment to include cervical collar for a total of 3 months and no bracing required for lumbar fractures. She was discharged on 08/17/2025 with instructions to follow-up outpatient with neurosurgery for continued monitoring of fractures. Of note, trauma workup demonstrated incidental finding of multiple pulmonary nodules. Per chart review, upon hospital discharge instructions patient was recommended to follow-up with primary care provider for further monitoring. She presents to the office today for continued monitoring of unilateral facet fracture at C5, L4 bridging osteophyte fx, age indeterminate L5 compression fx- 2 weeks since initial injury. Today she reports: -Currently participating in physical therapy at longterm facility. Anticipates discharge from longterm facility hopefully soon. - Reports chronic pain that is managed with Oxy IR every 6 hours. Chronic pain has been ongoing since prior to fall and medication managed by PCP. - Denies significant pain in neck or low back at this time. - Reports chronic pain in right shoulder that has been ongoing since prior to fall - Denies new weakness, feels she is gradually improving strength at nursing facility - Reports compliance with activity restrictions including cervical collar. PAIN EVALUATION No data found in the last 1 encounters. No past medical history on file. No past surgical history on file. No family history on file. ALLERGIES No Known Allergies Current Outpatient Medications Medication Sig Dispense Refill acetaminophen (TYLENOL) 325 mg tablet Take 2 tablets by mouth every 6 hours as needed for pain. DULoxetine DR (CYMBALTA) 40 mg capsule Take 40 mg by mouth once daily. carbidopa-levodopa CR (SINEMET CR) 25-100 mg per tablet Take 1 tablet by mouth. Take at 8-2-8. hydrOXYchloroQUINE (PLAQUENIL) 200 mg tablet Take 200 mg by mouth two times a day. XARELTO 20 mg tablet 1 tablet once daily. flecainide (TAMBOCOR) 50 mg tablet 1 tablet twice daily. multivitamin tablet 1 tablet once daily. DAIRY DIGESTIVE SUPPLEMENT 9,000 unit tab 1 tablet once daily. potassium gluconate 550 mg (90 mg) tab 1 tablet once daily. Lactobacillus acidophilus (ACIDOPHILUS ORAL) 1 tablet once daily. CARTIA XT 120 mg 24 hr capsule 1 tablet once daily. calcium citrate/vitamin D3 (CALCIUM CITRATE + D ORAL) 1 tablet once daily. magnesium oxide 400 mg cap Take 1 capsule by mouth once daily. Biotin 10,000 mcg cap Take 1 capsule by mouth once daily. alendronate (FOSAMAX) 70 mg tablet Take 70 mg by mouth. 1 No current facility-administered medications for this visit. REVIEW OF SYSTEMS Review of Systems Constitutional: Positive for activity change. Musculoskeletal: Positive for gait problem. Negative for back pain and neck pain. Neurological: Negative for weakness and headaches. Psychiatric/Behavioral: Negative for agitation and behavioral problems. OBJECTIVE: There were no vitals taken for this visit. PHYSICAL EXAM: General appearance: Well nourished, well developed, and no apparent distress. Mental State : Alert, memory function unremarkable. Oriented to person, place and time. Pulmonary: Respirations regular and unlabored. Skin: Intact, warm, dry. MUSCULOSKELETAL Sensory: Sensation intact to light touch Motor: Normal muscle tone and bulk. No tremor or uncontrollable movements. Gait and Station: In wheelchair Range of motion: Cervical: Restricted range of motion, cervical collar maintained. Lumbar: Normal range of motion, no tenderness. MUSCLE TONE and BULK: Symmetrical in the upper AND lower extremities. Upper Extremity Strength Exam Right Left Deltoid 5/5 5/5 Biceps 5/5 5/5 Triceps 5/5 5/5 Wrist Extension 5/5 5/5 Interossei 5/5 5/5 Lower Extremity Strength Exam Right Left Pso (more content not included)... [facility] 08-17-2025 Note HNO ID: [id number] Author: CESAR NEUMANN RN Service: Care Management Author Type: Registered Nurse Type: Care Mgt Progress Note Filed: 08/17/2025 10:39 Note Text: CARE MANAGEMENT DISCHARGE NOTE SERVICE DATE: August 17, 2025 SERVICE TIME: 10:37 AM Admission Date: 08/15/2025 LOS: 0 days Discharge Arrangement Discharge Arrangement: Custodial Facility Was an expedited discharge program used?: No Provider Name: [facility] Caregiver Assessment Caregiver is ready, willing and able to meet the patient's needs as recommended by the inter-professional team: Yes Name of Caregiver: [facility] Transportation Arrangements Transportation Arrangements: Ambulance Transportation Agency and Phone #:: [facility] ( [facility] ) [phone] / [phone] Date of Trip: 08/17/25 Time of Trip: 1300 Type of Service: BLS Non-emergency Is Patient Medicaid Pending?: No Was transportation financial coverage discussed with family?: Patient, Family 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 Destination: [facility] Financial Care Management Responsibility: None Handoff Communication: Handoff to: Other Caregiver Other Caregiver Name/Phone: [facility]/ Bedside warp bleaching vat tender today. Discharge orders complete. Plan is for SNF placement at discharge. [facility] is able to accept patient. Insurance authorization obtained. Transportation set for 1300. [facility] and bedside RN notified. Patient's daughter Oleksandr updated via phone ([phone]). SIGNATURE: Cesar Neumann RN PATIENT NAME: Annabelle Ventura DATE: August 17, 2025 TIME: 10:37 AM [facility] 08-17-2025 Note HNO ID: [id number] Author: ENRIKE JIMENEZ PA-C Service: General Surgery Author Type: Physician Day Care Assistant Type: Progress Notes Filed: 08/17/2025 09:23 Note Text: Trauma Surgery Progress Note SERVICE DATE: 08/17/2025 Trauma Service Pager: For questions or concerns Mon-Fri 6a-5p please page [phone]. After 5pm and on Weekends and Holidays, please page [phone] if in ICU or [phone] if on RNF. SUBJECTIVE: NAEON. Patient awake sitting in the chair this morning. Pain is controlled. Denies numbness, tingling or weakness of the extremities. Tolerating diet. No new focal concerns. She would really like to be discharged. OBJECTIVE: Vitals: Temp (24hrs), Av.7 ?C (98 ?F), Min:36.6 ?C (97.9 ?F), Max:36.8 ?C (98.2 ?F) BP 140/81 Pulse 62 Temp 36.7 ?C (98.1 ?F) (Oral) Resp 17 Ht 160 cm (5' 3") Wt 91.8 kg (202 lb 6.1 oz) SpO2 96% BMI 35.85 kg/m? O2 Therapy: Room Air IANDO: Date 08/16/25699 - 08/17/25 0659 08/17/25 07 - 08/18/25 0659 Shift 3784-5898 8690-2906 8277-1801 24 Hour Total 3373-8311 6783-7470 2281-1236 24 Hour Total INTAKE PO 360 210 570 PO 360 210 570 Shift Total 360 210 570 OUTPUT Urine 250 250 Urine Incontinence/Not Saved 1 x 1 x Urine Not Saved. 1 x 2 x 1 x 4 x Output ([REMOVED] External Collection Device 08/15/25 2237 [facility] 08/16/25 1100) 250 250 Shift Total 250 250 Weight (kg) 91.8 91.8 91.8 91.8 91.8 91.8 91.8 91.8 MEDICATIONS Current Facility-Administered Medications Medication Dose Route Frequency carbidopa-levodopa CR 25-100 mg 1.5 tablet (SINEMET CR) 1.5 tablet ORAL 3 times per day nitrofurantoin monohydrate and macrocrystal 100 mg cap(s) (MACROBID) 100 mg ORAL BID w MEALS enoxaparin 30 mg injection (LOVENOX) 30 mg SUBCUTANEOUS q 12 HR NaCl 0.9% iv flush bag 20 mL INTRAVENOUS PRN flecainide 50 mg tab(s) (TAMBOCOR) 50 mg ORAL BID cyclobenzaprine 10 mg tab(s) (FLEXERIL) 10 mg ORAL TID PRN polyethylene glycol 3350 17 g packet 17 g ORAL DAILY senna-docusate 8.6-50 mg 1 tablet (SENNA-S) 1 tablet ORAL BID morphine 1 mg injection 1 mg INTRAVENOUS q 4 H PRN acetaminophen 975 mg tab(s) (TYLENOL) 975 mg ORAL q 6 H oxyCODONE IR 2.5-5 mg tab(s) (ROXICODONE) 2.5-5 mg ORAL q 4 H PRN melatonin 1 mg tab(s) 1 mg ORAL DAILY (8 PM) prochlorperazine 10 mg tab(s) (COMPAZINE) 10 mg ORAL q 6 H PRN dilTIAZem 30 mg tab(s) (CARDIZEM) 30 mg ORAL q 8 H Labs: Recent Labs 08/17/25 0337 08/16/25 0430 08/15/25 1825 NA 138 140 144 K 3.6* 4.1 4.1 CHLOR 102 106 109* CO2 22 22 25 BUN 16 14 18 CREAT 0.63 0.63 0.60 GLUC 103* 88 84 ANION 14 12 10 CA 9.2 8.6 9.0 ALB -- -- 3.8* ALT -- -- 6* ALKPHOS -- -- 82 TBILI -- -- 0.2 WBC 8.16 7.88 10.68 HB 14.7 13.5 13.8 HCT 44.9 41.9 43.4 PLT 306 284 307 INR -- -- 1.2 PHYSICAL EXAM: Genl: Appears age appropriate. No acute distress. Resting comfortably. Head/Face: Normocephalic. Hemostatic laceration above the right eyebrow with sutures in place and no signs of infection. Eyes: EOMI. Sclera not icteric, not injected Neck: Rincon J collar in place. Back: Unable to examine secondary to positioning. Resp: No audible wheezes. Breathing is non-labored on RA. CVS: HR as above; 2+ pulses at RA, DP bilat. GI: Abdomen is soft, non-tender, not distended. No peritonitis. MSK: Extremities without clubbing, cyanosis, edema. Normal ROM x 4. Skin: Warm and dry. Not jaundiced. Neuro: AANDOx3. SORTO. Gross motors and sensation intact. Speech clear. No facial droop. Follows commands. GCS 15. Psych: Normal mood and affect. ASSESSMENT AND PLAN: Active Hospital Problems Diagnosis Date Noted Trauma 08/15/2025 Obesity, Class II, BMI 35-39.9 08/17/2025 Closed nondisplaced fracture of fifth cervical vertebra (HCC) 08/15/2025 80 year old female s/p mechanical GLF on Xarelto on 08/15/2025 (Level III trauma alert - transfer from [facility]) Imaging performed: 08/15/2025 - CT H/N (completed at [facility]) 08/15/2025 - CT CAPTL 08/16/2025 - XR C-spine, XR L-spine Traumatic Injuries: Acute fracture of the right C5 facet joint Age-indeterminate compression fracture at L5 with approximately 10% decrease in the mid vertebral body height Right forehead laceration Operations/Procedures: 1. 08/15/2025 - forehead laceration repair (non-absorbable sutures) Care Plan: C5 facet fracture, age-indeterminate L5 compression fracture NSGY consulted No plans for operative management Maintain Rincon J collar at all times Pain control Q4hr neuro checks Upright x-rays stable No lumbar bracing necessary Consult SUPERVISORY AIDE for swallow evaluation Follow-up with outpatient neurosurgery in 2 weeks with repeat imaging Forehead laceration S/P suture repair prior to arrival Will need suture removal in 5-7 days (can be removed at facility) H/O A-fib on Xarelto Uncertain if persistent or paroxsymal based on available information Xarelto held on admission Long discussion had this morning reg (more content not included)... [facility] 08-16-2025 Note HNO ID: [id number] Author: ARSH POOL PA-C Service: Neurosurgery Author Type: Physician Day Care Assistant Type: Plan of Care Filed: 08/16/2025 17:56 Note Text: NSGY Plan of Care Uprights reviewed with Dr Mccray. Follow-up in 2 weeks with repeat imaging requested. Continue c collar at all times. No lumbar bracing necessary. NSGY will sign off. Please page with questions or concerns Arsh Pool PA-C Pager [phone] [facility] 08-16-2025 Note HNO ID: [id number] Author: ARSH POOL PA-C Service: Neurosurgery Author Type: Physician Day Care Assistant Type: Progress Notes Filed: 08/16/2025 16:21 Note Text: Neurosurgery Progress Note SERVICE DATE: 08/16/2025 SUBJECTIVE: NAEON. Mild neck pain. Denies back pain. Denies extremity paresthesias or weakness OBJECTIVE: Vitals: Temp (24hrs), Av.7 ?C (98 ?F), Min:36.5 ?C (97.7 ?F), Max:36.7 ?C (98.1 ?F) BP 108/71 Pulse 63 Temp 36.7 ?C (98.1 ?F) (Oral) Resp 18 Ht 160 cm (5' 3") Wt 91.8 kg (202 lb 6.1 oz) SpO2 93% BMI 35.85 kg/m? O2 Therapy: Room Air IANDO: Date 08/15/25699 - 08/16/2565808/16/25699 - 08/17/25 0659 Shift 0216-2684 7596-0270 8284-6437 24 Hour Total 1778-4167 9894-7320 8973-3316 24 Hour Total INTAKE PO 360 360 PO 360 360 Shift Total 360 360 OUTPUT Urine 800 800 250 250 Output ( External Collection Device 08/15/254 [facility]) 800 800 250 250 Shift Total 800 800 250 250 Weight (kg) 91.8 91.8 91.8 91.8 91.8 91.8 91.8 Medications: Current Facility-Administered Medications Medication Dose Route Frequency carbidopa-levodopa CR 25-100 mg 1.5 tablet (SINEMET CR) 1.5 tablet ORAL 3 times per day NaCl 0.9% iv flush bag 20 mL INTRAVENOUS PRN iv contrast (radiology procedure) INTRAVENOUS DIRECTED PRN iv contrast (radiology procedure) INTRAVENOUS DIRECTED PRN flecainide 50 mg tab(s) (TAMBOCOR) 50 mg ORAL BID cyclobenzaprine 10 mg tab(s) (FLEXERIL) 10 mg ORAL TID PRN polyethylene glycol 3350 17 g packet 17 g ORAL DAILY senna-docusate 8.6-50 mg 1 tablet (SENNA-S) 1 tablet ORAL BID morphine 1 mg injection 1 mg INTRAVENOUS q 4 H PRN acetaminophen 975 mg tab(s) (TYLENOL) 975 mg ORAL q 6 H oxyCODONE IR 2.5-5 mg tab(s) (ROXICODONE) 2.5-5 mg ORAL q 4 H PRN melatonin 1 mg tab(s) 1 mg ORAL DAILY (8 PM) prochlorperazine 10 mg tab(s) (COMPAZINE) 10 mg ORAL q 6 H PRN dilTIAZem 30 mg tab(s) (CARDIZEM) 30 mg ORAL q 8 H Labs: Recent Labs 08/16/25 0430 08/15/25 1825 NA 140 144 K 4.1 4.1 CHLOR 106 109* CO2 22 25 BUN 14 18 CREAT 0.63 0.60 GLUC 88 84 ANION 12 10 CA 8.6 9.0 ALB -- 3.8* ALT -- 6* ALKPHOS -- 82 TBILI -- 0.2 WBC 7.88 10.68 HB 13.5 13.8 HCT 41.9 43.4 PLT 284 307 INR -- 1.2 Imaging: CT lumbar 4. Acute fracture involving the left lateral bridging osteophyte at L4. 5. Age-indeterminate compression fracture at L5 with approximately 10% decrease in the mid vertebral body height. Subtle band of sclerosis along the superior endplate with no definite acute fracture lucency and these findings are suggesting subacute/chronic fracture. However, this is not definite and acute fracture is not fully excluded. Recommend clinical correlation and if needed further imaging with lumbar spine MRI can be considered. No retropulsion at this level. 6. No acute fracture lucency or dislocation involving the thoracic spine. Exam: GENERAL: No distress, Alert NEURO: oriented x 3, SORTO 5/5, sensation intact throughout HEENT: normocephalic, face symmetric LUNGS: Unlabored breathing CARDIAC: rate as above EXTREMITIES: SORTO, No deformities, No edema SKIN: Skin color, texture, turgor normal ASSESSMENT AND PLAN: Active Hospital Problems Diagnosis Date Noted Trauma 08/15/2025 Closed nondisplaced fracture of fifth cervical vertebra (HCC) 08/15/2025 Annabelle Ventura is a 80 year old female PMH Afib on Xarelto, Parkinsons disease who presented s/p fall with R C5 facet fx, L4 bridging osteophyte fx, age indeterminate L5 compression fx - neuro as above - cervical and lumbar uprights - no surgical intervention - continue c collar at all times - no bracing for the lumbar fx - will plan for follow-up in 2 weeks with repeat imaging Portions of text from this note were copied. All relevant information was reviewed and updated accordingly on 08/16/2025 SIGNATURE: Arsh Pool PA-C PATIENT NAME: Annabelle Ventura DATE: August 16, 2025 TIME: 2:29 PM Pager [phone] [facility] 08-16-2025 Note HNO ID: [id number] Author: CESAR NEUMANN RN Service: Care Management Author Type: Registered Nurse Type: Care Mgt Initial Assessment Filed: 08/16/2025 16:08 Note Text: CARE MANAGEMENT: ASSESSMENT AND DISCHARGE PLAN SERVICE DATE: August 16, 2025 SERVICE TIME: 1:28 PM PCP: Mone Cervantes MD (Confirmed with patient) Primary Contact: Extended Emergency Contact Information Primary Emergency Contact: VIOLETTA PARR Mobile Relation: Daughter Secondary Emergency Contact: OLEKSANDR BELLE Mobile Relation: Daughter Admission Status: Observation Insurance Provider: [employer] MEDICARE PPO Discharge Planning requested by: Per Department Practice Potential Transition Plans Custodial Facility/Intermediate Care Facility Advance Directives Current Advance Directive: Health Care Power of Embedded Nurse, Living Will In Chart: No Current Living Arrangements and Support Lives with: Family members Type of Residence: Private Residence (House) Does the patient have to climb stairs at home?: Yes, stairs outside the home, stairs within the home Support: Family members, Home care staff How do you manage to accomplish the following: Independent: Ambulation, Dress, Going to the bathroom Needs Assistance: Bathe/Shower, Meals/Meal Prep, Medication Management, Transportation to appointments/community Current Services/Equipment Current Post-Acute Service(s): DME Current DME Type: Wheelchair-manual, Rolling walker Discharge Planning Patient Goal(s): General wellness, Increase strength [place] of Choice Explained: [place] of Choice Given: Yes Level of Care Discussed: Custodial Facility Are you interested in bedside delivery of your medications? Yes Discharge Planning Participant(s): Patient, Children Caregiver Assessment: Caregiver is ready, willing and able to meet the patient's needs as recommended by the inter-professional team: Yes Name of Caregiver: [facility] Transport at Discharge: Transportation Arrangements: Ambulance Needs Prior to Discharge: Needs Prior to Discharge: Insurance Authorization, Discharge Transportation Post-Acute Discharge Plan: Chart reviewed. S/p fall. Acute fracture of R C5 facet joint. PT/OT recommend SNF. Spoke with patient and patient's daughter Oleksandr at the bedside. Explained care management role. Patient resides with family in [place], [place]. Multilevel home. Patient stays on the main floor. At baseline patient is somewhat independent with mobility but ambulates slowly. Requires assistance with bathing. Private pay caregivers in place three time per week for four hours per visit. Retired. Utilizes a walker for ambulation. No longer drives. Discussed therapy recommendations. Patient's daughter Oleksandr requests referral to [facility] due to positive prior experience. Facility notified and is able to accept patient. Awaiting insurance authorization. ADDENDUM 08/16/25 1607: Insurance authorization for SNF placement at [facility] obtained and valid 08/17/25- 08/19/25. Ralf Ortiz MD notified. Will continue to follow clinical course for further transitional/discharge planning needs. SIGNATURE: Cesar Neumann RN PATIENT NAME: Annabelle Ventura DATE: August 16, 2025 TIME: 1:28 PM [facility] 08-16-2025 Note HNO ID: [id number] Author: GENNY SYED MD Service: General Surgery Author Type: Resident Type: Progress Notes Filed: 08/16/2025 17:10 Note Text: -- Attestation signed by Genny Syed MD at 08/16/2025 5:10 PM Patient was seen and evaluated by myself on this day August 16, 2025. I agree with the presented documentation unless specifically noted. SIGNATURE: Genny Syed MD PATIENT NAME: Annabelle Ventura DATE: August 16, 2025 TIME: 5:10 PM Pager: [phone] -- Trauma Surgery Progress Note SERVICE DATE: 08/16/2025 Trauma Service Pager: For questions or concerns Mon-Fri 6a-5p please page [phone]. After 5pm and on Weekends and Holidays, please page [phone] if in ICU or [phone] if on RNF. SUBJECTIVE: Patient seen and examined. She reports no neck pain. She has some generalized non-specific soreness. OBJECTIVE: Vitals: Temp (24hrs), Av.6 ?C (97.9 ?F), Min:36.5 ?C (97.7 ?F), Max:36.7 ?C (98 ?F) BP 143/70 Pulse 60 Temp 36.5 ?C (97.7 ?F) (Oral) Resp 16 Ht 160 cm (5' 3") Wt 91.8 kg (202 lb 6.1 oz) SpO2 96% BMI 35.85 kg/m? O2 Therapy: Room Air IANDO: Date 08/15/25 07 - 08/16/25 0659 08/16/25 07 - 08/17/25 0659 Shift 3183-1152 8381-6110 2263-8631 24 Hour Total 9687-7541 2437-2660 6294-6262 24 Hour Total INTAKE Shift Total OUTPUT Urine 800 800 Output ( External Collection Device 08/15/25 2237 [facility]) 800 800 Shift Total 800 800 Weight (kg) 91.8 91.8 91.8 91.8 91.8 91.8 91.8 MEDICATIONS: Current Facility-Administered Medications Medication Dose Route Frequency NaCl 0.9% iv flush bag 20 mL INTRAVENOUS PRN iv contrast (radiology procedure) INTRAVENOUS DIRECTED PRN iv contrast (radiology procedure) INTRAVENOUS DIRECTED PRN flecainide 50 mg tab(s) (TAMBOCOR) 50 mg ORAL BID cyclobenzaprine 10 mg tab(s) (FLEXERIL) 10 mg ORAL TID PRN lactated ringers iv infusion 75 mL/hr INTRAVENOUS CONTINUOUS polyethylene glycol 3350 17 g packet 17 g ORAL DAILY senna-docusate 8.6-50 mg 1 tablet (SENNA-S) 1 tablet ORAL BID morphine 1 mg injection 1 mg INTRAVENOUS q 4 H PRN acetaminophen 975 mg tab(s) (TYLENOL) 975 mg ORAL q 6 H oxyCODONE IR 2.5-5 mg tab(s) (ROXICODONE) 2.5-5 mg ORAL q 4 H PRN melatonin 1 mg tab(s) 1 mg ORAL DAILY (8 PM) prochlorperazine 10 mg tab(s) (COMPAZINE) 10 mg ORAL q 6 H PRN dilTIAZem 30 mg tab(s) (CARDIZEM) 30 mg ORAL q 8 H Labs: Recent Labs 08/16/25 0430 08/15/25 1825 NA 140 144 K 4.1 4.1 CHLOR 106 109* CO2 22 25 BUN 14 18 CREAT 0.63 0.60 GLUC 88 84 ANION 12 10 CA 8.6 9.0 ALB -- 3.8* ALT -- 6* ALKPHOS -- 82 TBILI -- 0.2 WBC 7.88 10.68 HB 13.5 13.8 HCT 41.9 43.4 PLT 284 307 INR -- 1.2 PHYSICAL EXAM: GENERAL: Alert. No distress. Resting comfortably. NEURO: AANDOx3. No focal neurologic deficits. Sensation grossly intact. HEENT: Normocephalic. Repaired 3 cm head laceration. EOMI. LUNGS: Unlabored breathing. Equal excursion bilaterally. CARDIAC: Regular rate. Good perfusion throughout. ABDOMEN: Soft, non-tender, non-distended. No rebound or guarding. EXTREMITIES: SORTO. No deformities. SKIN: No obvious jaundice or pallor. ASSESSMENT AND PLAN: Assessment Active Hospital Problems Diagnosis Date Noted Trauma 08/15/2025 Closed nondisplaced fracture of fifth cervical vertebra (HCC) 08/15/2025 80 year old female with PMH of Afib (on eliquis), HTN, lumbar spinal stenosis/radiculopathy, Parkinsons disease, R IHR, bilateral posterior hemilaminectomy L1-L4 non instrumented fusion L2-3 (2018) presenting as a T3 activation after a GLF on 08/15. Imaging performed: - CTHNCAP, TL spine Traumatic Injuries: - Acute fracture of R C5 facet joint Hospital Course: - 08/15 RNF admit Care Plan: Acute fracture of R C5 facet joint: - Neuro-spine consulted, recs appreciated - C-collar at all times, Rincon J ordered. - Upright XR - no plan for surgical intervention. - Ok for chemoppx. - Hold dvt ppx, hold eliquis, will discuss timing. - NPO/IVF, possible regular diet after uprights. - PT/OT - pain and nausea prn - pulmonary hygiene - progressive mobility - strict Is/Os - SCDs - senna-s/miralax - continue daily labs PPX: - DVT: SCD - Ulcer: na - Vit D level if > 65 yo: pending Consulted Services: - neuro-spine Dispo Planning: - PT/OT recs pending. Case management following. Incidentals: - n/a Assessment and plan pending d/w Dr. Syed. SIGNATURE: Ralf Ortiz MD PATIENT NAME: Annabelle Ventura DATE: 08/16/2025 TIME: 7:05 AM Pager: see below Trauma Service Pager: For questions or concerns Mon-Sat 6a-5p please page [phone]. After 5pm and on Weekends and Holidays, please page [phone] if in ICU or [phone] if on RNF. [facility] 08-15-2025 Discharge summary [facility] 08-15-2025 Discharge summary Note Date/Time August 15, 2025 3:15pm [facility] Medical Records Department [address] [place] [address] Emergency Department Summary 08/15/25 MR#: [id number] Acct: [id number] Name: ANNABELLE VENTURA Rep #:[id number] : 1945 80 From: Werner Esquivel DO PCP: Dr. Mone Cervantes MD Status:REG ER Location: ED HPI History of Present Illness Chief Complaint: Head Injury Detail of Chief Complaint: Fall with head injury Informant: patient Narrative Narrative: Patient presents to the emergency department after falling while trying to get up from her wheelchair. She fell and hit the corner of an end table with her head. No loss of consciousness. She sustained a laceration to her forehead. Denies neck pain. She denies chest or abdomen pain. Patient has history of Parkinson's. She is on Eliquis for history of DVT. [facility] Medical History (Updated 08/15/25 @ 14:20 by Jordana Phoenix) Osteoporosis Atrial fibrillation Rheumatoid arthritis History of Parkinson's disease Anxiety disorder Chronic pain Peripheral vascular disease Osteoarthritis Lactose intolerance Post-menopausal Depression Anxiety Walker as ambulation aid Hx of bladder problems Arthritis DVT (deep venous thrombosis) Fall Heartburn Non-smoker Shortness of breath on exertion History of edema History of stress test Cardiology follow-up encounter Parkinson disease DDD (degenerative disc disease) Essential (primary) hypertension Paroxysmal atrial fibrillation Thyroid nodule Sleep apnea Lumbar compression fracture (05/2018) Home Medications ?Medication ?Instructions ?Recorded ?Last Taken ?Type alendronate 70 mg tablet (Fosamax) 70 mg PO QWEEK 06/1808/14/25 History carbidopa 25 mg-levodopa 100 mg 1.5 tab PO TID 1 08/15/25 History tablet lactase 3,000 unit chewable tablet 3,000 unit PO ONCE 08/02/21 08/15/25 History (Dairy Aid) aspirin 81 mg tablet,delayed 81 mg PO DAILY 12/11/22 0 08/15/25 History release (Adult Low Dose Aspirin) acetaminophen 500 mg tablet 1,000 mg PO Q8 PRN fever o r pain 02/26/24 08/15/25 History diltiazem HCl 30 mg tablet 30 mg PO Q8H 02/26/2408/15 History duloxetine 20 mg capsule,delayed 40 mg PO DAILY 08/14/25 History release hydroxychloroquine 200 mg tablet 200 mg PO BID 4 08/15/25 History oxycodone 5 mg tablet 5 mg PO BID PRN pain 4 08/15/25 History calcium 333 mg-vit D3 200 1 tab PO DAILY 03/11/2407/20 History unit-magnesium 133 mg-zinc 5 mg tablet lisinopril 5 mg tablet 5 mg PO DAILY #90 tabs 09/1008/15/25 Rx flecainide 50 mg tablet 50 mg PO Q12H #180 TABLETS 0 07/07/25 08/15/25 Rx apixaban 5 mg (74 tabs) tablets in See Rx Instructions PO PER PKG DIR 07/20/25 08/15/25 Rx a dose pack (EliquBetBox DVT-PE Treat #74 tabs 30D Start) Lactobacillus acidophilus 10 100 mmu cells PO DAILY 08/15/25 History billion cell capsule (NewFlora) diclofenac sodium 1 % topical gel 2 ea topical 4X/DAY 08/15/25 08/14/25 History mometasone 50 mcg/actuation nasal 1 - 2 spray intranas al DAILY 08/15/25 08/14/25 History spray Allergy/AdvReac Type Severity Reaction Status Date / Time baclofen AdvReac Severe emotional Verified 08/15/25 12:32 issues propranolol AdvReac Severe nightmare Verified 08/15/25 12:32 sulfadiazine AdvReac Unknown not as Verified 08/15/25 12:32 effective Family History Father Cancer Sister Cancer Diabetes Heart disease Mother Anxiety and depression Surgical History (Updated 08/15/25 @ 14:20 by Jordana Phoenix) History of cholecystectomy S/P shoulder replacement H/O varicose vein ligation and stripping History of tubal ligation Status post replacement of right shoulder joint Hx of right cataract extraction Hx of left cataract extraction Hx of LASIK Spinal cord stimulator status (05/2020) History of back surgery (03/2018) History of left heart catheterization (04/25/17) History of herniorrhaphy History of hysterectomy Social History household members: family Smoking Status: Never smoker alcohol intake: never substance use type: does not use caffeine: Yes Type: coffee Number of servings: 1 ROS ROS ED Review of Systems ROS Unobtainable: other Constitutional Constitutional ED: Reports lethargy; Denies chills, fever(s), sweats or weight loss Eyes Eyes: Denies blurry vision, change in vision or diplopia ENT ENT ED: Denies rhinorrhea or sore throat Cardiovascular Cardiovascular: Denies chest pain, orthopnea or racing heartbeat Respiratory/Chest Respiratory/Chest: Denies cough, dyspnea, dyspnea on exertion, orthopnea or sputum Gastrointestinal Gastrointestinal: Denies abdominal pain, diarrhea, nausea or vomiting Genitourinary Genitourinary ED: Denies dysuria, hematuria or urinary frequency Musculoskeletal Musculoskeletal: Denies arthralgias, back pain, myalgias or neck pain Integumentary Reports other Details: Right forehead laceration ; Denies abscess, Abrasions or rash Neurologic Neurologic: Reports headache(s); Denies weakness Psychiatric Psychiatric: Denies anxiety, depression or suicidal thoughts Endocrine Endocrinology: Denies polydipsia, polyphagia or polyuria Hematologic/Lymphatic Hematologic/Lymphatic: Denies easy bleeding, easy bruising or lymphadenopathy Allergic/Immunologic Allergic/Immunologic ED: Denies mouth swelling, tongue swelling or urticaria EXAM Physical Exam Const Vital Signs: 08/15/25 12:32 Temperature 96.7 F L Temperature Source Temporal Pulse Rate 76 Respiratory Rate 18 Blood Pressure 110/79 Blood Pressure Mean 89 Pulse Ox 97 Oxygen Delivery Method Room Air Positive well nourished and well developed General Appearance ED: well developed and NAD HEENT Reports TM's clear and moist mucous membranes HEENT Narrative: Patient with a 3.5 cm laceration to the right forehead just above the right eyebrow. No bony step-offs or depressions noted. No significant active bleeding currently. normocephalic and atraumatic; Negative for trauma or tenderness Tympanic Membrane ED: Yes TM's clear Eyes PERRL and EOMs intact bilaterally General Eye ED: Negative for pale conjunctiva or scleral icterus Neck no lymphadenopathy, supple and no JVD General: Negative for tenderness Chest Wall inspection of chest normal and palpation of chest normal Chest: Negative for tenderness Resp normal respiratory effort and clear to auscultation bilaterally Effort and Inspection: Negative for respiratory distress or pain with movement Auscultation: Negative for rhonchi, wheezes or diminished lung sounds Cardio regular rate, regular rhythm, S1 normal heart sound, S2 normal heart sound and no murmurs Peripheral Pulses: pulses 2+ throughout GI normal to inspection, nondistended, normoactive bowel sounds, soft to palpation,non-tender, non-distended and no masses Back/Spine no CVA tenderness and no thoracic nor lumbar tenderness Extremity normal to inspection General Extremety ED: Negative for edema General Extremity: Negative for edema Neuro oriented x3, CN's II-XII intact bilaterally, no sensory deficits noted and gait normal Sensorium / Orientation: awake, alert, oriented to person, oriented to place andoriented to time Motor Exam: strength 5/5 throughout and strength abnormal Psych mental status grossly normal Skin no rashes or lesions noted and no wounds PROC Procedures Lacerations Forehead laceration: Length: 1.38 in Depth: Sub Q Shape: Linear Prep: Sterile Conditions and Shure-Clens Laceration repair: Irrigated, Lidocaine and Local Irrigated (ml): 50 Number of Sutures/Lydia: 6 Suture Information: Ethilon, Simple and 6-0 MDM MDM MDM Narrative Medical decision making narrative: Patient presents with fall same height striking her head on an end table. On Eliquis for history of DVT. Patient with history of Parkinson's. Patient had aCT scan of the brain without contrast that showed no acute traumatic injury. She had a CT of the cervical spine that showed acute fracture of the right C5 facet joint MRI cervical spine without contrast recommended for further evaluation. Patient not having significant neck pain but was placed in a c-collar. I did repair her forehead laceration please see procedure note. I do not have orthopedics on-call today. Will discuss case with trauma center to transfer for further evaluation of her cervical spine fracture and definitive treatment. Discussed results with patient and her family members. Discussed with [facility] Emergency room physician Dr. Molina who accepted transfer of patient to their facility. Trauma surgeon on-call also was notified by theirtransfer team. Radiography Diagnostic Testing: Clinical Impression(s) from Imaging Studies Brain CT 08/15/25 12:42 IMPRESSION: No acute intracranial abnormalities. Reading Location: [facility] Cervical Spine CT 08/15/25 12:42 IMPRESSION: Acute fracture of the right C5 facet joint. MRI cervical spine without contrastis recommended for further evaluation. Reading Location: [facility] Discharge Plan Triage Chief Complaint: Head Injury Other Complaint: Laceration ED Provider: Werner Esquivel Dx/Rx/DC Orders Clinical Impression: Closed head injury, Cervical spine fracture, Fall, Forehead laceration Prescriptions: No Action alendronate [Fosamax] 70 mg tablet 70 mg PO QWEEK carbidopa-levodopa 25-100 mg tablet 1.5 tab PO TID Dairy Aid 3,000 unit tablet,chewable 3,000 unit PO ONCE Rx Instructions: administer with meals and/or snacks aspirin [Adult Low Dose Aspirin] 81 mg tablet,delayed release (DR/EC) 81 mg PO DAILY calcium carb-D3-mag [phone] qa-trqt-zy-mg tablet 1 tab PO DAILY Rx Instructions: administer with a meal oxycodone 5 mg tablet 5 mg PO BID PRN (Reason: pain) Eliquis DVT-PE Treat 30D Start 5 mg (74 tabs) tablets,dose pack See Rx Instructions PO PER PKG DIR Qty: 74 0RF Rx Instructions: PO PER PKG DIR 10mg bid x7 then 5mg bid duloxetine 20 mg capsule,delayed release(DR/EC) 40 mg PO DAILY acetaminophen 500 mg Tablet 1,000 mg PO Q8 PRN (Reason: fever or pain) diltiazem HCl 30 mg tablet 30 mg PO Q8H hydroxychloroquine 200 mg tablet 200 mg PO BID mometasone 50 mcg/actuation spray,non-aerosol 1 - 2 spray INTRANASAL DAILY diclofenac sodium 1 % gel 2 ea topical 4X/DAY NewFlora 10 billion cell capsule 100 mmu cells PO DAILY lisinopril 5 mg tablet 5 mg PO DAILY Qty: 90 3RF Patient Comments: thinks had today, but not positive flecainide 50 mg tablet 50 mg PO Q12H Qty: 180 3RF Primary Care Provider: Mone Cervantes Referrals: Mone Cervantes MD [Primary Care Provider, Family Practice] Print Language: Spanish Disposition Disposition: DC/Tx to Another Type of HCF What to do if you have Problems For any increased pain, shortness of breath, bleeding, nausea or vomiting, chestpain, or any unexpected problems, contact your Primary Care Provider. Call [facility] ([phone]) or report to the closest Emergency Room. Call 911 if necessary. 08/15/25 1515 <Electronically signed by Werner Esquivel DO> Cosigner Signature (if applicable): CC: Dr. Mone Cervantes MD ~ Signed [facility] Work Phone: 1(424) 527-462909-28-2025 Radiology Diagnostic study note [facility] Imaging Services [address] [place], [place] [address] Spine Cervical without Contras MR#: [id number] Acct: [id number] Name: ANNABELLE VENTURA Tessa Rep #: [id number] : 1945 F 80 From: Thomas Cortes MD PCP: Dr. Mone Cervantes MD Status: REG ER Study:Spine Cervical without Contras Date of Exam: 08/15/25 Exam# [id number] Ordering Dr: Cori Esquivel DO PROCEDURE: SPINE CERVICAL WITHOUT CONTRAS 08/15/2025 REASON FOR EXAM: FALL TECHNIQUE: Procedure Code: CTSPC Modality: CT Procedure: SPINE CERVICAL WITHOUT CONTRAS Coronal and Sagittal reconstruction series were provided. One or more dose reduction techniques were used (e.g., Automated exposure control, adjustment of the mA and/or kV according to patient size, use of iterative reconstruction technique. RADIATION DOSE SUMMARY: CTDlvol: 23.22 mGy DLP: 1283.54 mGycm COMPARISON: None. FINDINGS: Alignment: Anterolisthesis C5 on C6 by 2 mm. Vertebrae: Acute fracture of the right C5 facet joint. Ultrasound may be performed for further evaluation. Soft Tissues: No soft tissue abnormalities. Disc levels: Multilevel degenerate changes predominantly at C5-C6 and C6-C7 where there is disc space narrowing, uncovertebral hypertrophy, facet joint arthropathy with mild bilateral foramina stenosis and without canal stenosis. CT/Spine Cervical without Contras IMPRESSION: Acute fracture of the right C5 facet joint. MRI cervical spine without contrastis recommended for further evaluation. Reading Location: [facility] CC: Dr. Mone Cervantes MD; Dr. Werner Esquivel DO ~ [facility] Supervisor: Signed [facility]09-28-2025 Radiology Diagnostic study note [facility] Imaging Services [address] [place], [place] [address] Brain/Head without Contrast MR#: [id number] Acct: [id number] Name: ANNABELLE VENTURA Rep #: [id number] : 1945 F 80 From: Thomas Cortes MD PCP: Dr. Mone Cervantes MD Status: [facility] ER Study:Brain/Head without Contrast Date of Exa m: 08/15/25 Exam# [id number] Ordering Dr: Cori Esquivel DO PROCEDURE: BRAIN/HEAD WITHOUT CONTRAST 08/15/2025 REASON FOR EXAM: FALL, HEAD INJURY TECHNIQUE: Procedure Code: CTBR Modality: CT Procedure: BRAIN/HEAD WITHOUT CONTRAST Coronal and Sagittal reconstruction series were provided. One or more dose reduction techniques were used (e.g., Automated exposure control, adjustment of the mA and/or kV according to patient size, use of iterative reconstruction technique. RADIATION DOSE SUMMARY: CTDlvol: 23.22 mGy DLP: 1283.54 mGycm COMPARISON: CT head 03/05/2024 FINDINGS: Brain: Extensive low density in the deep cerebral white matter most likely represents advanced chronic small vessel ischemic disease. No acute territorial infarction. No acute intracranial hemorrhage. No ventriculomegaly. The orbits are within normal limits. The craniocervical junction is unremarkable. Atherosclerotic calcifications of the carotid siphons. CSF Spaces: Unremarkable. Sinuses/Mastoids: Clear. Bones: No acute bony abnormalities. CT/Brain/Head without Contrast IMPRESSION: No acute intracranial abnormalities. Reading Location: [facility] CC: Dr. Mone Cervantes MD; Dr. Werner Esquivel, DO ~ [facility] Supervisor: Signed [facility]09-02-2025 Evaluation note* Diagnosis Onset Date Resolution Status Admit Date D-dimer, elevated acute 2024 10:19am DVT, lower extremity, distal, acute acute July 20, 025 10:19am DVT, lower extremity resolved Jul 10:19am [facility] Work Phone: 1(374) 641-438804-19-2024 Consult note Author Anne Alcaraz [facility] March 06, 2024 11:43am Note Date/Time March 06, 2024 11: 43am [facility] Medical Records Department [address] [place] [address] Counseling Note - Pharmacy 03/06/24 1143 MR#: [id number] Acct: [id number] Name: ANNABELLE VENTURA Rep #:[id number] : 1945 78 From: Anne Alcaraz PCP: Dr. Mone Cervantes MD Status:ADM GHADA Y Location: [address] Med Reconciliation Pharmacy Service has performed discharge medication reconciliation for this patient. The patient's discharge medication list was reviewed for discrepancies and discrepancies were resolved. Medications at Discharge Home Medications biotin 10,000 mcg capsule 10,000 mcg PO DAILY 07/04/18 alendronate 70 mg tablet (Fosamax) 70 mg PO QWEEK 07/01/19 carbidopa 25 mg-levodopa 100 mg tablet 1.5 tab PO TID 11/29/20 lactase 3,000 unit chewable tablet (Dairy Aid) 3,000 unit PO ONCE 08/02/21 aspirin 81 mg tablet,delayed release (Adult Low Dose Aspirin) 81 mg PO DAILY 12/11/22 calcium carb-vit X6-ntticmkzo-mcug 333 mg-200 unit-133 mg-5 mg tablet 1 tab PO DAILY 12/11/22 hydroxyzine HCl 25 mg tablet 12.5 mg PO Q8H PRN anxiety 12/11/22 vitamin K2 100 mcg capsule 100 mcg PO DAILY 12/11/22 lisinopril 5 mg tablet 5 mg PO DAILY #90 tabs 09/09/23 flecainide 50 mg tablet 50 mg PO Q12H OK to give with Plaquenil, pt has been on both #180 tabs 12/02/23 acetaminophen 500 mg tablet 1,000 mg PO Q8 PRN fever or pain 02/26/24 apixaban 5 mg tablet (Eliquis) 5 mg PO BID 02/26/24 diltiazem HCl 30 mg tablet 30 mg PO Q8H 02/26/24 duloxetine 20 mg capsule,delayed release 40 mg PO DAILY 02/26/24 hydroxychloroquine 200 mg tablet 200 mg PO BID 02/26/24 oxycodone 5 mg tablet 5 mg PO BID PRN pain 02/26/24 03/06/24 1143 <Electronically signed by Anne Alcaraz> Date _ Anne Alcaraz Cosigner Signature (if applicable): Date CC: ~ Signed [facility] Work Phone: 1(424) 413-732504-19-2024 Discharge summary Author Mone Guerrier [facility] March 06, 2024 11:13am Note Date/Time March 06, 2024 11: 12am [facility] Medical Records Department [address] [place] [address] Discharge Summary 03/06/24 1111 MR#: [id number] Acct: [id number] Name: ANNABELLE VENTURA Tessa Rep #:[id number] : 1945 78 From: Mone Guerrier DO PCP: Dr. Mone Cervantes MD Status:ADM GHADA Location: [place] [address] Providers Date of Admission: 03/05/24 Primary Care Physician: Dr. Mone Cervantes MD Reason For Visit: FALL, CONFUSION/POSSIBLY DEMENTIA RELATED Diagnosis Discharge Diagnosis (1) Fall: Status: Acute Code(s): W19.XXXA - Unspecified fall, initial encounter Plan Adult FTT * In patient with Parkinson's disease * PT OT eval and treat. * Patient may have tripped over her orthotics. Patient did well with therapy today. No additional therapy recommended but given fact the patient does live with family is not there all time we will see about having home care evaluate her. Acute Encephalopathy * Patient denies this. Patient does take narcotics chronically. Discussed with the case with the patient's daughter states that they been trying to wean that down recently and are working with her primary care doctor in regards to the. * Review of [place] shows that pt chronically takes on oxycodone. Reportedly pillbox was in disarray, so cannot rule out missuse of narcotics. Chronic pain * per OARRS, pt has been on 5mg oxycodone 4x/d at least since 2021. Family and primary care is working on weaning that down over time. Will defer that management to PCP and family. Chronic conditions: * Parkinson's Disease with Questionable Parkinson's Disease Dementia: Suspect potential underlying dementia from discussion with her family, but this will need to be further assessed outpatient with Neurology, continue home sinemet regimen. * Chronic Kidney Disease Stage II primarily per previous GFR trending: Admission BUN/Cr 25/0.97, GFR 59, prior to this primarily 70 to upper 80 range, baseline renal function 0.6-0.8 primarily, repeat BMP in AM. * Anxiety and Depression: Will continue patient home duloxetine. * Hypertension: Continue home regimen including lisinopril, diltiazem, PRN hydralazine. * Hyperlipidemia: Not on statin therapy, defer to outpatient. * Hx VTE: We will continue patient home Eliquis regimen. * Chronic back pain with DDD: Patient with Hx spinal cord stimulator, will temporally hold narcotic regimen given increased confusion certainly could be contributing as unclear if patient is taking medications how she should. Encourage offloading, positional changes, PT/OT/case management consulted as noted. * PAF: We will continue patient home diltiazem as well as flecainide and apixaban regimen. * SIERRA: Encourage CPAP q HS. * Rheumatoid arthritis: Will continue patient home hydroxychloroquine regimen given no obvious evidence of any infectious etiology. DVT Prophylaxis: Continue home eliquis regimen. CODE status: DNR-CCA, no intubation. Medications at Discharge Home Medications biotin 10,000 mcg capsule 10,000 mcg PO DAILY 07/04/18 alendronate 70 mg tablet (Fosamax) 70 mg PO QWEEK 07/01/19 carbidopa 25 mg-levodopa 100 mg tablet 1.5 tab PO TID 11/29/20 lactase 3,000 unit chewable tablet (Dairy Aid) 3,000 unit PO ONCE 08/02/21 aspirin 81 mg tablet,delayed release (Adult Low Dose Aspirin) 81 mg PO DAILY 12/11/22 calcium carb-vit S9-uxkyvxoey-frfd 333 mg-200 unit-133 mg-5 mg tablet 1 tab PO DAILY 12/11/22 hydroxyzine HCl 25 mg tablet 12.5 mg PO Q8H PRN anxiety 12/11/22 vitamin K2 100 mcg capsule 100 mcg PO DAILY 12/11/22 lisinopril 5 mg tablet 5 mg PO DAILY #90 tabs 09/09/23 flecainide 50 mg tablet 50 mg PO Q12H OK to give with Plaquenil, pt has been on both #180 tabs 12/02/23 acetaminophen 500 mg tablet 1,000 mg PO Q8 PRN fever or pain 02/26/24 apixaban 5 mg tablet (Eliquis) 5 mg PO BID 02/26/24 diltiazem HCl 30 mg tablet 30 mg PO Q8H 02/26/24 duloxetine 20 mg capsule,delayed release 40 mg PO DAILY 02/26/24 hydroxychloroquine 200 mg tablet 200 mg PO BID 02/26/24 oxycodone 5 mg tablet 5 mg PO BID PRN pain 02/26/24 Hospital Course Operations None Procedures None Summary of Care Provided Minutes Spent on Discharge: 40 Hospital Course: Patient had fallen at home. Brought to the hospital is concerned about encephalopathy. Patient was noted to be confused but since then has improved overall. Patient states that she tripped over her orthotics and fell. Did not lose consciousness. Patient was evaluate by therapy and did very well. Patientwill be discharged home with home care. Patient does take oxycodone chronicallyand I discussed with the patient's daughter and she and the primary care team are working with weaning that down. Weight / BMI Weight Weight: 83.2 kg Body Mass Index (BMI) 32.5 ABG / Lab / Microbiology Data 03/06/24 07:15 03/06/24 07:15 Laboratory: Laboratory Results - last 24 hr 03/05/24 12:10: WBC 9.5, RBC 4.09 L, Hgb 12.8, Hct 40.7, MCV 99.5 H, MCH 31.3, MCHC 31.4 L, RDW Std Deviation 54.9 H, RDW Coeff of Lenin 15.0 H, Plt Count 330, MPV 10.7, Immature Gran % (Auto) 0.500, Neut % (Auto) 69.8, Lymph % (Auto) 16.7 L, [place] % (Auto) 10.8 H, Eos % (Auto) 1.3, Baso % (Auto) 0.9, Absolute Neuts (auto) 6.6, Absolute Lymphs (auto) 1.59, Nucleated RBC % 0, Sodium 142, Potassium 3.5, Chloride 111 H, Carbon Dioxide 26.0, Anion Gap 5, BUN 25 H, Creatinine 0.97, Estim Creat Clear Calc 49.74, Est GFR (MDRD) Af Amer 71, Est GFR (MDRD) Non-Af 59 L, BUN/Creatinine Ratio 25.8 H, Glucose 110 H, Calcium 9.3, Phosphorus3.8, Magnesium 2.3, Troponin I High Sens 11 03/05/24 12:58: Urine Color Yellow, Urine Clarity Sl. Cloudy, Urine pH 5.0, Ur Specific [place] 1.025, Urine Protein 30 H, Urine Glucose (UA) Normal, Urine Ketones 15 H, Urine Occult Blood 10 H, Urine Nitrite Negative, Urine Bilirubin 1H, Urine Urobilinogen 1 H, Ur Leukocyte Esterase 25 H, Urine RBC 0-5 SEEN, UrineWBC 0-5 SEEN, Ur Squamous Epith Cells 0-5 SEEN, Urine Bacteria 0 SEEN, Urine Mucus 0 SEEN 03/06/24 07:15: WBC 7.5, RBC 3.72 L, Hgb 12.0, Hct 36.9 L, MCV 99.2 H, MCH 32.3 H, MCHC 32.5, RDW Std Deviation 54.4 H, RDW Coeff of Lenin 15.0 H, Plt Count 341, MPV 9.6, Immature Gran % (Auto) 0.300, Neut % (Auto) 65.1, Lymph % (Auto) 20.2, [place] % (Auto) 8.9, Eos % (Auto) 4.4, Baso % (Auto) 1.1 H, Absolute Neuts (auto) 4.9, Absolute Lymphs (auto) 1.52, Nucleated RBC % 0, Sodium 141, Potassium 3.4 L, Chloride 109 H, Carbon Dioxide 25.0, Anion Gap 7, BUN 17, Creatinine 0.64, Estim Creat Clear Calc 59.21, Est GFR (MDRD) Af Amer 116, Est GFR (MDRD) Non-Af 96, BUN/Creatinine Ratio 26.7 H, Glucose 134 H, Calcium 8.3 L, Total Bilirubin 0.80, AST 23, ALT < 6 L, Alkaline Phosphatase 67, Total Protein 5.6 L, Albumin 3.0 L, Globulin 2.6, Albumin/Globulin Ratio 1.2, TSH 0.74 Radiography Diagnostic Testing: Radiology Impression Brain CT 03/05/24 12:30 IMPRESSION: 1. No acute intracranial process. 2. Chronic involutional changes of the brain. Electronically Signed: Shady Spaulding MD at 12:47 EDT Reading Location ID and State: [facility] / [place] Tel , Service support , Chest X-Ray 03/05/24 12:31 IMPRESSION: No radiographic evidence of acute cardiopulmonary disease. Electronically Signed: Shady Spaulding MD at 12:47 EDT , D/C Instructions Discharge Diet: No restrictions Meaningful Use Info Meaningful Use Meaningful Use Diagnoses (Choose all that apply): None applicable Ischemic Stroke Statin Dosing Therapy Reference: STATIN DOSE THERAPY REFERENCE: * Patients > 75 years receive moderate or high dose statin therapy. * Patients 75 years or YOUNGER should receive HIGH intensity statin dose unless contraindicated. You will be required to document reason for non-treatment if statin daily dose does not meet guidelines. HIGH DOSE STATIN THERAPY DAILY Atorvastatin > than or = to 40 mg Rosuvastatin > than or = to 20 mg Amlodipine + Atorvastatin > than or = to 2.5/40 mg Ezetimibe + Simvastatin 10/80 mg Simvastatin 80mg Discharge Plan Admission Admit Date/Time: 03/05/24 14:39 Primary Reason for Your Visit: Fall Attending Provider: Mone Guerrier Primary Care Provider: Mone Cervantes Consulting Providers: Nannette Marks Discharge Orders/Prescriptions Prescriptions: Continued biotin 10,000 mcg capsule 10,000 mcg PO DAILY alendronate [Fosamax] 70 mg tablet 70 mg PO QWEEK Hold Instructions: on hold carbidopa-levodopa 25-100 mg tablet 1.5 tab PO TID Dairy Aid 3,000 unit tablet,chewable 3,000 unit PO ONCE Rx Instructions: administer with meals and/or snacks vitamin K2 100 mcg capsule 100 mcg PO DAILY aspirin [Adult Low Dose Aspirin] 81 mg tablet,delayed release (DR/EC) 81 mg PO DAILY calcium carb-D3-mag [id number] [phone] gx-szxk-dq-mg tablet 1 tab PO DAILY Rx Instructions: administer with a meal hydroxyzine HCl 25 mg tablet 12.5 mg PO Q8H PRN (Reason: anxiety) oxycodone 5 mg tablet 5 mg PO BID PRN (Reason: pain) Eliquis 5 mg tablet 5 mg PO BID duloxetine 20 mg capsule,delayed release(DR/EC) 40 mg PO DAILY acetaminophen 500 mg Tablet 1,000 mg PO Q8 PRN (Reason: fever or pain) diltiazem HCl 30 mg tablet 30 mg PO Q8H hydroxychloroquine 200 mg tablet 200 mg PO BID lisinopril 5 mg tablet 5 mg PO DAILY Qty: 90 3RF Hold Instructions: HYPOTENSION flecainide 50 mg tablet 50 mg PO Q12H Qty: 180 3RF Referrals / Follow Up: Mone Cervantes MD [Primary Care Provider] - Within 2 Weeks Disposition Disposition (needs filled in before D/C Order can be placed): Home Health Service Charges/Coding Visit Charges Inpatient E&M: 91972 Disch Hosp >30min 03/06/24 1113 <Electronically signed by Mone Guerrier DO> Cosigner Signature (if applicable): CC: Dr. Mone Guerrier DO; Dr. Mone Cervantes MD~ Signed [facility] Work Phone: [phone]) 758-808104-19-2024 Progress note Author Mone Guerrier [facility] March 06, 2024 11:11am Note Date/Time March 06, 2024 7:2 0am [facility] Medical Records Department [address] [place] [id number] Progress Note - Hospitalist 03/06/24 0706 MR#: [id number] Acct: [id number] Name: ANNABELLE VENTURA Rep #:[id number] : 1945 78 From: Mone Guerrier DO PCP: Dr. Mone Cervantes MD Status:ADM GHADA Location: MS3 [id number] Reason for Visit Reason for Visit: Diagnoses Unspecified fall, initial encounter (03/05/24) Subjective Subjective Feels well. Ambulated did not the hallways with therapy with no issues. Patient thinks that she may have tripped over her orthotics that led to her fall. Patient recalls falling and then bumping her head but did not lose consciousness. Objective Data Objective Data Vital Signs: Vital Signs Temp Pulse Resp BP Pulse Ox O2 Del Method 36.7 C 63 18 123/81 H 98 Room Air 03/06/24 02:42 03/06/24 02:42 03/06/24 02:42 03/06/24 02:42 03/06/24 02:42 03/06/24 02:42 Oxygen Delivery Method Room Air Weight: 83.2 kg Body Mass Index (BMI) 32.5 Lab / Micro Data 03/06/24 07:15 03/06/24 07:15 Labs: Laboratory Results - last 24 hr 03/05/24 12:10: WBC 9.5, RBC 4.09 L, Hgb 12.8, Hct 40.7, MCV 99.5 H, MCH 31.3, MCHC 31.4 L, RDW Std Deviation 54.9 H, RDW Coeff of Lenin 15.0 H, Plt Count 330, MPV 10.7, Immature Gran % (Auto) 0.500, Neut % (Auto) 69.8, Lymph % (Auto) 16.7 L, [place] % (Auto) 10.8 H, Eos % (Auto) 1.3, Baso % (Auto) 0.9, Absolute Neuts (auto) 6.6, Absolute Lymphs (auto) 1.59, Nucleated RBC % 0, Sodium 142, Potassium 3.5, Chloride 111 H, Carbon Dioxide 26.0, Anion Gap 5, BUN 25 H, Creatinine 0.97, Estim Creat Clear Calc 49.74, Est GFR (MDRD) Af Amer 71, Est GFR (MDRD) Non-Af 59 L, BUN/Creatinine Ratio 25.8 H, Glucose 110 H, Calcium 9.3,Phosphorus 3.8, Magnesium 2.3, Troponin I High Sens 11 03/05/24 12:58: Urine Color Yellow, Urine Clarity Sl. Cloudy, Urine pH 5.0, Ur Specific [place] 1.025, Urine Protein 30 H, Urine Glucose (UA) Normal, Urine Ketones 15 H, Urine Occult Blood 10 H, Urine Nitrite Negative, Urine Bilirubin 1H, Urine Urobilinogen 1 H, Ur Leukocyte Esterase 25 H, Urine RBC 0-5 SEEN, UrineWBC 0-5 SEEN, Ur Squamous Epith Cells 0-5 SEEN, Urine Bacteria 0 SEEN, Urine Mucus 0 SEEN Radiography Diagnostic Testing: Radiology Impression Brain CT 03/05/24 12:30 IMPRESSION: 1. No acute intracranial process. 2. Chronic involutional changes of the brain. Electronically Signed: Shady Spaulding MD at 12:47 EDT , Chest X-Ray 03/05/24 12:31 IMPRESSION: No radiographic evidence of acute cardiopulmonary disease. Electronically Signed: Shady Spaulding MD at 12:47 EDT , Physical Exam Const alert and no apparent distress Constitutional Narrative: Very interactive and talkative. HEENT head/scalp atraumatic and moist oral mucous membranes Neuro moves all extremities Assessment & Plan Assessment/Plan (1) Fall: PLAN: Plan Adult FTT * In patient with Parkinson's disease * PT OT eval and treat. * Patient may have tripped over her orthotics. Patient did well with therapy today. No additional therapy recommended but given fact the patient does live with family is not there all time we will see about having home care evaluate her. Acute Encephalopathy * Patient denies this. Patient does take narcotics chronically. Discussed with the case with the patient's daughter states that they been trying to wean that down recently and are working with her primary care doctor in regards to the. * Review of [place]AR[place] shows that pt chronically takes on oxycodone. Reportedly pillbox was in disarray, so cannot rule out missuse of narcotics. Chronic pain * per OAR[place], pt has been on 5mg oxycodone 4x/d at least since 2021. Family and primary care is working on weaning that down over time. Will defer that management to PCP and family. Chronic conditions: * Parkinson's Disease with Questionable Parkinson's Disease Dementia: Suspect potential underlying dementia from discussion with her family, but this will need to be further assessed outpatient with Neurology, continue home sinemet regimen. * Chronic Kidney Disease Stage II primarily per previous GFR trending: Admission BUN/Cr 25/0.97, GFR 59, prior to this primarily 70 to upper 80 range, baseline renal function 0.6-0.8 primarily, repeat BMP in AM. * Anxiety and Depression: Will continue patient home duloxetine. * Hypertension: Continue home regimen including lisinopril, diltiazem, PRN hydralazine. * Hyperlipidemia: Not on statin therapy, defer to outpatient. * Hx VTE: We will continue patient home Eliquis regimen. * Chronic back pain with DDD: Patient with Hx spinal cord stimulator, will temporally hold narcotic regimen given increased confusion certainly could be contributing as unclear if patient is taking medications how she should. Encourage offloading, positional changes, PT/OT/case management consulted as noted. * PAF: We will continue patient home diltiazem as well as flecainide and apixaban regimen. * SIERRA: Encourage CPAP q HS. * Rheumatoid arthritis: Will continue patient home hydroxychloroquine regimen given no obvious evidence of any infectious etiology. DVT Prophylaxis: Continue home eliquis regimen. CODE status: DNR-CCA, no intubation. 03/06/24 1111 <Electronically signed by Mone Guerrier DO> Cosigner Signature (if applicable): CC: ~ Signed [facility] Work Phone: [phone] 453-825404-18-2024 History and physical note Author Nannette Marks [facility] March 05, 2024 7:21pm Note Date/Time March 05, 2024 2:2 4pm [facility] Medical Records Department [address] [place] [address] [place] [address] H&P Exam - Hospitalist 03/05/24 1419 MR#: [id number] Acct: [id number] Name: ANNABELLE VENTURA Rep #:[id number] : 1945 78 From: Nannette Marks MD PCP: Dr. Mone Cervantes MD Status:ADM GHADA Location: MS3 [id number] HPI - General General Date of Admission: 03/05/24 Date of Service: 03/05/24 Chief Complaint: Fall, Adult FTT HPI Narrative The patient is a 78 y/o F w/ PMHx: Rheumatoid arthritis, CKD stage II, Anxiety and Depression, HTN, HLD, Hx VTE, Chronic back pain with DDD w/ Hx spinal cord stimulator, Parkinson's disease, PAF, SIERRA who presents to the [facility] ED on 03/05/24 with history of standing in the kitchen on morning on day of presentation unfortunately falling backwards and hitting her head on the carpeted floor with unclear specific reason with no dizziness, lightheadedness with no loss of consciousness fortunately having her phone on her prompting her to call her family members to his sister with no obvious injuries but patient lives at home with some support but seem to be potentially confused in the evening prior with reportedly teeth extraction (under local only) 2 days prior with ongoing Percocet usage following a shoulder replacement the prior September but unfortunately family did note that her morning pillbox was in disarray so there is possibly an error in the medication she took prompting them to bring her to the ED for evaluation. Workup in the ED included T97.6, heart 92, BP 115/79, respiratory rate 18, 96% on room air, orthostatic vital signs unremarkable, CBC with WBC 9.5, hemoglobin 12.8, MCV 99.5, platelet 330 without marked shift, BMP with BUN/creatinine 25/0.97, GFR 59, glucose 110, troponin 11, urinalysis with cloudy appearing urine and elevated specific gravity 1.025, protein 30, ketone 15, occult blood 10, negative nitrite, leukocyte Estrace 25 with no obvious evidence of UTI, chest x-ray with no acute cardiopulmonary findings, CT brain with chronic involutional changes with no acute intracranial process, EKG with sinus rhythm with occasional PVC with no acute evidence of ischemia. [facility] Medical History Anxiety Anxiety disorder Arthritis Cardiology follow-up encounter Chronic pain DDD (degenerative disc disease) Depression DVT (deep venous thrombosis) Essential (primary) hypertension Fall Heartburn History of edema History of stress test Hx of bladder problems Lactose intolerance Lumbar compression fracture (05/2018) Non-smoker Osteoarthritis Parkinson disease Paroxysmal atrial fibrillation Peripheral vascular disease Post-menopausal Rheumatoid arthritis Shortness of breath on exertion Sleep apnea Thyroid nodule Walker as ambulation aid Home Medications biotin 10,000 mcg capsule 10,000 mcg PO DAILY 07/04/18 [History Last Taken 08/17/23] alendronate 70 mg tablet (Fosamax) 70 mg PO QWEEK 07/01/19 [History Last Taken 08/18/23] carbidopa 25 mg-levodopa 100 mg tablet 1.5 tab PO TID 11/29/20 [History Last Taken 08/22/23] lactase 3,000 unit chewable tablet (Dairy Aid) 3,000 unit PO ONCE 08/02/21 [History Last Taken Unknown] aspirin 81 mg tablet,delayed release (Adult Low Dose Aspirin) 81 mg PO DAILY 12/11/22 [History Last Taken 08/16/23] calcium carb-vit R5-[id number]-tgmc 333 mg-200 unit-133 mg-5 mg tablet 1 tab PO DAILY 12/11/22 [History Last Taken 08/17/23] hydroxyzine HCl 25 mg tablet 12.5 mg PO Q8H PRN anxiety 12/11/22 [History Last Taken Unknown] vitamin K2 100 mcg capsule 100 mcg PO DAILY 12/11/22 [History Last Taken 08/16/23] lisinopril 5 mg tablet 5 mg PO DAILY #90 tabs 09/09/23 [Rx Last Taken Unknown] flecainide 50 mg tablet 50 mg PO Q12H OK to give with Plaquenil, pt has been on both #180 tabs 12/02/23 [Rx Last Taken Unknown] acetaminophen 500 mg tablet 1,000 mg PO Q8 PRN fever or pain 02/26/24 [History Last Taken Unknown] apixaban 5 mg tablet (Eliquis) 5 mg PO BID 02/26/24 [History Last Taken Unknown] diltiazem HCl 30 mg tablet 30 mg PO Q8H 02/26/24 [History Last Taken Unknown] duloxetine 20 mg capsule,delayed release 40 mg PO DAILY 02/26/24 [History Last Taken Unknown] hydroxychloroquine 200 mg tablet 200 mg PO BID 02/26/24 [History Last Taken Unknown] oxycodone 5 mg tablet 5 mg PO BID PRN pain 02/26/24 [History Last Taken Unknown] Allergy/AdvReac Type Severity Reaction Status Date / Time baclofen AdvReac Severe emotional Verified 03/05/24 11:55 issues propranolol AdvReac Severe nightmare Verified 03/05/24 11:55 sulfadiazine AdvReac Unknown not as Verified 03/05/24 11:55 effective Family History (Updated 03/05/24 @ 19:[address] Nannette Marks MD) Father Cancer Sister Cancer Diabetes Heart disease Mother Anxiety and depression Surgical History H/O varicose vein ligation and stripping History of back surgery (03/2018) History of herniorrhaphy History of hysterectomy History of left heart catheterization (04/25/17) History of tubal ligation Hx of LASIK Hx of left cataract extraction Hx of right cataract extraction S/P shoulder replacement Spinal cord stimulator status (05/2020) Social History household members: family Smoking Status: Never smoker alcohol intake: never substance use type: does not use caffeine: Yes Type: coffee Number of servings: 1 ROS ROS Narrative Admission Review of Systems: CONSTITUTIONAL: No weight loss, fever, chills, + weakness or fatigue. HEENT: Eyes: No visual loss, blurred vision, double vision or yellow sclerae. Ears, Nose, Throat: No hearing loss, sneezing, congestion, runny nose or sore throat. SKIN: No rash or itching, lesions, wounds. CARDIOVASCULAR: No chest pain, chest pressure or chest discomfort, palpitations,edema, orthopnea, syncopal events. RESPIRATORY: No shortness of breath, cough or sputum, wheezing, hemoptysis. GASTROINTESTINAL: No anorexia, nausea, vomiting or diarrhea, abdominal pain, melena, BRBPR. GENITOURINARY: No dysuria, frequency, urgency or retention. NEUROLOGICAL: + Falls, underlying Parkinson's disease with tremors, possible developing Parkinson's disease associated dementia. No headache, dizziness, syncope, paralysis, ataxia, numbness or tingling in the extremities, focal weakness, change in bowel or bladder control, seizure. MUSCULOSKELETAL: + muscle, back pain, joint pain or stiffness. HEMATOLOGIC: + Anemia, easy bleeding/bruising. LYMPHATICS: No enlarged nodes. No history of splenectomy. PSYCHIATRIC: + History of anxiety and depression. ENDOCRINOLOGIC: No reports of sweating, cold or heat intolerance. No polyuria orpolydipsia. ALLERGIES: No history of asthma, hives, eczema or rhinitis. Vital Signs Vital Signs Vital Signs: 03/05/24 11:56 03/05/24 12:47 03/05/24 14:03 Temperature 97.6 F L Temperature Source Temporal Pulse Rate 92 Pulse Rate [Lying] 79 Pulse Rate [Sitting (for 1 minute prior to obtaining)] 79 Pulse Rate [Standing (for 1 minute prior to obtaining)] 80 Respiratory Rate 18 Respiratory Effort Normal Non-Labored Respiratory Depth Normal Respiratory Pattern Normal Blood Pressure 115/79 Blood Pressure [Lying] 157/91 H Blood Pressure [Sitting (for 1 minute prior to obtaining)] 151/88 H Blood Pressure [Standing (for 1 minute prior to obtaining)] 148/91 H Blood Pressure Mean 91 Blood Pressure Mean [Lying] 113 Blood Pressure Mean [Sitting (for 1 minute prior to obtaining)] 109 Blood Pressure Mean [Standing (for 1 minute prior to obtaining)] 110 Pulse Ox 96 Oxygen Delivery Method Room Air 03/05/24 14:04 Temperature 98.2 F Temperature Source Pulse Rate 82 Pulse Rate [Lying] Pulse Rate [Sitting (for 1 minute prior to obtaining)] Pulse Rate [Standing (for 1 minute prior to obtaining)] Respiratory Rate 18 Respiratory Effort Respiratory Depth Respiratory Pattern Blood Pressure 148/91 H Blood Pressure [Lying] Blood Pressure [Sitting (for 1 minute prior to obtaining)] Blood Pressure [Standing (for 1 minute prior to obtaining)] Blood Pressure Mean 110 Blood Pressure Mean [Lying] Blood Pressure Mean [Sitting (for 1 minute prior to obtaining)] Blood Pressure Mean [Standing (for 1 minute prior to obtaining)] Pulse Ox 95 Oxygen Delivery Method Weight Weight: 190 lb 0.615 oz Body Mass Index (BMI) 33.6 Physical Exam Narrative Physical Examination: General: Awake, alert, oriented to self, place, year, month despite history of recent confusion, remains cooperative but is very fatigued, laying in the ED bed, calm appearing. Skin: Normal color, normal turgor, no icterus, no cyanosis except occasional staged ecchymoses, abrasion. HEENT: AT/NC, EOMI, PERRLA, mildly dry MM, no carotid bruits or JVD noted. Lungs: Mildly diminished, greater bases, appropriate effort, no rales, ronchi orwheezing. Heart: Regular rate and rhythm; no gallop, rub audible. Abdomen: Soft, obese, NTTP, ND, mildly hyperactive BS, no appreciated HSM. Extremities: No cyanosis, no clubbing, mild peripheral chronic edema. Neurological: Patient awake, alert, oriented as noted, cognitive function reported as altered however patient currently answering questions appropriately,family notes she is improved but still not baseline intact; pupils equally reactive to light and accommodation, cranial nerves grossly normal, moving all 4extremities, no focal deficits, strength moderately globally decreased. Psychiatric: Affect appears fatigued, no acute evidence of depressive or anxietyfeelings but does have underlying history. Results Lab / Micro Data 03/05/24 12:10 03/05/24 12:10 Labs: Laboratory Results - last 24 hr 03/05/24 12:10: WBC 9.5, RBC 4.09 L, Hgb 12.8, Hct 40.7, MCV 99.5 H, MCH 31.3, MCHC 31.4 L, RDW Std Deviation 54.9 H, RDW Coeff of Lenin 15.0 H, Plt Count 330, MPV 10.7, Immature Gran % (Auto) 0.500, Neut % (Auto) 69.8, Lymph % (Auto) 16.7 L, [place] % (Auto) 10.8 H, Eos % (Auto) 1.3, Baso % (Auto) 0.9, Absolute Neuts (auto) 6.6, Absolute Lymphs (auto) 1.59, Nucleated RBC % 0, Sodium 142, Potassium 3.5, Chloride 111 H, Carbon Dioxide 26.0, Anion Gap 5, BUN 25 H, Creatinine 0.97, Estim Creat Clear Calc 49.74, Est GFR (MDRD) Af Amer 71, Est GFR(MDRD) Non-Af 59 L, BUN/Creatinine Ratio 25.8 H, Glucose 110 H, Calcium 9.3, Troponin I High Sens 11 03/05/24 12:58: Urine Color Yellow, Urine Clarity Sl. Cloudy, Urine pH 5.0, Ur Specific [place] 1.025, Urine Protein 30 H, Urine Glucose (UA) Normal, Urine Ketones 15 H, Urine Occult Blood 10 H, Urine Nitrite Negative, Urine Bilirubin 1H, Urine Urobilinogen 1 H, Ur Leukocyte Esterase 25 H, Urine RBC 0-5 SEEN, UrineWBC 0-5 SEEN, Ur Squamous Epith Cells 0-5 SEEN, Urine Bacteria 0 SEEN, Urine Mucus 0 SEEN Imaging Radiology Impression Brain CT 03/05/24 12:30 IMPRESSION: 1. No acute intracranial process. 2. Chronic involutional changes of the brain. Electronically Signed: Shady Spaulding MD at 12:47 EDT , Chest X-Ray 03/05/24 12:31 IMPRESSION: No radiographic evidence of acute cardiopulmonary disease. Electronically Signed: Shady Spaulding MD at 12:47 EDT , Assessment & Plan Assessment/Plan (1) Fall: PLAN: Plan The patient is a 78 y/o F w/ PMHx: Rheumatoid arthritis, CKD stage II, Anxiety and Depression, HTN, HLD, Hx VTE, Chronic back pain with DDD w/ Hx spinal cord stimulator, Parkinson's disease, PAF, SIERRA who presents to the [facility] ED on 03/05/24 with history of standing in the kitchen on morning on day of presentation unfortunately falling backwards and hitting her head on the carpeted floor with unclear specific reason with no prodrome and no obvious injuries but patient lives at home with some support with reportedly teeth extraction (under local only) 2 days prior with ongoing Percocet usage and noted medications on day of presentation jumbled and unclear intake of her regimen. #1. Adult FTT with noted Mechanical Fall, no specific prodrome, possibly mechanical versus generalized weakness in addition to noted history below: Will admit to [facility], maintain on fall precautions, assure no infectious etiology, given underlying Parkinson's disease likely in part contributing, PT/OT/CM for discharge planning. #2. Mild Confusion, Encephalopathy, Suspect Multifactorial, Recent Dental Extraction: Possibly related with increased pain regimen from recent extraction,will hold oral narcotic, will obtain procalcitonin however UA/CXR not marked appearing. #3. Parkinson's Disease with Questionable Parkinson's Disease Dementia: Suspectpotential underlying dementia from discussion with her family, but this will need to be further assessed outpatient with Neurology, continue home sinemet regimen. #4. Chronic Kidney Disease Stage II primarily per previous GFR trending: Admission BUN/Cr 25/0.97, GFR 59, prior to this primarily 70 to upper 80 range, baseline renal function 0.6-0.8 primarily, repeat BMP in AM. #5. Anxiety and Depression: Will continue patient home duloxetine. #6. Hypertension: Continue home regimen including lisinopril, diltiazem, PRN hydralazine. #7. Hyperlipidemia: Not on statin therapy, defer to outpatient. #8. Hx VTE: We will continue patient home Eliquis regimen. #9. Chronic back pain with DDD: Patient with Hx spinal cord stimulator, will temporally hold narcotic regimen given increased confusion certainly could be contributing as unclear if patient is taking medications how she should. Encourage offloading, positional changes, PT/OT/case management consulted as noted. #10. PAF: We will continue patient home diltiazem as well as flecainide and apixaban regimen. #11. SIERRA: Encourage CPAP q HS. #12. Rheumatoid arthritis: Will continue patient home hydroxychloroquine regimen given no obvious evidence of any infectious etiology. #13. DVT Prophylaxis: Continue home eliquis regimen. #14. CODE status: Patient ARASELIOA is Nohemi and living will is currently in place.Discussed CODE status at length including difference between FULL code, DNR-CCA and DNR-CC status. Following discussions about the differences in these status, requested DNR-CCA, no intubation. Advanced Care Planning Face to Face Time: 16 minutes. Charges/Coding Visit Charges Inpatient E&M: 75694 Init Hosp L2 Procedures Hospitalists Procedures: 33626 Advncd Care Plan 30 Min 03/05/241920 <Electronically signed by Nannette Marks MD> Cosigner Signature (if applicable): CC: Dr. Nannette Marks MD; Dr. Mone Cervantes MD~ Signed [facility] Work Phone: [phone] Discharge summary Author Brad Huber [facility] March 05, 2024 3:23pm Note Date/Time March 05, 2024 12: 20pm [facility] Medical Records Department [address] [place] [address] Emergency Department Summary 03/05/24 MR#: [id number] Acct: [id number] Name: ANNABELLE VENTURA Rep #:[id number] : 1945 78 From: Becky JOHNSON PCP: Dr. Mone Cervantes MD Status:ADM GHADA Location: TN3 [id number] HPI <ALEX Santillan - Last Filed: 03/05/24 14:21> HPI - Fall History of Present Illness Chief Complaint: Fall Narrative Narrative: 78-year-old female with past medical history of HTN, DVT on Eliquis was standingat the kitchen this morning and fell backwards hitting her head on the carpeted floor. She is not quite sure why she fell. She does not recall feeling dizzy or lightheaded and she did not lose consciousness. She had her phone and calledher family member who helped her up within several minutes. She does not have any obvious injuries or pain. She lives at home with 2 other family members whothought she seemed confused last night. 2 days ago she had several teeth extracted and was told by the dentist to restart her lisinopril so her daughter is concerned maybe her blood pressure is dropping too low. She also has been taking Percocet since a right shoulder replacement in September. Daughter stateswhen she arrived this morning her morning pill box was in disarray and she had an extra bottle of Percocet so she is not really sure how many she took last night and this may be contributing. PFSH <ALEX Santillan - Last Filed: 03/05/24 14:21> PFSH Medical History Anxiety Anxiety disorder Arthritis Cardiology follow-up encounter Chronic pain DDD (degenerative disc disease) Depression DVT (deep venous thrombosis) Essential (primary) hypertension Fall Heartburn History of edema History of stress test Hx of bladder problems Lactose intolerance Lumbar compression fracture (05/2018) Non-smoker Osteoarthritis Parkinson disease Paroxysmal atrial fibrillation Peripheral vascular disease Post-menopausal Shortness of breath on exertion Sleep apnea Thyroid nodule Walker as ambulation aid Home Medications biotin 10,000 mcg capsule 10,000 mcg PO DAILY 07/04/18 [History Last Taken 08/17/23] alendronate 70 mg tablet (Fosamax) 70 mg PO QWEEK 07/01/19 [History Last Taken 08/18/23] carbidopa 25 mg-levodopa 100 mg tablet 1.5 tab PO TID 11/29/20 [History Last Taken 08/22/23] lactase 3,000 unit chewable tablet (Dairy Aid) 3,000 unit PO ONCE 08/02/21 [History Last Taken Unknown] aspirin 81 mg tablet,delayed release (Adult Low Dose Aspirin) 81 mg PO DAILY 12/11/22 [History Last Taken 08/16/23] calcium carb-vit R7-[id number] 333 mg-200 unit-133 mg-5 mg tablet 1 tab PO DAILY 12/11/22 [History Last Taken 08/17/23] hydroxyzine HCl 25 mg tablet 12.5 mg PO Q8H PRN anxiety 12/11/22 [History Last Taken Unknown] vitamin K2 100 mcg capsule 100 mcg PO DAILY 12/11/22 [History Last Taken 08/16/23] lisinopril 5 mg tablet 5 mg PO DAILY #90 tabs 09/09/23 [Rx Last Taken Unknown] flecainide 50 mg tablet 50 mg PO Q12H OK to give with Plaquenil, pt has been on both #180 tabs 12/02/23 [Rx Last Taken Unknown] acetaminophen 500 mg tablet 1,000 mg PO Q8 PRN fever or pain 02/26/24 [History Last Taken Unknown] apixaban 5 mg tablet (Eliquis) 5 mg PO BID 02/26/24 [History Last Taken Unknown] diltiazem HCl 30 mg tablet 30 mg PO Q8H 02/26/24 [History Last Taken Unknown] duloxetine 20 mg capsule,delayed release 40 mg PO DAILY 02/26/24 [History Last Taken Unknown] hydroxychloroquine 200 mg tablet 200 mg PO BID 02/26/24 [History Last Taken Unknown] oxycodone 5 mg tablet 5 mg PO BID PRN pain 02/26/24 [History Last Taken Unknown] Allergy/AdvReac Type Severity Reaction Status Date / Time baclofen AdvReac Severe emotional Verified 03/05/24 11:55 issues propranolol AdvReac Severe nightmare Verified 03/05/24 11:55 sulfadiazine AdvReac Unknown not as Verified 03/05/24 11:55 effective Family History Father Cancer Sister Cancer Diabetes Heart disease Surgical History H/O varicose vein ligation and stripping History of back surgery (03/2018) History of herniorrhaphy History of hysterectomy History of left heart catheterization (04/25/17) History of tubal ligation Hx of LASIK Hx of left cataract extraction Hx of right cataract extraction S/P shoulder replacement Spinal cord stimulator status (05/2020) Social History (Updated 03/05/24 @ 14:[address] Nannette Marks MD) household members: family Smoking Status: Never smoker alcohol intake: never substance use type: does not use caffeine: Yes Type: coffee Number of servings: 1 ROS <ALEX Santillan - Last Filed: 03/05/24 14:21> ROS ED ROS Narrative Constitutional: Negative for fever, chills, malaise. CVS: Negative for chest pain, syncope. Respiratory: Negative for shortness of breath, cough. GI: Negative for abdominal pain, nausea, vomiting. : Negative for dysuria. Neuro: Negative for headache. EXAM <ALEX Santillan - Last Filed: 03/05/24 14:21> Physical Exam Narrative Exam Narrative: CONST: Patient sitting in no acute distress. EYES: Normal inspection. PERRL, EOMI. HEAD: Head normocephalic atraumatic, no raccoon eyes or bowers sign, no hemotympanum, no nasal septal hematoma, no CSF otorrhea or rhinorrhea. NECK: Normal inspection. No midline spinal tenderness, no step off or crepitus. RESP: No respiratory distress, CTAB. Chest wall nontender. CVS: Regular rate and rhythm, no murmur, no gallop. ABD: Soft and nontender, no guarding or rebound, nondistended. Back: Normal inspection, no midline tenderness. SKIN: Color normal, no rash, warm, dry, intact. EXTREMITIES: Normal appearance, full ROM upper and lower extremities, 2+ radial DP pulses. NEURO: Alert and oriented x 4, answering questions appropriately. PSYCH: Normal affect. Const Vital Signs: 03/05/24 11:56 03/05/24 12:47 03/05/24 14:03 Temperature 97.6 F L Temperature Source Temporal Pulse Rate 92 Pulse Rate [Lying] 79 Pulse Rate [Sitting (for 1 minute prior to obtaining)] 79 Pulse Rate [Standing (for 1 minute prior to obtaining)] 80 Respiratory Rate 18 Respiratory Effort Normal Non-Labored Respiratory Depth Normal Respiratory Pattern Normal Blood Pressure 115/79 Blood Pressure [Lying] 157/91 H Blood Pressure [Sitting (for 1 minute prior to obtaining)] 151/88 H Blood Pressure [Standing (for 1 minute prior to obtaining)] 148/91 H Blood Pressure Mean 91 Blood Pressure Mean [Lying] 113 Blood Pressure Mean [Sitting (for 1 minute prior to obtaining)] 109 Blood Pressure Mean [Standing (for 1 minute prior to obtaining)] 110 Pulse Ox 96 Oxygen Delivery Method Room Air 03/05/24 14:04 Temperature 98.2 F Temperature Source Pulse Rate 82 Pulse Rate [Lying] Pulse Rate [Sitting (for 1 minute prior to obtaining)] Pulse Rate [Standing (for 1 minute prior to obtaining)] Respiratory Rate 18 Respiratory Effort Respiratory Depth Respiratory Pattern Blood Pressure 148/91 H Blood Pressure [Lying] Blood Pressure [Sitting (for 1 minute prior to obtaining)] Blood Pressure [Standing (for 1 minute prior to obtaining)] Blood Pressure Mean 110 Blood Pressure Mean [Lying] Blood Pressure Mean [Sitting (for 1 minute prior to obtaining)] Blood Pressure Mean [Standing (for 1 minute prior to obtaining)] Pulse Ox 95 Oxygen Delivery Method <Dr. Brad Huber, DO - Last Filed: 03/05/24 15:16> Physical Exam Const Vital Signs: 03/05/24 11:56 03/05/24 12:47 03/05/24 14:03 Temperature 97.6 F L Temperature Source Temporal Pulse Rate 92 Pulse Rate [Lying] 79 Pulse Rate [Sitting (for 1 minute prior to obtaining)] 79 Pulse Rate [Standing (for 1 minute prior to obtaining)] 80 Respiratory Rate 18 Respiratory Effort Normal Non-Labored Respiratory Depth Normal Respiratory Pattern Normal Blood Pressure 115/79 Blood Pressure [Lying] 157/91 H Blood Pressure [Sitting (for 1 minute prior to obtaining)] 151/88 H Blood Pressure [Standing (for 1 minute prior to obtaining)] 148/91 H Blood Pressure Mean 91 Blood Pressure Mean [Lying] 113 Blood Pressure Mean [Sitting (for 1 minute prior to obtaining)] 109 Blood Pressure Mean [Standing (for 1 minute prior to obtaining)] 110 Pulse Ox 96 Oxygen Delivery Method Room Air 03/05/24 14:04 Temperature 98.2 F Temperature Source Pulse Rate 82 Pulse Rate [Lying] Pulse Rate [Sitting (for 1 minute prior to obtaining)] Pulse Rate [Standing (for 1 minute prior to obtaining)] Respiratory Rate 18 Respiratory Effort Respiratory Depth Respiratory Pattern Blood Pressure 148/91 H Blood Pressure [Lying] Blood Pressure [Sitting (for 1 minute prior to obtaining)] Blood Pressure [Standing (for 1 minute prior to obtaining)] Blood Pressure Mean 110 Blood Pressure Mean [Lying] Blood Pressure Mean [Sitting (for 1 minute prior to obtaining)] Blood Pressure Mean [Standing (for 1 minute prior to obtaining)] Pulse Ox 95 Oxygen Delivery Method [facility] <ALEX Santillan - Last Filed: 03/05/24 14:21> [facility] Narrative Medical decision making narrative: History gathered from: Patient, daughter Patient fell this morning hitting her head on the ground. No LOC. She is on Eliquis. Per family report there has been a day or 2 of waxing and waning confusion. She is awake alert with stable vital signs. She is alert and oriented x 4 and has no focal deficits. She has no external signs of injury or head trauma. CT brain is negative. Basic labs are unremarkable, CXR and UA negative for infection. Orthostatic vital signs are negative. Patient uses a rollator at home. The nurse tried to get her up to ambulate in the room but shecould not take even 1-2 steps without a lot of assistance. She complained her right shoulder hurt where she had a prior replacement. The x-ray was negative for fracture. Patient's reported confusion at home and difficulty ambulating the multifactorial?she recently restarted lisinopril, is taking Percocet due to chronic right shoulder pain and recent dental extractions, has a history of Parkinson's, possibly some undiagnosed dementia. At this point she is not safe to go home and cannot ambulate independently. Case will be discussed with the hospitalist for admission. Lab Data Attestation: I reviewed the patient's lab results. Labs: Laboratory Results - last 24 hr 03/05/24 03/05/24 12:10 12:58 WBC 9.5 RBC 4.09 L Hgb 12.8 Hct 40.7 MCV 99.5 H MCH 31.3 MCHC 31.4 L RDW Std Deviation 54.9 H RDW Coeff of Lenin 15.0 H Plt Count 330 MPV 10.7 Immature Gran % (Auto) 0.500 Neut % (Auto) 69.8 Lymph % (Auto) 16.7 L [place] % (Auto) 10.8 H Eos % (Auto) 1.3 Baso % (Auto) 0.9 Absolute Neuts (auto) 6.6 Absolute Lymphs (auto) 1.59 Nucleated RBC % 0 Sodium 142 Potassium 3.5 Chloride 111 H Carbon Dioxide 26.0 Anion Gap 5 BUN 25 H Creatinine 0.97 Estim Creat Clear Calc 49.74 Est GFR (MDRD) Af Amer 71 Est GFR (MDRD) Non-Af 59 L BUN/Creatinine Ratio 25.8 H Glucose 110 H Calcium 9.3 Phosphorus 3.8 Magnesium 2.3 Troponin I High Sens 11 Urine Color Yellow Urine Clarity Sl. Cloudy Urine pH 5.0 Ur Specific [place] 1.025 Urine Protein 30 H Urine Glucose (UA) Normal Urine Ketones 15 H Urine Occult Blood 10 H Urine Nitrite Negative Urine Bilirubin 1 H Urine Urobilinogen 1 H Ur Leukocyte Esterase 25 H Urine RBC 0-5 SEEN Urine WBC 0-5 SEEN Ur Squamous Epith Cells 0-5 SEEN Urine Bacteria 0 SEEN Urine Mucus 0 SEEN Radiography Diagnostic Testing: Clinical Impression(s) from Imaging Studies Brain CT 03/05/24 12:30 IMPRESSION: 1. No acute intracranial process. 2. Chronic involutional changes of the brain. Electronically Signed: Shady Spaulding MD at 12:47 EDT , Chest X-Ray 03/05/24 12:31 IMPRESSION: No radiographic evidence of acute cardiopulmonary disease. Electronically Signed: Shady Spaulding MD at 12:47 EDT , ED attending interpretation of 1-view chest x-ray shows normal heart size, no acute infiltrate, no evidence of pneumothorax. EKG Initial EKG: Attestation: I personally reviewed and interpreted this EKG as follows: Interpretation: Sinus Rhythm and No Acute Injury Pattern Comments: Normal sinus rhythm with occasional PVCs at 83 bpm Left axis deviation Normal intervals, no acute ischemic changes <Dr. Brad Huber, DO - Last Filed: 03/05/24 15:16> [facility] MDM Narrative Medical decision making narrative: History gathered from: Patient, daughter Patient fell this morning hitting her head on the ground. No LOC. She is on Eliquis. Per family report there has been a day or 2 of waxing and waning confusion. She is awake alert with stable vital signs. She is alert and oriented x 4 and has no focal deficits. She has no external signs of injury or headtrauma. CT brain is negative. Basic labs are unremarkable, CXR and UA negativefor infection. Orthostatic vital signs are negative. Patient uses a rollator at home. The nurse tried to get her up to ambulate in the room but she could not take even 1-2 steps without a lot of assistance. She complained her right shoulder hurt where she had a prior replacement. The x-ray was negative for fracture. Patient's reported confusion at home and difficulty ambulating the multifactorial?she recently restarted lisinopril, is taking Percocet due to chronic right shoulder pain and recent dental extractions, has a history of Parkinson's, possibly some undiagnosed dementia. At this point she is not safe to go home and cannot ambulate independently. Case will be discussed with the hospitalist for admission. I have personally performed a face to face assessment of the patient and have reviewed the NAT Note. I performed a substantive portion of the visit including all aspects of the following. My hannah findings include: History is 78-year-old female presenting following a fall this morning. Patienthas a history of Parkinson's lives at home on the bottom floor with her grandsonupstairs. about 2 years ago who is her primary caregiver. She underwent tooth extraction with local anesthesia. Daughter notes that she seemsrather weak and confused. She states she does not feel that she is safe at home. Daughter handles her medications. Daughter states that she is wondering if the patient is having some visual hallucinations. Patient asked her to sprayfor antibiotics 3 to 4 years in the house which she is not seeing any evidence of. Exam is nonfocal extremely weak with attempted ambulation. No outward signs of trauma. Medical Decison Making basic blood work was obtained. No obvious UTI. CT of the brain demonstrates no acute trauma. Negative interpretation of chest x-ray is no acute process. Will discuss with hospitalist. Please see PA note for details History & Record Review Discussion w/independent historian: Patient and Family Lab Data Labs: Laboratory Results - last 24 hr 03/05/24 03/05/24 12:10 12:58 WBC 9.5 RBC 4.09 L Hgb 12.8 Hct 40.7 MCV 99.5 H MCH 31.3 MCHC 31.4 L RDW Std Deviation 54.9 H RDW Coeff of Lenin 15.0 H Plt Count 330 MPV 10.7 Immature Gran % (Auto) 0.500 Neut % (Auto) 69.8 Lymph % (Auto) 16.7 L [place] % (Auto) 10.8 H Eos % (Auto) 1.3 Baso % (Auto) 0.9 Absolute Neuts (auto) 6.6 Absolute Lymphs (auto) 1.59 Nucleated RBC % 0 Sodium 142 Potassium 3.5 Chloride 111 H Carbon Dioxide 26.0 Anion Gap 5 BUN 25 H Creatinine 0.97 Estim Creat Clear Calc 49.74 Est GFR (MDRD) Af Amer 71 Est GFR (MDRD) Non-Af 59 L BUN/Creatinine Ratio 25.8 H Glucose 110 H Calcium 9.3 Phosphorus 3.8 Magnesium 2.3 Troponin I High Sens 11 Urine Color Yellow Urine Clarity Sl. Cloudy Urine pH 5.0 Ur Specific [place] 1.025 Urine Protein 30 H Urine Glucose (UA) Normal Urine Ketones 15 H Urine Occult Blood 10 H Urine Nitrite Negative Urine Bilirubin 1 H Urine Urobilinogen 1 H Ur Leukocyte Esterase 25 H Urine RBC 0-5 SEEN Urine WBC 0-5 SEEN Ur Squamous Epith Cells 0-5 SEEN Urine Bacteria 0 SEEN Urine Mucus 0 SEEN Radiography Diagnostic Testing: Clinical Impression(s) from Imaging Studies Brain CT 03/05/24 12:30 IMPRESSION: 1. No acute intracranial process. 2. Chronic involutional changes of the brain. Electronically Signed: Shady Spaulding MD at 12:47 EDT , Chest X-Ray 03/05/24 12:31 IMPRESSION: No radiographic evidence of acute cardiopulmonary disease. Electronically Signed: Shady Spaulding MD at 12:47 EDT , Discharge Plan Triage Chief Complaint: Fall ED Midlevel Provider: Becky Ny ED Provider: Brad Huber Dx/Rx/DC Orders Clinical Impression: History of Parkinson's disease, Head injury, Difficulty in walking, Fall Primary Care Provider: Mone Cervantes What to do if you have Problems For any increased pain, shortness of breath, bleeding, nausea or vomiting, chestpain, or any unexpected problems, contact your Primary Care Provider. Call [facility] ([phone]) or report to the closest Emergency Room. Call 911 if necessary. 03/05/24 1421 <Electronically signed by Becky JOHNSON> Cosigner Signature (if applicable): 03/05/24 1523 <Electronically signed by Brad Huber DO> CC: Dr. Mone Cervantes MD ~ Signed [facility] Work Phone: [phone] Discharge summary Author Brad Huber [facility] March 05, 2024 3:23pm Note Date/Time March 05, 2024 12: 20pm [facility] Medical Records Department [address] [place] [address] Emergency Department Summary 03/05/24 MR#: [id number] Acct: [id number] Name: ANNABELLE VENTURA Rep #:[id number] : 1945 78 From: Becky JOHNSON PCP: Dr. Mone Cervantes MD Status:ADM [facility]ADA [id number] <ALEX Santillan - Last Filed: 03/05/24 14:21> HPI - Fall History of Present Illness Chief Complaint: Fall Narrative Narrative: 78-year-old female with past medical history of HTN, DVT on Eliquis was standingat the kitchen this morning and fell backwards hitting her head on the carpeted floor. She is not quite sure why she fell. She does not recall feeling dizzy or lightheaded and she did not lose consciousness. She had her phone and calledher family member who helped her up within several minutes. She does not have any obvious injuries or pain. She lives at home with 2 other family members whothought she seemed confused last night. 2 days ago she had several teeth extracted and was told by the dentist to restart her lisinopril so her daughter is concerned maybe her blood pressure is dropping too low. She also has been taking Percocet since a right shoulder replacement in September. Daughter stateswhen she arrived this morning her morning pill box was in disarray and she had an extra bottle of Percocet so she is not really sure how many she took last night and this may be contributing. [facility] <ALEX Santillan - Last Filed: 03/05/24 14:21> [facility] Medical History Anxiety Anxiety disorder Arthritis Cardiology follow-up encounter Chronic pain DDD (degenerative disc disease) Depression DVT (deep venous thrombosis) Essential (primary) hypertension Fall Heartburn History of edema History of stress test Hx of bladder problems Lactose intolerance Lumbar compression fracture (05/2018) Non-smoker Osteoarthritis Parkinson disease Paroxysmal atrial fibrillation Peripheral vascular disease Post-menopausal Shortness of breath on exertion Sleep apnea Thyroid nodule Walker as ambulation aid Home Medications biotin 10,000 mcg capsule 10,000 mcg PO DAILY 07/04/18 [History Last Taken 08/17/23] alendronate 70 mg tablet (Fosamax) 70 mg PO QWEEK 07/01/19 [History Last Taken 08/18/23] carbidopa 25 mg-levodopa 100 mg tablet 1.5 tab PO TID 11/29/20 [History Last Taken 08/22/23] lactase 3,000 unit chewable tablet (Dairy Aid) 3,000 unit PO ONCE 08/02/21 [History Last Taken Unknown] aspirin 81 mg tablet,delayed release (Adult Low Dose Aspirin) 81 mg PO DAILY 12/11/22 [History Last Taken 08/16/23] calcium carb-vit C3-bpiqkgiax-igab 333 mg-200 unit-133 mg-5 mg tablet 1 tab PO DAILY 12/11/22 [History Last Taken 08/17/23] hydroxyzine HCl 25 mg tablet 12.5 mg PO Q8H PRN anxiety 12/11/22 [History Last Taken Unknown] vitamin K2 100 mcg capsule 100 mcg PO DAILY 12/11/22 [History Last Taken 08/16/23] lisinopril 5 mg tablet 5 mg PO DAILY #90 tabs 09/09/23 [Rx Last Taken Unknown] flecainide 50 mg tablet 50 mg PO Q12H OK to give with Plaquenil, pt has been on both #180 tabs 12/02/23 [Rx Last Taken Unknown] acetaminophen 500 mg tablet 1,000 mg PO Q8 PRN fever or pain 02/26/24 [History Last Taken Unknown] apixaban 5 mg tablet (Eliquis) 5 mg PO BID 02/26/24 [History Last Taken Unknown] diltiazem HCl 30 mg tablet 30 mg PO Q8H 02/26/24 [History Last Taken Unknown] duloxetine 20 mg capsule,delayed release 40 mg PO DAILY 02/26/24 [History Last Taken Unknown] hydroxychloroquine 200 mg tablet 200 mg PO BID 02/26/24 [History Last Taken Unknown] oxycodone 5 mg tablet 5 mg PO BID PRN pain 02/26/24 [History Last Taken Unknown] Allergy/AdvReac Type Severity Reaction Status Date / Time baclofen AdvReac Severe emotional Verified 03/05/24 11:55 issues propranolol AdvReac Severe nightmare Verified 03/05/24 11:55 sulfadiazine AdvReac Unknown not as Verified 03/05/24 11:55 effective Family History Father Cancer Sister Cancer Diabetes Heart disease Surgical History H/O varicose vein ligation and stripping History of back surgery (03/2018) History of herniorrhaphy History of hysterectomy History of left heart catheterization (04/25/17) History of tubal ligation Hx of LASIK Hx of left cataract extraction Hx of right cataract extraction S/P shoulder replacement Spinal cord stimulator status (05/2020) Social History (Updated 03/05/24 @ 14:[address] Nannette Marks MD) household members: family Smoking Status: Never smoker alcohol intake: never substance use type: does not use caffeine: Yes Type: coffee Number of servings: 1 ROS <ALEX Santillan - Last Filed: 03/05/24 14:21> ROS ED ROS Narrative Constitutional: Negative for fever, chills, malaise. CVS: Negative for chest pain, syncope. Respiratory: Negative for shortness of breath, cough. GI: Negative for abdominal pain, nausea, vomiting. : Negative for dysuria. Neuro: Negative for headache. EXAM <ALEX Santillan - Last Filed: 03/05/24 14:21> Physical Exam Narrative Exam Narrative: CONST: Patient sitting in no acute distress. EYES: Normal inspection. PERRL, EOMI. HEAD: Head normocephalic atraumatic, no raccoon eyes or bowers sign, no hemotympanum, no nasal septal hematoma, no CSF otorrhea or rhinorrhea. NECK: Normal inspection. No midline spinal tenderness, no step off or crepitus. RESP: No respiratory distress, CTAB. Chest wall nontender. CVS: Regular rate and rhythm, no murmur, no gallop. ABD: Soft and nontender, no guarding or rebound, nondistended. Back: Normal inspection, no midline tenderness. SKIN: Color normal, no rash, warm, dry, intact. EXTREMITIES: Normal appearance, full ROM upper and lower extremities, 2+ radial DP pulses. NEURO: Alert and oriented x 4, answering questions appropriately. PSYCH: Normal affect. Const Vital Signs: 03/05/24 11:56 03/05/24 12:47 03/05/24 14:03 Temperature 97.6 F L Temperature Source Temporal Pulse Rate 92 Pulse Rate [Lying] 79 Pulse Rate [Sitting (for 1 minute prior to obtaining)] 79 Pulse Rate [Standing (for 1 minute prior to obtaining)] 80 Respiratory Rate 18 Respiratory Effort Normal Non-Labored Respiratory Depth Normal Respiratory Pattern Normal Blood Pressure 115/79 Blood Pressure [Lying] 157/91 H Blood Pressure [Sitting (for 1 minute prior to obtaining)] 151/88 H Blood Pressure [Standing (for 1 minute prior to obtaining)] 148/91 H Blood Pressure Mean 91 Blood Pressure Mean [Lying] 113 Blood Pressure Mean [Sitting (for 1 minute prior to obtaining)] 109 Blood Pressure Mean [Standing (for 1 minute prior to obtaining)] 110 Pulse Ox 96 Oxygen Delivery Method Room Air 03/05/24 14:04 Temperature 98.2 F Temperature Source Pulse Rate 82 Pulse Rate [Lying] Pulse Rate [Sitting (for 1 minute prior to obtaining)] Pulse Rate [Standing (for 1 minute prior to obtaining)] Respiratory Rate 18 Respiratory Effort Respiratory Depth Respiratory Pattern Blood Pressure 148/91 H Blood Pressure [Lying] Blood Pressure [Sitting (for 1 minute prior to obtaining)] Blood Pressure [Standing (for 1 minute prior to obtaining)] Blood Pressure Mean 110 Blood Pressure Mean [Lying] Blood Pressure Mean [Sitting (for 1 minute prior to obtaining)] Blood Pressure Mean [Standing (for 1 minute prior to obtaining)] Pulse Ox 95 Oxygen Delivery Method <Dr. Brad Huber, DO - Last Filed: 03/05/24 15:16> Physical Exam Const Vital Signs: 03/05/24 11:56 03/05/24 12:47 03/05/24 14:03 Temperature 97.6 F L Temperature Source Temporal Pulse Rate 92 Pulse Rate [Lying] 79 Pulse Rate [Sitting (for 1 minute prior to obtaining)] 79 Pulse Rate [Standing (for 1 minute prior to obtaining)] 80 Respiratory Rate 18 Respiratory Effort Normal Non-Labored Respiratory Depth Normal Respiratory Pattern Normal Blood Pressure 115/79 Blood Pressure [Lying] 157/91 H Blood Pressure [Sitting (for 1 minute prior to obtaining)] 151/88 H Blood Pressure [Standing (for 1 minute prior to obtaining)] 148/91 H Blood Pressure Mean 91 Blood Pressure Mean [Lying] 113 Blood Pressure Mean [Sitting (for 1 minute prior to obtaining)] 109 Blood Pressure Mean [Standing (for 1 minute prior to obtaining)] 110 Pulse Ox 96 Oxygen Delivery Method Room Air 03/05/24 14:04 Temperature 98.2 F Temperature Source Pulse Rate 82 Pulse Rate [Lying] Pulse Rate [Sitting (for 1 minute prior to obtaining)] Pulse Rate [Standing (for 1 minute prior to obtaining)] Respiratory Rate 18 Respiratory Effort Respiratory Depth Respiratory Pattern Blood Pressure 148/91 H Blood Pressure [Lying] Blood Pressure [Sitting (for 1 minute prior to obtaining)] Blood Pressure [Standing (for 1 minute prior to obtaining)] Blood Pressure Mean 110 Blood Pressure Mean [Lying] Blood Pressure Mean [Sitting (for 1 minute prior to obtaining)] Blood Pressure Mean [Standing (for 1 minute prior to obtaining)] Pulse Ox 95 Oxygen Delivery Method [facility] <ALEX Santillan - Last Filed: 03/05/24 14:21> [facility] Narrative Medical decision making narrative: History gathered from: Patient, daughter Patient fell this morning hitting her head on the ground. No LOC. She is on Eliquis. Per family report there has been a day or 2 of waxing and waning confusion. She is awake alert with stable vital signs. She is alert and oriented x 4 and has no focal deficits. She has no external signs of injury or head trauma. CT brain is negative. Basic labs are unremarkable, CXR and UA negative for infection. Orthostatic vital signs are negative. Patient uses a rollator at home. The nurse tried to get her up to ambulate in the room but shecould not take even 1-2 steps without a lot of assistance. She complained her right shoulder hurt where she had a prior replacement. The x-ray was negative for fracture. Patient's reported confusion at home and difficulty ambulating the multifactorial?she recently restarted lisinopril, is taking Percocet due to chronic right shoulder pain and recent dental extractions, has a history of Parkinson's, possibly some undiagnosed dementia. At this point she is not safe to go home and cannot ambulate independently. Case will be discussed with the hospitalist for admission. Lab Data Attestation: I reviewed the patient's lab results. Labs: Laboratory Results - last 24 hr 03/05/24 03/05/24 12:10 12:58 WBC 9.5 RBC 4.09 L Hgb 12.8 Hct 40.7 MCV 99.5 H MCH 31.3 MCHC 31.4 L RDW Std Deviation 54.9 H RDW Coeff of Lenin 15.0 H Plt Count 330 MPV 10.7 Immature Gran % (Auto) 0.500 Neut % (Auto) 69.8 Lymph % (Auto) 16.7 L [place] % (Auto) 10.8 H Eos % (Auto) 1.3 Baso % (Auto) 0.9 Absolute Neuts (auto) 6.6 Absolute Lymphs (auto) 1.59 Nucleated RBC % 0 Sodium 142 Potassium 3.5 Chloride 111 H Carbon Dioxide 26.0 Anion Gap 5 BUN 25 H Creatinine 0.97 Estim Creat Clear Calc 49.74 Est GFR (MDRD) Af Amer 71 Est GFR (MDRD) Non-Af 59 L BUN/Creatinine Ratio 25.8 H Glucose 110 H Calcium 9.3 Phosphorus 3.8 Magnesium 2.3 Troponin I High Sens 11 Urine Color Yellow Urine Clarity Sl. Cloudy Urine pH 5.0 Ur Specific [place] 1.025 Urine Protein 30 H Urine Glucose (UA) Normal Urine Ketones 15 H Urine Occult Blood 10 H Urine Nitrite Negative Urine Bilirubin 1 H Urine Urobilinogen 1 H Ur Leukocyte Esterase 25 H Urine RBC 0-5 SEEN Urine WBC 0-5 SEEN Ur Squamous Epith Cells 0-5 SEEN Urine Bacteria 0 SEEN Urine Mucus 0 SEEN Radiography Diagnostic Testing: Clinical Impression(s) from Imaging Studies Brain CT 03/05/24 12:30 IMPRESSION: 1. No acute intracranial process. 2. Chronic involutional changes of the brain. Electronically Signed: Shady Spaulding MD at 12:47 EDT , Chest X-Ray 03/05/24 12:31 IMPRESSION: No radiographic evidence of acute cardiopulmonary disease. Electronically Signed: Shady Spaulding MD at 12:47 EDT , ED attending interpretation of 1-view chest x-ray shows normal heart size, no acute infiltrate, no evidence of pneumothorax. EKG Initial EKG: Attestation: I personally reviewed and interpreted this EKG as follows: Interpretation: Sinus Rhythm and No Acute Injury Pattern Comments: Normal sinus rhythm with occasional PVCs at 83 bpm Left axis deviation Normal intervals, no acute ischemic changes <Dr. Brad Huber, DO - Last Filed: 03/05/24 15:16> [facility] MDM Narrative Medical decision making narrative: History gathered from: Patient, daughter Patient fell this morning hitting her head on the ground. No LOC. She is on Eliquis. Per family report there has been a day or 2 of waxing and waning confusion. She is awake alert with stable vital signs. She is alert and oriented x 4 and has no focal deficits. She has no external signs of injury or headtrauma. CT brain is negative. Basic labs are unremarkable, CXR and UA negativefor infection. Orthostatic vital signs are negative. Patient uses a rollator at home. The nurse tried to get her up to ambulate in the room but she could not take even 1-2 steps without a lot of assistance. She complained her right shoulder hurt where she had a prior replacement. The x-ray was negative for fracture. Patient's reported confusion at home and difficulty ambulating the multifactorial?she recently restarted lisinopril, is taking Percocet due to chronic right shoulder pain and recent dental extractions, has a history of Parkinson's, possibly some undiagnosed dementia. At this point she is not safe to go home and cannot ambulate independently. Case will be discussed with the hospitalist for admission. I have personally performed a face to face assessment of the patient and have reviewed the NAT Note. I performed a substantive portion of the visit including all aspects of the following. My hannah findings include: History is 78-year-old female presenting following a fall this morning. Patienthas a history of Parkinson's lives at home on the bottom floor with her grandsonupstairs. about 2 years ago who is her primary caregiver. She underwent tooth extraction with local anesthesia. Daughter notes that she seemsrather weak and confused. She states she does not feel that she is safe at home. Daughter handles her medications. Daughter states that she is wondering if the patient is having some visual hallucinations. Patient asked her to sprayfor antibiotics 3 to 4 years in the house which she is not seeing any evidence of. Exam is nonfocal extremely weak with attempted ambulation. No outward signs of trauma. Medical Decison Making basic blood work was obtained. No obvious UTI. CT of the brain demonstrates no acute trauma. Negative interpretation of chest x-ray is no acute process. Will discuss with hospitalist. Please see PA note for details History & Record Review Discussion w/independent historian: Patient and Family Lab Data Labs: Laboratory Results - last 24 hr 03/05/24 03/05/24 12:10 12:58 WBC 9.5 RBC 4.09 L Hgb 12.8 Hct 40.7 MCV 99.5 H MCH 31.3 MCHC 31.4 L RDW Std Deviation 54.9 H RDW Coeff of Lenin 15.0 H Plt Count 330 MPV 10.7 Immature Gran % (Auto) 0.500 Neut % (Auto) 69.8 Lymph % (Auto) 16.7 L [place] % (Auto) 10.8 H Eos % (Auto) 1.3 Baso % (Auto) 0.9 Absolute Neuts (auto) 6.6 Absolute Lymphs (auto) 1.59 Nucleated RBC % 0 Sodium 142 Potassium 3.5 Chloride 111 H Carbon Dioxide 26.0 Anion Gap 5 BUN 25 H Creatinine 0.97 Estim Creat Clear Calc 49.74 Est GFR (MDRD) Af Amer 71 Est GFR (MDRD) Non-Af 59 L BUN/Creatinine Ratio 25.8 H Glucose 110 H Calcium 9.3 Phosphorus 3.8 Magnesium 2.3 Troponin I High Sens 11 Urine Color Yellow Urine Clarity Sl. Cloudy Urine pH 5.0 Ur Specific [place] 1.025 Urine Protein 30 H Urine Glucose (UA) Normal Urine Ketones 15 H Urine Occult Blood 10 H Urine Nitrite Negative Urine Bilirubin 1 H Urine Urobilinogen 1 H Ur Leukocyte Esterase 25 H Urine RBC 0-5 SEEN Urine WBC 0-5 SEEN Ur Squamous Epith Cells 0-5 SEEN Urine Bacteria 0 SEEN Urine Mucus 0 SEEN Radiography Diagnostic Testing: Clinical Impression(s) from Imaging Studies Brain CT 03/05/24 12:30 IMPRESSION: 1. No acute intracranial process. 2. Chronic involutional changes of the brain. Electronically Signed: Shady Spaulding MD at 12:47 EDT Reading Location ID and State: [facility] / [place] Tel , Service support , Chest X-Ray 03/05/24 12:31 IMPRESSION: No radiographic evidence of acute cardiopulmonary disease. Electronically Signed: Shady Spaulding MD at 12:47 EDT , Discharge Plan Triage Chief Complaint: Fall ED Midlevel Provider: Becky Ny ED Provider: Brad Huber Dx/Rx/DC Orders Clinical Impression: History of Parkinson's disease, Head injury, Difficulty in walking, Fall Primary Care Provider: Mone Cervantes What to do if you have Problems For any increased pain, shortness of breath, bleeding, nausea or vomiting, chestpain, or any unexpected problems, contact your Primary Care Provider. Call [facility] ([phone]) or report to the closest Emergency Room. Call 911 if necessary. 03/05/24 1421 <Electronically signed by Becky Ny PA> Cosigner Signature (if applicable): 03/05/24 1523 <Electronically signed by Brad Huber DO> CC: Dr. Mone Cervantes MD ~ Signed [facility] Work Phone: [phone] 147-501904-10-2024 Discharge summary Author Grupo Krause [facility] February 26, 2024 8:15pm Note Date/Time February 26, 2024 4:3 8pm [facility] Medical Records Department [address] [place] [id number] Emergency Department Summary 02/26/24 MR#: [id number] Acct: [id number] Name: ANNABELLE VENTURA Rep #:[id number] : 1945 78 From: Grupo Krause MD PCP: Dr. Mone Cervantes MD Status:[facility] ER Location: ED HPI History of Present Illness Chief Complaint: Lower Extremity Injury Narrative Narrative: 76-year-old female past medical history of atrial fibrillation and known DVT diagnosed in September of last year while she was in a longterm facility for which she takes Eliquis presents for evaluation of swelling of her left lower extremity, and bruising. She was seen at her oncologist/[facility] office today and was sent and for CT imaging of her left lower extremity. It was reported by her [id number] that she is supposed to have maxillofacial surgery in about 2 weeks and was told that she was supposed to stop her Eliquis. There was confusion, and patient thought that she had stopped it around February 13 of [facility]. She also had a trip out to [place]. She noticed bruising on her left thigh and swelling. Her oncologist was concerned about "soft tissue bleeding, and sent her in for evaluation of her left lower extremity. She denies any chest pain or shortness of breath, no other symptoms. [facility] Medical History Anxiety Anxiety disorder Arthritis Cardiology follow-up encounter Chronic pain DDD (degenerative disc disease) Depression DVT (deep venous thrombosis) Essential (primary) hypertension Fall Heartburn History of edema History of stress test Hx of bladder problems Lactose intolerance Lumbar compression fracture (05/2018) Non-smoker Osteoarthritis Parkinson disease Paroxysmal atrial fibrillation Peripheral vascular disease Post-menopausal Shortness of breath on exertion Sleep apnea Thyroid nodule Walker as ambulation aid Home Medications biotin 10,000 mcg capsule 10,000 mcg PO DAILY 07/04/18 [History Last Taken 08/17/23] alendronate 70 mg tablet (Fosamax) 70 mg PO QWEEK 07/01/19 [History Last Taken 08/18/23] carbidopa 25 mg-levodopa 100 mg tablet 1.5 tab PO TID 11/29/20 [History Last Taken 08/22/23] lactase 3,000 unit chewable tablet (Dairy Aid) 3,000 unit PO ONCE 08/02/21 [History Last Taken Unknown] aspirin 81 mg tablet,delayed release (Adult Low Dose Aspirin) 81 mg PO DAILY 12/11/22 [History Last Taken 08/16/23] calcium carb-vit Q9-caunufohz-omoi 333 mg-200 unit-133 mg-5 mg tablet 1 tab PO DAILY 12/11/22 [History Last Taken 08/17/23] hydroxyzine HCl 25 mg tablet 12.5 mg PO Q8H PRN itching 12/11/22 [History Last Taken Unknown] vitamin K2 100 mcg capsule 100 mcg PO DAILY 12/11/22 [History Last Taken 08/16/23] lisinopril 5 mg tablet 5 mg PO DAILY #90 tabs 09/09/23 [Rx Last Taken Unknown] flecainide 50 mg tablet 50 mg PO Q12H OK to give with Plaquenil, pt has been on both #180 tabs 12/02/23 [Rx Last Taken Unknown] acetaminophen 500 mg tablet 1,000 mg PO Q8 PRN fever or pain 02/26/24 [History Last Taken Unknown] apixaban 5 mg tablet (Eliquis) 5 mg PO BID 02/26/24 [History Last Taken Unknown] diltiazem HCl 30 mg tablet 30 mg PO Q8H 02/26/24 [History Last Taken Unknown] duloxetine 20 mg capsule,delayed release 40 mg PO DAILY 02/26/24 [History Last Taken Unknown] hydroxychloroquine 200 mg tablet 200 mg PO BID 02/26/24 [History Last Taken Unknown] oxycodone 5 mg tablet 5 mg PO BID PRN pain 02/26/24 [History Last Taken Unknown] Allergy/AdvReac Type Severity Reaction Status Date / Time baclofen AdvReac Severe emotional Verified 02/26/24 15:21 issues propranolol AdvReac Severe nightmare Verified 02/26/24 15:21 sulfadiazine AdvReac Unknown not as Verified 02/26/24 15:21 effective Family History Father Cancer Sister Cancer Diabetes Heart disease Surgical History H/O varicose vein ligation and stripping History of back surgery (03/2018) History of herniorrhaphy History of hysterectomy History of left heart catheterization (04/25/17) History of tubal ligation Hx of LASIK Hx of left cataract extraction Hx of right cataract extraction S/P shoulder replacement Spinal cord stimulator status (05/2020) Social History Smoking Status: Never smoker alcohol intake: never substance use type: does not use caffeine: Yes Type: coffee Number of servings: 1 ROS ROS ED ROS Narrative Constitutional: No fever, no chills. HEENT: No sore throat. No neck pain. No loss of vision. No rhinorrhea. Cardiovascular: No chest pain. No palpitations. No pedal edema. Respiratory: No cough, no shortness of breath. Abdominal: No abdominal pain. No nausea. No vomiting. Genitourinary: No dysuria. No hematuria. Musculoskeletal: No myalgias. No arthralgias. Pain swelling and bruising of left lower extremity with known DVT. Neurologic: No headaches. No dizziness. No lightheadedness. Skin: No rash. No change in color. Psychiatric: No depression. No anxiety. EXAM Physical Exam Narrative Exam Narrative: Afebrile. Vital signs noted. HEENT: Normocephalic. Atraumatic. PERRL, EOMI. Neck soft and supple. No pointtenderness or step off. Cardiovascular: Regular rate and rhythm. No murmurs, rubs, or gallops appreciated. Respiratory: No tachypnea. Lungs clear to auscultation bilaterally. Gastrointestinal: Abdomen soft, nontender, with normoactive bowel sounds. No rebound or guarding. Neurological: Awake. Alert. Nonfocal, nonlateralizing. Skin: No rash. Normal color. No pallor. Musculoskeletal: No pedal edema. Full range of motion extremities. Const Vital Signs: 02/26/24 15:18 02/26/24 17:18 02/26/24 19:00 Temperature 98 F Temperature Source Temporal Pulse Rate 68 72 Respiratory Rate 17 16 Blood Pressure 118/97 H 162/81 H Blood Pressure Mean 104 108 Pulse Ox 96 92 98 Oxygen Delivery Method Room Air Room Air Room Air MDM MDM MDM Narrative Medical decision making narrative: CTA will be obtained. Concern would be for hematoma of left lower extremity andarterial bleeding versus compartment syndrome. I have low suspicion for compartment syndrome as she has a palpable dorsalis pedis pulse on the left. Additionally, another relative of hers gives further history that she is still taking her Eliquis so I have lower concern for worsening DVT. They state that they did have an ultrasound performed recently that showed that her "blood clot was still there". With concern for hematoma and arterial bleeding, CTA will be obtained along with CBC and BMP to check her kidney function. I reviewed her laboratory work and she has normal white count of 8.0, [id number], hematocrit 38.2, platelet count normal at 354. Electrolyte panel shows chloride slightly elevated at 110 which I think is nonspecific with a BUN of 18 and creatinine 0.77. Glucose appropriately elevated at 97. I reviewed the radiology report for the CT of the left lower extremity. There is no comment ofa hematoma or active extravasation or arterial bleed. There is significant stenosis throughout the arterial branch system of the left lower extremity. Shedoes have a palpable dorsalis pedis pulse on my examination. At this point in time, I discussed the patient with Dr. Mone Phillip. I reviewed her ultrasound from yesterday which shows chronic DVT, but no acute DVT. In discussion with vascular surgery, it was felt that she can be discharged to follow-up as an outpatient closely. She has already had 6 months of Eliquis so she is able to hold this for her mouth surgery and 1 to 2 weeks. However, Dr. Phillip does state that he is comfortable with her continuing the Eliquis as long as a large hematoma does not develop. It was thought that this is probably superficial ecchymosis. Patient would like to be discharged and will follow-up with vascular surgery. Disposition is discharged home in stable condition. History & Record Review Discussion w/independent historian: Patient and Family Additional record(s) reviewed:: Prior outpatient record Lab Data Attestation: I reviewed the patient's lab results. Labs: Laboratory Results - last 24 hr 02/26/24 16:27 WBC 8.0 RBC 3.93 L Hgb 12.0 Hct 38.2 MCV 97.2 MCH 30.5 MCHC 31.4 L RDW Std Deviation 50.0 H RDW Coeff of Lenin 14.2 Plt Count 354 MPV 9.4 Immature Gran % (Auto) 0.500 Neut % (Auto) 65.0 Lymph % (Auto) 20.3 [place] % (Auto) 9.1 Eos % (Auto) 4.0 Baso % (Auto) 1.1 H Absolute Neuts (auto) 5.2 Absolute Lymphs (auto) 1.63 Nucleated RBC % 0 Sodium 142 Potassium 3.5 Chloride 110 H Carbon Dioxide 31.0 Anion Gap 1 L BUN 18 Creatinine 0.77 Estim Creat Clear Calc 61.26 Est GFR (MDRD) Af Amer 94 Est GFR (MDRD) Non-Af 77 BUN/Creatinine Ratio 23.5 H Glucose 97 Calcium 9.2 Radiography Diagnostic Testing: Clinical Impression(s) from Imaging Studies Lower Extremity CTA 02/26/24 15:56 IMPRESSION: 1. Extensive multilevel calcifications throughout the LEFT lower extremity arterial tree. No maury stenosis and involving the vessels to level of the popliteal artery. 2. There is a moderate approximately 50% stenosis of the tibial peroneal trunk. 3. Multiple calcifications in the PAUL which however is patent to the level of the dorsalis pedis. 4. Extensive calcifications in the LEATHER ROLLER with a moderate length segment of diminished contrast opacification suspicious of high-grade stenosis versus occlusion. Plantar arch is not well opacified. 5. Peroneal artery is patent to the level of the ankle. Electronically Signed: Jian Porter MD at 19:25 EDT , Discharge Plan Triage Chief Complaint: Lower Extremity Injury ED Provider: Grupo Krause Dx/Rx/DC Orders Clinical Impression: Superficial bruising of thigh, Chronic deep vein thrombosis (DVT) Instructions: ED Contusion, Lower Extremity, ED Deep Vein Thrombosis (DVT) Prescriptions: No Action biotin 10,000 mcg capsule 10,000 mcg PO DAILY alendronate [Fosamax] 70 mg tablet 70 mg PO QWEEK Hold Instructions: HOLD PRIOR TO PROCEDURE carbidopa-levodopa 25-100 mg tablet 1.5 tab PO TID Dairy Aid 3,000 unit tablet,chewable 3,000 unit PO ONCE Rx Instructions: administer with meals and/or snacks vitamin K2 100 mcg capsule 100 mcg PO DAILY aspirin [Adult Low Dose Aspirin] 81 mg tablet,delayed release (DR/EC) 81 mg PO DAILY calcium carb-D3-mag [id number] [phone] gh-ivpq-nw-mg tablet 1 tab PO DAILY Rx Instructions: administer with a meal hydroxyzine HCl 25 mg tablet 12.5 mg PO Q8H PRN (Reason: itching) oxycodone 5 mg tablet 5 mg PO BID PRN (Reason: pain) Eliquis 5 mg tablet 5 mg PO BID duloxetine 20 mg capsule,delayed release(DR/EC) 40 mg PO DAILY acetaminophen 500 mg Tablet 1,000 mg PO Q8 PRN (Reason: fever or pain) diltiazem HCl 30 mg tablet 30 mg PO Q8H hydroxychloroquine 200 mg tablet 200 mg PO BID lisinopril 5 mg tablet 5 mg PO DAILY Qty: 90 3RF Hold Instructions: HYPOTENSION Patient Comments: THIS HAS BEEN ON HOLD flecainide 50 mg tablet 50 mg PO Q12H Qty: 180 3RF Primary Care Provider: Mone Cervantes Referrals: Mone Cervantes MD [Primary Care Provider] - Mone Phillip MD [Med Staff - Active Staff] - 3-5 Days Activity Restrictions/Additional Instructions: You may continue your Eliquis as previously directed until seen by Dr. Phillip. If you have increasing leg swelling, you should stop. It is okay to hold your Eliquis for your mouth surgery as directed. Disposition Disposition: Home, Self Care What to do if you have Problems For any increased pain, shortness of breath, bleeding, nausea or vomiting, chestpain, or any unexpected problems, contact your Primary Care Provider. Call [facility] ([phone]) or report to the closest Emergency Room. Call 911 if necessary. 02/26/242014 <Electronically signed by Grupo Krause MD> Cosigner Signature (if applicable): CC: Dr. Mone Cervantes MD ~ Signed [facility] Work Phone: Evaluation noteNo assessment information available [facility] Work Phone: Evaluation note* Diagnosis Onset Date Resolution Status Essential (primary) hypertension chronic Paroxysmal atrial fibrillation chronic Status post replacement of right shoulder joint acute [facility] Work Phone: Evaluation note* Diagnosis Onset Date Resolution Status DVT, lower extremity acute Hematoma of left lower extremity acute [facility] Work Phone: Evaluation note* Diagnosis Onset Date Resolution Status DVT, lower extremity acute Hematoma of left lower extremity acute Difficulty in walking acute Fall acute Head injury acute History of Parkinson's disease acute [facility] Work Phone: Hospital Discharge instructions Additional Instructions You may continue your Eliquis as previously directed until seen by Dr. Phillip. If you have increasing leg swelling, you should stop. It is okay to hold your Eliquis for your mouth surgery as directed.[facility] Work Phone: Reason for referral (narrative)No reason for referral information availableWMed[facility] Work Phone: Summary Purpose Family History No Family History Records Found Relationship Condition Age at Onset Recorded Date/T sergey father Malignant neoplasm Unknown Relationship Condition Age at Onset Recorded Date/T sergey father Malignant neoplasm Unknown sister Malignant neoplasm Unknown Diabetes mellitus Unknown Cardiac disease Unknown Relationship Condition Age at Onset Recorded Date/T sergey father Malignant neoplasm Unknown sister Malignant neoplasm Unknown Diabetes mellitus Unknown Cardiac disease Unknown mother Anxiety and depression Unknown Advance Directives No Advanced Directives Records Found Advance Directive Response Recorded Date/ Time Living Will Yes May 12, 2020 1:12pm Power of Embedded Nurse Yes May 12 1:12pm Advance Directive Response Recorded Date/ Time Living Will Yes September 19 11:24am Power of Embedded Nurse Yes September 19, 2023 11:24am Name of Medical Power of Embedded Nurse DAUGHTERS/SARA August 22, 2023 12:44pm Advance Directive Response Recorded Date/ Time Living Will Yes September 19 11:24am Power of Embedded Nurse Yes September 19, 2023 11:24am Advance Directive Response Recorded Date/ Time Name of Medical Power of Embedded Nurse REMEDIOS VENTURA February 26, 2024 4:34pm Living Will Yes February 26, 2024 4:34pm Power of Embedded Nurse Yes February 25 4:34pm Advance Directive Response Recorded Date/ Time Name of Medical Power of Embedded Nurse REMEDIOS VENTURA February 26, 2024 4:34pm Name of Medical Power of Embedded Nurse recalled March 05, 2024 12:46pm Living Will Yes March 05, 2024 12:46pm Power of Embedded Nurse Yes March 05 12:46pm Advance Directive Response Recorded Date/ Time Name of Medical Power of Embedded Nurse REMEDIOS VENTURA February 26, 2024 4:34pm Name of Medical Power of Embedded Nurse recalled March 05, 2024 8:40pm Living Will Yes March 05, 2024 8:40pm Power of Embedded Nurse Yes March 05 8:40pm Advance Directive Response Recorded Date/ Time Living Will Yes March 05, 2024 8:40pm Do you have a Healthcare Power of Embedded Nurse? Yes March 05, 2024 8:40pm Advance Directive Response Recorded Date/ Time Living Will Yes March 05, 2024 8:40pm Do you have a Healthcare Power of Embedded Nurse? Yes March 05, 2024 8:40pm Do you have a Healthcare Power of Embedded Nurse? Yes August 15, 2025 2:19pm Chief Complaint and Reason for Visit Chief Complaint Primary osteoarthrit is, right shoulder Chief Complaint Primary osteoarthrit is, right shoulder PREOP 8 m fu Total Shoulder Replacement, Reverse Total Shoulder Replacement, Reverse Total Shoulder Replacement, Reverse Total Shoulder Replacement, Reverse Total Shoulder Replacement, Reverse ADMISSION EXAM LAB WORK NEW CONCERN HALF-WAY LABWORK Reason for Visit Essential (primary) hypertension Paroxysmal atrial fibrillation Status post replacement of right shoulder joint Chief Complaint HALF-WAY LAB WOR K MONTHLY EXAM HALF-WAY LABWORK LT LEG DVT Chief Complaint LT LEG DVT ACUTE EMBOLISM & THROMBOSIS Amb Documentation NEW-DVT Blood Clot in R Leg Reason for Visit DVT, lower extremity Hematoma of left lower extremity Chief Complaint LT LEG DVT ACUTE EMBOLISM & THROMBOSIS Amb Documentation NEW-DVT Blood Clot in R Leg FALL, CONFUSION/POSSIBLY DEMENTIA RELATED Reason for Visit DVT, lower extremity Hematoma of left lower extremity Difficulty in walking Fall Head injury History of Parkinson's disease Chief Complaint LT LEG DVT ACUTE EMBOLISM & THROMBOSIS Amb Documentation NEW-DVT Blood Clot in R Leg FALL, CONFUSION/POSSIBLY DEMENTIA RELATED FALL, CONFUSION/POSSIBLY DEMENTIA RELATED Reason for Visit DVT, lower extremity Hematoma of left lower extremity Difficulty in walking Fall Head injury History of Parkinson's disease Chief Complaint PREOP 8 m fu Total Shoulder Replacement, Reverse Total Shoulder Replacement, Reverse Total Shoulder Replacement, Reverse Total Shoulder Replacement, Reverse Total Shoulder Replacement, Reverse ADMISSION EXAM LAB WORK NEW CONCERN NEW CONCERN NEW CONCERN HALF-WAY LABWORK HALF-WAY LAB WORK HALF-WAY LABWORK Reason for Visit Essential (primary) hypertension Paroxysmal atrial fibrillation Status post replacement of right shoulder joint Chief Complaint Admit Date MED ONC July 20, 2025 10:15am 1YR LABS July 20, 2025 10:19am Chief Complaint Admit Date MED ONC July 20, 2025 10:15am 1YR LABS July 20, 2025 10:19am Personal history of other venous thrombo sis and em July 20, 2025 1:27pm Reason for Visit Admit Date D-dimer, elevated July 20, 2025 10:19am DVT, lower extremity, distal, acute Sept ember 2024 10:19am DVT, lower extremity July 20, 2025 10:19am Chief Complaint Admit Date MED ONC July 20, 2025 10:15am 1YR LABS July 20, 2025 10:19am Personal history of other venous thrombo sis and em July 20, 2025 1:27pm head injury August 15, 2025 12:31pm Additional Source Comments INFORMATION SOURCE (unrecogn ized section and content) DATE CREATED AUTHOR 08/16/2018 [facility] DATE CREATED AUTHOR AUTHOR'S ORGANIZ ATION 08/22/2025 [facility] DATE CREATED AUTHOR AUTHOR'S ORGANIZ ATION 09/08/2025 [facility] DATE CREATED AUTHOR AUTHOR'S ORGANIZ ATION 09/10/2025 [facility] Care Teams (unrecognized sec tion and content) Team Status: Active Member Role Status Dates Dr. Mone Cervantes MD Family Provider Active Dr. Mone Cervantes MD Primary Care Provider Active Team Status: Inactive Member Role Status Dates Dr. Mone Cervantes MD Primary Care Provider Active Dr. Wei Pollard DO Attending Provider, Referrin g Provider Active Team Status: Inactive Member Role Status Dates Dr. Mone Cervantes MD Primary Care Provider, Attending P rovider Active Team Status: Inactive Member Role Status Dates Dr. Mone Cervantes MD Primary Care Provider, Referring P rovider Active Beatriz Guerra CUSHION BUILDER, CUSHION BUILDER-C Attending Provider Active Team Status: Active Member Role Status Dates Dr. Mone Cervantes MD Primary Care Provider Active Dr. Delmy Bosch MD Attending Provider Active Dr. Wei Pollard DO Referring Provider Active Team Status: Active Member Role Status Dates Dr. Mone Cervantes MD Primary Care Provider Active Dr. Wei Pollard DO Admit Provider , Referring Provider, Other Provider Active Beatriz Guerra CUSHION BUILDER, CUSHION BUILDER-C Other Provider Active Dr. Mauro Pacheco MD Other Provider Active Dr. Jhony Lindo DO Attending Provider, Other Provider Active Team Status: Active Member Role Status Dates Dr. Mone Cervantes MD Primary Care Provider Active Dr. Wei Pollard DO Admit Provider, Other Provid er Active Beatriz Guerra CUSHION BUILDER, CUSHION BUILDER-C Other Provider Active Dr. Mauro Pacheco MD Other Provider Active Dr. Jhony Lindo DO Other Provider Active Dr. Konrad Fleming DO Attending Provider, Other Pro vider Active Team Status: Inactive Member Role Status Dates Dr. Mone Cervantes MD Primary Care Provider Active Margaret Samson CUSHION BUILDER, CUSHION BUILDER-C Attending Provider Active Team Status: Inactive Member Role Status Dates Dr. Mone Cervantes MD Primary Care Provider Active Dr. Orly Hudson MD Attending Provider Active Team Status: Inactive Member Role Status Dates Dr. Mone Cervantes MD Primary Care Provider Active Dr. Wei Pollard DO Admit Provider , Attending Provider, Referring Provider Active Beatriz Guerra CUSHION BUILDER, CUSHION BUILDER-C Other Provider Active Dr. Mauro Pacheco MD Other Provider Active Dr. Jhony Lindo , Other Provider Active Dr. Konrad Fleming , DO Other Provider Active Team Status: Inactive Member Role Status Dates Dr. Mone Cervantes MD Primary Care Provider Active DIAZ Dominique Attending Provider Active Team Status: Active Member Role Status Dates Dr. Mone Cervantes MD Primary Care Provider Active Orly CASEY MD Attending Provider Active Team Status: Active Member Role Status Dates Dr. Mone Cervantes MD Primary Care Provider, Referring P rovider Active Dr. Luis Molina MD Attending Provider Active Team Status: Inactive Member Role Status Dates Dr. Mone Cervantes MD Primary Care Provider Active Orly CASEY MD Attending Provider, Referring Provider Active Team Status: Inactive Member Role Status Dates Dr. Mone Cervantes MD Primary Care Provide r, Attending Provider, Referring Provider Active Team Status: Active Member Role Status Dates Dr. Mone Cervantes MD Primary Care Provider Active Dr. Mone Phillip MD Attending Provider Active Team Status: Inactive Member Role Status Dates Dr. Mone Cervantes MD Primary Care Provider, Referring P rovider Active Dr. Luis Eduardo Brantley MD Attending Provider Active Team Status: Active Member Role Status Dates Dr. Mone Cervantes MD Primary Care Provider Active Barbara Wasserman Attending Provider Active Team Status: Inactive Member Role Status Dates Dr. Mone Cervantes MD Primary Care Provider Active Grupo Krause MD Emergency Provider Active Team Status: Active Member Role Status Dates Dr. Mone Cervantes MD Primary Care Provider Active Dr. Raheem Swartz MD Attending Provider, Referring Provider Active Team Status: Inactive Member Role Status Dates Dr. Mone Cervantes MD Primary Care Provider Active Grupo Krause MD Attending Provider, Emergency Provid er Active Team Status: Inactive Member Role Status Dates Dr. Mone Cervantes MD Primary Care Provider Active Dr. Raheem Swartz MD Attending Provider, Referring Provider Active Team Status: Active Member Role Status Dates Dr. Mone Cervantes MD Primary Care Provider Active Dr. Mone Phillip MD Attending Provider Active Dr. Raheem Swartz MD Referring Provider Active Team Status: Active Member Role Status Dates Dr. Mone Cervantes MD Primary Care Provider Active Dr. Brad Huber DO Emergency Provider Active Dr. Nannette Marks MD Admit Provider, Attending Prov ider Active Team Status: Active Member Role Status Dates Dr. Mone Cervantes MD Primary Care Provider Active Dr. Brad Huber DO Emergency Provider Active Dr. Nannette Marks MD Admit Provider, Other Provider Active Dr. Mone Gurerier DO Attending Provider, Other Provid er Active Team Status: Inactive Member Role Status Dates Dr. Mone Cervantes MD Primary Care Provider Active Dr. Brad Huber DO Emergency Provider Active Dr. Nannette Marks MD Admit Provider, Other Provider Active Dr. Mone Guerrier DO Attending Provider Active Team Status: Inactive Member Role Status Dates Dr. Mone Cervantes MD Primary Care Provider Active Start: December 14, 2024 End: December 14, 2024 Anatoly OJHNSON PA-C Attending Provider Active Start: December 14, 2024 End: December 14, 2024 Anatoly JOHNSON PA-C Referring Provider Active Start: December 14, 2024 End: December 14, 2024 Team Status: Active Member Role/Relationship Status Dates Dr. Mone Cervantes MD Primary Care Provider Active Team Status: Active Member Role/Relationship Status Dates Dr. Mone Cervantes MD Primary Care Provider Active Start: July 20, 2025 Dr. Luis Eduardo Brantley MD Attending Provider Active S tart: July 20, 2025 Dr. Luis Eduardo Brantley MD Referring Provider Active S tart: July 20, 2025 Team Status: Inactive Member Role/Relationship Status Dates Dr. Mone Cervantes MD Primary Care Provider Active Start: July 20, 2025 End: July 20, 2025 Dr. Mone Cervantes MD Referring Provider Active St art: July 20, 2025 End: July 20, 2025 Dr. Luis Eduardo Brantley MD Attending Provider Active S tart: July 20, 2025 End: July 20, 2025 Team Status: Inactive Member Role/Relationship Status Dates Dr. Mone Cervantes MD Primary Care Provider Active Start: July 20, 2025 End: July 20, 2025 Dr. Luis Eduardo Brantley MD Attending Provider Active S tart: July 20, 2025 End: July 20, 2025 Dr. Luis Eduardo Brantley MD Referring Provider Active S tart: July 20, 2025 End: July 20, 2025 Team Status: Active Member Role/Relationship Status Dates Dr. Mone Cervantes MD Primary Care Provider Active Start: July 20, 2025 Dr. Mone Phillip MD Attending Provider Active S tart: July 20, 2025 Team Status: Active Member Role/Relationship Status Dates Dr. Mone Cervantes MD Primary care physician Active Team Status: Active Member Role/Relationship Status Dates Dr. Mone Cervantes MD Primary care physician Active Start: July 20, 2025 Dr. Luis Eduardo Brantley MD Attending physician Active Start: July 20, 2025 Dr. Luis Eduardo Brantley MD Referring Provider Active S tart: July 20, 2025 Team Status: Inactive Member Role/Relationship Status Dates Dr. Mone Cervantes MD Primary care physician Active Start: July 20, 2025 End: July 20, 2025 Dr. Mone Cervantes MD Referring Provider Active St art: July 20, 2025 End: July 20, 2025 Dr. Luis Eduardo Brantley MD Attending physician Active Start: July 20, 2025 End: July 20, 2025 Team Status: Inactive Member Role/Relationship Status Dates Dr. Mone Cervantes MD Primary care physician Active Start: July 20, 2025 End: July 20, 2025 Dr. Luis Eduardo Brantley MD Attending physician Active Start: July 20, 2025 End: July 20, 2025 Dr. Luis Eduardo Brantley MD Referring Provider Active S tart: July 20, 2025 End: July 20, 2025 Team Status: Active Member Role/Relationship Status Dates Dr. Mone Cervantes MD Primary care physician Active Start: July 20, 2025 Dr. Mone Phillip MD Attending physician Active Start: July 20, 2025 Dr. Luis Eduardo Brantley MD Referring Provider Active S tart: July 20, 2025 Team Status: Inactive Member Role/Relationship Status Dates Dr. Mone Cervantes MD Primary care physician Active Start: August 15, 2025 End: August 15, 2025 Dr. Werner Esquivel DO Attending physician Active Start: August 15, 2025 End: August 15, 2025 Dr. Werner Esquivel DO Emergency Departmen t Physician Active Start: August 15, 2025 End: August 15, 2025 Goals (unrecognized section and content) Goals may be documented in a n alternate sectionGoals may be documented in an alternate sectionGoals may be documented in an alternate sectionGoals may be documented in an alternate sectionGoals may be documented in an alternate sectionGoals may be documented in an alternate sectionGoals may be documented in an alternate sectionGoals may be documented in an alternate sectionGoals may be documented in an alternate sectionGoals may be documented in an alternate section FOR RECORDS PERTAINING TO PATIENTS WHO ARE [...] BE BASED ON THE PRIMARY CLINICAL RECORDS. [facility] provides no warranty or guarantee of the accuracy or completeness of information in this document.
[2025-11-17 18:21] LABS: Color, Urine Yellow (Yellow); Glucose, Dipstick Normal (Normal); Ketone-Dipstick 15 mg/dl (Negative); Leukocyte Esterase-Dipstick 500 /ul (Negative); Nitrite-Dipstick Negative (Negative); Occult Blood-Urine 10 /ul (Negative); Protein-Dipstick 30 mg/dl (Negative); Specific Gravity, Urine 1.030 (1.002-1.030)
[2025-11-17 18:27] LABS: Urine Bilirubin Dipstick 1 mg/dL (Negative)
[2025-11-17 19:23] LABS: Calcium Oxalate Crystals Ur 2+ /hpf (<or=2+)
[2025-11-17 19:29] LABS: Red Blood Cells-Urine 0-5 SEEN /hpf (0-5)
== END | disposition home or self-care (01) ==
LOC: MTLAB 16:41
PROVIDERS: PCP Family Medicine; Referring Provider Family Medicine; Visit Provider Family Medicine
DX: N39.0 Urinary tract infection, site not specified (principal)
CPT/HCPCS: 81001; 87086; 87088